=== PATIENT | male | born 1975 | race Caucasian/White ===

== ENCOUNTER 2016-07-01 14:17 | Emergency (ER) | payer MEDICARE ==
[~2016-07-01] VITALS: Ht 170.2 cm; Wt 102.1 kg
[~2016-07-01 14:17] MED LIST: ACHYD1T PO; ALPR1T PO; BUPR1FIL3 SL; CANA100T PO; CYCL10TA9 PO; DESV100T PO; DILT240C87 PO; GMFB600T PO; HYDR-3714 PO; INSU100I23 SQ; INSU100V16 SQ; INSU100V6 SQ; KETO10TA77 PO; LOVAZA PO; OMEP-10 PO; ONDA2VIA IV; ORPH100T PO; PRD20T PO; RSP1T PO; SIMV40TA4 PO; SULF1TAB35 PO; TOPI100T PO; TRAM-21 PO; VITAMIN D; VLS80C PO; ZOLP10TA PO; ZOLP12.5 PO; ZPR20C PO; ZPR40C PO
--- NOTE | 2016-07-01 15:51 | Diagnostic Imaging Report ---
INDICATION: Pain x 1 week, increasing in severity last night. TECHNIQUE: Three views of the right shoulder. CORRELATION STUDY: None. FINDINGS: There is a comminuted fracture involving the humeral head, most pronounced at the level of the greater tuberosity. Slight depression about the main fracture fragment. The remainder of the shoulder also demonstrates what appears to be some irregularity about the bony glenoid, suspect for additional fracture. Acromioclavicular joint is maintained. Visualized portions of the right upper lung field is unremarkable. IMPRESSION: 1. Comminuted slightly depressed right humeral head fracture at the level of the greater tuberosity. 2. Also suspect for fracture involving the inferior bony glenoid. Dictated by: Dictated on workstation # [id number]
--- NOTE | 2016-07-01 16:35 | ED Upper Extremity ---
General Chief Complaint: Upper Extremity Stated Complaint: R ARM/SHOULDER PAIN Nursing Triage Note: PT C/O R SHOULDER PAIN RADIATING TO HIS WRIST. HE DENIES ANY INJURY. Nursing Sepsis Screen: No Definite Risk Source: patient Exam Limitations: no limitations History of Present Illness Time seen by provider: 16:00 Initial Comments The patient is a 41-year-old white male who presents with right shoulder pain. He states that this has been present for about one week. There is been no history of injury or unusual lifting. He reports that the pain has gotten worse. 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 Onset: last week Pain/Injury Location: right shoulder Method of Injury: unknown Allergies and Home Medications Allergies Coded Allergies: levofloxacin (Verified Adverse Reaction, Unknown, STOMACH CAMPS, 06/08/15) Home Medications Alprazolam 1 Mg Tablet, 1 TAB PO TID, #90 (Reported) Buprenorphine HCl/Naloxone HCl 1 Each Film, 1 EACH SL EVERY OTHER DAY, (Reported ) Canagliflozin 100 Mg Tablet, 100 MG PO DAILY, (Reported) Desvenlafaxine Succinate 100 Mg Tab.sr.24h, 100 MG PO DAILY, (Reported) Diltiazem Hcl 240 Mg Capsule.sa, 1 EACH PO HS, (Reported) Gemfibrozil 600 Mg Tab, 600 MG PO BID, (Reported) Insulin Aspart 100 Unit/1 Ml Susp, 20 UNIT SQ AC, (Reported) Insulin Glargine,Hum.rec.anlog 100 Unit/1 Ml Vial, 50 UNIT SQ DAILY, (Reported) Ketorolac Tromethamine 10 Mg Tablet, 10 MG PO Q6H, #20 Prescribed by: LEYDA DAMON on 04/09/142036 Omeprazole 20 Mg Capsule.dr, 20 MG PO BID, (Reported) Sulfamethoxazole/Trimethoprim 1 Each Tablet, 1 EACH PO BID, #20 Prescribed by: LEYDA DAMON on 06/08/152145 Valsartan 80 Mg Tablet, 2 EACH PO DAILY, (Reported) Ziprasidone 40 Mg Cap, 40 MG PO DAILY, (Reported) Zolpidem Tartrate 12.5 Mg Tab, 12.5 MG PO HS, (Reported) [Lovaza] , 1 GM PO BID, (Reported) Constitutional: see HPI EENTM: no symptoms reported Respiratory: no symptoms reported Cardiovascular: no symptoms reported Gastrointestinal: no symptoms reported Genitourinary: no symptoms reported Musculoskeletal: no symptoms reported Skin: no symptoms reported Psychiatric/Neurological: No Symptoms Reported Past Valgjbp-Rqaghr-Rfixzo Hx Patient Social History Alcohol Use: Denies Use Recreational Drug Use: No (CLEAN 2 YEARS) Smoking Status: Current Everyday Smoker Type Used: Cigarettes 2nd Hand Smoke Exposure: No Recent Foreign Travel: No Contact w/Someone Who Travel: No Recent Infectious Disease Expo: No Recent Hopitalizations: No Immunizations Up To Date Tetanus Booster (TDap): Unknown PED Vaccines UTD: No Date of Influenza Vaccine: Feb 11, 2015 Seasonal Allergies Seasonal Allergies: No Surgeries HX Surgeries: No Respiratory Hx Respiratory Disorders: No Cardiovascular Hx Cardiac Disorders: Yes Cardiac Disorders: High Cholesterol, Hypertension Neurological Hx Neurological Disorders: Yes ("CYST" ON LOWER BACK/"SPINE" ) Reproductive System Hx Reproductive Disorders: No Genitourinary Hx Genitourinary Disorders: No Gastrointestinal Hx Gastrointestinal Disorders: Yes (FATTY LIVER) Gastrointestinal Disorders: Gastroesophageal Reflux, Liver Disease/Jaundice, Pancreatitis Musculoskeletal Hx Musculoskeletal Disorders: Yes (CHRONIC BACK PAIN WITH "CYST" ON LOWER BACK/ "SPINE" ) Musculoskeletal Disorders: Chronic Back Pain Endocrine Hx Endocrine Disorders: Yes (DOES NOT ROUTINELY CHECK BLOOD SUGAR) Endocrine Disorders: Diabetes, Insulin dep HEENT HX ENT Disorders: Yes (POOR DENTITION) Loss of Vision: Denies Hearing Impairment: Denies Cancer Hx Cancer: No Psychosocial Hx Psychiatric Problems: Yes Behavioral Health Disorders: Sleep Difficulties, Anxiety, Depression Integumentary HX Skin/Integumentary Disorder: No Blood Transfusions Hx Blood Disorders: No Family Medical History Family Medial History: Cancer 03 MOTHER Congestive heart failure 03 FATHER Family history: Hypertension 03 FATHER Physical Exam Vital Signs Vital Sign - Last 12Hours 07/01/16 14:40 Temp 97.4 Pulse 102 Resp 20 B/P (MAP) 165/85 Pulse Ox 97 O2 Delivery Room Air Capillary Refill : Less Than 3 Seconds General Appearance: mild distress, moderate distress HEENT: normal ENT inspection Neck: full range of motion Cardiovascular: normal peripheral pulses, regular rate, rhythm, no edema, no gallop, no JVD, no murmur Respiratory: chest non-tender, lungs clear, normal breath sounds, no respiratory distress, no accessory muscle use Comments There is no evidence of swelling and bruising or step-off at the right shoulder. He is clearly uncomfortable with minor passive motion of the shoulder and is unable to extend or abduct actively Progress/Results/Core Measures Results/Orders My Orders Orders - BETTIE GAMBINO MD Shoulder, Right, 3 Views (07/01/16 14:57) Vital Signs/I&O Vital Sign - Last 12Hours 07/01/16 14:40 Temp 97.4 Pulse 102 Resp 20 B/P (MAP) 165/85 Pulse Ox 97 O2 Delivery Room Air Blood Pressure Mean: 111 Departure Communication Progress Notes Plain films of the shoulder show a comminuted fracture on the lateral aspect of the humeral head. These are not particularly distracted Impression Impression: Primary Impression: comminuted fracture right humeral head Disposition: HOME, SELF-CARE Condition: Stable/Unchanged Departure-Patient Inst. Decision time for Depature: 16:35 Referrals: LEYDA ZAMORA MD (PCP/Family) Primary Care Physician Patient Instructions: How to Use a Shoulder Sling Add. Discharge Instructions: All discharge instructions reviewed with patient and/or family. Voiced understanding. Use sling as placed. Use ice pack to the shoulder intermittently. You may use ibuprofen or naproxen for pain. Call [employer] [facility] in the morning and see digital an appointment for follow-up in about 1 week. That number is [phone] BETTIE GAMBINO MD July 01, 2016 16:35
[2016-07-01 16:56] VITALS: BP 165/85
== END 2016-07-01 16:57 | disposition home or self-care (01) ==
LOC: EDUNIT# 14:17 → ER 14:19
DX: S42.351A Displaced comminuted fracture of shaft of humerus, right arm, initial encounter for closed fracture (principal); E11.9 Type 2 diabetes mellitus without complications; I10 Essential (primary) hypertension; Z79.4 Long term (current) use of insulin; Z79.899 Other long term (current) drug therapy; X58.XXXA Exposure to other specified factors, initial encounter; Y99.8 Other external cause status
CPT/HCPCS: 73030; 99283

== ENCOUNTER 2016-07-16 04:53 | Observation (INO) | payer MEDICARE ==
[~2016-07-16] VITALS: Ht 170.2 cm; Wt 94.8 kg
[~2016-07-16 04:53] MED LIST changes: +ONDANSETRON 4 MG/2 ML (SDV) Z0FRAN ONE
[2016-07-16] MEDS ORDERED: LACTATED RINGERS 1,000 ML IV ONE (05:00)
[2016-07-16] MEDS ORDERED: HYOSCYAMINE 0.125 MG (LEVSIN) TAB PO ONE (05:00)
[2016-07-16 05:10] LABS: BASOPHILS % (AUTO) 0 % (0-10); EOSINOPHILS % (AUTO) 1 % (0-10); LYMPHOCYTES # (AUTO) 1.5 X 10^3 (1.0-4.0); LYMPHOCYTES % (AUTO) 19 % (12-44); MEAN CORPUSCULAR HEMOGLOBIN 30 PG (25-34); MEAN CORPUSCULAR HGB CONC 34 G/DL (32-36); MEAN CORPUSCULAR VOLUME 88 FL (80-99); MEAN PLATELET VOLUME 10.3 FL (7.4-10.4); MONOCYTES # (AUTO) 0.3 X 10^3 (0.0-1.0); MONOCYTES % (AUTO) 3 % (0-12); NEUTROPHILS % (AUTO) 77 % (42-75); PLATELET COUNT 202 10^3/uL (130-400); RED BLOOD COUNT 5.34 10^6/uL (4.35-5.85); WHITE BLOOD COUNT 7.8 10^3/uL (4.3-11.0)
[2016-07-16] MEDS ORDERED: ONDANSETRON 4 MG/2 ML (SDV) Z0FRAN IVP ONE ×2 (05:15→07:30)
[2016-07-16 05:22] LABS: ALANINE AMINOTRANSFERASE 31 U/L (0-55); ALBUMIN 4.7 G/DL (3.2-4.5); ANION GAP 14 MMOL/L (5-14); ASPARTATE AMINO TRANSFERASE 18 U/L (5-34); BILIRUBIN,TOTAL 0.4 MG/DL (0.1-1.0); BLOOD UREA NITROGEN 14 MG/DL (7-18); BUN/CREATININE RATIO 16; CALCIUM 9.8 MG/DL (8.5-10.1); CARBON DIOXIDE 24 MMOL/L (21-32); CHLORIDE 104 MMOL/L (98-107); CREATININE SERUM 0.86 MG/DL (0.60-1.30); GFR ESTIMATED > 60; GLUCOSE 153 MG/DL (70-105); MAGNESIUM 2.5 MG/DL (1.8-2.4); POTASSIUM 3.6 MMOL/L (3.6-5.0); SODIUM 142 MMOL/L (135-145); TOTAL PROTEIN 8.2 G/DL (6.4-8.2)
[2016-07-16] MEDS ORDERED: PROMETHAZINE INJ 25 MG/ML (PHENERGAN) AMP ONE (05:30)
[2016-07-16] MEDS ORDERED: PROMETHAZINE INJ 25 MG/ML (PHENERGAN) AMP IVP ONE (05:45)
--- NOTE | 2016-07-16 05:47 | ED GI ---
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 PT REPORTS HE HAS NOT FELT WELL ALL DAY. Sepsis Screen: No Definite Risk Source of Information: Patient Exam Limitations: No Limitations (DAVIDE ALANIS MD) History of Present Illness Time Seen By Provider: 04:57 Initial Comments This 41-year-old gentleman presents to the emergency room with complaints of nausea throughout the day yesterday that transitioned into vomiting and diarrhea today. He arrives via EMS because he had no way to get to the hospital. He denies fever. He has some mild generalized abdominal discomfort rated as 5/10. (DAVIDE ALANIS MD) Allergies and Home Medications Allergies Coded Allergies: levofloxacin (Verified Adverse Reaction, Unknown, STOMACH CAMPS, 06/08/15) Home Medications Alprazolam 1 Mg Tablet, 1 MG PO BID, (Reported) Buprenorphine HCl/Naloxone HCl 1 Each Film, 1 FILM SL EVERY OTHER DAY, (Reported ) Buspirone HCl 15 Mg Tablet, 15 MG PO QID PRN for ANXIETY, (Reported) Canagliflozin 100 Mg Tablet, 100 MG PO DAILY, (Reported) LAST FILLED 06/04/16 #30 Cyproheptadine HCl 4 Mg Tablet, 4 MG PO HS, (Reported) Desvenlafaxine Succinate 100 Mg Tab.er.24h, 100 MG PO DAILY, (Reported) Diltiazem HCl 240 Mg Cap.er.24h, 240 MG PO HS, (Reported) Gabapentin 300 Mg Capsule, 300 MG PO TID, (Reported) Gemfibrozil 600 Mg Tablet, 600 MG PO BID, (Reported) Insulin Aspart 300 Units/3 Ml Solution, 24 UNITS SQ AC, (Reported) Insulin Glargine,Hum.rec.anlog 100 Unit/1 Ml Insuln.pen, 45 UNITS SQ DAILY, ( Reported) [place]-3 Acid Ethyl Esters 1 Gm Capsule, 1 GM PO BID, (Reported) Omeprazole 20 Mg Capsule.dr, 40 MG PO BID, (Reported) TAKES 2 (20 MG) CAPSULES Ondansetron 8 Mg Tab.rapdis, 8 MG PO EVERY 4 HOURS PRN for NAUSEA/VOMITING, #20 Prescribed by: BETTIE GAMBINO on 07/17/16 1219 Quetiapine Fumarate 300 Mg Tablet, 300 MG PO HS, (Reported) TAKES IN ADDITION TO QUETIPINE 200 MG Quetiapine Fumarate 200 Mg Tablet, 200 MG PO HS, (Reported) TAKES IN ADDITION TO QUETIAPINE 300 MG Valsartan 160 Mg Tablet, 160 MG PO BID, (Reported) LAST FILLED 06/08/16 #60 Zolpidem Tartrate 12.5 Mg Tab.mphase, 12.5 MG PO HS, (Reported) Review of Systems Constitutional: no symptoms reported EENTM: No Symptoms Reported Respiratory: No Symptoms Reported Cardiovascular: No Symptoms Reported Gastrointestinal: See HPI Genitourinary: No Symptoms Reported Musculoskeletal: no symptoms reported Skin: no symptoms reported Psychiatric/Neurological: No Symptoms Reported Endocrine: No Symptoms Reported (DAVIDE ALANIS MD) Past Fsxpehc-Sddvbz-Pzespp Hx Patient Social History Alcohol Use: Denies Use Recreational Drug Use: No Smoking Status: Current Everyday Smoker Type Used: Cigarettes 2nd Hand Smoke Exposure: No Recent Foreign Travel: No Contact w/Someone Who Travel: No Recent Infectious Disease Expo: No Recent Hopitalizations: No (DAVIDE ALANIS MD) Immunizations Up To Date Tetanus Booster (TDap): Unknown PED Vaccines UTD: No Date of Influenza Vaccine: Feb 11, 2015 (DAVIDE ALANIS MD) Seasonal Allergies Seasonal Allergies: No (DAVIDE ALANIS MD) Surgeries HX Surgeries: No (DAVIDE ALANIS MD) Respiratory Hx Respiratory Disorders: No (DAVIDE ALANIS MD) Cardiovascular Hx Cardiac Disorders: Yes Cardiac Disorders: High Cholesterol, Hypertension (DAVIDE ALANIS MD) Neurological Hx Neurological Disorders: Yes ("CYST" ON LOWER BACK/"SPINE" ) (DAVIDE ALANIS MD) Reproductive System Hx Reproductive Disorders: No (DAVIDE ALANIS MD) Genitourinary Hx Genitourinary Disorders: No (DAVIDE ALANIS MD) Gastrointestinal Hx Gastrointestinal Disorders: Yes (FATTY LIVER) Gastrointestinal Disorders: Gastroesophageal Reflux, Liver Disease/Jaundice, Pancreatitis (DAVIDE ALANIS MD) Musculoskeletal Hx Musculoskeletal Disorders: Yes (CHRONIC BACK PAIN WITH "CYST" ON LOWER BACK/ "SPINE" ) Musculoskeletal Disorders: Chronic Back Pain (DAVIDE ALANIS MD) Endocrine Hx Endocrine Disorders: Yes (DOES NOT ROUTINELY CHECK BLOOD SUGAR) Endocrine Disorders: Diabetes, Insulin dep (DAVIDE ALANIS MD) HEENT HX ENT Disorders: Yes (POOR DENTITION) Loss of Vision: Denies Hearing Impairment: Denies (DAVIDE ALANIS MD) Cancer Hx Cancer: No (DAVIDE ALANIS MD) Psychosocial Hx Psychiatric Problems: Yes Behavioral Health Disorders: Sleep Difficulties, Anxiety, Depression (DAVIDE ALANIS MD) Integumentary HX Skin/Integumentary Disorder: No (DAVIDE ALANIS MD) Blood Transfusions Hx Blood Disorders: No (DAVIDE ALANIS MD) Family Medical History Family Medial History: Cancer 03 MOTHER Congestive heart failure 03 FATHER Family history: Hypertension 03 FATHER (DAVIDE ALANIS MD) Family Medial History: Cancer 03 MOTHER Congestive heart failure 03 FATHER Family history: Hypertension 03 FATHER (BETTIE GAMBINO MD) Physical Exam Vital Signs VS - Last 72 Hours, by Label 07/16/16 04:53 Temp 99.0 Pulse 94 Resp 18 B/P (MAP) 163/99 Pulse Ox 95 O2 Delivery Room Air Capillary Refill : Less Than 3 Seconds General Appearance: WD/WN, mild distress HEENT: PERRL/EOMI, normal ENT inspection, pharynx normal Neck: normal inspection Respiratory: lungs clear, normal breath sounds, no respiratory distress, no accessory muscle use Cardiovascular: regular rate, rhythm, no edema, no murmur Gastrointestinal: normal bowel sounds, soft, tenderness (minimal generalized discomfort with palpation) Extremities: normal inspection, no pedal edema 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, no motor/sensory deficits, alert, normal mood/affect, oriented x 3 Skin: normal color, warm/dry (DAVIDE ALANIS MD) Vital Signs VS - Last 72 Hours, by Label 07/16/16 04:53 Temp 99.0 Pulse 94 Resp 18 B/P (MAP) 163/99 Pulse Ox 95 O2 Delivery Room Air (BETTIE GAMBINO MD) Progress/Results/Core Measures Results/Orders Lab Results Laboratory Tests Test 07/16/16 04:53 Range/Units White Blood Count 7.8 4.3-11.0 10^3/uL Red Blood Count 5.34 4.35-5.85 10^6/uL Hemoglobin 15.8 13.3-17.7 G/DL Hematocrit 47 40-54 % Mean Corpuscular Volume 88 80-99 FL Mean Corpuscular Hemoglobin 30 25-34 PG Mean Corpuscular Hemoglobin Concent 34 32-36 G/DL Red Cell Distribution Width 14.0 10.0-14.5 % Platelet Count 202 130-400 10^3/uL Mean Platelet Volume 10.3 7.4-10.4 FL Neutrophils (%) (Auto) 77 H 42-75 % Lymphocytes (%) (Auto) 19 12-44 % Monocytes (%) (Auto) 3 0-12 % Eosinophils (%) (Auto) 1 0-10 % Basophils (%) (Auto) 0 0-10 % Neutrophils # (Auto) 6.0 1.8-7.8 X 10^3 Lymphocytes # (Auto) 1.5 1.0-4.0 X 10^3 Monocytes # (Auto) 0.3 0.0-1.0 X 10^3 Eosinophils # (Auto) 0.0 0.0-0.3 10^3/uL Basophils # (Auto) 0.0 0.0-0.1 10^3/uL Sodium Level 142 135-145 MMOL/L Potassium Level 3.6 3.6-5.0 MMOL/L Chloride Level 104 98-107 MMOL/L Carbon Dioxide Level 24 21-32 MMOL/L Anion Gap 14 5-14 MMOL/L Blood Urea Nitrogen 14 7-18 MG/DL Creatinine 0.86 0.60-1.30 MG/DL Estimat Glomerular Filtration Rate > 60 BUN/Creatinine Ratio 16 Glucose Level 153 H 70-105 MG/DL Calcium Level 9.8 8.5-10.1 MG/DL Magnesium Level 2.5 H 1.8-2.4 MG/DL Total Bilirubin 0.4 0.1-1.0 MG/DL Aspartate Amino Transf (AST/SGOT) 18 5-34 U/L Alanine Aminotransferase (ALT/SGPT) 31 0-55 U/L Alkaline Phosphatase 166 H 40-136 U/L Total Protein 8.2 6.4-8.2 G/DL Albumin 4.7 H 3.2-4.5 G/DL My Orders Orders - BRUEGGEMANN,DAVIDE T MD Cbc With Automated Diff (07/16/16 05:00) Comprehensive Metabolic Panel (07/16/16 05:00) Magnesium (07/16/16 05:00) Ua Culture If Indicated (07/16/16 05:00) Saline Lock/Iv-Start (07/16/16 05:00) Lactated Ringers (Lr 1000 Ml Iv Solution (07/16/16 05:00) Hyoscyamine Sl Tablet (Levsin Sl Tablet) (07/16/16 05:00) Ondansetron Injection (Zofran Injectio (07/16/16 05:15) Promethazine Injection (Phenergan Injec (07/16/16 05:45) Promethazine Injection (Phenergan Injec (07/16/16 05:30) Lipase (07/16/16 05:53) Famotidine Injection (Pepcid Injection) (07/16/16 06:00) Scopolamine Patch (Transderm-Scop Patch) (07/16/16 06:00) Medications Given in ED Current Medications Medications Dose Ordered Sig/Attila Route Start Time Stop Time Status Last Admin Dose Admin Famotidine 20 mg ONCE ONCE IVP 07/16/16 06:00 07/16/16 06:01 DC 07/16/16 06:00 20 MG Hyoscyamine Sulfate 0.25 mg ONCE ONCE PO 07/16/16 05:00 07/16/16 05:03 DC 07/16/16 05:12 0.25 MG Lactated Ringer's 1,000 ml @ 0 mls/hr Q0M ONCE IV 07/16/16 05:00 07/16/16 05:03 DC 07/16/16 05:12 1,000 MLS/HR Ondansetron HCl 8 mg ONCE ONCE IVP 07/16/16 05:15 07/16/16 05:16 DC 07/16/16 04:56 8 MG Promethazine HCl 25 mg ONCE ONCE IVP 07/16/16 05:45 07/16/16 05:46 DC 07/16/16 05:35 25 MG Scopolamine 1.5 mg ONCE ONCE TD 07/16/16 06:00 07/16/16 06:01 DC 07/16/16 06:00 1.5 MG Vital Signs/I&O Vital Sign - Last 12Hours 07/16/16 04:53 Temp 99.0 Pulse 94 Resp 18 B/P (MAP) 163/99 Pulse Ox 95 O2 Delivery Room Air Blood Pressure Mean: 120 (DAVIDE ALANIS MD) Lab Results Laboratory Tests Test 07/16/16 04:53 07/16/16 06:30 Range/Units White Blood Count 7.8 4.3-11.0 10^3/uL Red Blood Count 5.34 4.35-5.85 10^6/uL Hemoglobin 15.8 13.3-17.7 G/DL Hematocrit 47 40-54 % Mean Corpuscular Volume 88 80-99 FL Mean Corpuscular Hemoglobin 30 25-34 PG Mean Corpuscular Hemoglobin Concent 34 32-36 G/DL Red Cell Distribution Width 14.0 10.0-14.5 % Platelet Count 202 130-400 10^3/uL Mean Platelet Volume 10.3 7.4-10.4 FL Neutrophils (%) (Auto) 77 H 42-75 % Lymphocytes (%) (Auto) 19 12-44 % Monocytes (%) (Auto) 3 0-12 % Eosinophils (%) (Auto) 1 0-10 % Basophils (%) (Auto) 0 0-10 % Neutrophils # (Auto) 6.0 1.8-7.8 X 10^3 Lymphocytes # (Auto) 1.5 1.0-4.0 X 10^3 Monocytes # (Auto) 0.3 0.0-1.0 X 10^3 Eosinophils # (Auto) 0.0 0.0-0.3 10^3/uL Basophils # (Auto) 0.0 0.0-0.1 10^3/uL Sodium Level 142 135-145 MMOL/L Potassium Level 3.6 3.6-5.0 MMOL/L Chloride Level 104 98-107 MMOL/L Carbon Dioxide Level 24 21-32 MMOL/L Anion Gap 14 5-14 MMOL/L Blood Urea Nitrogen 14 7-18 MG/DL Creatinine 0.86 0.60-1.30 MG/DL Estimat Glomerular Filtration Rate > 60 BUN/Creatinine Ratio 16 Glucose Level 153 H 70-105 MG/DL Calcium Level 9.8 8.5-10.1 MG/DL Magnesium Level 2.5 H 1.8-2.4 MG/DL Total Bilirubin 0.4 0.1-1.0 MG/DL Aspartate Amino Transf (AST/SGOT) 18 5-34 U/L Alanine Aminotransferase (ALT/SGPT) 31 0-55 U/L Alkaline Phosphatase 166 H 40-136 U/L Total Protein 8.2 6.4-8.2 G/DL Albumin 4.7 H 3.2-4.5 G/DL Lipase 27 8-78 U/L Urine Color YELLOW Urine Clarity CLEAR Urine pH 8 5-9 Urine Specific [place] 1.015 L 1.016-1.022 Urine Protein 2+ H NEGATIVE Urine Glucose (UA) 4+ H NEGATIVE Urine Ketones 1+ H NEGATIVE Urine Nitrite NEGATIVE NEGATIVE Urine Bilirubin NEGATIVE NEGATIVE Urine Urobilinogen NORMAL NORMAL MG/DL Urine Leukocyte Esterase NEGATIVE NEGATIVE Urine RBC (Auto) NEGATIVE NEGATIVE Urine RBC NONE /HPF Urine WBC 0-2 /HPF Urine Squamous Epithelial Cells 5-10 /HPF Urine Crystals NONE /LPF Urine Bacteria NEGATIVE /HPF Urine Casts NONE /LPF Urine Mucus NEGATIVE /LPF Urine Culture Indicated NO My Orders Orders - BETTIE GAMBINO MD Ondansetron Injection (Zofran Injectio (07/16/16 07:30) Lactated Ringers (Lr 1000 Ml Iv Solution (07/16/16 07:30) Abdomen/Kub [place] (07/16/16 08:34) Medications Given in ED Current Medications Medications Dose Ordered Sig/Attila Route Start Time Stop Time Status Last Admin Dose Admin Famotidine 20 mg ONCE ONCE IVP 07/16/16 06:00 07/16/16 06:01 DC 07/16/16 06:00 20 MG Hyoscyamine Sulfate 0.25 mg ONCE ONCE PO 07/16/16 05:00 07/16/16 05:03 DC 07/16/16 05:12 0.25 MG Lactated Ringer's 1,000 ml @ 0 mls/hr Q0M ONCE IV 07/16/16 05:00 07/16/16 05:03 DC 07/16/16 05:12 1,000 MLS/HR Ondansetron HCl 8 mg ONCE ONCE IVP 07/16/16 05:15 07/16/16 05:16 DC 07/16/16 04:56 8 MG Ondansetron HCl 8 mg ONCE ONCE IVP 07/16/16 07:30 07/16/16 07:31 DC 07/16/16 07:35 8 MG Promethazine HCl 25 mg ONCE ONCE IVP 07/16/16 05:45 07/16/16 05:46 DC 07/16/16 05:35 25 MG Scopolamine 1.5 mg ONCE ONCE TD 07/16/16 06:00 07/16/16 06:01 DC 07/16/16 06:00 1.5 MG Vital Signs/I&O Vital Sign - Last 12Hours 07/16/16 04:53 Temp 99.0 Pulse 94 Resp 18 B/P (MAP) 163/99 Pulse Ox 95 O2 Delivery Room Air (BETTIE GAMBINO MD) Progress Note : Time: 06:01 Progress Note Patient was given Zofran 8 mg and a liter of lactated Ringer's. He continued to have some nausea and was given Phenergan 25 mg IV. He began to vomit despite receiving Phenergan. A scopolamine patch and Pepcid was then ordered. We will monitor his response before determining disposition. Lipase was also added to his labs. Care was transferred to Dr. Gambino. (DAVIDE ALANIS MD) Departure Communication Progress Notes Lab work All was normal. The added lipase was also normal. The patient however continued to retch and vomit bilious materials despite 2 doses of Zofran and 1 of Phenergan. Given his diabetes history it was elected to admit him for observation and management of fluid and blood sugar. This was discussed with Dr. Milton of the hospitalist service (BETTIE GAMBINO MD) Impression Impression: Primary Impression: Nausea vomiting and diarrhea Disposition: ADMITTED INPATIENT Condition: Stable/Unchanged Departure-Patient Inst. Decision time for Depature: 05:49 (DAVIDE ALANIS MD) Referrals: LEYDA ZAMORA MD (PCP/Family) Primary Care Physician Patient Instructions: Nausea and Vomiting, Adult Add. Discharge Instructions: Drink plenty of clear liquids. Gradually advance your diet with small quantities of bland food as tolerated. Monitor your blood sugars closely while you're ill. Return to the ER if symptoms worsen. Follow up with your primary care provider as soon as possible. You may dissolve Zofran (ondansetron) under the tongue every 4 hours as needed for nausea and vomiting. Use Levsin dissolved under the tongue every 4 hours as needed for cramping and diarrhea. All discharge instructions reviewed with patient and/or family. Voiced understanding. Scripts Ondansetron (Zofran Odt) 8 Mg Tab.rapdis 8 MG PO EVERY 4 HOURS Y for NAUSEA/VOMITING, #20 TAB Prov: BETTIE GAMBINO MD 07/17/16 DAVIDE ALANIS MD Jul 16, 2016 05:47 BETTIE GAMBINO MD Jul 16, 2016 09:05
[2016-07-16] MEDS ORDERED: SCOPOLAMINE 1.5 MG (TRANSDERM-SCOP) PATCH TD ONE (06:00)
[2016-07-16] MEDS ORDERED: FAMOTIDINE 20MG/2ML IV (PEPCID) IVP ONE (06:00)
[2016-07-16] MEDS ORDERED: HYOS0.1283 SL (06:05)
[2016-07-16] MEDS ORDERED: ONDA4TAB8 PO (06:05)
[2016-07-16 06:40] LABS: BILIRUBIN,URINE NEGATIVE (NEGATIVE); KETONES,URINE 1+ (NEGATIVE); LEUKOCYTE ESTERASE ,URINE NEGATIVE (NEGATIVE); NITRITE,URINE NEGATIVE (NEGATIVE); PH,URINE 8 (5-9); PROTEIN,URINE 2+ (NEGATIVE); UROBILINOGEN,URINE NORMAL (NORMAL)
[2016-07-16 06:51] LABS: WBC,URINE 0-2 /HPF
[2016-07-16] MEDS ORDERED: LACTATED RINGERS 1,000 ML IV SCH (07:30)
--- NOTE | 2016-07-16 09:01 | Diagnostic Imaging Report ---
EXAMINATION: Supine views of the abdomen. INDICATION: Nausea and vomiting. FINDINGS: There is unremarkable bowel gas pattern with no significant dilatation seen. This supine study cannot evaluate for pneumoperitoneum or air-fluid levels. No suspicious calcifications. No significant amounts of fecal material demonstrated. IMPRESSION: Unremarkable exam. Dictated by: Dictated on workstation # [id number]
[2016-07-16] MEDS ORDERED: PROMETHAZINE INJ 25 MG/ML (PHENERGAN) AMP IV PRN (09:45)
[2016-07-16] MEDS ORDERED: CATHETER FLUSH 10 ML SYR IV PRN (09:45)
[2016-07-16] MEDS: NS IV 1000 ML 1,000 ML IV SCH ×3 (10:14→23:11)
--- NOTE | 2016-07-16 10:23 | History & Physical-Hospitalist ---
HPI History of Present Illness: HPI/Chief Complaint CC: Severe N/V/D HPI: This is a 41-year-old white male clinic patient Dr. Royal's that presented to the emergency room with complaints of nausea vomiting and diarrhea for the past 24 hours. He reports no fever but he does report abdominal cramping. I spoke with Dr. Royal regarding his past medical history and she stated he was to be seen at the clinic to obtain some pain medication for right shoulder fracture today but noted that he did not show up for his appointment. He is requesting in the interim patch which I ordered and I have placed him on fentanyl IV pain medication for comfort during his stay. He does have a history of pancreatitis due to severe hypertriglyceridemia but his amylase and lipase are normal and there was no indication for the need of the CT scan. He has long-standing depression and other mental illness that has disabled him for quite some time and overall having difficulty coping. Source: patient Date Seen 07/16/16 Attending Physician Ora Milton Lisa A MD Referring Physician Date of Admission Jul 16, 2016 at 08:40 Home Medications & Allergies Home Medications Reviewed patient Home Medication Reconciliation Form Allergies Allergies Coded Allergies levofloxacin (Verified Adverse Reaction, Unknown, STOMACH CAMPS, 06/08/15) Past Jgjtrmz-Mebxvq-Nowwty Hx Patient Social History Marrital Status: single Employed/Student: unemployed Alcohol Use: Denies Use Recreational Drug Use: No Smoking Status: Current Everyday Smoker Type Used: Cigarettes 2nd Hand Smoke Exposure: No Physical Abuse Screen: No Sexual Abuse: No Recent Foreign Travel: No Contact w/other who traveled: No Recent Hopitalizations: No Recent Infectious Disease Expo: No Immunizations Up To Date Tetanus Booster (TDap): Unknown Date of Influenza Vaccine: Feb 11, 2015 Seasonal Allergies Seasonal Allergies: No Surgeries HX Surgeries: No Respiratory Hx Respiratory Disorders: No Cardiovascular Hx Cardiovascular Disorders: Yes Cardiac Disorders: High Cholesterol, Hypertension Neurological Hx Neurological Disorders: Yes ("CYST" ON LOWER BACK/"SPINE" ) Reproductive System Hx Reproductive Disorders: No Genitourinary Hx Genitourinary Disorders: No Gastrointestinal Hx Gastrointestinal Disorders: Yes (FATTY LIVER) Gastrointestinal Disorders: Gastroesophageal Reflux, Liver Disease/Jaundice, Pancreatitis Musculoskeletal Hx Musculoskeletal Disorders: Yes (CHRONIC BACK PAIN WITH "CYST" ON LOWER BACK/ "SPINE" ) Musculoskeletal Disorders: Chronic Back Pain Endocrine Hx Endocrine Disorders: Yes (DOES NOT ROUTINELY CHECK BLOOD SUGAR) Endocrine Disorders: Diabetes, Insulin dep HEENT HX ENT Disorders: Yes (POOR DENTITION) Loss of Vision: Denies Hearing Impairment: Denies Cancer Hx Cancer: No Psychosocial Hx Psychiatric Problems: Yes Behavioral Health Disorders: Sleep Difficulties, Anxiety, Depression Integumentary HX Skin/Integumentary Disorder: No Blood Transfusions Hx Blood Disorders: No Family Medical History Family Hx: Cancer 03 MOTHER Congestive heart failure 03 FATHER Family history: Hypertension 03 FATHER Review of Systems Constitutional: see HPI EENTM: no symptoms reported Respiratory: no symptoms reported Cardiovascular: no symptoms reported Gastrointestinal: abdominal pain (LLQ), diarrhea, loss of appetite, nausea, vomiting Genitourinary: no symptoms reported Musculoskeletal: joint pain (right shoulder) Skin: no symptoms reported Psychiatric/Neurological: Depressed All Other Systems Reviewed Negative Unless Noted: Yes Physical Exam Physical Exam Vital Signs Vital Sign - Last 12Hours 07/16/16 04:53 Temp 99.0 Pulse 94 Resp 18 B/P (MAP) 163/99 Pulse Ox 95 O2 Delivery Room Air Capillary Refill : Less Than 3 Seconds General Appearance: No Apparent Distress, WD/WN, Chronically ill, Obese Eyes: Bilateral Eye Normal Inspection, Bilateral Eye PERRL HEENT: PERRL/EOMI, Normal ENT Inspection, Pharynx Normal Neck: Full Range of Motion, Normal Inspection, Non Tender, Supple, Carotid Bruit Respiratory: Chest Non Tender, Lungs Clear, Normal Breath Sounds, No Accessory Muscle Use, No Respiratory Distress Cardiovascular: Regular Rate, Rhythm, No Edema, No Gallop, No JVD, No Murmur, Normal Peripheral Pulses Gastrointestinal: No Organomegaly, No Pulsatile Mass, Non Tender, Soft, Abnormal Bowel Sounds (increased BS noted) Back: Normal Inspection, No CVA Tenderness, No Vertebral Tenderness Extremity: Normal Capillary Refill, Normal Inspection, Normal Range of Motion, Non Tender, No Calf Tenderness, No Pedal Edema Neurologic/Psychiatric: Alert, Oriented x3, No Motor/Sensory Deficits, Normal Mood/Affect Skin: Normal Color, Warm/Dry Lymphatic: No Adenopathy Results Results/Procedures Lab Laboratory Tests 07/16/16 04:53 Assessment/Plan Admission Diagnosis Assessment: Severe gastroenteritis with nausea vomiting and diarrhea Dehydration History of acute pancreatitis due to hypertriglyceridemia Subacute right shoulder fracture Severe depression with long-standing mental illness Current smoker placed Nicoderm patch at his request Anxiety Assessment and Plan Plan: IVF Anti-emetics Nicoderm patch Monitor labs Pain meds Clinical Quality Measures DVT/VTE Risk/Contraindication: Risk Factor Score Per Nursin RFS Level Per Nursing on Admit: 2=Moderate ORA MILTON DO Jul 16, 2016 10:23
[2016-07-16 10:30] VITALS: BP 171/98
[2016-07-16] MEDS ORDERED: inSUlin ASPART (NovoLOG) 1 UNIT/0.01 ML (CHARGE PER UNIT) SC SCH ×2 (11:00→18:00)
[2016-07-16] MEDS: NICOTINE 21 MG (NICODERM) PATCH TD SCH (11:47)
[2016-07-16 12:25] VITALS: BP 179/83
[2016-07-16] MEDS ORDERED: QUET200T57 PO (12:56)
[2016-07-16] MEDS ORDERED: DILT240C PO (12:56)
[2016-07-16] MEDS ORDERED: GEMF600T3 PO (12:56)
[2016-07-16] MEDS ORDERED: OMEP20CA12 PO (12:56)
[2016-07-16] MEDS ORDERED: VALS160T28 PO (12:56)
[2016-07-16] MEDS ORDERED: BUSP15TA60 PO (12:56)
[2016-07-16] MEDS ORDERED: INSU100I14 SQ (12:56)
[2016-07-16] MEDS ORDERED: ALPR1TAB7 PO (12:56)
[2016-07-16] MEDS ORDERED: ZOLP12.546 PO (12:56)
[2016-07-16] MEDS ORDERED: QUET300T44 PO (12:56)
[2016-07-16] MEDS ORDERED: CYPR4TAB PO (12:56)
[2016-07-16] MEDS ORDERED: GABA-488 PO (12:56)
[2016-07-16] MEDS ORDERED: OMEG-105 PO (12:56)
[2016-07-16] MEDS ORDERED: DESV100T16 PO (12:56)
[2016-07-16] MEDS ORDERED: INSU100I10 SQ (12:56)
[2016-07-16] MEDS: ONDANSETRON 4 MG/2 ML (SDV) Z0FRAN IV PRN ×2 (13:22→20:21)
[2016-07-16] MEDS: fentaNYL INJECTION 100 MCG/2 ML AMP IVP PRN (13:36)
[2016-07-16 16:27] VITALS: BP 157/91
[2016-07-16] MEDS ORDERED: BUPRENORPHINE HCL SL SCH (17:15)
[2016-07-16] MEDS ORDERED: NALOXONE HCL SL SCH (17:15)
[2016-07-16] MEDS ORDERED: busPIRone 15 MG (BUSPAR) TABLET PO PRN (17:15)
[2016-07-16] MEDS ORDERED: [UNRECOGNIZED DRUG - OTHER] SL SCH (17:15)
[2016-07-16] MEDS ORDERED: ZOLPIDEM 5 MG (AMBIEN) TAB PO PRN (18:00)
[2016-07-16 20:51] VITALS: BP 178/85
[2016-07-16] MEDS ORDERED: OMEGA-3 ACID ETHYL ESTERS 1 GM (LOVAZA) NON-FORMULARY PO SCH (21:00)
[2016-07-16] MEDS ORDERED: NON-FORMULARY MEDICATION 1 EA EA (Valsartan 160 MG) PO SCH (21:00)
[2016-07-16] MEDS ORDERED: ZOLPIDEM 5 MG (AMBIEN) TAB PO SCH (21:00)
[2016-07-16] MEDS ORDERED: QUEtiapine 200 MG (SEROquel) TAB IMMEDIATE RELEASE PO SCH (21:00)
[2016-07-16] MEDS ORDERED: DILTIAZEM 240 MG (CARDIZEM CD) CAP PO SCH (21:00)
[2016-07-16] MEDS ORDERED: NON-FORMULARY MEDICATION 1 EA EA (Zolpidem Tartrate (Zolpidem Tartrate ER) 12.5 MG) PO SCH (21:00)
[2016-07-16] MEDS ORDERED: NON-FORMULARY MEDICATION 1 EA EA (Quetiapine Fumarate 300 MG) PO SCH (21:00)
[2016-07-16] MEDS ORDERED: OMEPRAZOLE 20 MG (PriLOSEC) CAP NON-FORMULARY PO SCH (21:00)
[2016-07-16] MEDS ORDERED: QUEtiapine 100 MG (SEROquel) TAB IMMEDIATE RELEASE PO SCH (21:00)
[2016-07-16] MEDS ORDERED: CYPROHEPTADINE (PERIACTIN) 4 MG TAB PO SCH (21:00)
[2016-07-16] MEDS: GABAPENTIN 300 MG (NEURONTIN) CAP PO SCH (21:16)
[2016-07-16] MEDS: inSUlin ASPART (NovoLOG) 1 UNIT/0.01 ML (CHARGE PER UNIT) SC SCH (21:47)
[2016-07-16] MEDS: PANTOPRAZOLE 40 MG (PROTONIX) TAB PO SCH (21:49)
[2016-07-16] MEDS: VALSARTAN 80 MG (DIOVAN) TAB PO SCH (21:49)
[2016-07-16] MEDS: GEMFIBROZIL 600 MG (LOPID) TAB PO SCH (21:50)
[2016-07-16] MEDS: ALPRAZolam 1 MG (XANAX) TAB PO SCH (21:51)
[2016-07-17] VITALS: BP 160/80
[2016-07-17] MEDS: ONDANSETRON 4 MG/2 ML (SDV) Z0FRAN IV PRN ×2 (00:44→06:29)
[2016-07-17 04:00] VITALS: BP 165/85
[2016-07-17] MEDS: NS IV 1000 ML 1,000 ML IV SCH ×2 (05:10→12:36)
[2016-07-17] MEDS ORDERED: INSULIN ASPART 24 UNIT SQ SCH (06:00)
[2016-07-17 06:07] LABS: BASOPHILS % (AUTO) 0 % (0-10); EOSINOPHILS % (AUTO) 0 % (0-10); LYMPHOCYTES # (AUTO) 2.6 X 10^3 (1.0-4.0); LYMPHOCYTES % (AUTO) 22 % (12-44); MEAN CORPUSCULAR HEMOGLOBIN 30 PG (25-34); MEAN CORPUSCULAR HGB CONC 34 G/DL (32-36); MEAN CORPUSCULAR VOLUME 88 FL (80-99); MEAN PLATELET VOLUME 10.5 FL (7.4-10.4); MONOCYTES % (AUTO) 8 % (0-12); NEUTROPHILS % (AUTO) 69 % (42-75); PLATELET COUNT 206 10^3/uL (130-400); RED BLOOD COUNT 5.31 10^6/uL (4.35-5.85); RED CELL DISTRIBUTION WIDTH 13.6 % (10.0-14.5); WHITE BLOOD COUNT 11.6 10^3/uL (4.3-11.0)
[2016-07-17] MEDS: inSUlin ASPART (NovoLOG) 1 UNIT/0.01 ML (CHARGE PER UNIT) SC SCH ×4 (06:11→11:46)
[2016-07-17] MEDS: PANTOPRAZOLE 40 MG (PROTONIX) TAB PO SCH (06:28)
[2016-07-17] MEDS: fentaNYL INJECTION 100 MCG/2 ML AMP IVP PRN (06:29)
[2016-07-17 06:34] LABS: ALANINE AMINOTRANSFERASE 27 U/L (0-55); ALBUMIN 4.4 G/DL (3.2-4.5); ANION GAP 12 MMOL/L (5-14); ASPARTATE AMINO TRANSFERASE 22 U/L (5-34); BILIRUBIN,TOTAL 0.7 MG/DL (0.1-1.0); BLOOD UREA NITROGEN 11 MG/DL (7-18); BUN/CREATININE RATIO 12; CALCIUM 9.4 MG/DL (8.5-10.1); CARBON DIOXIDE 23 MMOL/L (21-32); CHLORIDE 105 MMOL/L (98-107); CREATININE SERUM 0.94 MG/DL (0.60-1.30); GFR ESTIMATED > 60; GLUCOSE 116 MG/DL (70-105); POTASSIUM 3.6 MMOL/L (3.6-5.0); SODIUM 140 MMOL/L (135-145)
[2016-07-17] MEDS ORDERED: VENlafaxine XR 75 MG (EFFEXOR XR) CAP PO SCH (07:00)
[2016-07-17] MEDS ORDERED: OMEGA 3 (FISH OIL) 1000 MG CAP PO SCH (07:00)
[2016-07-17 07:50] VITALS: BP 170/95
[2016-07-17] MEDS: ALPRAZolam 1 MG (XANAX) TAB PO SCH (08:00)
[2016-07-17] MEDS: NICOTINE 21 MG (NICODERM) PATCH TD SCH (08:00)
[2016-07-17] MEDS: VALSARTAN 80 MG (DIOVAN) TAB PO SCH (08:00)
[2016-07-17] MEDS: GEMFIBROZIL 600 MG (LOPID) TAB PO SCH (08:00)
[2016-07-17] MEDS: GABAPENTIN 300 MG (NEURONTIN) CAP PO SCH (08:00)
[2016-07-17] MEDS ORDERED: PATCH REMOVAL TP SCH (08:59)
[2016-07-17] MEDS ORDERED: NON-FORMULARY MEDICATION 1 EA EA (Canagliflozin (Invokana) 100 MG) PO SCH (09:00)
[2016-07-17] MEDS ORDERED: inSUlin DETERMIR 1 UNIT/0.01 ML (LEVEMIR) CHARGE PER UNIT SQ SCH (09:00)
[2016-07-17] MEDS ORDERED: NON-FORMULARY MEDICATION 1 EA EA (Desvenlafaxine Succinate (Desvenlafaxine Succinate ER) 1 PO SCH (09:00)
[2016-07-17] MEDS ORDERED: NON-FORMULARY MEDICATION 1 EA EA (Insulin Glargine,Hum.rec.anlog (Lantus Solostar) 45 UNIT SQ SCH (09:00)
--- NOTE | 2016-07-17 11:45 | Progress Note-Hospitalist ---
Standard Progress Note Progress Notes/Assess & Plan Date Seen 07/17/16 Time Seen by Provider: 04:57 Diagnosis Assessment: Severe gastroenteritis with nausea vomiting and diarrhea Dehydration History of acute pancreatitis due to hypertriglyceridemia Subacute right shoulder fracture Severe depression with long-standing mental illness Current smoker placed Nicoderm patch at his request Anxiety Assess & Plan/Chief Complaint The patient was admitted from the ER yesterday after he presented with intractable vomiting. An aggressive effort was made relative to IV fluids and antiemetics to no avail. He is an insulin-requiring diabetic. He has vomited only once since admission. The nurses report that he has gone through 5 or more IV since admission all of which have mysterious Come out. He complains of nausea this morning but has not vomited. He was able to keep 2 pieces of dry toast down. Physical exam: Lungs are clear to auscultation. CV is regular without murmur. Abdomen is soft and bowel sounds are active. Mucosal membranes are moist. Impression: Gastritis with intractable vomiting. 2 insulin-dependent diabetes. 3 past history of pancreatitis. Plan: Discharge with progressive diet as tolerated Labs Laboratory Tests 07/16/16 04:53 07/17/16 05:18 Final Diagnosis 1.gastritis with intractable vomiting. 2.insulin requiring diabetes. 3.history of pancreatitis Copy Copies To 1: LEYDA ZAMORA MD,BETTIE De Leon MD Jul 17, 2016 11:45
[2016-07-17] MEDS ORDERED: ONDA8TAB9 PO (12:19)
--- NOTE | 2016-07-17 12:23 | Discharge Instructions ---
Discharge Instructions Discharge Medications New, Converted or Re-Newed RX: Transmitted to Pharmacy Patient Instructions Goal/Follow Up Appt: Re-institute your Levemir. Take Gatorade/7-Up in 1-2 ounce doses frequently in order to maintain hydration. At this point you may take small numbers of saltine crackers or a slice of dry toast occasionally as tolerated. If after 24 hours this is tolerated you may resume a more normal diet. It is better to take small servings frequently than to attempt a large meal at this point Patient Instructions: Use Zofran ODT to control nausea as necessary Return to The Hospital For: Recurrence of symptoms Activity & Diet Discharge Diet: Other Diet Activity as Tolerated: Yes BETTIE GAMBINO MD Jul 17, 2016 12:23
[2016-07-17 12:27] VITALS: BP 171/97
[2016-07-17 12:39] VITALS: BP 171/97
== END 2016-07-17 12:20 | disposition home or self-care (01) ==
LOC: EDUNIT# 04:56 → ER 04:57 → UNDOADMOB 08:40 → 4TH 08:40 → UNDODISOB 07-17 12:40
PROVIDERS: ADMIT Internal Medicine; ATTEND Internal Medicine
DX: K52.9 Noninfective gastroenteritis and colitis, unspecified (principal); E86.0 Dehydration; S42.91XD Fracture of right shoulder girdle, part unspecified, subsequent encounter for fracture with routine healing; F32.9 Major depressive disorder, single episode, unspecified; F41.9 Anxiety disorder, unspecified; F17.210 Nicotine dependence, cigarettes, uncomplicated; E11.9 Type 2 diabetes mellitus without complications; Z79.4 Long term (current) use of insulin; I10 Essential (primary) hypertension; K21.9 Gastro-esophageal reflux disease without esophagitis; X58.XXXD Exposure to other specified factors, subsequent encounter
CPT/HCPCS: 36415; 74000; 80053; 81000; 82962; 83690; 83735; 85025; 99211; G0378

== ENCOUNTER 2016-08-20 17:47 | Observation (INO) | payer MEDICARE ==
[~2016-08-20] VITALS: Ht 170.2 cm; Wt 79.4 kg
[~2016-08-20 17:47] MED LIST changes: +ALPR1TAB7 PO; +BUSP15TA60 PO; +CYPR4TAB PO; +DESV100T16 PO; +DILT240C PO; +GABA-488 PO; +GEMF600T3 PO; +HYOS0.1283 SL; +INSU100I10 SQ; +INSU100I14 SQ; +OMEG-105 PO; +OMEP20CA12 PO; +ONDA4TAB8 PO; +ONDA8TAB9 PO; -ONDANSETRON 4 MG/2 ML (SDV) Z0FRAN ONE; +QUET200T57 PO; +QUET300T44 PO; +VALS160T28 PO; +ZOLP12.546 PO
[2016-08-20] MEDS ORDERED: NS IV 1000 ML 1,000 ML IV SCH (18:00)
[2016-08-20 18:03] LABS: BASOPHILS % (AUTO) 0 % (0-10); EOSINOPHILS % (AUTO) 0 % (0-10); LYMPHOCYTES # (AUTO) 2.4 X 10^3 (1.0-4.0); LYMPHOCYTES % (AUTO) 19 % (12-44); MEAN CORPUSCULAR HEMOGLOBIN 30 PG (25-34); MEAN CORPUSCULAR HGB CONC 34 G/DL (32-36); MEAN CORPUSCULAR VOLUME 90 FL (80-99); MONOCYTES # (AUTO) 1.3 X 10^3 (0.0-1.0); MONOCYTES % (AUTO) 10 % (0-12); NEUTROPHILS # (AUTO) 9.4 X 10^3 (1.8-7.8); NEUTROPHILS % (AUTO) 72 % (42-75); PLATELET COUNT 314 10^3/uL (130-400); RED CELL DISTRIBUTION WIDTH 14.4 % (10.0-14.5); WHITE BLOOD COUNT 13.1 10^3/uL (4.3-11.0)
--- NOTE | 2016-08-20 18:04 | ED General ---
General Stated Complaint: SEIZURE LIKE ACTIVITY Source of Information: Patient Exam Limitations: No Limitations History of Present Illness Time Seen by Provider: 18:01 Initial Comments To ER per EMS after he was found on his floor at home shaking. Family has been unable to contact him for the past 3 days so they sent police to do a welfare check. Police banged on the door and the patient never answered. As they were getting ready to kick the door and the patient opened the door. He is disoriented and does not know where he is out of.'s. Patient does reportedly have a history of depression. He was found on the floor surrounded by pills with an empty bottle of gabapentin. Additionally, he had 30 tablets of Xanax 1 mg filled on 08/02/16 and that bottle is empty. He had another bottle of Xanax filled on 08/01/16 by a different provider for Xanax 1 mg tablets which is also empty. He also has empty bottle of Lunesta 3 mg tablets quantity of 30 that was filled on 08/06/16 written by yet a third provider. Timing/Duration: Other Severity: Moderate Allergies and Home Medications Allergies Coded Allergies: levofloxacin (Verified Adverse Reaction, Unknown, STOMACH CAMPS, 06/08/15) Home Medications Alprazolam 1 Mg Tablet, 1 MG PO BID, (Reported) Buprenorphine HCl/Naloxone HCl 1 Each Film, 1 FILM SL EVERY OTHER DAY, (Reported ) Buspirone HCl 15 Mg Tablet, 15 MG PO QID PRN for ANXIETY, (Reported) Canagliflozin 100 Mg Tablet, 100 MG PO DAILY, (Reported) LAST FILLED 06/04/16 #30 Cyproheptadine HCl 4 Mg Tablet, 4 MG PO HS, (Reported) Desvenlafaxine Succinate 100 Mg Tab.er.24h, 100 MG PO DAILY, (Reported) Diltiazem HCl 240 Mg Cap.er.24h, 240 MG PO HS, (Reported) Gabapentin 300 Mg Capsule, 300 MG PO TID, (Reported) Gemfibrozil 600 Mg Tablet, 600 MG PO BID, (Reported) Insulin Aspart 300 Units/3 Ml Solution, 24 UNITS SQ AC, (Reported) Insulin Glargine,Hum.rec.anlog 100 Unit/1 Ml Insuln.pen, 45 UNITS SQ DAILY, ( Reported) [place]-3 Acid Ethyl Esters 1 Gm Capsule, 1 GM PO BID, (Reported) Omeprazole 20 Mg Capsule.dr, 40 MG PO BID, (Reported) TAKES 2 (20 MG) CAPSULES Ondansetron 8 Mg Tab.rapdis, 8 MG PO EVERY 4 HOURS PRN for NAUSEA/VOMITING, #20 Prescribed by: BETTIE GAMBINO on 07/17/16 1219 Quetiapine Fumarate 300 Mg Tablet, 300 MG PO HS, (Reported) TAKES IN ADDITION TO QUETIPINE 200 MG Quetiapine Fumarate 200 Mg Tablet, 200 MG PO HS, (Reported) TAKES IN ADDITION TO QUETIAPINE 300 MG Valsartan 160 Mg Tablet, 160 MG PO BID, (Reported) LAST FILLED 06/08/16 #60 Zolpidem Tartrate 12.5 Mg Tab.mphase, 12.5 MG PO HS, (Reported) Constitutional: see HPI EENTM: see HPI Respiratory: no symptoms reported Cardiovascular: no symptoms reported Genitourinary: no symptoms reported Musculoskeletal: see HPI Skin: no symptoms reported Psychiatric/Neurological: See HPI Other Unable to obtain due to altered mental status Past Cvsifhv-Vwazzg-Wucqjq Hx Patient Social History Type Used: Cigarettes 2nd Hand Smoke Exposure: No Recent Hopitalizations: No Immunizations Up To Date Tetanus Booster (TDap): Unknown PED Vaccines UTD: No Date of Influenza Vaccine: Feb 11, 2015 Seasonal Allergies Seasonal Allergies: No Surgeries HX Surgeries: No Respiratory Hx Respiratory Disorders: No Cardiovascular Hx Cardiac Disorders: Yes Cardiac Disorders: High Cholesterol, Hypertension Neurological Hx Neurological Disorders: Yes ("CYST" ON LOWER BACK/"SPINE" ) Reproductive System Hx Reproductive Disorders: No Genitourinary Hx Genitourinary Disorders: No Gastrointestinal Hx Gastrointestinal Disorders: Yes (FATTY LIVER) Gastrointestinal Disorders: Gastroesophageal Reflux, Liver Disease/Jaundice, Pancreatitis Musculoskeletal Hx Musculoskeletal Disorders: Yes (CHRONIC BACK PAIN WITH "CYST" ON LOWER BACK/ "SPINE" ) Musculoskeletal Disorders: Chronic Back Pain Endocrine Hx Endocrine Disorders: Yes (DOES NOT ROUTINELY CHECK BLOOD SUGAR) Endocrine Disorders: Diabetes, Insulin dep HEENT HX ENT Disorders: Yes (POOR DENTITION) Loss of Vision: Denies Hearing Impairment: Denies Cancer Hx Cancer: No Psychosocial Hx Psychiatric Problems: Yes Behavioral Health Disorders: Sleep Difficulties, Anxiety, Depression Integumentary HX Skin/Integumentary Disorder: No Blood Transfusions Hx Blood Disorders: No Family Medical History Family Medial History: Cancer 03 MOTHER Congestive heart failure 03 FATHER Family history: Hypertension 03 FATHER Physical Exam Vital Signs Vital Sign - Last 12Hours 08/20/16 17:54 Pulse 105 Resp 18 B/P (MAP) 161/118 Pulse Ox 96 O2 Delivery Room Air Capillary Refill : General Appearance: No Apparent Distress, Other (disheveled. He is alert sitting upright in bed talking but speech is nonsensical, though clear.) HEENT: PERRL/EOMI, TMs Normal Neck: Full Range of Motion, Normal Inspection Respiratory: Normal Breath Sounds, No Accessory Muscle Use, No Respiratory Distress Cardiovascular: Normal Peripheral Pulses, Tachycardia Gastrointestinal: Normal Bowel Sounds, Non Tender, Soft Extremity: Normal Capillary Refill, Normal Inspection Neurologic/Psychiatric: Alert, Oriented x3, No Motor/Sensory Deficits Skin: Normal Color, Warm/Dry Progress/Results/Core Measures Results/Orders Lab Results Laboratory Tests Test 08/20/16 17:53 Range/Units White Blood Count 13.1 H 4.3-11.0 10^3/uL Red Blood Count 5.80 4.35-5.85 10^6/uL Hemoglobin 17.4 13.3-17.7 G/DL Hematocrit 52 40-54 % Mean Corpuscular Volume 90 80-99 FL Mean Corpuscular Hemoglobin 30 25-34 PG Mean Corpuscular Hemoglobin Concent 34 32-36 G/DL Red Cell Distribution Width 14.4 10.0-14.5 % Platelet Count 314 130-400 10^3/uL Mean Platelet Volume 10.0 7.4-10.4 FL Neutrophils (%) (Auto) 72 42-75 % Lymphocytes (%) (Auto) 19 12-44 % Monocytes (%) (Auto) 10 0-12 % Eosinophils (%) (Auto) 0 0-10 % Basophils (%) (Auto) 0 0-10 % Neutrophils # (Auto) 9.4 H 1.8-7.8 X 10^3 Lymphocytes # (Auto) 2.4 1.0-4.0 X 10^3 Monocytes # (Auto) 1.3 H 0.0-1.0 X 10^3 Eosinophils # (Auto) 0.0 0.0-0.3 10^3/uL Basophils # (Auto) 0.0 0.0-0.1 10^3/uL Sodium Level 151 H 135-145 MMOL/L Potassium Level 3.5 L 3.6-5.0 MMOL/L Chloride Level 115 H 98-107 MMOL/L Carbon Dioxide Level 21 21-32 MMOL/L Anion Gap 15 H 5-14 MMOL/L Blood Urea Nitrogen 56 H 7-18 MG/DL Creatinine 1.67 H 0.60-1.30 MG/DL Estimat Glomerular Filtration Rate 45 BUN/Creatinine Ratio 34 Glucose Level 164 H 70-105 MG/DL Calcium Level 10.1 8.5-10.1 MG/DL Total Bilirubin 0.7 0.1-1.0 MG/DL Aspartate Amino Transf (AST/SGOT) 11 5-34 U/L Alanine Aminotransferase (ALT/SGPT) 31 0-55 U/L Alkaline Phosphatase 143 H 40-136 U/L Myoglobin 160.7 H 10.0-92.0 NG/ML Total Protein 9.0 H 6.4-8.2 GM/DL Albumin 5.1 H 3.2-4.5 GM/DL Salicylates Level < 5.0 L 5.0-20.0 MG/DL Acetaminophen Level < 10 L 10-30 UG/ML Serum Alcohol < 10 <10 MG/DL My Orders Orders - MINERVA BROTHERS APRN Cbc With Automated Diff (08/20/16 17:57) Salicylate (08/20/16 17:57) Acetaminophen (08/20/16 17:57) Comprehensive Metabolic Panel (08/20/16 17:57) Myoglobin Serum (08/20/16 17:57) Saline Lock/Iv-Start (08/20/16 17:57) Alcohol (08/20/16 17:57) Ct Head Wo (08/20/16 17:57) Ua Culture If Indicated (08/20/16 17:57) Drug Screen Stat (Urine) (08/20/16 17:57) Ns Iv 1000 Ml (Sodium Chloride 0.9%) (08/20/16 18:00) Vital Signs/I&O Vital Sign - Last 12Hours 08/20/16 17:54 Pulse 105 Resp 18 B/P (MAP) 161/118 Pulse Ox 96 O2 Delivery Room Air Diagnostic Imaging Diagonstic Imaging: CT Comments NAME: [facility] REC#: [id number] PT STATUS: REG ER : 1975 PHYSICIAN: MINERVA BROTHERS APRN ADMIT DATE: 08/20/16/ER Draft Date of Exam:08/20/16 CT HEAD WO PROCEDURE: CT head without contrast. TECHNIQUE: Multiple contiguous axial images were obtained through the brain without the use of intravenous contrast. INDICATION: Acute mental status changes. No prior examinations are available for comparison. FINDINGS: The ventricles and sulci are within normal limits. There is no hydrocephalus or cerebral edema. There is no midline shift or mass effect. There is no intracranial mass, hemorrhage, or extra-axial fluid collection. The visualized paranasal sinuses and mastoid air cells are clear. There are no regional areas of decreased attenuation appreciated to suggest an acute CVA. IMPRESSION: No acute intracranial abnormality. Dictated on workstation # [id number] Dict: 08/20/16 1824 Trans: 08/20/[address] [facility] [id number] Interpreted by: KEY SHIPLEY Electronically signed by: Departure Communication Progress Notes I discussed the case with Dr. Gambino. He would like me to admit the patient for IV fluids and neuro checks. Impression Impression: Primary Impression: Altered mental status Additional Impressions: Volume depletion Prescription drug abuse Disposition: ADMITTED INPATIENT Condition: Stable Decision to Admit Reason: Admit from ER (General) Decision to Admit/Date: Aug 20, 2016 Time/Decision to Admit Time: 19:45 Departure-Patient Inst. Referrals: LEYDA ZAMORA MD (PCP/Family) Primary Care Physician MINERVA BROTHERS APRN Aug 20, 2016 18:04
[2016-08-20 18:24] LABS: ACETAMINOPHEN < 10 UG/ML (10-30); ALANINE AMINOTRANSFERASE 31 U/L (0-55); ALBUMIN 5.1 GM/DL (3.2-4.5); ALCOHOL < 10 MG/DL (<10); ANION GAP 15 MMOL/L (5-14); ASPARTATE AMINO TRANSFERASE 11 U/L (5-34); BILIRUBIN,TOTAL 0.7 MG/DL (0.1-1.0); BLOOD UREA NITROGEN 56 MG/DL (7-18); BUN/CREATININE RATIO 34; CALCIUM 10.1 MG/DL (8.5-10.1); CARBON DIOXIDE 21 MMOL/L (21-32); CHLORIDE 115 MMOL/L (98-107); CREATININE SERUM 1.67 MG/DL (0.60-1.30); GFR ESTIMATED 45; GLUCOSE 164 MG/DL (70-105); POTASSIUM 3.5 MMOL/L (3.6-5.0); SALICYLATE < 5.0 MG/DL (5.0-20.0); SODIUM 151 MMOL/L (135-145)
[2016-08-20 18:29] LABS: MYOGLOBIN SERUM 160.7 NG/ML (10.0-92.0)
--- NOTE | 2016-08-20 18:45 | Diagnostic Imaging Report ---
PROCEDURE: CT head without contrast. TECHNIQUE: Multiple contiguous axial images were obtained through the brain without the use of intravenous contrast. INDICATION: Acute mental status changes. No prior examinations are available for comparison. FINDINGS: The ventricles and sulci are within normal limits. There is no hydrocephalus or cerebral edema. There is no midline shift or mass effect. There is no intracranial mass, hemorrhage, or extra-axial fluid collection. The visualized paranasal sinuses and mastoid air cells are clear. There are no regional areas of decreased attenuation appreciated to suggest an acute CVA. IMPRESSION: No acute intracranial abnormality. Dictated by: Dictated on workstation # [id number]
[2016-08-20 20:54] VITALS: BP 146/86
[2016-08-20] MEDS ORDERED: LACTATED RINGERS 1,000 ML IV ONE (20:57)
[2016-08-20 21:06] LABS: BILIRUBIN,URINE NEGATIVE (NEGATIVE); KETONES,URINE 2+ (NEGATIVE); LEUKOCYTE ESTERASE ,URINE NEGATIVE (NEGATIVE); NITRITE,URINE NEGATIVE (NEGATIVE); PH,URINE 6 (5-9); PROTEIN,URINE 4+ (NEGATIVE); UROBILINOGEN,URINE NORMAL (NORMAL)
[2016-08-20] MEDS: LACTATED RINGERS 1,000 ML IV SCH (21:08)
[2016-08-20] MEDS: CATHETER FLUSH 10 ML SYR IV SCH (21:09)
[2016-08-20] MEDS ORDERED: CATHETER FLUSH 10 ML SYR IV PRN (21:15)
[2016-08-20 21:24] LABS: WBC,URINE RARE /HPF
[2016-08-21 00:08] VITALS: BP 154/81
[2016-08-21 03:21] VITALS: BP 153/79
[2016-08-21] MEDS: LACTATED RINGERS 1,000 ML IV SCH ×2 (03:58→10:58)
[2016-08-21 05:12] LABS: ANION GAP 14 MMOL/L (5-14); BLOOD UREA NITROGEN 42 MG/DL (7-18); BUN/CREATININE RATIO 36; CALCIUM 9.3 MG/DL (8.5-10.1); CARBON DIOXIDE 22 MMOL/L (21-32); CHLORIDE 109 MMOL/L (98-107); CREATININE SERUM 1.16 MG/DL (0.60-1.30); GFR ESTIMATED > 60; GLUCOSE 110 MG/DL (70-105); POTASSIUM 3.4 MMOL/L (3.6-5.0); SODIUM 145 MMOL/L (135-145)
[2016-08-21] MEDS: CATHETER FLUSH 10 ML SYR IV SCH (06:19)
[2016-08-21 08:00] VITALS: BP 150/80
[2016-08-21] MEDS ORDERED: ZIPR80CA23 PO (09:34)
[2016-08-21] MEDS ORDERED: ESZO3TAB38 PO (10:01)
[2016-08-21] MEDS ORDERED: SUCR1TAB PO (10:01)
--- NOTE | 2016-08-21 11:00 | Short Stay Summary-Hospitalist ---
HPI History of Present Illness: HPI/Chief Complaint The patient is a 41-year-old white male known to me from multiple visits to the emergency room. He has little recollection of the events over the past several days. He was brought to the emergency room last night after family had been unable to contact him for perhaps as long as 3 days. When they appeared with EMS the pounded on the door and got no response and were prepared to enter when he finally appeared at the door. He was very disheveled and confused. They found empty pill bottles all over the floor. These included Lunesta, multiple bottles of Xanax, 2 bottles of gabapentin, and others. He was brought to the emergency room and found to appear to be very dehydrated with a sodium of 151, creatinine elevated over a recent previous, concentrated urine, and decreased skin turgor. technical assistance consultant assembled outpatient medication record which is long and includes many tranquilizers both minor and major as well as sleep agents and mood altering drugs. In addition he is diabetic and has multiple medications including involved, which may have contributed to his dehydration. He had at least 4 prescribers. He admits to seeing someone at [facility]. He is not clear on the name. Source: patient, family, RN/MD, EMS Exam Limitations: no limitations Date Seen 08/21/16 Time Seen by Provider: 11:00 Attending Physician Jean Carlos Gambino MD PCP Maddie Royal MD Referring Physician Date of Admission Aug 20, 2016 at 18:14 Home Medications & Allergies Home Medications Reviewed patient Home Medication Reconciliation Form Allergies Allergies Coded Allergies levofloxacin (Verified Adverse Reaction, Unknown, STOMACH CAMPS, 06/08/15) Past Wfwinyg-Kmxmml-Euhhll Hx Patient Social History Alcohol Use: Denies Use Recreational Drug Use: No Smoking Status: Current Everyday Smoker Type Used: Cigarettes 2nd Hand Smoke Exposure: No Physical Abuse Screen: No Sexual Abuse: No Recent Foreign Travel: No Contact w/other who traveled: No Recent Hopitalizations: Yes Recent Infectious Disease Expo: No Immunizations Up To Date Tetanus Booster (TDap): Unknown Date of Influenza Vaccine: Feb 11, 2015 Seasonal Allergies Seasonal Allergies: No Surgeries HX Surgeries: No Respiratory Hx Respiratory Disorders: No Cardiovascular Hx Cardiovascular Disorders: Yes Cardiac Disorders: High Cholesterol, Hypertension Neurological Hx Neurological Disorders: Yes ("CYST" ON LOWER BACK/"SPINE" ) Reproductive System Hx Reproductive Disorders: No Genitourinary Hx Genitourinary Disorders: No Gastrointestinal Hx Gastrointestinal Disorders: Yes (FATTY LIVER) Gastrointestinal Disorders: Gastroesophageal Reflux, Liver Disease/Jaundice, Pancreatitis Musculoskeletal Hx Musculoskeletal Disorders: Yes (CHRONIC BACK PAIN WITH "CYST" ON LOWER BACK/ "SPINE" ) Musculoskeletal Disorders: Chronic Back Pain Endocrine Hx Endocrine Disorders: Yes (DOES NOT ROUTINELY CHECK BLOOD SUGAR) Endocrine Disorders: Diabetes, Insulin dep HEENT HX ENT Disorders: Yes (POOR DENTITION) Loss of Vision: Denies Hearing Impairment: Denies Cancer Hx Cancer: No Psychosocial Hx Psychiatric Problems: Yes Behavioral Health Disorders: Depression Integumentary HX Skin/Integumentary Disorder: No Blood Transfusions Hx Blood Disorders: No Family Medical History Family Hx: Cancer 03 MOTHER Congestive heart failure 03 FATHER Family history: Hypertension 03 FATHER Review of Systems Constitutional: see HPI, weakness EENTM: no symptoms reported Respiratory: no symptoms reported Cardiovascular: no symptoms reported Gastrointestinal: no symptoms reported Genitourinary: decreased output, incontinence Musculoskeletal: muscle pain, muscle weakness Skin: no symptoms reported Psychiatric/Neurological: See HPI, Anxiety, Depressed, Emotional Problems Physical Exam Physical Exam Vital Signs Vital Sign - Last 12Hours 08/20/16 08/20/16 17:54 20:54 Temp 98.2 Pulse 105 Resp 18 B/P (MAP) 161/118 Pulse Ox 96 O2 Delivery Room Air Capillary Refill : Less Than 3 Seconds General Appearance: Other (wild eyed) Eyes: Bilateral Eye Normal Inspection HEENT: Normal ENT Inspection Neck: Normal Inspection Respiratory: Chest Non Tender, Lungs Clear, Normal Breath Sounds, No Accessory Muscle Use, No Respiratory Distress Cardiovascular: Regular Rate, Rhythm, No Edema, No Gallop, No JVD, No Murmur, Normal Peripheral Pulses Gastrointestinal: Normal Bowel Sounds, No Organomegaly, No Pulsatile Mass, Non Tender, Soft Back: Normal Inspection, No CVA Tenderness, No Vertebral Tenderness Extremity: Normal Capillary Refill, Normal Inspection, Normal Range of Motion, Non Tender, No Calf Tenderness, No Pedal Edema Neurologic/Psychiatric: Depressed Affect, Other (vague) Skin: Diaphoresis Lymphatic: No Adenopathy Results Results/Procedures Lab Laboratory Tests 08/20/16 17:53 08/21/16 04:28 Short Stay Diagnosis Discharge Diagnosis-Short Stay Admission Diagnosis 1.multi agent drug overdose. 2.dehydration. 3.diabetes mellitus, insulin- requiring. 4.hypertension. 5.mental health issues Final Discharge Diagnosis 1.multi agent drug overdose. 2.dehydration. 3.diabetes mellitus insulin- requiring. 4.hypertension. 5.mental health issues Conclusion Plan Dismissal. Medications as listed in the discharge sequence. Notify [facility] of his indiscretions Clinical Quality Measures DVT/VTE Risk/Contraindication: Risk Factor Score Per Nursin RFS Level Per Nursing on Admit: 2=Moderate JEAN CARLOS GAMBINO MD Aug 21, 2016 11:00
--- NOTE | 2016-08-21 11:36 | Discharge Instructions ---
Discharge Instructions Patient Instructions Goal/Follow Up Appt: Medications as listed on discharge sequence. You need immediate attention from mental health in streamlining your medication list Patient Instructions: Resume diet and indicated diabetic medications. Hold Inderal, for now Activity & Diet Discharge Diet: ADA Diet Activity as Tolerated: Yes BETTIE GAMBINO MD Aug 21, 2016 11:36
[2016-08-21 12:00] VITALS: BP 152/78
--- OUTSIDE RECORDS SUMMARY | 2016-08-21 18:14 | XMS REPORT | Continuity of Care Document ---
Author Author [facility] Organization [facility] Address Unknown Phone Unavailable Care Team Providers Care Apple Sorter Name Role Phone Maddie Royal PCP [phone] Source Comments Some departments are not documenting in the electronic medical record. If you do not see the information that you expected, contact Release of Information in the Health Information Management department at [phone] for further assistance in locating additional records.[facility] Active Allergies and Adverse Reactions No Known Allergies Current Medications Prescription Sig. Disp. Refills Start End Date Status Date [place]-3 Acid Ethyl Esters Take 1 g by mouth twice Active (LOVAZA) 1 gram cap daily with meals. gemfibrozil (LOPID) 600 Take 600 mg by mouth Active mg tablet twice daily. zolpidem CR(+) (AMBIEN Take 12.5 mg by mouth at Active CR) 12.5 mg tablet bedtime daily. diltiazem CD (CARDIZEM Take 240 mg by mouth at Active CD) 240 mg capsule bedtime daily. desvenlafaxine(+) Take 50 mg by mouth every Active (PRISTIQ) 50 mg tablet morning. ALPRAZolam (XANAX) 1 mg Take 1 mg by mouth three Active tablet times daily. valsartan (DIOVAN) 160 mg Take 160 mg by mouth Active tablet twice daily. topiramate (TOPAMAX) 50 Take 50 mg by mouth four Active mg tablet times daily. risperiDONE (RISPERDAL) Take 0.5 mg by mouth at Active 0.5 mg tablet bedtime daily. HYDROcodone/acetaminophen Take 1 Tab by mouth every Active (NORCO; VICODIN) 5-325 mg 8 hours as needed. tablet omeprazole DR(+) Take 20 mg by mouth twice Active (PRILOSEC) 20 mg capsule daily. insulin glargine (LANTUS Inject 20 Units into Active SOLOSTAR) 100 unit/mL (3 area(s) as directed every mL) injection PEN morning. insulin lispro(+) Inject 10-14 Units into Active (HUMALOG KWIKPEN) 100 area(s) as directed five unit/mL injection pen times daily. Active Problems Not on file Social History Tobacco Use Types Packs/Day Years Used Date Current Every Day Smoker Cigarettes 2 21 Smokeless Tobacco: Never Used Alcohol Use Drinks/Week oz/Week Comments No Last Filed Vital Signs Vital Sign Reading Time Taken Blood Pressure 125/78 06/12/2013 3:00 PM CDT Pulse 102 06/12/2013 3:00 PM CDT Temperature 36.8 C (98.3 F) 06/12/2013 3:00 PM CDT Respiratory Rate - - Height 1.702 m (5' 7") 06/12/2013 3:00 PM CDT Weight 100.8 kg (222 lb 3.6 oz) 06/12/2013 3:00 PM CDT Body Mass Index 34.8 06/12/2013 3:00 PM CDT Oxygen Saturation 93% 06/12/2013 3:00 PM CDT Plan of Care Health Maintenance Due Date Last Done Comments Physical (Comprehensive) 1981 Exam Pertussis Vaccine 1985 Tetanus Vaccine 1991 Influenza Vaccine 10/12/2016 Results from Last 3 Months Not on file
--- OUTSIDE RECORDS SUMMARY | 2016-08-21 18:15 | XMS REPORT | Continuity of Care Document ---
Demographics Preferred Language Unknown Marital Status Unknown Anabaptist Affiliation Unknown Race Unknown Ethnic Group Unknown Author Author [facility] Address Unknown Phone Unavailable Allergies Active Description Code Type Severity Reaction Onset Reported/Identified Relationship to Patient Clinical Status Yes Levaquin Drug Allergy 09/12/2010 Yes loratadine 10 mg tablet Drug Allergy 01/29/2012 Yes levofloxacin [id number] Drug Allergy Unknown STOMACH CAMPS 06/08/2015 Medications Problems Date Dx Coded Attending Type Code Diagnosis Diagnosed By 12/06/2009 Ot 250.00 12/06/2009 Ot 305.1 12/06/2009 Ot 311 12/06/2009 Ot 401.9 12/06/2009 Ot 530.81 12/06/2009 Ot 719.46 12/06/2009 Ot V57.1 02/23/2010 008.8 INTESTINAL INFECTION DUE TO OTHER ORGANISM NOT ELSEWHERE CLASSIFIED 02/23/2010 008.8 INTESTINAL INFECTION DUE TO OTHER ORGANISM NOT ELSEWHERE CLASSIFIED 02/23/2010 008.8 INTESTINAL INFECTION DUE TO OTHER ORGANISM NOT ELSEWHERE CLASSIFIED 02/23/2010 008.8 INTESTINAL INFECTION DUE TO OTHER ORGANISM NOT ELSEWHERE CLASSIFIED 03/29/2010 787.91 diarrhea 03/29/2010 789.00 abdominal pain 03/29/2010 787.91 diarrhea 03/29/2010 789.00 abdominal pain 03/29/2010 787.91 diarrhea 03/29/2010 789.00 abdominal pain 03/29/2010 787.91 diarrhea 03/29/2010 789.00 abdominal pain 09/12/2010 788.1 DYSURIA 09/12/2010 788.1 DYSURIA 09/12/2010 788.1 DYSURIA 09/12/2010 788.1 DYSURIA 07/16/2011 466.0 ACUTE BRONCHITIS 07/16/2011 466.0 ACUTE BRONCHITIS 07/16/2011 466.0 ACUTE BRONCHITIS 07/16/2011 466.0 ACUTE BRONCHITIS 10/23/2011 Ot 327.23 OBSTRUCTIVE SLEEP APNEA (ADULT) (PEDIATR 01/08/2012 527.7 mouth dryness (xerostomia) 01/08/2012 784.91 drip or drainage down throat from above 01/08/2012 527.7 mouth dryness (xerostomia) 01/08/2012 784.91 drip or drainage down throat from above 01/08/2012 527.7 mouth dryness (xerostomia) 01/08/2012 784.91 drip or drainage down throat from above 01/08/2012 527.7 mouth dryness (xerostomia) 01/08/2012 784.91 drip or drainage down throat from above 01/24/2012 Ot 527.7 SALIVARY SECRETION DIS 03/26/2012 724.5 BACKACHE 06/05/2012 Ot 724.2 LUMBAGO 06/05/2012 Ot 724.4 LUMBOSACRAL NEURITIS NOS 06/05/2012 Ot V57.1 PHYSICAL THERAPY NEC 03/21/2013 BETTIE GAMBINO MD Ot 250.02 DIAB FREDDY WO COMPL, TYPE II OR UNSPEC TY 03/21/2013 BETTIE GAMBINO MD Ot 272.0 PURE HYPERCHOLESTEROLEM 03/21/2013 BETTIE GAMBINO MD Ot 272.4 HYPERLIPIDEMIA NEC/NOS 03/21/2013 BETTIE GAMBINO MD Ot 278.01 MORBID OBESITY 03/21/2013 BETTIE GAMBINO MD Ot 300.00 ANXIETY STATE NOS 03/21/2013 BETTIE GAMBINO MD Ot 305.1 TOBACCO USE DISORDER 03/21/2013 BETTIE GAMBINO MD Ot 311 DEPRESSIVE DISORDER NEC 03/21/2013 BETTIE GAMBINO MD Ot 401.9 HYPERTENSION NOS 03/21/2013 BETTIE GAMBINO MD Ot 577.0 ACUTE PANCREATITIS 03/21/2013 BETTIE GAMBINO MD Ot V85.33 BODY MASS INDEX 33.0-33.9, ADULT 01/30/2014 Ot 787.91 01/30/2014 Ot 782.0 01/30/2014 MIKAL VILLASENOR Ot 724.2 LUMBAGO 01/30/2014 MIKAL VILLASENOR Ot 724.4 LUMBOSACRAL NEURITIS NOS 04/09/2014 Ot 724.2 LUMBAGO 06/03/2014 Ot 782.0 06/03/2014 ALBERTO ANGELO DO Ot 789.00 ABDOMINAL PAIN, UNSPECIFIED SITE 06/04/2014 ALBERTO ANGELO DO Ot 789.00 07/30/2014 Ot 782.0 06/08/2015 Ot 782.0 SKIN SENSATION DISTURB 06/08/2015 NELSON DO, LEYDA K Ot F17.210 NICOTINE DEPENDENCE, CIGARETTES, UNCOMPL 06/08/2015 NELSON DO, LEYDA K Ot K76.0 FATTY (CHANGE OF) LIVER, NOT ELSEWHERE C 06/08/2015 NELSON DO, LEYDA K Ot N20.0 CALCULUS OF KIDNEY 06/08/2015 NELSON DO, LEYDA K Ot N39.0 URINARY TRACT INFECTION, SITE NOT SPECIF 06/10/2015 NELSON DO, LEYDA K Ot F17.210 NICOTINE DEPENDENCE, CIGARETTES, UNCOMPL 06/10/2015 NELSON DO, LEYDA K Ot K76.0 FATTY (CHANGE OF) LIVER, NOT ELSEWHERE C 06/10/2015 NELSON DO, LEYDA K Ot N20.0 CALCULUS OF KIDNEY 06/10/2015 NELSON DO, LEYDA K Ot N39.0 URINARY TRACT INFECTION, SITE NOT SPECIF 09/12/2015 NELSON DO, LEYDA K Ot F17.210 NICOTINE DEPENDENCE, CIGARETTES, UNCOMPL 09/12/2015 NELSON DO, LEYDA K Ot K76.0 FATTY (CHANGE OF) LIVER, NOT ELSEWHERE C 09/12/2015 NELSON DO, LEYDA K Ot N20.0 CALCULUS OF KIDNEY 09/12/2015 NELSON DO, LEYDA K Ot N39.0 URINARY TRACT INFECTION, SITE NOT SPECIF 07/01/2016 BETTIE GAMBINO MD Ot E11.9 TYPE 2 DIABETES MELLITUS WITHOUT COMPLIC 07/01/2016 BETTIE GAMBINO MD Ot I10 ESSENTIAL (PRIMARY) HYPERTENSION 07/01/2016 BETTIE GAMBINO MD Ot S42.351A DISPLACED COMMINUTED FX SHAFT OF HUMERUS 07/01/2016 BETTIE GAMBINO MD Ot S49.91XA UNSP INJURY OF RIGHT SHOULDER AND UPPER 07/01/2016 BETTIE GAMBINO MD Ot X58.XXXA EXPOSURE TO OTHER SPECIFIED FACTORS, INI 07/01/2016 BETTIE GAMBINO MD Ot Y99.8 OTHER EXTERNAL CAUSE STATUS 07/01/2016 BETTIE GAMBINO MD Ot 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 07/01/2016 BETTIE GAMBINO MD, Ot Z79.899 OTHER PENITENTIARY (CURRENT) DRUG THERAPY 07/17/2016 NIVIA TREJO DO Ot E11.9 TYPE 2 DIABETES MELLITUS WITHOUT COMPLIC 07/17/2016 TREJOSHIVA RANDALL NIVIA Ot E86.0 DEHYDRATION 07/17/2016 TREJOSHIVA RANDALL NIVIA Ot F17.210 NICOTINE DEPENDENCE, CIGARETTES, UNCOMPL 07/17/2016 NIVIA TREJO DO Ot F32.9 MAJOR DEPRESSIVE DISORDER, SINGLE EPISOD 07/17/2016 NIVIA TREJO DO Ot F41.9 ANXIETY DISORDER, UNSPECIFIED 07/17/2016 TREJONIVIA SHANNON DO Ot I10 ESSENTIAL (PRIMARY) HYPERTENSION 07/17/2016 TREJOJUDSON SHANNON DOI Ot K21.9 GASTRO-ESOPHAGEAL REFLUX DISEASE WITHOUT 07/17/2016 JUDSON TREJO DOI Ot K52.9 NONINFECTIVE GASTROENTERITIS AND COLITIS 07/17/2016 TREJOSHIVA RANDALL NIVIA Ot S42.91XD FX R SHOULDER GIRDLE, PART UNSP, SUBS FO 07/17/2016 TREJOSHIVA RANDALL NIVIA Ot X58.XXXD EXPOSURE TO OTHER SPECIFIED FACTORS, SUB 07/17/2016 NIVIA TREJO DO Ot 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 Procedures Code Description [place] [address] ROUTINE VENIPUNCTURE 01/08/2012 61551 A1C (IN-HOUSE) 39663 CBC 01/08/2012 73544 CMP 01/08/2012 5870508 GFR CALC (RESULT ONLY) 01/08/2012 34216 CRP 01/09/2012 28177 ESR/SED RATE ANAANA EMILY ANALYZER (SCREEN) 01/09/2012 09658 SJOGRENS SSA (RO)/SSB(LA) 01/16/2012 Results Test Result Range Complete blood count (CBC) with automated white blood cell (WBC) differential - 07/16/16 04:53 Blood leukocytes automated count (number/volume) 7.8 10*3/ uL 4.3-11.0 Blood erythrocytes automated count (number/volume) 5.34 10*6 /uL 4.35-5.85 Venous blood hemoglobin measurement (mass/volume) 15.8 g/dL 13.3-17.7 Blood hematocrit (volume fraction) 47 % 40-54 Automated erythrocyte mean corpuscular volume 88 [foz_us] 80-99 Automated erythrocyte mean corpuscular hemoglobin (mass per erythrocyte) 30 pg 25-34 Automated erythrocyte mean corpuscular hemoglobin concentration measurement ( mass/volume) 34 g/dL 32-36 Automated erythrocyte distribution width ratio 14.0 % 10.0-14.5 Automated blood platelet count (count/volume) 202 10*3/uL 130-400 Automated blood platelet mean volume measurement 10.3 [foz_ us] 7.4-10.4 Automated blood neutrophils/100 leukocytes 77 % 42-75 Automated blood lymphocytes/100 leukocytes 19 % 12-44 Blood monocytes/100 leukocytes 3 % 0-12 Automated blood eosinophils/100 leukocytes 1 % 0-10 Automated blood basophils/100 leukocytes 0 % 0-10 Blood neutrophils automated count (number/volume) 6.0 10*3 1.8-7.8 Blood lymphocytes automated count (number/volume) 1.5 10*3 1.0-4.0 Blood monocytes automated count (number/volume) 0.3 10*3 0.0-1.0 Automated eosinophil count 0.0 10*3/uL 0.0-0.3 Automated blood basophil count (count/volume) 0.0 10*3/uL 0.0-0.1 Comprehensive metabolic panel - 07/16/16 04:53 Serum or plasma sodium measurement (moles/volume) 142 mmol/ L 135-145 Serum or plasma potassium measurement (moles/volume) 3.6 mmol/L 3.6-5.0 Serum or plasma chloride measurement (moles/volume) 104 mmol /L 98-107 Carbon dioxide 24 mmol/L 21-32 Serum or plasma anion gap determination (moles/volume) 14 mmol/L 5-14 Serum or plasma urea nitrogen measurement (mass/volume) 14 mg/dL 7-18 Serum or plasma creatinine measurement (mass/volume) 0.86 mg /dL 0.60-1.30 Serum or plasma urea nitrogen/creatinine mass ratio 16 NRG Serum or plasma creatinine measurement with calculation of estimated glomerular filtration rate > NRG Serum or plasma glucose measurement (mass/volume) 153 mg/dL 70-105 Serum or plasma calcium measurement (mass/volume) 9.8 mg/dL 8.5-10.1 Serum or plasma total bilirubin measurement (mass/volume) 0.4 mg/dL 0.1-1.0 Serum or plasma alkaline phosphatase measurement (enzymatic activity/volume) 166 U/L 40-136 Serum or plasma aspartate aminotransferase measurement (enzymatic activity/ volume) 18 U/L 5-34 Serum or plasma alanine aminotransferase measurement (enzymatic activity/volume ) 31 U/L 0-55 Serum or plasma protein measurement (mass/volume) 8.2 g/dL 6.4-8.2 Serum or plasma albumin measurement (mass/volume) 4.7 g/dL 3.2-4.5 Magnesium - 07/16/16 04:53 Magnesium 2.5 mg/dL 1.8-2.4 Lipase - 07/16/16 04:53 Lipase 27 U/L 8-78 Complete urinalysis with reflex to culture - 07/16/16 06:30 Urine color determination YELLOW NRG Urine clarity determination CLEAR NRG Urine pH measurement by test strip 8 5- 9 Specific gravity of urine by test strip 1.015 1.016-1.022 Urine protein assay by test strip, semi-quantitative 2+ NEGATIVE Urine glucose detection by automated test strip 4+ NEGATIVE Erythrocytes detection in urine sediment by light microscopy NEGATIVE NEGATIVE Urine ketones detection by automated test strip 1+ NEGATIVE Urine nitrite detection by test strip NEGATIVE NEGATIVE Urine total bilirubin detection by test strip NEGATIVE NEGATIVE Urine urobilinogen measurement by automated test strip (mass/volume) NORMAL NORMAL Urine leukocyte esterase detection by dipstick NEGATIVE NEGATIVE Automated urine sediment erythrocyte count by microscopy (number/high power field) NONE NRG Automated urine sediment leukocyte count by microscopy (number/high power field ) [HPF] NRG Bacteria detection in urine sediment by light microscopy NEGATIVE NRG Squamous epithelial cells detection in urine sediment by light microscopy 5-10 NRG Crystals detection in urine sediment by light microscopy NONE NRG Casts detection in urine sediment by light microscopy NONE NRG Mucus detection in urine sediment by light microscopy NEGATIVE NRG Complete urinalysis with reflex to culture NO NRG Capillary blood glucose measurement by glucometer (mass/volume) - 07/16/16 12: 02 Capillary blood glucose measurement by glucometer (mass/volume) 119 mg/dL 70-110 Capillary blood glucose measurement by glucometer (mass/volume) - 07/16/16 18: 04 Capillary blood glucose measurement by glucometer (mass/volume) 113 mg/dL 70-110 Capillary blood glucose measurement by glucometer (mass/volume) - 07/16/16 21: 25 Capillary blood glucose measurement by glucometer (mass/volume) 109 mg/dL 70-110 Complete blood count (CBC) with automated white blood cell (WBC) differential - 07/17/16 05:18 Blood leukocytes automated count (number/volume) 11.6 10*3/ uL 4.3-11.0 Blood erythrocytes automated count (number/volume) 5.31 10*6 /uL 4.35-5.85 Venous blood hemoglobin measurement (mass/volume) 15.9 g/dL 13.3-17.7 Blood hematocrit (volume fraction) 47 % 40-54 Automated erythrocyte mean corpuscular volume 88 [foz_us] 80-99 Automated erythrocyte mean corpuscular hemoglobin (mass per erythrocyte) 30 pg 25-34 Automated erythrocyte mean corpuscular hemoglobin concentration measurement ( mass/volume) 34 g/dL 32-36 Automated erythrocyte distribution width ratio 13.6 % 10.0-14.5 Automated blood platelet count (count/volume) 206 10*3/uL 130-400 Automated blood platelet mean volume measurement 10.5 [foz_ us] 7.4-10.4 Automated blood neutrophils/100 leukocytes 69 % 42-75 Automated blood lymphocytes/100 leukocytes 22 % 12-44 Blood monocytes/100 leukocytes 8 % 0-12 Automated blood eosinophils/100 leukocytes 0 % 0-10 Automated blood basophils/100 leukocytes 0 % 0-10 Blood neutrophils automated count (number/volume) 8.0 10*3 1.8-7.8 Blood lymphocytes automated count (number/volume) 2.6 10*3 1.0-4.0 Blood monocytes automated count (number/volume) 1.0 10*3 0.0-1.0 Automated eosinophil count 0.0 10*3/uL 0.0-0.3 Automated blood basophil count (count/volume) 0.0 10*3/uL 0.0-0.1 Comprehensive metabolic panel - 07/17/16 05:18 Serum or plasma sodium measurement (moles/volume) 140 mmol/ L 135-145 Serum or plasma potassium measurement (moles/volume) 3.6 mmol/L 3.6-5.0 Serum or plasma chloride measurement (moles/volume) 105 mmol /L 98-107 Carbon dioxide 23 mmol/L 21-32 Serum or plasma anion gap determination (moles/volume) 12 mmol/L 5-14 Serum or plasma urea nitrogen measurement (mass/volume) 11 mg/dL 7-18 Serum or plasma creatinine measurement (mass/volume) 0.94 mg /dL 0.60-1.30 Serum or plasma urea nitrogen/creatinine mass ratio 12 NRG Serum or plasma creatinine measurement with calculation of estimated glomerular filtration rate > NRG Serum or plasma glucose measurement (mass/volume) 116 mg/dL 70-105 Serum or plasma calcium measurement (mass/volume) 9.4 mg/dL 8.5-10.1 Serum or plasma total bilirubin measurement (mass/volume) 0.7 mg/dL 0.1-1.0 Serum or plasma alkaline phosphatase measurement (enzymatic activity/volume) 149 U/L 40-136 Serum or plasma aspartate aminotransferase measurement (enzymatic activity/ volume) 22 U/L 5-34 Serum or plasma alanine aminotransferase measurement (enzymatic activity/volume ) 27 U/L 0-55 Serum or plasma protein measurement (mass/volume) 8.0 g/dL 6.4-8.2 Serum or plasma albumin measurement (mass/volume) 4.4 g/dL 3.2-4.5 Capillary blood glucose measurement by glucometer (mass/volume) - 07/17/16 06: 10 Capillary blood glucose measurement by glucometer (mass/volume) 118 mg/dL 70-110 Capillary blood glucose measurement by glucometer (mass/volume) - 07/17/16 11: 02 Capillary blood glucose measurement by glucometer (mass/volume) 78 mg/dL 70-110 Encounters ACCT No. Visit Date/Time Discharge Status Pt. Type Provider Facility Loc./Unit Complaint [id number] 03/26/2012 12:55:00 03/26/2012 23: 59:59 CLS Outpatient [id number] 01/29/2012 13:26:00 01/29/2012 23: 59:59 CLS Outpatient [id number] 01/08/2012 11:27:00 01/08/2012 23: 59:59 CLS Outpatient [id number] 01/08/2012 11:27:00 01/08/2012 23: 59:59 CLS Outpatient
--- OUTSIDE RECORDS SUMMARY | 2016-08-21 18:20 | XMS REPORT | Continuity of Care Document ---
Author Author [facility] Organization [facility] Address Unknown Phone Unavailable Care Team Providers Care Information Security Architect Name Role Phone Maddie Royal PCP [phone] Source Comments Some departments are not documenting in the electronic medical record. If you do not see the information that you expected, contact Release of Information in the Health Information Management department at [phone] for further assistance in locating additional records.[facility] Active Allergies and Adverse Reactions No Known Allergies Current Medications Prescription Sig. Disp. Refills Start End Date Status Date [place]-3 Acid Ethyl Esters Take 1 g by [...]
--- OUTSIDE RECORDS SUMMARY | 2016-08-21 18:21 | XMS REPORT | Continuity of Care Document ---
Demographics Preferred Language Unknown Marital Status Unknown Voodoo Affiliation Unknown Race Unknown Ethnic Group Unknown Author Author [facility] Address Unknown Phone Unavailable Allergies Active Description Code Type Severity Reaction Onset Reported/Identified Relationship to Patient Clinical Status Yes Levaquin Drug Allergy 09/12/2010 Yes loratadine 10 mg tablet Drug Allergy 01/29/2012 Yes levofloxacin [id number] Drug Allergy Unknown STOMACH CAMPS 06/08/2015 Medications [...] STATUS 07/01/2016 BETTIE GAMBINO MD Ot 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 Type Provider Facility Loc./Unit Complaint [id number] 03/26/2012 12:55:00 03/26/2012 23: 59:59 CLS Outpatient [id number] 01/29/2012 13:26:00 01/29/2012 23: 59:59 CLS Outpatient [id number] 01/08/2012 11:27:00 01/08/2012 23: 59:59 CLS Outpatient [id number] 01/08/2012 11:27:00 01/08/2012 23: 59:59 CLS Outpatient
== END 2016-08-21 11:23 | disposition home or self-care (01) ==
LOC: EDUNIT# 17:47 → ER 17:48 → 4TH 18:14 → UNDOADMOB 18:14 → 4TH 20:53 → UNDODISOB 08-21 13:15
PROVIDERS: ADMIT Internal Medicine; ATTEND Internal Medicine
DX: T42.4X4A Poisoning by benzodiazepines, undetermined, initial encounter (principal); T42.6X4A Poisoning by other antiepileptic and sedative-hypnotic drugs, undetermined, initial encounter; E86.0 Dehydration; E11.9 Type 2 diabetes mellitus without complications; I10 Essential (primary) hypertension; F33.9 Major depressive disorder, recurrent, unspecified; F17.210 Nicotine dependence, cigarettes, uncomplicated; Z79.4 Long term (current) use of insulin; Z79.899 Other long term (current) drug therapy
CPT/HCPCS: 36415; 70450; 80048; 80053; 80306; 80320; 80329; 81000; 83874; 85025; 96360; G0378

== ENCOUNTER 2016-08-24 05:25 | Emergency (ER) | payer MEDICARE ==
[~2016-08-24] VITALS: Ht 170.2 cm; Wt 104.3 kg
[~2016-08-24 05:25] MED LIST changes: +ESZO3TAB38 PO; +SUCR1TAB PO; +ZIPR80CA23 PO
--- OUTSIDE RECORDS SUMMARY | 2016-08-24 06:00 | XMS REPORT | Continuity of Care Document ---
Author Author [facility] Organization [facility] Address Unknown Phone Unavailable Care Team Providers Care Emt Paramedic Name Role Phone Maddie Royal PCP [phone] Source Comments Some departments are not documenting in the electronic medical record. If you do not see the information that you expected, contact Release of Information in the Health Information Management department at [phone] for further assistance in locating additional records.[facility] Active Allergies and Adverse Reactions No Known Allergies Current Medications Prescription Sig. Disp. Refills Start End Date Status Date [place]-3 Acid Ethyl Esters Take 1 g by [...]
--- OUTSIDE RECORDS SUMMARY | 2016-08-24 06:02 | XMS REPORT | Continuity of Care Document ---
Demographics Preferred Language Unknown Marital Status Unknown Latter Day Affiliation Unknown Race Unknown Ethnic Group Unknown Author Author [facility] Address Unknown Phone Unavailable Allergies Active Description Code Type Severity Reaction Onset Reported/Identified Relationship to Patient Clinical Status Yes Levaquin Drug Allergy 09/12/2010 Yes loratadine 10 mg tablet Drug Allergy 01/29/2012 Yes levofloxacin [id number] Drug Allergy Unknown STOMACH CAMPS 06/08/2015 Medications [...] STATUS 07/01/2016 BETTIE GAMBINO MD Ot 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 07/01/2016 BETTIE GAMBINO MD, Ot Z79.899 OTHER SHELTER (CURRENT) DRUG THERAPY 07/17/2016 NIVIA TREJO DO [...] SUB 07/17/2016 NIVIA TREJO DO Ot 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 Procedures Code Description [place] [address] ROUTINE VENIPUNCTURE 01/08/2012 30796 A1C (IN-HOUSE) 35210 CBC 01/08/2012 99120 CMP 01/08/2012 [id number] GFR CALC (RESULT ONLY) 01/08/2012 89763 CRP 01/09/2012 46849 ESR/SED RATE ANAANA EMILY ANALYZER (SCREEN) 01/09/2012 58746 SJOGRENS SSA (RO)/SSB(LA) 01/16/2012 Results Test Result [...] measurement by glucometer (mass/volume) 78 mg/dL 70-110 Complete blood count (CBC) with automated white blood cell (WBC) differential - 08/20/16 17:53 Blood leukocytes automated count (number/volume) 13.1 10*3/ uL 4.3-11.0 Blood erythrocytes automated count (number/volume) 5.80 10*6 /uL 4.35-5.85 Venous blood hemoglobin measurement (mass/volume) 17.4 g/dL 13.3-17.7 Blood hematocrit (volume fraction) 52 % 40-54 Automated erythrocyte mean corpuscular volume 90 [foz_us] 80-99 Automated erythrocyte mean corpuscular hemoglobin (mass per erythrocyte) 30 pg 25-34 Automated erythrocyte mean corpuscular hemoglobin concentration measurement ( mass/volume) 34 g/dL 32-36 Automated erythrocyte distribution width ratio 14.4 % 10.0-14.5 Automated blood platelet count (count/volume) 314 10*3/uL 130-400 Automated blood platelet mean volume measurement 10.0 [foz_ us] 7.4-10.4 Automated blood neutrophils/100 leukocytes 72 % 42-75 Automated blood lymphocytes/100 leukocytes 19 % 12-44 Blood monocytes/100 leukocytes 10 % 0-12 Automated blood eosinophils/100 leukocytes 0 % 0-10 Automated blood basophils/100 leukocytes 0 % 0-10 Blood neutrophils automated count (number/volume) 9.4 10*3 1.8-7.8 Blood lymphocytes automated count (number/volume) 2.4 10*3 1.0-4.0 Blood monocytes automated count (number/volume) 1.3 10*3 0.0-1.0 Automated eosinophil count 0.0 10*3/uL 0.0-0.3 Automated blood basophil count (count/volume) 0.0 10*3/uL 0.0-0.1 Comprehensive metabolic panel - 08/20/16 17:53 Serum or plasma sodium measurement (moles/volume) 151 mmol/ L 135-145 Serum or plasma potassium measurement (moles/volume) 3.5 mmol/L 3.6-5.0 Serum or plasma chloride measurement (moles/volume) 115 mmol /L 98-107 Carbon dioxide 21 mmol/L 21-32 Serum or plasma anion gap determination (moles/volume) 15 mmol/L 5-14 Serum or plasma urea nitrogen measurement (mass/volume) 56 mg/dL 7-18 Serum or plasma creatinine measurement (mass/volume) 1.67 mg /dL 0.60-1.30 Serum or plasma urea nitrogen/creatinine mass ratio 34 NRG Serum or plasma creatinine measurement with calculation of estimated glomerular filtration rate 45 NRG Serum or plasma glucose measurement (mass/volume) 164 mg/dL 70-105 Serum or plasma calcium measurement (mass/volume) 10.1 mg/ dL 8.5-10.1 Serum or plasma total bilirubin measurement (mass/volume) 0.7 mg/dL 0.1-1.0 Serum or plasma alkaline phosphatase measurement (enzymatic activity/volume) 143 U/L 40-136 Serum or plasma aspartate aminotransferase measurement (enzymatic activity/ volume) 11 U/L 5-34 Serum or plasma alanine aminotransferase measurement (enzymatic activity/volume ) 31 U/L 0-55 Serum or plasma protein measurement (mass/volume) 9.0 g/dL 6.4-8.2 Serum or plasma albumin measurement (mass/volume) 5.1 g/dL 3.2-4.5 Myoglobin, serum - 08/20/16 17:53 Myoglobin, serum 160.7 ng/mL 10.0-92.0 Serum or plasma salicylates measurement (mass/volume) - 08/20/16 17:53 Serum or plasma salicylates measurement (mass/volume) < mg/ dL 5.0-20.0 Serum or plasma acetaminophen measurement (mass/volume) - 08/20/16 17:53 Serum or plasma acetaminophen measurement (mass/volume) < ug /mL 10-30 Serum or plasma ethanol measurement (mass/volume) - 08/20/16 17:53 Serum or plasma ethanol measurement (mass/volume) < mg/dL <10 Complete urinalysis with reflex to culture - 08/20/16 20:50 Urine color determination YELLOW NRG Urine clarity determination CLEAR NRG Urine pH measurement by test strip 6 5- 9 Specific gravity of urine by test strip 1.020 1.016-1.022 Urine protein assay by test strip, semi-quantitative 4+ NEGATIVE Urine glucose detection by automated test strip 3+ NEGATIVE Erythrocytes detection in urine sediment by light microscopy 3+ NEGATIVE Urine ketones detection by automated test strip 2+ NEGATIVE Urine nitrite detection by test strip NEGATIVE NEGATIVE Urine total bilirubin detection by test strip NEGATIVE NEGATIVE Urine urobilinogen measurement by automated test strip (mass/volume) NORMAL NORMAL Urine leukocyte esterase detection by dipstick NEGATIVE NEGATIVE Automated urine sediment erythrocyte count by microscopy (number/high power field) [HPF] NRG Automated urine sediment leukocyte count by microscopy (number/high power field ) RARE NRG Bacteria detection in urine sediment by light microscopy NEGATIVE NRG Crystals detection in urine sediment by light microscopy NONE NRG Casts detection in urine sediment by light microscopy PRESENT NRG Mucus detection in urine sediment by light microscopy SMALL NRG Complete urinalysis with reflex to culture NO NRG Hyaline casts detection in urine sediment by light microscopy 10-25 NRG Urine drug screening test - 08/20/16 20:50 Urine phencyclidine detection by screening method NEGATIVE NEGATIVE Urine benzodiazepines detection by screening method NEGATIVE NEGATIVE Urine cocaine detection NEGATIVE NEGATIVE Urine amphetamines detection by screening method NEGATIVE NEGATIVE Urine methamphetamine detection by screening method NEGATIVE NEGATIVE Urine cannabinoids detection by screening method NEGATIVE NEGATIVE Urine opiates detection by screening method NEGATIVE NEGATIVE Urine barbiturates detection NEGATIVE NEGATIVE Screening urine tricyclic antidepressants detection NEGATIVE NEGATIVE Urine methadone detection by screening method NEGATIVE NEGATIVE Urine oxycodone detection NEGATIVE NEGATIVE Urine propoxyphene detection NEGATIVE NEGATIVE Whole blood basic metabolic panel - 08/21/16 04:28 Serum or plasma sodium measurement (moles/volume) 145 mmol/ L 135-145 Serum or plasma potassium measurement (moles/volume) 3.4 mmol/L 3.6-5.0 Serum or plasma chloride measurement (moles/volume) 109 mmol /L 98-107 Carbon dioxide 22 mmol/L 21-32 Serum or plasma anion gap determination (moles/volume) 14 mmol/L 5-14 Serum or plasma urea nitrogen measurement (mass/volume) 42 mg/dL 7-18 Serum or plasma creatinine measurement (mass/volume) 1.16 mg /dL 0.60-1.30 Serum or plasma urea nitrogen/creatinine mass ratio 36 NRG Serum or plasma creatinine measurement with calculation of estimated glomerular filtration rate > NRG Serum or plasma glucose measurement (mass/volume) 110 mg/dL 70-105 Serum or plasma calcium measurement (mass/volume) 9.3 mg/dL 8.5-10.1 Encounters ACCT No. Visit Date/Time Discharge Status Pt. Type Provider Facility Loc./Unit Complaint [id number] 03/26/2012 12:55:00 03/26/2012 23: 59:59 CLS Outpatient [id number] 01/29/2012 13:26:00 01/29/2012 23: 59:59 CLS Outpatient [id number] 01/08/2012 11:27:00 01/08/2012 23: 59:59 CLS Outpatient [id number] 01/08/2012 11:27:00 01/08/2012 23: 59:59 CLS Outpatient
[2016-08-24] MEDS ORDERED: oxyCODONE/APAP 5/325MG (PERCOCET 5) TABLET PO ONE (06:15)
--- NOTE | 2016-08-24 06:37 | ED Fall/Injury ---
General Chief Complaint: Trauma-Non Activation Stated Complaint: FALL Nursing Triage Note: patient reports falling down stairs due to them being wet. patient c/o L wrist pain. patient denies hitting head, LOC or neck pain Allergies and Home Medications Allergies Coded Allergies: levofloxacin (Verified Adverse Reaction, Unknown, STOMACH CAMPS, 06/08/15) Home Medications Cyproheptadine HCl 4 Mg Tablet, 4 MG PO HS, (Reported) Diltiazem HCl 240 Mg Cap.er.24h, 240 MG PO HS, (Reported) Gemfibrozil 600 Mg Tablet, 600 MG PO BID, (Reported) Insulin Aspart 300 Units/3 Ml Solution, 24 UNITS SQ TIDAC PRN for BLOOD SUGAR, ( Reported) Insulin Glargine,Hum.rec.anlog 100 Unit/1 Ml Insuln.pen, 45 UNITS SQ HS, ( Reported) Tie Siding-3 Acid Ethyl Esters 1 Gm Capsule, 1 GM PO BID, (Reported) Omeprazole 20 Mg Capsule.dr, 40 MG PO BID, (Reported) TAKES 2 (20MG) CAPSULES Sucralfate 1 Gm Tablet, 1 GM PO ACHS, (Reported) Valsartan 160 Mg Tablet, 160 MG PO BID, (Reported) Past Nyonyxz-Tvmphs-Jwadtf Hx Patient Social History Alcohol Use: Denies Use Recreational Drug Use: No Smoking Status: Current Everyday Smoker Type Used: Cigarettes 2nd Hand Smoke Exposure: No Recent Foreign Travel: No Contact w/Someone Who Travel: No Recent Infectious Disease Expo: No Recent Hopitalizations: No Immunizations Up To Date Tetanus Booster (TDap): Unknown PED Vaccines UTD: No Date of Influenza Vaccine: Feb 11, 2015 Seasonal Allergies Seasonal Allergies: No Surgeries HX Surgeries: No Respiratory Hx Respiratory Disorders: No Cardiovascular Hx Cardiac Disorders: Yes Cardiac Disorders: High Cholesterol, Hypertension Neurological Hx Neurological Disorders: Yes ("CYST" ON LOWER BACK/"SPINE" ) Reproductive System Hx Reproductive Disorders: No Genitourinary Hx Genitourinary Disorders: No Gastrointestinal Hx Gastrointestinal Disorders: Yes (FATTY LIVER) Gastrointestinal Disorders: Gastroesophageal Reflux, Liver Disease/Jaundice, Pancreatitis Musculoskeletal Hx Musculoskeletal Disorders: Yes (CHRONIC BACK PAIN WITH "CYST" ON LOWER BACK/ "SPINE" ) Musculoskeletal Disorders: Chronic Back Pain Endocrine Hx Endocrine Disorders: Yes (DOES NOT ROUTINELY CHECK BLOOD SUGAR) Endocrine Disorders: Diabetes, Insulin dep HEENT HX ENT Disorders: Yes (POOR DENTITION) Loss of Vision: Denies Hearing Impairment: Denies Cancer Hx Cancer: No Psychosocial Hx Psychiatric Problems: Yes Behavioral Health Disorders: Depression Integumentary HX Skin/Integumentary Disorder: No Blood Transfusions Hx Blood Disorders: No Family Medical History Family Medial History: Cancer 03 MOTHER Congestive heart failure 03 FATHER Family history: Hypertension 03 FATHER Physical Exam Vital Signs Vital Sign - Last 12Hours 08/24/16 05:26 Temp 98.5 Pulse 97 Resp 18 B/P (MAP) 162/88 Pulse Ox 98 Capillary Refill : Less Than 3 Seconds Splinting and Joint Reduction : Pre-Proc Neuro Vasc Exam: normal Post-Proc Neuro Vasc Exam: normal Progress Sugar tong splint and sling applied to the left arm by this provider. Splint Application: Short Arm Progress/Results/Core Measures Results/Orders My Orders Orders - DAVIDE ALANIS MD Wrist, Left, 3 Views Or More (08/24/16 05:31) Oxycodone/Apap 5/325mg Tablet (Percocet (08/24/16 06:15) Medications Given in ED Current Medications Medications Dose Ordered Sig/Attila Route Start Time Stop Time Status Last Admin Dose Admin Oxycodone/ Acetaminophen 1 tab ONCE ONCE PO 08/24/16 06:15 08/24/16 06:16 DC 08/24/16 06:16 1 TAB Vital Signs/I&O Vital Sign - Last 12Hours 08/24/16 05:26 Temp 98.5 Pulse 97 Resp 18 B/P (MAP) 162/88 Pulse Ox 98 Blood Pressure Mean: 112 Progress Note : Progress Note Patient was treated with Percocet for pain. Images of the x-ray was viewed by Dr. Lawson who recommends sugar tong splint and follow-up in the clinic. Diagnostic Imaging Diagonstic Imaging: Xray Plain Films/CT/US/NM/MRI: forearm Comments X-ray of the left wrist viewed by me. Report not yet available. There is a displaced and comminuted intra-articular left distal radial fracture. Departure Impression Impression: Primary Impression: Distal radius fracture, left Qualified Codes: S52.572A - Other intraarticular fracture of lower end of left radius, initial encounter for closed fracture Disposition: 01 HOME, SELF-CARE Condition: Improved Departure-Patient Inst. Decision time for Depature: 06:00 Referrals: LEYDA ZAMORA MD (PCP/Family) Primary Care Physician Patient Instructions: Wrist Fracture (DC) Add. Discharge Instructions: Keep your arm in the sling as much as possible. Keep the splint clean and dry. Follow up with Dr. Lawson as soon as possible. Call his office today for an appointment. Use your hydrocodone as prescribed. Rest, icing in 20 minute intervals, and elevation should help with pain and swelling. All discharge instructions reviewed with patient and/or family. Voiced understanding. Scripts Hydrocodone/Acetaminophen (Hydrocodon -Acetaminophen 5-325) 1 Each Tablet 1-2 EACH PO Q6H Y for PAIN, #20 TAB Prov: DAVIDE ALANIS MD 08/24/16 DAVIDE ALANIS MD Aug 24, 2016 06:37
[2016-08-24] MEDS ORDERED: HYDR-3812 PO (06:39)
[2016-08-24 06:45] VITALS: BP 136/85
--- NOTE | 2016-08-24 07:16 | Diagnostic Imaging Report ---
Three views of the left wrist. INDICATION: Fall. FINDINGS: There is a comminuted fracture of the distal radius extending into the radiocarpal joint. There is no subluxation or dislocation. There is mild impaction at the fracture site however. IMPRESSION: Comminuted intra-articular impacted fracture of the distal left radius. Dictated by: Dictated on workstation # [id number]
== END 2016-08-24 06:45 | disposition home or self-care (01) ==
LOC: EDUNIT# 05:25 → ER 05:27
DX: S52.572A Other intraarticular fracture of lower end of left radius, initial encounter for closed fracture (principal); E11.9 Type 2 diabetes mellitus without complications; F32.9 Major depressive disorder, single episode, unspecified; E78.00 Pure hypercholesterolemia, unspecified; K21.9 Gastro-esophageal reflux disease without esophagitis; I10 Essential (primary) hypertension; F17.210 Nicotine dependence, cigarettes, uncomplicated; Z82.49 Family history of ischemic heart disease and other diseases of the circulatory system; Z79.4 Long term (current) use of insulin; W10.9XXA Fall (on) (from) unspecified stairs and steps, initial encounter
CPT/HCPCS: 29125; 73110

== ENCOUNTER 2016-09-08 09:00 | Emergency (ER) | payer MEDICARE ==
[~2016-09-08] VITALS: Ht 185.4 cm; Wt 104.3 kg
[~2016-09-08 09:00] MED LIST changes: +HYDR-3812 PO
[2016-09-08] MEDS ORDERED: NS IV 1000 ML 1,000 ML IV ONE ×2 (09:07→10:37)
--- NOTE | 2016-09-08 09:07 | ED Neurological Problem ---
General Stated Complaint: SEIZURE Source: patient, EMS Exam Limitations: clinical condition History of Present Illness Time seen by provider: 08:58 Initial Comments Patient is brought to the ER by ambulance after a witnessed seen saw him pass out all the ground and began to convulse for less than 1 minute. He has a history of diabetes and blood sugar at the scene was 61. An appendectomy D50 was given on recommendation from the ER doc. He is coming around both time he got to the ER and able to give some history that he does not recall was going on prior to his passing out today. He is diabetic uses insulin NovoLog and Humalog. He is not on any oral hypoglycemics. He is disabled for his back and does not work. He is not sure what was he was doing this morning. However he remembers getting up this morning and here members last night well. He denies any history of epilepsy or seizures. EMS reports that he was postictal and combative and there were unable to place a c-collar but after they got him on the gurney he is holding his head midline manually. According to witnesses on scene he did strike his head when hitting the ground. The patient denies any nausea, pain, fever,recent illness, sinus congestion, diarrhea, rash or exposure to any other sick contacts. Patient has a cast on his left forearm with splint from an old injury from a fall downstairs. He says it is not hurting any different than it usually does. Allergies and Home Medications Allergies Coded Allergies: levofloxacin (Verified Adverse Reaction, Unknown, STOMACH CAMPS, 06/08/15) Home Medications Cyproheptadine HCl 4 Mg Tablet, 4 MG PO HS, (Reported) Diltiazem HCl 240 Mg Cap.er.24h, 240 MG PO HS, (Reported) Gemfibrozil 600 Mg Tablet, 600 MG PO BID, (Reported) Hydrocodone/Acetaminophen 1 Each Tablet, 1-2 EACH PO Q6H PRN for PAIN, #20 Prescribed by: DAVIDE GAFFNEY on 08/24/16 0639 Insulin Aspart 300 Units/3 Ml Solution, 24 UNITS SQ TIDAC PRN for BLOOD SUGAR, ( Reported) Insulin Glargine,Hum.rec.anlog 100 Unit/1 Ml Insuln.pen, 45 UNITS SQ HS, ( Reported) [place]-3 Acid Ethyl Esters 1 Gm Capsule, 1 GM PO BID, (Reported) Omeprazole 20 Mg Capsule.dr, 40 MG PO BID, (Reported) TAKES 2 (20MG) CAPSULES Sucralfate 1 Gm Tablet, 1 GM PO ACHS, (Reported) Valsartan 160 Mg Tablet, 160 MG PO BID, (Reported) Constitutional: No chills, No diaphoresis, No fever, No malaise Eyes: Denies Blindness, Denies Blurred Vision, Denies Decreased Acuity Ears, Nose, Mouth, Throat: denies ear pain, denies ear discharge, denies nose pain, denies nose discharge, denies epistaxis, denies mouth pain Respiratory: No cough, No short of breath, No wheezing Cardiovascular: No chest pain, No edema, No palpitations Gastrointestinal: No abdominal pain, No constipation, No diarrhea, No loss of appetite, No nausea, No vomiting Genitourinary: No discharge, No dysuria, No incontinence Musculoskeletal: No back pain, No joint pain Skin: No pruritus, No rash Psychiatric/Neurological: Denies Headache, Denies Numbness, Denies Tingling Past Dtlbxxh-Xgtokh-Ferzgn Hx Patient Social History Recreational Drug Use: No (distant history of marijuana use) Smoking Status: Current Everyday Smoker Type Used: Cigarettes 2nd Hand Smoke Exposure: No Recent Hopitalizations: No Immunizations Up To Date Tetanus Booster (TDap): Unknown PED Vaccines UTD: No Date of Influenza Vaccine: Feb 11, 2015 Seasonal Allergies Seasonal Allergies: No Surgeries HX Surgeries: No Respiratory Hx Respiratory Disorders: No Cardiovascular Hx Cardiac Disorders: Yes Cardiac Disorders: High Cholesterol, Hypertension Neurological Hx Neurological Disorders: Yes ("CYST" ON LOWER BACK/"SPINE" ) Reproductive System Hx Reproductive Disorders: No Genitourinary Hx Genitourinary Disorders: No Gastrointestinal Hx Gastrointestinal Disorders: Yes (FATTY LIVER) Gastrointestinal Disorders: Gastroesophageal Reflux, Liver Disease/Jaundice, Pancreatitis Musculoskeletal Hx Musculoskeletal Disorders: Yes (CHRONIC BACK PAIN WITH "CYST" ON LOWER BACK/ "SPINE" ) Musculoskeletal Disorders: Chronic Back Pain Endocrine Hx Endocrine Disorders: Yes (DOES NOT ROUTINELY CHECK BLOOD SUGAR) Endocrine Disorders: Diabetes, Insulin dep HEENT HX ENT Disorders: Yes (POOR DENTITION) Loss of Vision: Denies Hearing Impairment: Denies Cancer Hx Cancer: No Psychosocial Hx Psychiatric Problems: Yes Behavioral Health Disorders: Depression Integumentary HX Skin/Integumentary Disorder: No Blood Transfusions Hx Blood Disorders: No Family Medical History Family Medial History: Cancer 03 MOTHER Congestive heart failure 03 FATHER Family history: Hypertension 03 FATHER Physical Exam Vital Signs Vital Sign - Last 12Hours 09/08/16 09:04 Temp 97.5 Pulse 82 Resp 16 B/P (MAP) 176/100 Pulse Ox 98 O2 Delivery Room Air Capillary Refill : General Appearance: WD/WN, no apparent distress HEENT: PERRL/EOMI, normal ENT inspection, TMs normal, pharynx normal, other ( dental caries) Neck: non-tender, full range of motion, supple, normal inspection Respiratory: chest non-tender, lungs clear, normal breath sounds, no respiratory distress Cardiovascular: normal peripheral pulses, regular rate, rhythm, no edema, no murmur Peripheral Pulses: 3+ Dorsalis Pedis (R), 3+ Left Dors-Pedis (L), 3+ Radial Pulses (R), 3+ Radial Pulses (L) Gastrointestinal: normal bowel sounds, non tender, soft Back: normal inspection, no vertebral tenderness Extremities: normal range of motion, non-tender, normal inspection, no pedal edema, no calf tenderness, normal capillary refill, other (left arm and ulnar gutter splint/cast secondary to old injury.) Neurologic/Psychiatric: 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 tested, no motor/sensory deficits, alert, normal mood/affect, oriented x 3, other (left finger sensation in movement are intact 5.) Skin: normal color, warm/dry, other (small right temporal abrasion) Lymphatic: no adenopathy Focused Exam Lactic Acid Level Laboratory Tests Test 09/08/16 09:35 09/08/16 12:29 Lactic Acid Level 2.74 MMOL/L (0.50-2.00) *H 0.94 MMOL/L (0.50-2.00) Progress/Results/Core Measures Results/Orders Lab Results Laboratory Tests Test 09/08/16 09:05 09/08/16 09:35 09/08/16 12:29 09/08/16 13:21 Range/Units Glucometer 159 H 70-110 MG/DL White Blood Count 7.0 4.3-11.0 10^3/uL Red Blood Count 4.29 L 4.35-5.85 10^6/uL Hemoglobin 13.3 13.3-17.7 G/DL Hematocrit 39 L 40-54 % Mean Corpuscular Volume 91 80-99 FL Mean Corpuscular Hemoglobin 31 25-34 PG Mean Corpuscular Hemoglobin Concent 34 32-36 G/DL Red Cell Distribution Width 14.4 10.0-14.5 % Platelet Count 211 130-400 10^3/uL Mean Platelet Volume 9.3 7.4-10.4 FL Neutrophils (%) (Auto) 70 42-75 % Lymphocytes (%) (Auto) 23 12-44 % Monocytes (%) (Auto) 6 0-12 % Eosinophils (%) (Auto) 1 0-10 % Basophils (%) (Auto) 0 0-10 % Neutrophils # (Auto) 4.8 1.8-7.8 X 10^3 Lymphocytes # (Auto) 1.6 1.0-4.0 X 10^3 Monocytes # (Auto) 0.4 0.0-1.0 X 10^3 Eosinophils # (Auto) 0.1 0.0-0.3 10^3/uL Basophils # (Auto) 0.0 0.0-0.1 10^3/uL Sodium Level 143 135-145 MMOL/L Potassium Level 3.4 L 3.6-5.0 MMOL/L Chloride Level 112 H 98-107 MMOL/L Carbon Dioxide Level 17 L 21-32 MMOL/L Anion Gap 14 5-14 MMOL/L Blood Urea Nitrogen 9 7-18 MG/DL Creatinine 0.78 0.60-1.30 MG/DL Estimat Glomerular Filtration Rate > 60 BUN/Creatinine Ratio 12 Glucose Level 88 70-105 MG/DL Lactic Acid Level 2.74 *H 0.94 0.50-2.00 MMOL/L Calcium Level 8.9 8.5-10.1 MG/DL Magnesium Level 2.2 1.8-2.4 MG/DL Total Bilirubin 0.3 0.1-1.0 MG/DL Aspartate Amino Transf (AST/SGOT) 14 5-34 U/L Alanine Aminotransferase (ALT/SGPT) 18 0-55 U/L Alkaline Phosphatase 165 H 40-136 U/L Troponin I < 0.30 <0.30 NG/ML Total Protein 6.8 6.4-8.2 GM/DL Albumin 3.9 3.2-4.5 GM/DL Serum Alcohol < 10 <10 MG/DL Urine Color YELLOW Urine Clarity SLIGHTLY CLOUDY Urine pH 7 5-9 Urine Specific Drifting 1.010 L 1.016-1.022 Urine Protein NEGATIVE NEGATIVE Urine Glucose (UA) 1+ H NEGATIVE Urine Ketones NEGATIVE NEGATIVE Urine Nitrite NEGATIVE NEGATIVE Urine Bilirubin NEGATIVE NEGATIVE Urine Urobilinogen NORMAL NORMAL MG/DL Urine Leukocyte Esterase NEGATIVE NEGATIVE Urine RBC (Auto) NEGATIVE NEGATIVE Urine RBC NONE /HPF Urine WBC RARE /HPF Urine Squamous Epithelial Cells RARE /HPF Urine Crystals NONE /LPF Urine Bacteria NEGATIVE /HPF Urine Casts NONE /LPF Urine Mucus NEGATIVE /LPF Urine Culture Indicated NO Urine Opiates Screen NEGATIVE NEGATIVE Urine Oxycodone Screen NEGATIVE NEGATIVE Urine Methadone Screen NEGATIVE NEGATIVE Urine Propoxyphene Screen NEGATIVE NEGATIVE Urine Barbiturates Screen NEGATIVE NEGATIVE Ur Tricyclic Antidepressants Screen NEGATIVE NEGATIVE Urine Phencyclidine Screen NEGATIVE NEGATIVE Urine Amphetamines Screen NEGATIVE NEGATIVE Urine Methamphetamines Screen NEGATIVE NEGATIVE Urine Benzodiazepines Screen NEGATIVE NEGATIVE Urine Cocaine Screen NEGATIVE NEGATIVE Urine Cannabinoids Screen NEGATIVE NEGATIVE My Orders Orders - EDWIN MORENO Ct Head Wo (09/08/16 09:07) Alcohol (09/08/16 09:07) Cbc With Automated Diff (09/08/16 09:07) Comprehensive Metabolic Panel (09/08/16 09:07) Drug Screen Stat (Urine) (09/08/16 09:07) Lactic Acid Analyzer (09/08/16 09:07) Magnesium (09/08/16 09:07) Troponin I (09/08/16 09:07) Ua Culture If Indicated (09/08/16 09:07) Chest Pa/Lat (2 View) (09/08/16 09:07) Saline Lock/Iv-Start (09/08/16 09:07) Ns Iv 1000 Ml (Sodium Chloride 0.9%) (09/08/16 09:07) Ekg Tracing (09/08/16 09:07) Accucheck Stat ONCE (09/08/16 09:07) Fentanyl Injection (Sublimaze Injection (09/08/16 09:30) Ns Iv 1000 Ml (Sodium Chloride 0.9%) (09/08/16 10:37) Medications Given in ED Current Medications Medications Dose Ordered Sig/Attila Route Start Time Stop Time Status Last Admin Dose Admin Fentanyl Citrate 50 mcg ONCE ONCE IVP 09/08/16 09:30 09/08/16 09:31 DC 09/08/16 09:40 50 MCG Sodium Chloride 1,000 ml @ 0 mls/hr Q0M ONCE IV 09/08/16 09:07 09/08/16 09:10 DC 09/08/16 09:07 1,000 MLS/HR Vital Signs/I&O Vital Sign - Last 12Hours 09/08/16 09/08/16 09:04 09:40 Temp 97.5 97.5 Pulse 82 Resp 16 B/P (MAP) 176/100 Pulse Ox 98 O2 Delivery Room Air Progress Note #1: Time: 09:19 Progress Note Patient without any history of epilepsy had a borderline low sugar and was convulsing witness for less than a minute. Possible hypoglycemic episode that has resolved with a blood sugar of 159 on arrival after receiving 1 amp of D50 by EMS. He is insulin-dependent. Going to look for reasons why his blood sugar might be low to include dehydration, heat exhaustion, drug use, infection, other. EKG unremarkable except for tachycardia and Progress Note #2: Time: 10:36 Progress Note Lactate elevated with normal CT and chest x-ray. No white count. Could be elevated due to his recent convulsions. We will give him some more fluids at this time and attempt to collect urine. ECG Initial ECG Impression Date: Sep 08, 2016 Initial ECG Impression Time: 09:16 Initial ECG Rate: 102 Initial ECG Rhythm: S.Tach Initial ECG Intervals: Normal Initial ECG Impression: Normal Initial ECG Comparisson: No Previous ECG Available Comment No T-wave elevation or depression noted. Diagnostic Imaging Diagonstic Imaging: Xray Plain Films/CT/US/NM/MRI: chest Comments VIA [facility]. [place], [place] NAME: LIONEL MIRANDA [facility] REC#: [id number] PT STATUS: REG ER : 1975 PHYSICIAN: EDWIN MORENO MD ADMIT DATE: 09/08/16/ER Draft Date of Exam:09/08/16 CHEST PA/LAT (2 VIEW) INDICATION: Seizures slightly confused EXAMINATION: Chest 09/08/16. Comparison made to chest dated 03/17/2013 FINDINGS: The cardiomediastinal silhouette is unremarkable. The pulmonary vasculature is within normal limits. The lungs and pleural spaces are clear. There is a vague lucency in the visualized proximal right humerus perhaps due to the known previous fracture. Correlation is made to a right shoulder films from 07/01/2016. IMPRESSION: No evidence of an acute cardiopulmonary process. Dictated on workstation # [id number] Dict: 09/08/16 1000 Trans: 09/08/16 1012 DG [id number] Interpreted by: DWIGHT GONZALEZ MD Electronically signed by: Reviewed: Reviewed by Me Diagonstic Imaging: CT Plain Films/CT/US/NM/MRI: head Comments VIA [place], [place] NAME: LIONEL MIRANDA [facility] REC#: [id number] PT STATUS: REG ER : 1975 PHYSICIAN: EDWIN MORENO MD ADMIT DATE: 09/08/16/ER Draft Date of Exam:09/08/16 CT HEAD WO PROCEDURE: CT head without contrast. TECHNIQUE: Multiple contiguous axial images were obtained through the brain without the use of intravenous contrast. INDICATION: Seizure and confusion COMPARISON: 08/20/16 FINDINGS: The ventricles are normal in size, shape, and position. There is no midline shift or mass effect. There is no hemorrhage or evidence of acute ischemia. There is no cerebral edema. No extra-axial fluid collection identified. The bony calvarium, visualized paranasal sinuses, and mastoids are normal. IMPRESSION: Negative CT head. No interval change. Dictated on workstation # [id number] Dict: 09/08/16 0953 Trans: 09/08/16 1005 GUILLE [id number] Interpreted by: JASWINDER DELEON Electronically signed by: Reviewed: Reviewed by Me Departure Impression Impression: Primary Impression: Hypoglycemia Additional Impressions: Convulsions Qualified Codes: R56.9 - Unspecified convulsions Syncope and collapse Disposition: 01 HOME, SELF-CARE Condition: Stable Departure-Patient Inst. Decision time for Depature: 13:59 Referrals: LEYDA ZAMORA MD (PCP/Family) Primary Care Physician Patient Instructions: Low Blood Sugar, Adult (DC) Add. Discharge Instructions: For the next several days you should check your sugar 4 times a day and any time your started feeling off, slow or weird. Plan to call your PCP Saturday morning and make an appointment to follow up within 1-2 weeks with her to discuss your blood sugar management. Do not skip meals if you are Taking insulin. Copy Copies To 1: LEYDA ZAMORA MD, TITUS J Sep 08, 2016 09:07
[2016-09-08] MEDS ORDERED: fentaNYL INJECTION 100 MCG/2 ML AMP IVP ONE (09:30)
[2016-09-08 09:41] LABS: BASOPHILS % (AUTO) 0 % (0-10); EOSINOPHILS # (AUTO) 0.1 10^3/uL (0.0-0.3); EOSINOPHILS % (AUTO) 1 % (0-10); LYMPHOCYTES # (AUTO) 1.6 X 10^3 (1.0-4.0); LYMPHOCYTES % (AUTO) 23 % (12-44); MEAN CORPUSCULAR HEMOGLOBIN 31 PG (25-34); MEAN CORPUSCULAR HGB CONC 34 G/DL (32-36); MEAN CORPUSCULAR VOLUME 91 FL (80-99); MEAN PLATELET VOLUME 9.3 FL (7.4-10.4); MONOCYTES # (AUTO) 0.4 X 10^3 (0.0-1.0); MONOCYTES % (AUTO) 6 % (0-12); NEUTROPHILS # (AUTO) 4.8 X 10^3 (1.8-7.8); NEUTROPHILS % (AUTO) 70 % (42-75); PLATELET COUNT 211 10^3/uL (130-400); RED BLOOD COUNT 4.29 10^6/uL (4.35-5.85); RED CELL DISTRIBUTION WIDTH 14.4 % (10.0-14.5)
[2016-09-08 10:03] LABS: ALANINE AMINOTRANSFERASE 18 U/L (0-55); ALBUMIN 3.9 GM/DL (3.2-4.5); ALCOHOL < 10 MG/DL (<10); ANION GAP 14 MMOL/L (5-14); ASPARTATE AMINO TRANSFERASE 14 U/L (5-34); BILIRUBIN,TOTAL 0.3 MG/DL (0.1-1.0); BLOOD UREA NITROGEN 9 MG/DL (7-18); BUN/CREATININE RATIO 12; CALCIUM 8.9 MG/DL (8.5-10.1); CARBON DIOXIDE 17 MMOL/L (21-32); CHLORIDE 112 MMOL/L (98-107); CREATININE SERUM 0.78 MG/DL (0.60-1.30); GFR ESTIMATED > 60; GLUCOSE 88 MG/DL (70-105); MAGNESIUM 2.2 MG/DL (1.8-2.4); POTASSIUM 3.4 MMOL/L (3.6-5.0); SODIUM 143 MMOL/L (135-145); TOTAL PROTEIN 6.8 GM/DL (6.4-8.2)
--- NOTE | 2016-09-08 10:05 | Diagnostic Imaging Report ---
PROCEDURE: CT head without contrast. TECHNIQUE: Multiple contiguous axial images were obtained through the brain without the use of intravenous contrast. INDICATION: Seizure and confusion COMPARISON: 08/20/16 FINDINGS: The ventricles are normal in size, shape, and position. There is no midline shift or mass effect. There is no hemorrhage or evidence of acute ischemia. There is no cerebral edema. No extra-axial fluid collection identified. The bony calvarium, visualized paranasal sinuses, and mastoids are normal. IMPRESSION: Negative CT head. No interval change. Dictated by: Dictated on workstation # [id number]
[2016-09-08 10:11] LABS: TROPONIN I < 0.30 NG/ML (<0.30)
--- NOTE | 2016-09-08 10:12 | Diagnostic Imaging Report ---
INDICATION: Seizures slightly confused EXAMINATION: Chest 09/08/16. Comparison made to chest dated 03/17/2013 FINDINGS: The cardiomediastinal silhouette is unremarkable. The pulmonary vasculature is within normal limits. The lungs and pleural spaces are clear. There is a vague lucency in the visualized proximal right humerus perhaps due to the known previous fracture. Correlation is made to a right shoulder films from 07/01/2016. IMPRESSION: No evidence of an acute cardiopulmonary process. Dictated by: Dictated on workstation # [id number]
[2016-09-08 13:28] LABS: BILIRUBIN,URINE NEGATIVE (NEGATIVE); KETONES,URINE NEGATIVE (NEGATIVE); LEUKOCYTE ESTERASE ,URINE NEGATIVE (NEGATIVE); NITRITE,URINE NEGATIVE (NEGATIVE); PH,URINE 7 (5-9); PROTEIN,URINE NEGATIVE (NEGATIVE); UROBILINOGEN,URINE NORMAL (NORMAL)
[2016-09-08 13:32] LABS: SQUAMOUS EPITHELIAL CELL,UR RARE /HPF; WBC,URINE RARE /HPF
[2016-09-08 14:10] VITALS: BP 172/90
== END 2016-09-08 14:10 | disposition home or self-care (01) ==
LOC: EDUNIT# 09:00 → ER 09:02
DX: R56.9 Unspecified convulsions (principal); R55 Syncope and collapse; F32.9 Major depressive disorder, single episode, unspecified; E11.649 Type 2 diabetes mellitus with hypoglycemia without coma; K21.9 Gastro-esophageal reflux disease without esophagitis; E78.00 Pure hypercholesterolemia, unspecified; I10 Essential (primary) hypertension; F17.210 Nicotine dependence, cigarettes, uncomplicated; Z79.82 Long term (current) use of aspirin; Z79.4 Long term (current) use of insulin; Z87.828 Personal history of other (healed) physical injury and trauma
CPT/HCPCS: 36415; 70450; 71020; 80053; 80306; 80320; 81000; 82962; 83605; 83735; 84484; 85025

== ENCOUNTER 2016-10-09 15:32 | Emergency (ER) | payer MEDICARE ==
[~2016-10-09] VITALS: Ht 170.2 cm; Wt 88.5 kg
[2016-10-09 16:28] LABS: BASOPHILS % (AUTO) 1 % (0-10); EOSINOPHILS # (AUTO) 0.2 10^3/uL (0.0-0.3); EOSINOPHILS % (AUTO) 2 % (0-10); LYMPHOCYTES # (AUTO) 2.8 X 10^3 (1.0-4.0); LYMPHOCYTES % (AUTO) 34 % (12-44); MEAN CORPUSCULAR HEMOGLOBIN 31 PG (25-34); MEAN CORPUSCULAR HGB CONC 35 G/DL (32-36); MEAN CORPUSCULAR VOLUME 89 FL (80-99); MEAN PLATELET VOLUME 9.6 FL (7.4-10.4); MONOCYTES # (AUTO) 0.5 X 10^3 (0.0-1.0); MONOCYTES % (AUTO) 6 % (0-12); NEUTROPHILS # (AUTO) 4.9 X 10^3 (1.8-7.8); NEUTROPHILS % (AUTO) 58 % (42-75); PLATELET COUNT 218 10^3/uL (130-400); RED BLOOD COUNT 4.27 10^6/uL (4.35-5.85); RED CELL DISTRIBUTION WIDTH 12.4 % (10.0-14.5); WHITE BLOOD COUNT 8.4 10^3/uL (4.3-11.0)
--- NOTE | 2016-10-09 16:30 | ED Cardiac General ---
History of Present Illness General Chief Complaint: Cardiac/General Problems Stated Complaint: PALPITATIONS Nursing Triage Note: PT TO [facility] BY [facility] WITH CC OF HEART PALPATATIONS, STATES HE FEELS LIKE HIS HEART IS RACING, HEART RATE OF 100 AT TRIAGE, DENIES CHEST PAIN. Source: patient Exam Limitations: no limitations History of Present Illness Time seen by provider: 16:30 Initial Comments 41-year-old male patient presents to the emergency department via EMS with complaints of heart palpitations, dizziness, headache, and dry mouth beginning today. Unsure of exact heart rate. Dizziness is worse with standing. Timing/Duration: intermittent, other (onset this a.m.) Activities at Onset: none Prior CP/Workup: no prior chest pain, no prior cardiac workup NTG SL EXPERIMENTAL ELECTRONICS DEVELOPER: No ASA po EXPERIMENTAL ELECTRONICS DEVELOPER: No Allergies and Home Medications Allergies Coded Allergies: levofloxacin (Verified Adverse Reaction, Unknown, STOMACH CAMPS, 06/08/15) Home Medications Cyproheptadine HCl 4 Mg Tablet, 4 MG PO HS, (Reported) Diltiazem HCl 240 Mg Cap.er.24h, 240 MG PO HS, (Reported) Gemfibrozil 600 Mg Tablet, 600 MG PO BID, (Reported) Hydrocodone/Acetaminophen 1 Each Tablet, 1-2 EACH PO Q6H PRN for PAIN, #20 Prescribed by: DAVIDE GAFFNEY on 08/24/16 0639 Insulin Aspart 300 Units/3 Ml Solution, 24 UNITS SQ TIDAC PRN for BLOOD SUGAR, ( Reported) Insulin Glargine,Hum.rec.anlog 100 Unit/1 Ml Insuln.pen, 45 UNITS SQ HS, ( Reported) [place]-3 Acid Ethyl Esters 1 Gm Capsule, 1 GM PO BID, (Reported) Omeprazole 20 Mg Capsule.dr, 40 MG PO BID, (Reported) TAKES 2 (20MG) CAPSULES Sucralfate 1 Gm Tablet, 1 GM PO ACHS, (Reported) Valsartan 160 Mg Tablet, 160 MG PO BID, (Reported) Review of Systems Constitutional: No chills, No diaphoresis, dizziness, No fever, No malaise, No weakness EENTM: No Symptoms Reported, No Other (denies photophobia) Respiratory: Denies Cough, Denies Shortness of Air, Denies Stridor, Denies Wheezing Cardiovascular: Denies Chest Pain, Denies Edema, Denies Irregular Heart Rate, Lightheadedness, Palpitations, Denies Syncope Gastrointestinal: Denies Abdomen Distended, Denies Abdominal Pain, Denies Constipated, Denies Diarrhea, Denies Nausea, Denies Rectal Bleeding, Denies Vomiting Genitourinary: No Symptoms Reported Musculoskeletal: no symptoms reported Skin: no symptoms reported Psychiatric/Neurological: Headache ("this is the worst headache i have ever had "), Denies Numbness, Denies Paresthesia, Denies Seizure, Denies Tingling, Denies Weakness All Other Systems Reviewed Negative Unless Noted: Yes (Negative excepted noted.) Past Zfivyla-Yluysa-Vasafa Hx Patient Social History Alcohol Use: Denies Use Recreational Drug Use: Yes (RX MEDS, CLEAN 3 YRS) Smoking Status: Current Everyday Smoker Type Used: Cigarettes 2nd Hand Smoke Exposure: No Recent Foreign Travel: No Contact w/Someone Who Travel: No Recent Infectious Disease Expo: No Recent Hopitalizations: Yes (07/2016) Immunizations Up To Date Tetanus Booster (TDap): Unknown PED Vaccines UTD: No Date of Influenza Vaccine: Feb 11, 2015 Seasonal Allergies Seasonal Allergies: No Surgeries History of Surgeries: No Respiratory History of Respiratory Disorde: No Currently Using CPAP: No Cardiovascular History of Cardiac Disorders: Yes Cardiac Disorders: High Cholesterol, Hypertension Neurological History of Neurological Disord: Yes ("CYST" ON LOWER BACK/"SPINE" ) Reproductive System Hx Reproductive Disorders: No Genitourinary History of Genitourinary Disor: No Gastrointestinal History of Gastrointestinal Di: Yes (FATTY LIVER) Gastrointestinal Disorders: Gastroesophageal Reflux, Liver Disease/Jaundice, Pancreatitis Musculoskeletal History of Musculoskeletal Dis: Yes (CHRONIC BACK PAIN WITH "CYST" ON LOWER BACK/"SPINE" ) Musculoskeletal Disorders: Chronic Back Pain Endocrine History of Endocrine Disorders: Yes (DOES NOT ROUTINELY CHECK BLOOD SUGAR/in room pt states he does check with m) Endocrine Disorders: Diabetes, Insulin dep HEENT History of HEENT Disorders: No Loss of Vision: Denies Hearing Impairment: Denies Cancer History of Cancer: No Psychosocial History of Psychiatric Problem: Yes Behavioral Health Disorders: Anxiety, Depression Integumentary History of Skin or Integumenta: No Blood Transfusions History of Blood Disorders: No Reviewed Nursing Assessment Reviewed/Agree w Nursing PMH: Yes Family Medical History Significant Family History: No Pertinent Family Hx (denies family history of heart disease, SVT, atrial fibrillation/atrial flutter.) Family Medial History: Cancer 03 MOTHER Congestive heart failure 03 FATHER Family history: Hypertension 03 FATHER Physical Exam Vital Signs Vital Sign - Last 12Hours 10/09/16 15:55 Temp 98.4 Pulse 100 Resp 18 B/P (MAP) 191/102 Pulse Ox 96 O2 Delivery Room Air Capillary Refill : Less Than 3 Seconds General Appearance: No Apparent Distress, WD/WN HEENT: PERRL/EOMI, TMs Normal, Normal ENT Inspection, Pharynx Normal, Other ( oral mucosa dry) Neck: Normal Inspection, Non Tender, Supple Respiratory: Lungs Clear, Normal Breath Sounds, No Accessory Muscle Use, No Respiratory Distress Cardiovascular: Regular Rate, Rhythm, No Edema, No Murmur, Normal Peripheral Pulses Gastrointestinal: Normal Bowel Sounds, No Organomegaly, Non Tender, Soft Extremity: Normal Capillary Refill, No Calf Tenderness, No Pedal Edema Neurologic/Psychiatric: Alert, Oriented x3, No Motor/Sensory Deficits, Normal 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, 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 Skin: Normal Color, Warm/Dry Progress/Results/Core Measures Results/Orders Lab Results Laboratory Tests Test 10/09/16 16:05 10/09/16 17:05 Range/Units White Blood Count 8.4 4.3-11.0 10^3/uL Red Blood Count 4.27 L 4.35-5.85 10^6/uL Hemoglobin 13.3 13.3-17.7 G/DL Hematocrit 38 L 40-54 % Mean Corpuscular Volume 89 80-99 FL Mean Corpuscular Hemoglobin 31 25-34 PG Mean Corpuscular Hemoglobin Concent 35 32-36 G/DL Red Cell Distribution Width 12.4 10.0-14.5 % Platelet Count 218 130-400 10^3/uL Mean Platelet Volume 9.6 7.4-10.4 FL Neutrophils (%) (Auto) 58 42-75 % Lymphocytes (%) (Auto) 34 12-44 % Monocytes (%) (Auto) 6 0-12 % Eosinophils (%) (Auto) 2 0-10 % Basophils (%) (Auto) 1 0-10 % Neutrophils # (Auto) 4.9 1.8-7.8 X 10^3 Lymphocytes # (Auto) 2.8 1.0-4.0 X 10^3 Monocytes # (Auto) 0.5 0.0-1.0 X 10^3 Eosinophils # (Auto) 0.2 0.0-0.3 10^3/uL Basophils # (Auto) 0.0 0.0-0.1 10^3/uL Sodium Level 147 H 135-145 MMOL/L Potassium Level 3.4 L 3.6-5.0 MMOL/L Chloride Level 113 H 98-107 MMOL/L Carbon Dioxide Level 28 21-32 MMOL/L Anion Gap 6 5-14 MMOL/L Blood Urea Nitrogen 14 7-18 MG/DL Creatinine 0.81 0.60-1.30 MG/DL Estimat Glomerular Filtration Rate > 60 BUN/Creatinine Ratio 17 Glucose Level 99 70-105 MG/DL Calcium Level 9.4 8.5-10.1 MG/DL Total Bilirubin 0.2 0.1-1.0 MG/DL Aspartate Amino Transf (AST/SGOT) 14 5-34 U/L Alanine Aminotransferase (ALT/SGPT) 18 0-55 U/L Alkaline Phosphatase 158 H 40-136 U/L Troponin I < 0.30 <0.30 NG/ML Total Protein 6.8 6.4-8.2 GM/DL Albumin 4.2 3.2-4.5 GM/DL TSH [place] Testing 1.04 0.35-4.94 UIU/ML Urine Color YELLOW Urine Clarity CLEAR Urine pH 7 5-9 Urine Specific [place] 1.015 L 1.016-1.022 Urine Protein NEGATIVE NEGATIVE Urine Glucose (UA) NEGATIVE NEGATIVE Urine Ketones NEGATIVE NEGATIVE Urine Nitrite NEGATIVE NEGATIVE Urine Bilirubin NEGATIVE NEGATIVE Urine Urobilinogen NORMAL NORMAL MG/DL Urine Leukocyte Esterase NEGATIVE NEGATIVE Urine RBC (Auto) NEGATIVE NEGATIVE Urine RBC NONE /HPF Urine WBC RARE /HPF Urine Squamous Epithelial Cells 0-2 /HPF Urine Crystals NONE /LPF Urine Bacteria NEGATIVE /HPF Urine Casts NONE /LPF Urine Mucus NEGATIVE /LPF Urine Culture Indicated NO Urine Opiates Screen NEGATIVE NEGATIVE Urine Oxycodone Screen NEGATIVE NEGATIVE Urine Methadone Screen NEGATIVE NEGATIVE Urine Propoxyphene Screen NEGATIVE NEGATIVE Urine Barbiturates Screen NEGATIVE NEGATIVE Ur Tricyclic Antidepressants Screen NEGATIVE NEGATIVE Urine Phencyclidine Screen NEGATIVE NEGATIVE Urine Amphetamines Screen NEGATIVE NEGATIVE Urine Methamphetamines Screen NEGATIVE NEGATIVE Urine Benzodiazepines Screen NEGATIVE NEGATIVE Urine Cocaine Screen NEGATIVE NEGATIVE Urine Cannabinoids Screen NEGATIVE NEGATIVE My Orders Orders - MIKAL CHRISTIE Cbc With Automated Diff (10/09/16 16:22) Comprehensive Metabolic Panel (10/09/16 16:22) Thyroid Analyzer (10/09/16 16:22) Troponin I (10/09/16 16:22) Saline Lock/Iv-Start (10/09/16 16:22) Ns Iv 1000 Ml (Sodium Chloride 0.9%) (10/09/16 16:36) Drug Screen Stat (Urine) (10/09/16 16:36) Ua Culture If Indicated (10/09/16 16:36) Ketorolac Injection (Toradol Injection) (10/09/16 16:36) Ct Head Wo (10/09/16 16:36) Medications Given in ED Current Medications Medications Dose Ordered Sig/Attila Route Start Time Stop Time Status Last Admin Dose Admin Sodium Chloride 1,000 ml @ 0 mls/hr Q0M ONCE IV 10/09/16 16:36 10/09/16 16:39 DC 10/09/16 16:51 1,000 MLS/HR Vital Signs/I&O Vital Sign - Last 12Hours 10/09/16 10/09/16 10/09/16 15:55 16:50 18:18 Temp 98.4 98.4 98.4 Pulse 100 89 Resp 18 18 B/P (MAP) 191/102 Pulse Ox 96 97 O2 Delivery Room Air Room Air Blood Pressure Mean: 131 Diagnostic Imaging Diagonstic Imaging: CT Plain Films/CT/US/NM/MRI: head Comments FINDINGS: The ventricles and sulci are within normal limits for size. There is no intracranial hemorrhage identified. There is no abnormal mass effect or shift of midline structures. IMPRESSION: Unremarkable CT of the head. Dictated by: Dictated on workstation # [id number] Reviewed: Reviewed by Me (radiology report reviewed by me) Departure Communication (Admissions) Progress Notes All laboratory and diagnostic findings were discussed with the patient. Patient reports feeling better with IV fluids. Patient reports dizziness has resolved. Reports headache is now a 2/10. Denies any need for further medications. Plan for discharge to home. Patient follow-up with Dr. Zamora and Yasemin Bonds as an outpatient for recheck. All return precautions were discussed with the patient as described in the discharge instructions of this report. Patient voices understanding and agrees with the treatment plan. Impression Impression: Primary Impression: Headache Qualified Codes: R51 - Headache Additional Impression: Heart palpitations Disposition: HOME, SELF-CARE Condition: Improved Departure-Patient Inst. Decision time for Depature: 18:07 Referrals: LEYDA ZAMORA MD (PCP/Family) Primary Care Physician Patient Instructions: HEADACHE, Palpitations (DC) Add. Discharge Instructions: All discharge instructions reviewed with patient and/or family. Voiced understanding. Continue usual medications. Drink plenty of fluids. Follow-up with your primary care physician this week for recheck. Follow-up with Dr. Hazel as an outpatient, call tomorrow morning for appointment time. Return to the emergency department for worsened symptoms, dizziness, fever, shortness of air, chest pain, extremity weakness, numbness, or any other concerns. MIKAL CHRISTIE Oct 09, 2016 16:30
[2016-10-09] MEDS ORDERED: KETOROLAC 30 MG/ML VIAL IVP STA (16:36)
[2016-10-09] MEDS ORDERED: NS IV 1000 ML 1,000 ML IV ONE (16:36)
[2016-10-09 16:45] LABS: ALANINE AMINOTRANSFERASE 18 U/L (0-55); ALBUMIN 4.2 GM/DL (3.2-4.5); ANION GAP 6 MMOL/L (5-14); ASPARTATE AMINO TRANSFERASE 14 U/L (5-34); BILIRUBIN,TOTAL 0.2 MG/DL (0.1-1.0); BLOOD UREA NITROGEN 14 MG/DL (7-18); BUN/CREATININE RATIO 17; CALCIUM 9.4 MG/DL (8.5-10.1); CARBON DIOXIDE 28 MMOL/L (21-32); CHLORIDE 113 MMOL/L (98-107); CREATININE SERUM 0.81 MG/DL (0.60-1.30); GFR ESTIMATED > 60; GLUCOSE 99 MG/DL (70-105); POTASSIUM 3.4 MMOL/L (3.6-5.0); SODIUM 147 MMOL/L (135-145); TOTAL PROTEIN 6.8 GM/DL (6.4-8.2)
[2016-10-09 17:06] LABS: TROPONIN I < 0.30 NG/ML (<0.30)
[2016-10-09 17:12] LABS: BILIRUBIN,URINE NEGATIVE (NEGATIVE); KETONES,URINE NEGATIVE (NEGATIVE); LEUKOCYTE ESTERASE ,URINE NEGATIVE (NEGATIVE); NITRITE,URINE NEGATIVE (NEGATIVE); PH,URINE 7 (5-9); PROTEIN,URINE NEGATIVE (NEGATIVE); UROBILINOGEN,URINE NORMAL (NORMAL)
--- NOTE | 2016-10-09 17:20 | Diagnostic Imaging Report ---
PROCEDURE: CT head without contrast. TECHNIQUE: Multiple contiguous axial images were obtained through the brain without the use of intravenous contrast. INDICATION: Headache and dizziness with tachycardia. FINDINGS: The ventricles and sulci are within normal limits for size. There is no intracranial hemorrhage identified. There is no abnormal mass effect or shift of midline structures. IMPRESSION: Unremarkable CT of the head. Dictated by: Dictated on workstation # [id number]
[2016-10-09 17:22] LABS: SQUAMOUS EPITHELIAL CELL,UR 0-2 /HPF; WBC,URINE RARE /HPF
[2016-10-09 18:18] VITALS: BP 166/92
--- OUTSIDE RECORDS SUMMARY | 2016-10-10 04:13 | XMS REPORT | Clinical Summary ---
Author Author [facility] Organization [facility] Address Unknown Phone Unavailable Care Team Providers Care Correctional Officer Name Role Phone PCP Unavailable Source Comments Some departments are not documenting in the electronic medical record. If you do not see the information that you expected, contact Release of Information in the Health Information Management department at [phone] for further assistance in locating additional records.[facility] Allergies No Known Allergies Current Medications Prescription Sig. Disp. Refills Start End Date Status Date [place]-3 Acid Ethyl Esters Take 1 g by [...] Used Alcohol Use Drinks/Week oz/Week Comments No Sex Assigned at Date Recorded Not on file Last Filed Vital Signs Vital Sign Reading Time Taken Blood Pressure 125/78 06/12/2013 3:00 PM CDT Pulse 102 06/12/2013 3:00 PM CDT Temperature 36.8 C (98.3 F) 06/12/2013 3:00 PM CDT Respiratory Rate - - Oxygen Saturation 93% 06/12/2013 3:00 PM CDT Inhaled Oxygen - - Concentration Weight 100.8 kg (222 lb 3.6 oz) 06/12/2013 3:00 PM CDT Height 170.2 cm (5' 7") 06/12/2013 3:00 PM CDT Body Mass Index 34.81 06/12/2013 3:00 PM CDT Plan of Treatment Health Maintenance Due Date Last Done Comments PHYSICAL (COMPREHENSIVE) 1981 EXAM PERTUSSIS VACCINE 1985 TETANUS VACCINE 1991 INFLUENZA VACCINE 10/12/2016 Results Not on filefrom Last 3 Months
--- OUTSIDE RECORDS SUMMARY | 2016-10-10 04:14 | XMS REPORT ---
Author Author BRYANNA DEAN [facility] Address Unknown Care Team Providers Care Lace Pinner Name Role Phone BRYANNA DEAN Unavailable PROBLEMS Type Condition ICD9-CM Code [id number] Code Onset Dates Condition Status SNOMED Code Problem Encounter for therapeutic drug level monitoring Z51.81 Active 253384966 Problem Opioid use disorder, mild, in sustained remission, abuse F11.10 Active 1015466 Problem Bipolar disorder, current episode manic without psychotic features, mild F31.11 Active 640870442 Problem Generalized anxiety disorder F41.1 Active 71035475 ALLERGIES Unknown Allergies SOCIAL HISTORY No smoking Hx information available PLAN OF CARE VITAL SIGNS MEDICATIONS Medication Instructions Dosage Frequency Start Date End Date Duration Status Xanax 1 MG Orally 3 times a day 1 tablet 8h Active RESULTS No Results PROCEDURES No Known procedures IMMUNIZATIONS No Known Immunizations
== END 2016-10-09 18:18 | disposition home or self-care (01) ==
LOC: EDUNIT# 15:32 → ER 15:33
DX: R00.2 Palpitations (principal); R51 Headache; F41.9 Anxiety disorder, unspecified; F32.9 Major depressive disorder, single episode, unspecified; E11.9 Type 2 diabetes mellitus without complications; K21.9 Gastro-esophageal reflux disease without esophagitis; E78.00 Pure hypercholesterolemia, unspecified; I10 Essential (primary) hypertension; F17.210 Nicotine dependence, cigarettes, uncomplicated; Z79.4 Long term (current) use of insulin
CPT/HCPCS: 36415; 70450; 80053; 80306; 81000; 84443; 84484; 85025; 93005; 93041; 96361; 96374

== ENCOUNTER 2016-10-24 22:08 | Observation (INO) | payer MEDICARE ==
[~2016-10-24] VITALS: Ht 170.2 cm; Wt 89.0 kg
--- OUTSIDE RECORDS SUMMARY | 2016-10-24 22:15 | XMS REPORT | Clinical Summary ---
Author Author [facility] Organization [facility] Address Unknown Phone Unavailable Care Team Providers Care Air Tester Name Role Phone PCP Unavailable Source Comments Some departments are not documenting in the electronic medical record. If you do not see the information that you expected, contact Release of Information in the Health Information Management department at [phone] for further assistance in locating additional records.[facility] Allergies No Known Allergies Current Medications Prescription Sig. Disp. Refills Start End Date Status Date [place]-3 Acid Ethyl Esters Take 1 g by [...]
--- OUTSIDE RECORDS SUMMARY | 2016-10-24 22:17 | XMS REPORT ---
Author Author BRYANNA Colvin Organization [facility] [place] Address Unknown Care Team Providers Care Phlebotomy Support Tech Name Role Phone BRYANNA Colvin Unavailable PROBLEMS Type Condition ICD9-CM Code [id number] Code Onset Dates Condition Status SNOMED Code Problem Bipolar disorder, current episode manic without psychotic features, mild F31.11 Active 410228198 Problem Generalized anxiety disorder F41.1 Active 05974402 Problem Panic disorder [episodic paroxysmal anxiety] without agoraphobia F41.0 Active 96215214 Problem Panic disorder with agoraphobia F40.01 Active 52543234 Problem Encounter for therapeutic drug level monitoring Z51.81 Active 118011309 Problem Opioid use disorder, mild, in sustained remission, abuse F11.10 Active 7083442 Problem Anxiety disorder, unspecified type F41.9 Active 214987781 Problem Benzodiazepine abuse F13.10 Active 217964531 ALLERGIES Substance Reaction Event Type Date Status Loratadine 10 Mg Tablet Unknown Non Drug Allergy Feb, Active SOCIAL HISTORY No smoking Hx information available PLAN OF CARE Activity Details Follow Up 3 Months Reason: VITAL SIGNS Height 67 in 2016-02-29 Weight 223.0 lbs 2016-02-29 Heart Rate 128 bpm 2016-02-29 Respiratory Rate 24 2016-02-29 BMI 34.92 kg/m2 2016-02-29 Blood pressure systolic 142 mmHg 2016-02-29 Blood pressure diastolic 65 mmHg 2016-02-29 MEDICATIONS Medication Instructions Dosage Frequency Start Date End Date Duration Status Xanax 1 MG Orally 3 times a day 1 tablet 8h 30 days Active BusPIRone HCl 15 MG Orally 4 times a day as needed 1 tablet Nov, 30 days Active Geodon 80 MG Orally once a day 1 capsule with food 24h Sep, 30 days Active Invokana 100 MG Orally Once a day 1 tablet 24h Active Pristiq 100 MG Orally Once a day 1 tablet 24h Mar, 30 days Active Lopid 600 MG Orally Twice a day 1 tablet 12h Active Lovaza 1 GM Orally Twice a day 2 capsules 12h Active Ambien CR 12.5 MG Orally Once a day 1 tablet at bedtime as needed 24h 30 days Active Prilosec 20 mg Orally 2 times a day 1 capsule 12h Active Diovan 160 MG Orally 2 times a day 1 tablet 12h Active RESULTS No Results PROCEDURES Procedure Date Ordered Related Diagnosis Body Site [facility] VISIT ESTABLISHED PATIENT Feb 29, 2016 Office Visit, Est Pt., Level 3 Feb 29, 2016 IMMUNIZATIONS No Known Immunizations
[2016-10-24] MEDS ORDERED: NS IV 1000 ML 1,000 ML IV ONE (22:21)
[2016-10-24 22:28] LABS: BASOPHILS # (AUTO) 0.1 10^3/uL (0.0-0.1); BASOPHILS % (AUTO) 1 % (0-10); EOSINOPHILS # (AUTO) 0.2 10^3/uL (0.0-0.3); EOSINOPHILS % (AUTO) 2 % (0-10); LYMPHOCYTES # (AUTO) 2.3 X 10^3 (1.0-4.0); LYMPHOCYTES % (AUTO) 21 % (12-44); MEAN CORPUSCULAR HEMOGLOBIN 31 PG (25-34); MEAN CORPUSCULAR HGB CONC 35 G/DL (32-36); MEAN CORPUSCULAR VOLUME 88 FL (80-99); MEAN PLATELET VOLUME 9.5 FL (7.4-10.4); MONOCYTES # (AUTO) 0.9 X 10^3 (0.0-1.0); MONOCYTES % (AUTO) 8 % (0-12); NEUTROPHILS # (AUTO) 7.6 X 10^3 (1.8-7.8); NEUTROPHILS % (AUTO) 69 % (42-75); PLATELET COUNT 247 10^3/uL (130-400); RED BLOOD COUNT 4.84 10^6/uL (4.35-5.85); RED CELL DISTRIBUTION WIDTH 12.2 % (10.0-14.5); WHITE BLOOD COUNT 10.9 10^3/uL (4.3-11.0)
[2016-10-24 22:32] LABS: INR 1.1 (0.8-1.4); PROTHROMBIN TIME PATIENT 13.8 SEC (12.2-14.7)
[2016-10-24 22:42] LABS: ALANINE AMINOTRANSFERASE 40 U/L (0-55); ALBUMIN 4.6 GM/DL (3.2-4.5); ALCOHOL < 10 MG/DL (<10); ANION GAP 15 MMOL/L (5-14); ASPARTATE AMINO TRANSFERASE 18 U/L (5-34); BILIRUBIN,TOTAL 0.4 MG/DL (0.1-1.0); BLOOD UREA NITROGEN 20 MG/DL (7-18); BUN/CREATININE RATIO 17; CALCIUM 10.1 MG/DL (8.5-10.1); CARBON DIOXIDE 20 MMOL/L (21-32); CHLORIDE 107 MMOL/L (98-107); CREATINE KINASE 75 U/L (30-200); CREATININE SERUM 1.21 MG/DL (0.60-1.30); GFR ESTIMATED > 60; GLUCOSE 208 MG/DL (70-105); MAGNESIUM 2.2 MG/DL (1.8-2.4); POTASSIUM 4.1 MMOL/L (3.6-5.0); SODIUM 142 MMOL/L (135-145)
[2016-10-24 23:01] LABS: TROPONIN I < 0.30 NG/ML (<0.30)
--- NOTE | 2016-10-24 23:13 | ED General ---
General Chief Complaint: Neurological Problems Stated Complaint: SEIZURE Nursing Triage Note: EMS DISPATCH FOR SEIZURE WITNESSED BY A STEP PARENT. THIS IS 2ND SEIZURE TODAY AND HAD ONE ON SATURDAY. NO SEIZURE HX. PT WAS POST ICTAL AT EMS ARRIVAL AND ALERT HERE IN E.R. Nursing Sepsis Screen: No Definite Risk Source of Information: Patient (PT IS SOMEWHAT LIMITED HISTORIAN--DOES NOT VOLUNTEER ANY INFORMATION, AND ONLY GIVES MINIMAL ANSWERS) Exam Limitations: Other (PT DOES NOT HAVE ANY FAMILY OR VISITORS OF ANY KIND IN ER, NOR DID ANYONE CALL ABOUT PT) History of Present Illness Time Seen by Provider: 22:10 Initial Comments PT ARRIVES VIA EMS FROM HOME PT STATES HE HAS HAD 2 SEIZURES TODAY AND HAD ONE ON SATURDAY--ALLEGEDLY WITNESSED BY A STEP PARENT, PER EMS NO HISTORY OF SEIZURES PER PT. HOWEVER, ON REVIEW OF OLD CHART, PT WAS SEEN HERE 08/20/16 FOR THE SAME AND WAS ADMITTED. AND HAD AN APPARENT INTENTIONAL DRUG OVERDOSE OF MULTIPLE MEDICATIONS AT THAT TIME. FIRST ONE TODAY WAS AT 10:00 AM AND SECOND ONE WAS 30-40 MINUTES PRIOR TO ARRIVAL. DURATION OF SEIZURES IS UNKNOWN PT WAS SITTING/LAYING DOWN EVERY TIME AND DENIES ANY INJURIES NO INCONTINENCE EMS STATES PT WAS SLIGHTLY "HAZY" WHEN THEY ARRIVED AT SCENE, BUT IS NORMAL NOW NO CHEST PAIN, SHORTNESS OF BREATH, PALPITATIONS, ETC NO NAUSEA/VOMITING NO PARESTHESIAS OR MOTOR DEFICITS NO VISION CHANGES NO HEADACHE ACCUCHECK 182 BY EMS PT STATES HE HAS NOT TAKEN HIS INSULIN FOR 8-9 DAYS, BECAUSE "HE DIDN'T THINK HE NEEDED IT" -PT DOES NOT CHECK HIS BLOOD SUGAR PT STATES HE HAS TAKEN HIS OTHER MEDICATIONS AND HAS NOT MISSED DOSES, AND NO CHANGES IN ANY OF HIS MEDICATIONS INITIALLY, PT DENIED ANY HISTORY OF BENZODIAZEPINE OR OPIATE USE, THEN ON CONTINUED QUESTIONING AND REVIEW OF [facility], PT LATER ADMITS THAT HE HAD BEEN ON XANAX "BUT NONE SINCE JULY", AND "USED TO BE ADDICTED TO PAIN PILLS, BUT HAVEN' T HAD ANY FOR A MONTH" PER [facility], PT FILLED ZOLPIDEM FOR #30 ON 09/12 AND 10/03/16 FROM A BRYANNA DEAN FROM [place], [place]. HAS ALSO GOTTEN RX'S FROM THAT PROVIDER FOR ALPRAZOLAM WELL FILLED HYDROCODONE 5/325 FOR #20 ON 08/29/[address] ALANIS AND #20 ON 08/24 BY HAILE KELLEY AT [facility], [place] IN THE YEAR WAS GETTING RX'S FOR SUBOXONE FROM DR. CRUZ AT [facility], [place] Fanny SE[place]. HAS BEEN GETTING RX'S FOR ESZOPICLONE (LUNESTA ) FROM DR. ZAMORA DURING THE SAME TIME FRAMES HE HAS BEEN GETTING RX'S FOR SIMILAR MEDICATIONS FROM OTHER PROVIDERS IN DIFFERENT TOWNS ON REVIEW OF PT'S PILL BOTTLES THAT EMS BROUGHT WITH PT, PT HAS THE FOLLOWIN08/07/16--OMEGA 3 VITAMINS, 2 BID #120 WITH MULTIPLE PILLS IN BOTTLE--RX FROM DR. ZAMORA 09/21/16--GEMFIBROZIL 1 BID 360 WITH #19 IN BOTTLE--RX FROM DR. ZAMORA 09/27/16--VALSARTAN 160 MG 1 BID #60 WITH #54 IN BOTTLE--RX FROM HAILE VARELA 10/03/16--PRISTIQ 100 MG 1 DAILY #7 WITH #4 IN BOTTLE--RX FOR NATHALY MONTES DE OCA 10/04/16--ZIPRASIDONE (GEODON) 80 MG 1 DAILY #30 WITH #18 IN BOTTLE--RX FROM LESLYJonathan HEATH 10/08/16--OMEPRAZOLE 2 BID #120 WITH #108 IN BOTTLE--RX FROM HAILE VARELA *10/10/16--BUSPIRONE 15 MG 1 BID #120 WITH ONLY #60 IN BOTTLE--RX FROM BRYANNA DEAN 10/19/16--DILTIAZEM 240 MG 1 DAILY #30 WITH #25 IN BOTTLE--RX FROM HAILE VARELA PT DOES NOT HAVE THE FOLLOWING BOTTLES WITH HIM: ALL PER [facility]TR[facility] 08/22/16 --ALPRAZOLAM 1 MG #60 BY BRYANNA DEAN 08/24/16--HYDROCODONE 5/[address] ALANIS 08/29/16--HYDROCODONE 4/325/ #20 BY HAILE KELLEY AT [facility] 09/12/16--ZOLPIDEM 12.5 MG #30 BY BRYANNA DEAN 10/03/16--ZOLPIDEM 12.5 MG #30 BY BRYANNA DEAN PCP: DR. ZAMORA, AND GOES TO [facility] MENTAL HEALTH: [facility] Allergies and Home Medications Allergies Coded Allergies: levofloxacin (Verified Adverse Reaction, Unknown, STOMACH CAMPS, 06/08/15) Home Medications Cyproheptadine HCl 4 Mg Tablet, 4 MG PO HS, (Reported) Diltiazem HCl 240 Mg Cap.er.24h, 240 MG PO HS, (Reported) Gemfibrozil 600 Mg Tablet, 600 MG PO BID, (Reported) Hydrocodone/Acetaminophen 1 Each Tablet, 1-2 EACH PO Q6H PRN for PAIN, #20 Prescribed by: DAVIDE GAFFNEY on 08/24/16 0639 Insulin Aspart 300 Units/3 Ml Solution, 24 UNITS SQ TIDAC PRN for BLOOD SUGAR, ( Reported) Insulin Glargine,Hum.rec.anlog 100 Unit/1 Ml Insuln.pen, 45 UNITS SQ HS, ( Reported) [place]-3 Acid Ethyl Esters 1 Gm Capsule, 1 GM PO BID, (Reported) Omeprazole 20 Mg Capsule.dr, 40 MG PO BID, (Reported) TAKES 2 (20MG) CAPSULES Sucralfate 1 Gm Tablet, 1 GM PO ACHS, (Reported) Valsartan 160 Mg Tablet, 160 MG PO BID, (Reported) Constitutional: no symptoms reported EENTM: no symptoms reported Respiratory: no symptoms reported Cardiovascular: see HPI, No chest pain, No palpitations Gastrointestinal: no symptoms reported, No nausea, No vomiting Genitourinary: no symptoms reported Musculoskeletal: no symptoms reported Skin: no symptoms reported Psychiatric/Neurological: See HPI, Seizure Hematologic/Lymphatic: No Symptoms Reported Immunological/Allergic: no symptoms reported Past Duzeoxk-Rdmtjq-Kelgat Hx Patient Social History Alcohol Use: Past History (" A TEEN" ) Recreational Drug Use: Yes (RX PAIN PILLS, DENIES IV USE) Smoking Status: Current Everyday Smoker (1 PPD) Type Used: Cigarettes 2nd Hand Smoke Exposure: No Recent Foreign Travel: No Contact w/Someone Who Travel: No Recent Infectious Disease Expo: No Recent Hopitalizations: No Immunizations Up To Date Tetanus Booster (TDap): Unknown PED Vaccines UTD: No Date of Influenza Vaccine: Feb 11, 2015 Seasonal Allergies Seasonal Allergies: No Surgeries History of Surgeries: Yes ("CYST FROM LOWER BACK" ) Respiratory History of Respiratory Disorde: No Currently Using CPAP: No Cardiovascular History of Cardiac Disorders: Yes Cardiac Disorders: High Cholesterol, Hypertension Neurological History of Neurological Disord: Yes ("CYST" ON LOWER BACK/"SPINE" ) Reproductive System Hx Reproductive Disorders: No Genitourinary History of Genitourinary Disor: No Gastrointestinal History of Gastrointestinal Di: Yes (FATTY LIVER) Gastrointestinal Disorders: Gastroesophageal Reflux, Liver Disease/Jaundice, Pancreatitis Musculoskeletal History of Musculoskeletal Dis: Yes (CHRONIC BACK PAIN WITH "CYST" ON LOWER BACK/"SPINE" ) Musculoskeletal Disorders: Chronic Back Pain Endocrine History of Endocrine Disorders: Yes (DOES NOT ROUTINELY CHECK BLOOD SUGAR) Endocrine Disorders: Diabetes, Insulin dep HEENT History of HEENT Disorders: No Loss of Vision: Denies Hearing Impairment: Denies Cancer History of Cancer: No Psychosocial History of Psychiatric Problem: Yes (OVERDOSE 08/2016) Behavioral Health Disorders: Anxiety, Depression Integumentary History of Skin or Integumenta: No Blood Transfusions History of Blood Disorders: No Family Medical History Family Medial History: Cancer 03 MOTHER Congestive heart failure 03 FATHER Family history: Hypertension 03 FATHER Physical Exam Vital Signs Vital Sign - Last 12Hours 10/24/16 22:08 Temp 97.2 Pulse 101 Resp 14 B/P (MAP) 146/107 Pulse Ox 92 O2 Delivery Nasal Cannula O2 Flow Rate 2.00 Capillary Refill : Less Than 3 Seconds General Appearance: No Apparent Distress, WD/WN HEENT: PERRL/EOMI, TMs Normal, Normal ENT Inspection, Pharynx Normal, Other ( POOR DENTITION) Neck: Full Range of Motion, Normal Inspection, Non Tender, Supple Respiratory: Chest Non Tender, Normal Breath Sounds, No Accessory Muscle Use, No Respiratory Distress Cardiovascular: Regular Rate, Rhythm, No Edema, No JVD, No Murmur, Normal Peripheral Pulses Gastrointestinal: Normal Bowel Sounds, No Organomegaly, No Pulsatile Mass, Non Tender, Soft Back: Normal Inspection, No CVA Tenderness, No Vertebral Tenderness Extremity: Normal Capillary Refill, Normal Inspection, Normal Range of Motion, Non Tender, No Calf Tenderness, No Pedal Edema Neurologic/Psychiatric: Alert, Oriented x3, No Motor/Sensory Deficits, Normal 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, 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 Norm as Tested, Other (DOES NOT APPEAR POST-ICTAL) Reflexes: 1+ Bicep (R), 1+ Bicep (L), 1+ Knee (R), 1+ Knee (L) Skin: Normal Color, Warm/Dry, Other (NO EXTERNAL EVIDENCE OF TRAUMA) Progress/Results/Core Measures Results/Orders Lab Results Laboratory Tests Test 10/24/16 22:10 10/24/16 22:34 10/24/16 23:58 Range/Units White Blood Count 10.9 4.3-11.0 10^3/uL Red Blood Count 4.84 4.35-5.85 10^6/uL Hemoglobin 14.8 13.3-17.7 G/DL Hematocrit 43 40-54 % Mean Corpuscular Volume 88 80-99 FL Mean Corpuscular Hemoglobin 31 25-34 PG Mean Corpuscular Hemoglobin Concent 35 32-36 G/DL Red Cell Distribution Width 12.2 10.0-14.5 % Platelet Count 247 130-400 10^3/uL Mean Platelet Volume 9.5 7.4-10.4 FL Neutrophils (%) (Auto) 69 42-75 % Lymphocytes (%) (Auto) 21 12-44 % Monocytes (%) (Auto) 8 0-12 % Eosinophils (%) (Auto) 2 0-10 % Basophils (%) (Auto) 1 0-10 % Neutrophils # (Auto) 7.6 1.8-7.8 X 10^3 Lymphocytes # (Auto) 2.3 1.0-4.0 X 10^3 Monocytes # (Auto) 0.9 0.0-1.0 X 10^3 Eosinophils # (Auto) 0.2 0.0-0.3 10^3/uL Basophils # (Auto) 0.1 0.0-0.1 10^3/uL Prothrombin Time 13.8 12.2-14.7 SEC INR Comment 1.1 0.8-1.4 Activated Partial Thromboplast Time 24 24-35 SEC Sodium Level 142 135-145 MMOL/L Potassium Level 4.1 3.6-5.0 MMOL/L Chloride Level 107 98-107 MMOL/L Carbon Dioxide Level 20 L 21-32 MMOL/L Anion Gap 15 H 5-14 MMOL/L Blood Urea Nitrogen 20 H 7-18 MG/DL Creatinine 1.21 0.60-1.30 MG/DL Estimat Glomerular Filtration Rate > 60 BUN/Creatinine Ratio 17 Glucose Level 208 H 70-105 MG/DL Calcium Level 10.1 8.5-10.1 MG/DL Magnesium Level 2.2 1.8-2.4 MG/DL Total Bilirubin 0.4 0.1-1.0 MG/DL Aspartate Amino Transf (AST/SGOT) 18 5-34 U/L Alanine Aminotransferase (ALT/SGPT) 40 0-55 U/L Alkaline Phosphatase 156 H 40-136 U/L Total Creatine Kinase 75 30-200 U/L Creatine Kinase MB 0.6 <6.6 NG/ML Troponin I < 0.30 <0.30 NG/ML Total Protein 8.0 6.4-8.2 GM/DL Albumin 4.6 H 3.2-4.5 GM/DL TSH [place] Testing 1.97 0.35-4.94 UIU/ML Serum Alcohol < 10 <10 MG/DL Glucometer 207 H 70-110 MG/DL Urine Color YELLOW Urine Clarity CLEAR Urine pH 6.5 5-9 Urine Specific [place] 1.020 1.016-1.022 Urine Protein 2+ H NEGATIVE Urine Glucose (UA) NEGATIVE NEGATIVE Urine Ketones NEGATIVE NEGATIVE Urine Nitrite NEGATIVE NEGATIVE Urine Bilirubin NEGATIVE NEGATIVE Urine Urobilinogen NORMAL NORMAL MG/DL Urine Leukocyte Esterase NEGATIVE NEGATIVE Urine RBC (Auto) NEGATIVE NEGATIVE Urine RBC NONE /HPF Urine WBC NONE /HPF Urine Squamous Epithelial Cells 0-2 /HPF Urine Crystals NONE /LPF Urine Bacteria NEGATIVE /HPF Urine Casts NONE /LPF Urine Mucus NEGATIVE /LPF Urine Culture Indicated NO Urine Opiates Screen POSITIVE H NEGATIVE Urine Oxycodone Screen NEGATIVE NEGATIVE Urine Methadone Screen NEGATIVE NEGATIVE Urine Propoxyphene Screen NEGATIVE NEGATIVE Urine Barbiturates Screen NEGATIVE NEGATIVE Ur Tricyclic Antidepressants Screen POSITIVE H NEGATIVE Urine Phencyclidine Screen NEGATIVE NEGATIVE Urine Amphetamines Screen NEGATIVE NEGATIVE Urine Methamphetamines Screen NEGATIVE NEGATIVE Urine Benzodiazepines Screen POSITIVE H NEGATIVE Urine Cocaine Screen NEGATIVE NEGATIVE Urine Cannabinoids Screen NEGATIVE NEGATIVE My Orders Orders - NELSONLEYDA K DO Accucheck Stat ONCE (10/24/16 22:21) Saline Lock/Iv-Start (10/24/16 22:21) Ekg Tracing (10/24/16 22:21) O2 (10/24/16 22:21) Monitor-Rhythm Ecg Trace Only (10/24/16 22:21) Ct Head Wo (10/24/16 22:21) Alcohol (10/24/16 22:21) Cbc With Automated Diff (10/24/16 22:21) Comprehensive Metabolic Panel (10/24/16 22:21) Creatine Kinase (10/24/16 22:21) Creatine Kinase Mb (10/24/16 22:21) Drug Screen Stat (Urine) (10/24/16 22:21) Magnesium (10/24/16 22:21) Protime With Inr (10/24/16 22:21) Partial Thromboplastin Time (10/24/16 22:21) Thyroid Analyzer (10/24/16 22:21) Troponin I (10/24/16 22:21) Ua Culture If Indicated (10/24/16 22:21) Chest 1 View, Ap/Pa Only (10/24/16 22:21) Saline Lock/Iv-Start (10/24/16 22:21) Ns Iv 1000 Ml (Sodium Chloride 0.9%) (10/24/16 22:21) Medications Given in ED Current Medications Medications Dose Ordered Sig/Attila Route Start Time Stop Time Status Last Admin Dose Admin Sodium Chloride 1,000 ml @ 0 mls/hr Q0M ONCE IV 10/24/16 22:21 10/24/16 22:25 DC 10/24/16 22:37 999 MLS/HR Vital Signs/I&O Vital Sign - Last 12Hours 10/24/16 10/24/16 22:08 22:10 Temp 97.2 Pulse 101 Resp 14 B/P (MAP) 146/107 Pulse Ox 92 89 O2 Delivery Nasal Cannula Nasal Cannula O2 Flow Rate 2.00 2.00 Blood Pressure Mean: 120 Point of Care Testing Finger Stick Blood Glucose: 207 Progress Note : Progress Note UNEVENTFUL ER STAY-SLEPT THROUGH MOST OF ER STAY, EASILY AWAKENED AND THEN GOES BACK TO SLEEP NO DETERIORATION IN PT'S CONDITION DURING ER STAY SUSPECT THAT PT'S CONDITION IS DRUG-RELATED, THERE ARE #30 BUSPIRONE UNACCOUNTED FOR, AND PT CLAIMS HE HAS NOT BEEN TAKING ANY HYDROCODONE/OPIATES OR XANAX "FOR MONTHS" AND HE HAS TESTED + FOR THESE MEDICATIONS TODAY. ECG Initial ECG Impression Time: 22:27 Initial ECG Rate: 94 Initial ECG Rhythm: Normal Sinus Initial ECG Impression: Nonspecific Changes Initial ECG Comparisson: No Previous ECG Available Diagnostic Imaging Comments CXR--NO ACUTE PROCESS, PENDING RADIOLOGIST REVIEW CT HEAD--NO ACUTE PROCESS, PER [facility] VIA FAX @ [phone] Reviewed: Reviewed by Me Departure Communication (Admissions) Progress Notes [id number]--SPOKE WITH DR. RODNEY, ACCEPTS PT FOR ADMIT Impression Impression: Primary Impression: REPORTED SEIZURE ACTIVITY Additional Impressions: IDDM (insulin dependent diabetes mellitus) HX OF POLYSUBSTANCE ABUSE SUSPECTED DRUG-RELATED CONDITION HX OF NON-COMPLIANCE Disposition: ADMITTED INPATIENT Condition: Stable Admissions Decision to Admit Reason: Admit from ER (General) Decision to Admit/Date: Oct 24, 2016 Time/Decision to Admit Time: 23:45 Departure-Patient Inst. Referrals: LEYDA ZAMORA MD (PCP/Family) Primary Care Physician LEYDA DAMON DO Oct 24, 2016 23:13
[2016-10-25] VITALS (9 sets, daily range): BP systolic 117–156; BP diastolic 58–92
[2016-10-25 00:04] LABS: BILIRUBIN,URINE NEGATIVE (NEGATIVE); KETONES,URINE NEGATIVE (NEGATIVE); LEUKOCYTE ESTERASE ,URINE NEGATIVE (NEGATIVE); NITRITE,URINE NEGATIVE (NEGATIVE); PH,URINE 6.5 (5-9); PROTEIN,URINE 2+ (NEGATIVE); UROBILINOGEN,URINE NORMAL (NORMAL)
[2016-10-25 00:15] LABS: SQUAMOUS EPITHELIAL CELL,UR 0-2 /HPF
--- OUTSIDE RECORDS SUMMARY | 2016-10-25 00:50 | XMS REPORT | Clinical Summary ---
Author Author [facility] Organization [facility] Address Unknown Phone Unavailable Care Team Providers Care Middle Stitcher Name Role Phone PCP Unavailable Source Comments Some departments are not documenting in the electronic medical record. If you do not see the information that you expected, contact Release of Information in the Health Information Management department at [phone] for further assistance in locating additional records.[facility] Allergies No Known Allergies Current Medications Prescription Sig. Disp. Refills Start End Date Status Date [place]-3 Acid Ethyl Esters Take 1 g by [...]
[2016-10-25] MEDS ORDERED: NS IV 1000 ML 1,000 ML ONE (01:30)
[2016-10-25] MEDS: NS IV 1000 ML 1,000 ML IV SCH ×2 (01:40→09:59)
[2016-10-25] MEDS ORDERED: LORazepam INJ 2 MG/ML (ATIVAN) VIAL ONE (01:47)
[2016-10-25] MEDS ORDERED: LORazepam INJ 2 MG/ML (ATIVAN) VIAL IVP ONE (02:00)
[2016-10-25] MEDS ORDERED: LORazepam INJ 2 MG/ML (ATIVAN) VIAL IV PRN (04:00)
[2016-10-25 05:50] LABS: BASOPHILS % (AUTO) 0 % (0-10); EOSINOPHILS # (AUTO) 0.1 10^3/uL (0.0-0.3); EOSINOPHILS % (AUTO) 1 % (0-10); LYMPHOCYTES # (AUTO) 2.4 X 10^3 (1.0-4.0); LYMPHOCYTES % (AUTO) 20 % (12-44); MEAN CORPUSCULAR HEMOGLOBIN 31 PG (25-34); MEAN CORPUSCULAR HGB CONC 35 G/DL (32-36); MEAN CORPUSCULAR VOLUME 88 FL (80-99); MEAN PLATELET VOLUME 9.5 FL (7.4-10.4); MONOCYTES # (AUTO) 1.1 X 10^3 (0.0-1.0); MONOCYTES % (AUTO) 9 % (0-12); NEUTROPHILS # (AUTO) 8.3 X 10^3 (1.8-7.8); NEUTROPHILS % (AUTO) 70 % (42-75); PLATELET COUNT 219 10^3/uL (130-400); RED CELL DISTRIBUTION WIDTH 12.1 % (10.0-14.5)
[2016-10-25] MEDS ORDERED: inSUlin (REGULAR) HUMAN 1 UNIT/0.01 ML (CHARGE PER UNIT) SC SCH (06:00)
[2016-10-25 06:07] LABS: ALANINE AMINOTRANSFERASE 34 U/L (0-55); ALBUMIN 4.2 GM/DL (3.2-4.5); ANION GAP 12 MMOL/L (5-14); ASPARTATE AMINO TRANSFERASE 18 U/L (5-34); BILIRUBIN,TOTAL 0.5 MG/DL (0.1-1.0); BLOOD UREA NITROGEN 18 MG/DL (7-18); BUN/CREATININE RATIO 19; CALCIUM 9.3 MG/DL (8.5-10.1); CARBON DIOXIDE 22 MMOL/L (21-32); CHLORIDE 109 MMOL/L (98-107); CREATININE SERUM 0.94 MG/DL (0.60-1.30); GFR ESTIMATED > 60; GLUCOSE 134 MG/DL (70-105); POTASSIUM 3.7 MMOL/L (3.6-5.0); SODIUM 143 MMOL/L (135-145); TOTAL PROTEIN 7.2 GM/DL (6.4-8.2)
--- NOTE | 2016-10-25 07:34 | Diagnostic Imaging Report ---
INDICATION: Seizure. Noncontrast brain CT is performed. Comparison made to 10/09/2016. There are no extra-axial fluid collections. No intracranial hemorrhage. No intracranial mass or mass effect. No midline shift. The ventricles are normal in size and position. There are no focal parenchymal abnormalities in the brain. Calvarial windows were unremarkable. There is some mucosal thickening in the left maxillary sinus. IMPRESSION: No acute intracranial abnormality. There is some mucosal thickening in the left maxillary sinus noted. Dictated by: Dictated on workstation # [id number]
--- NOTE | 2016-10-25 07:45 | Diagnostic Imaging Report ---
INDICATION: Seizure. PA chest obtained at 10:53 p.m. FINDINGS: Heart and mediastinal silhouette are normal in appearance. The lungs are clear. There is no pneumothorax or pleural fluid. IMPRESSION: Negative chest. Dictated by: Dictated on workstation # [id number]
[2016-10-25] MEDS ORDERED: BUSP15TA60 PO (08:28)
[2016-10-25] MEDS ORDERED: ZIPR80CA23 PO (08:28)
[2016-10-25] MEDS ORDERED: DESV100T16 PO (08:28)
[2016-10-25] MEDS ORDERED: ZOLP12.546 PO (08:28)
--- NOTE | 2016-10-25 09:14 | History & Physicial ([facility]) ---
HPI Attending Physician Christen Sargent MD PCP Maddie Royal MD Consult Date of Admission Oct 24, 2016 at 23:45 Home Medications Home Medications Reviewed patient Home Medication Reconciliation Form Allergies Coded Allergies: levofloxacin (Verified Adverse Reaction, Unknown, STOMACH CAMPS, 06/08/15) RTB-Nzeooa-Vurtuu Hx Patient Social History Alcohol Use: Past History Recreational Drug Use: Yes (RX PAIN PILLS, DENIES IV USE) Smoking Status: Current Everyday Smoker Type Used: Cigarettes 2nd Hand Smoke Exposure: No Recent Foreign Travel: No Contact w/other who traveled: No Recent Hopitalizations: No Recent Infectious Disease Expo: No Physical Abuse Screen: No Sexual Abuse: No Immunizations Up To Date Tetanus Booster (TDap): Unknown Date of Influenza Vaccine: Feb 11, 2015 Family Medical History Family History: Cancer 03 MOTHER Congestive heart failure 03 FATHER Family history: Hypertension 03 FATHER Physical Exam-(CHC) Physical Exam Vital Signs VS - Last 72 Hours, by Label 10/24/16 10/24/16 10/25/16 10/25/16 22:08 22:10 01:29 01:35 Temp 97.2 98.1 98.4 Pulse 101 85 89 Resp B/P (MAP) 146/107 141/92 Pulse Ox 92 89 95 97 O2 Delivery Nasal Cannula Nasal Cannula Room Air Room Air O2 Flow Rate 2.00 2.00 10/25/16 10/25/16 10/25/16 10/25/16 02:40 03:11 03:40 04:40 Temp 98.9 98.9 97.8 Pulse 102 95 91 Resp 16 B/P (MAP) 144/87 124/75 138/90 Pulse Ox 97 95 96 O2 Delivery Nasal Cannula Nasal Cannula Nasal Cannula Room Air O2 Flow Rate 2.50 3.50 2.50 10/25/16 10/25/16 10/25/16 10/25/16 05:38 06:10 06:40 07:47 Temp 98.9 99.5 99.3 99.3 Pulse 89 91 90 91 Resp 24 22 B/P (MAP) 134/65 117/61 124/58 136/66 Pulse Ox 96 96 95 95 O2 Delivery Room Air Nasal Cannula Room Air Room Air O2 Flow Rate 2.50 Capillary Refill : Less Than 3 Seconds Clinical Quality Measures DVT/VTE Risk/Contraindication: Risk Factor Score Per Nursin RFS Level Per Nursing on Admit: 2=Moderate SALOME FAIR DO Oct 25, 2016 09:14
--- NOTE | 2016-10-25 10:39 | Short Stay Summary ---
HPI History of Present Illness: Patient presented to the ED via EMS after having 2 seizures, the second was witnessed by a family member who called EMS. Duration of seizure is unknown, patient does report that he did not sustain any injuries during seizure, that he sat on the floor prior to seizure occurring. patient was evaluated in the ED and had a head CT performed that was negative for any acute intracranial process. His medications were reviewed and the patient was found to be noncompliant with many of his medications, including his insulin. He did deny benzodiazepine use as well as opiate use, however his drug screen was positive for opiates, benzodiazepines, and tricyclic antidepressants. The patient denied actively attempting to overdose or taking more medication than was prescribed to him. He had multiple bottles in his possession on arrival to the ED and when his pills were counted and he was found to have an inappropriate amount of pills in the majority of his bottles. Pill counts were documented in the ED as noted below: INITIALLY, PT DENIED ANY HISTORY OF BENZODIAZEPINE OR OPIATE USE, THEN ON CONTINUED QUESTIONING AND REVIEW OF KTRACS, PT LATER ADMITS THAT HE HAD BEEN ON XANAX "BUT NONE SINCE JULY", AND "USED TO BE ADDICTED TO PAIN PILLS, BUT HAVEN' T HAD ANY FOR A MONTH" PER KTRACS, PT FILLED ZOLPIDEM FOR #30 ON 09/12 AND 10/03/16 FROM A BRYANNA DEAN FROM [place], [place]. HAS ALSO GOTTEN RX'S FROM THAT PROVIDER FOR ALPRAZOLAM WELL FILLED HYDROCODONE 5/325 FOR #20 ON 08/29/[address] ALANIS AND #20 ON 08/24 BY HAILE KELLEY AT [facility], EARLIER IN THE YEAR WAS GETTING RX'S FOR SUBOXONE FROM DR. CRUZ AT [facility], WELL Fanny SEQUEIRA IN [place] IN [place] YEAR. HAS BEEN GETTING RX'S FOR ESZOPICLONE (LUNESTA ) FROM DR. ZAMORA DURING THE SAME TIME FRAMES HE HAS BEEN GETTING RX'S FOR SIMILAR MEDICATIONS FROM OTHER PROVIDERS IN DIFFERENT TOWNS ON REVIEW OF PT'S PILL BOTTLES THAT EMS BROUGHT WITH PT, PT HAS THE FOLLOWIN08/07/16--OMEGA 3 VITAMINS, 2 BID #120 WITH MULTIPLE PILLS IN BOTTLE--RX FROM DR. ZAMORA 09/21/16--GEMFIBROZIL 1 BID 360 WITH #19 IN BOTTLE--RX FROM DR. ZAMORA 09/27/16--VALSARTAN 160 MG 1 BID #60 WITH #54 IN BOTTLE--RX FROM HAILE VARELA 10/03/16--PRISTIQ 100 MG 1 DAILY #7 WITH #4 IN BOTTLE--RX FOR NATHALY MONTES DE [facility] 10/04/16--ZIPRASIDONE (GEODON) 80 MG 1 DAILY #30 WITH #18 IN BOTTLE--RX FROM [facility] 10/08/16--OMEPRAZOLE 2 BID #120 WITH #108 IN BOTTLE--RX FROM HAILE VARELA *10/10/16--BUSPIRONE 15 MG 1 BID #120 WITH ONLY #60 IN BOTTLE--RX FROM BRYANNA DEAN 10/19/16--DILTIAZEM 240 MG 1 DAILY #30 WITH #25 IN BOTTLE--RX FROM HAILE VARELA PT DOES NOT HAVE THE FOLLOWING BOTTLES WITH HIM: ALL PER KTRACS 08/22/16 --ALPRAZOLAM 1 MG #60 BY BRYANNA DEAN 08/24/16--HYDROCODONE 5/[address] ALANIS 08/29/16--HYDROCODONE 4/325/ #20 BY HAILE KELLEY AT [facility] 09/12/16--ZOLPIDEM 12.5 MG #30 BY BRYANNA DEAN 10/03/16--ZOLPIDEM 12.5 MG #30 BY BRYANNA DEAN On the morning of exam, the patient has had no further seizure activity since arrival to the hospital. He denies any complaints, no headache, no nausea or vomiting, no pain. She would like to be discharged and will follow-up early next week with his primary care provider. Source: patient, other (ED Documentation) Exam Limitations: no limitations Date seen by provider: Oct 25, 2016 Time Seen by Provider: 10:30 Attending Physician Christen Sargent MD PCP Maddie Zamora MD Consult Date of Admission Oct 24, 2016 at 23:45 Home Medications Home Medications Reviewed patient Home Medication Reconciliation Form Allergies Coded Allergies: levofloxacin (Verified Adverse Reaction, Unknown, STOMACH CAMPS, 06/08/15) PHC-Qkwram-Twhtap Hx Patient Social History Marrital Status: single Employed/Student: unemployed Alcohol Use: Past History Recreational Drug Use: Yes (RX PAIN PILLS, DENIES IV USE) Drug of Choice: opiates, benzodiazepines Smoking Status: Current Everyday Smoker Type Used: Cigarettes 2nd Hand Smoke Exposure: No Recent Foreign Travel: No Contact w/other who traveled: No Recent Hopitalizations: No Recent Infectious Disease Expo: No Physical Abuse Screen: No Sexual Abuse: No Immunizations Up To Date Tetanus Booster (TDap): Unknown Date of Influenza Vaccine: Feb 11, 2015 Past Medical History type II diabetes mellitus, insulin-dependent Dyslipidemia Polysubstance abuse Tobacco abuse History of overdose, July 2016 Family Medical History Other Significan Family Hx: father has Alzheimer's Family History: Cancer 03 MOTHER Congestive heart failure 03 FATHER Family history: Hypertension 03 FATHER Review of Systems (CHC) Constitutional: no symptoms reported (as) EENTM: no symptoms reported Respiratory: cough, No dyspnea on exertion, No short of breath, No stridor (Y patient is breathing), No wheezing Cardiovascular: no symptoms reported Gastrointestinal: no symptoms reported Genitourinary: no symptoms reported Musculoskeletal: no symptoms reported Skin: no symptoms reported Psychiatric/Neurological: See HPI Reviewed Test Results Reviewed Test Results Lab Laboratory Tests 10/24/16 22:10: White Blood Count 10.9, Red Blood Count 4.84, Hemoglobin 14.8, Hematocrit 43, Mean Corpuscular Volume 88, Mean Corpuscular Hemoglobin 31, Mean Corpuscular Hemoglobin Concent 35, Red Cell Distribution Width 12.2, Platelet Count 247, Mean Platelet Volume 9.5, Neutrophils (%) (Auto) 69, Lymphocytes (%) (Auto) 21, Monocytes (%) (Auto) 8, Eosinophils (%) (Auto) 2, Basophils (%) (Auto) 1, Neutrophils # (Auto) 7.6, Lymphocytes # (Auto) 2.3, Monocytes # (Auto) 0.9, Eosinophils # (Auto) 0.2, Basophils # (Auto) 0.1, Prothrombin Time 13.8, INR Comment 1.1, Activated Partial Thromboplast Time 24, Sodium Level 142, Potassium Level 4.1, Chloride Level 107, Carbon Dioxide Level 20L, Anion Gap 15H , Blood Urea Nitrogen 20H, Creatinine 1.21, Estimat Glomerular Filtration Rate > 60, BUN/Creatinine Ratio 17, Glucose Level 208H, Calcium Level 10.1, Magnesium Level 2.2, Total Bilirubin 0.4, Aspartate Amino Transf (AST/SGOT) 18, Alanine Aminotransferase (ALT/SGPT) 40, Alkaline Phosphatase 156H, Total Creatine Kinase 75, Creatine Kinase MB 0.6, Troponin I < 0.30, Total Protein 8.0 , Albumin 4.6H, TSH [place] Testing 1.97, Serum Alcohol < 10 10/24/16 22:34: Glucometer 207H 10/24/16 23:58: Urine Color YELLOW, Urine Clarity CLEAR, Urine pH 6.5, Urine Specific [place] 1.020, Urine Protein 2+H, Urine Glucose (UA) NEGATIVE, Urine Ketones NEGATIVE, Urine Nitrite NEGATIVE, Urine Bilirubin NEGATIVE, Urine Urobilinogen NORMAL, Urine Leukocyte Esterase NEGATIVE, Urine RBC (Auto) NEGATIVE, Urine RBC NONE, Urine WBC NONE, Urine Squamous Epithelial Cells 0-2, Urine Crystals NONE, Urine Bacteria NEGATIVE, Urine Casts NONE, Urine Mucus NEGATIVE, Urine Culture Indicated NO, Urine Opiates Screen POSITIVEH, Urine Oxycodone Screen NEGATIVE, Urine Methadone Screen NEGATIVE, Urine Propoxyphene Screen NEGATIVE, Urine Barbiturates Screen NEGATIVE, Ur Tricyclic Antidepressants Screen POSITIVEH, Urine Phencyclidine Screen NEGATIVE, Urine Amphetamines Screen NEGATIVE, Urine Methamphetamines Screen NEGATIVE, Urine Benzodiazepines Screen POSITIVEH, Urine Cocaine Screen NEGATIVE, Urine Cannabinoids Screen NEGATIVE 10/25/16 05:35: White Blood Count 12.0H, Red Blood Count 4.60, Hemoglobin 14.2, Hematocrit 41, Mean Corpuscular Volume 88, Mean Corpuscular Hemoglobin 31, Mean Corpuscular Hemoglobin Concent 35, Red Cell Distribution Width 12.1, Platelet Count 219, Mean Platelet Volume 9.5, Neutrophils (%) (Auto) 70, Lymphocytes (%) (Auto) 20, Monocytes (%) (Auto) 9, Eosinophils (%) (Auto) 1, Basophils (%) (Auto) 0, Neutrophils # (Auto) 8.3H, Lymphocytes # (Auto) 2.4, Monocytes # (Auto) 1.1H, Eosinophils # (Auto) 0.1, Basophils # (Auto) 0.0, Sodium Level 143, Potassium Level 3.7, Chloride Level 109H, Carbon Dioxide Level 22, Anion Gap 12, Blood Urea Nitrogen 18, Creatinine 0.94, Estimat Glomerular Filtration Rate > 60, BUN/ Creatinine Ratio 19, Glucose Level 134H, Calcium Level 9.3, Total Bilirubin 0.5 , Aspartate Amino Transf (AST/SGOT) 18, Alanine Aminotransferase (ALT/SGPT) 34, Alkaline Phosphatase 141H, Total Protein 7.2, Albumin 4.2 10/25/16 10:40: Glucometer 187H Radiology Head CT: No acute intracranial abnormality. There is some mucosal thickening in the left maxillary sinus noted. Physical Exam-([facility]) Physical Exam Vital Signs VS - Last 72 Hours, by Label 10/24/16 10/24/16 10/25/16 10/25/16 22:08 22:10 01:29 01:35 Temp 97.2 98.1 98.4 Pulse 101 85 89 Resp 14 16 18 B/P (MAP) 146/107 141/92 Pulse Ox 92 89 95 97 O2 Delivery Nasal Cannula Nasal Cannula Room Air Room Air O2 Flow Rate 2.00 2.00 10/25/16 10/25/16 10/25/16 10/25/16 02:40 03:11 03:40 04:40 Temp 98.9 98.9 97.8 Pulse 102 95 91 Resp 25 16 20 B/P (MAP) 144/87 124/75 138/90 Pulse Ox 97 95 96 O2 Delivery Nasal Cannula Nasal Cannula Nasal Cannula Room Air O2 Flow Rate 2.50 3.50 2.50 10/25/16 10/25/16 10/25/16 10/25/16 05:38 06:10 06:40 07:47 Temp 98.9 99.5 99.3 99.3 Pulse 89 91 90 91 Resp 24 24 20 22 B/P (MAP) 134/65 117/61 124/58 136/66 Pulse Ox 96 96 95 95 O2 Delivery Room Air Nasal Cannula Room Air Room Air O2 Flow Rate 2.50 Capillary Refill : Less Than 3 Seconds General Appearance: WD/WN, no apparent distress Eyes: Bilateral Eye Normal Inspection HEENT: PERRL/EOMI, normal ENT inspection, pharynx normal, No scleral icterus (L ), other (extremely poor dentition) Neck: non-tender, full range of motion, supple, normal inspection Respiratory: lungs clear, normal breath sounds, no respiratory distress, no accessory muscle use, No crackles, No rales, No rhonchi, No wheezing Cardiovascular: normal peripheral pulses, regular rate, rhythm, no edema, no gallop, no JVD Peripheral Pulses: 0 Carotid (R), 0 Carotid (L), 0 Femoral (R), 0 Femoral (L), 0 Dorsalis Pedis (R), 0 Left Dors-Pedis (L), 0 Radial Pulses (R), 0 Radial Pulses (L) Gastrointestinal: normal bowel sounds, non tender, soft, no organomegaly, no pulsatile mass, No distended, No guarding, No rebound, No tenderness Rectal: deferred Back: no CVA tenderness, no vertebral tenderness Extremities: normal range of motion, non-tender, normal inspection, no pedal edema, no calf tenderness, normal capillary refill Neurologic/Psychiatric: production control coordinator II-XII nml as tested, no motor/sensory deficits, alert, normal mood/affect, oriented x 3 Skin: normal color, warm/dry Lymphatic: no adenopathy Short Stay Diagnosis Discharge Diagnosis-Short Stay Admission Diagnosis Seizure Final Discharge Diagnosis 1. seizure 2 . polysubstance abuse with secondary psychoactive disturbance 3. type II diabetes, with long-term insulin use 4. tobacco abuse 5. fatty liver, per history 6. Dyslipidemia Conclusion Plan The patient is to be discharged to home with instructions not to drive or operate any motor vehicle until cleared by his physician. He has been instructed to follow-up with his PCP, Dr. Zamora, on Saturday or Saturday of next week. It is also strongly encouraged that patient see neurology about his potential seizures. Problem List (1) Seizure Assessment & Plan: Patient presented to the ED last night by EMS with reported witnessed seizure by family member home. Patient reports that the last thing he remembers is EMS arriving at the home. She reports that he did not hit his head during the seizure that he sat down on the floor. The patient reports that he had a seizure in July, as well as one on Saturday. He reports no known seizure disorder, no family history of seizure disorders that he is aware of. The patient has been advised that he is not able to drive until after he is cleared by a physician. It is recommended that he follow-up with his primary care physician, Dr. Zamora, and that he be referred to neurology for evaluation of his seizures. At this time it is suspected that his seizures, or "seizure-like activity", are likely related to his polysubstance abuse. Status: Resolved Resolution Date/Time: 10/25/16 @ 10:53 (2) Other psychoactive substance abuse with unspecified psychoactive substance- induced disorder Assessment & Plan: In the ED patient denied benzodiazepine use, however K- Tracs was checked and it was noted patient does have multiple prescriptions from multiple providers across the state for benzodiazepines. He did have a bag of medication bottles with him, and the pills remaining were counted, with an inappropriate number of pills found most bottles. Summary from ED provider below: INITIALLY, PT DENIED ANY HISTORY OF BENZODIAZEPINE OR OPIATE USE, THEN ON CONTINUED QUESTIONING AND REVIEW OF KTRACS, PT LATER ADMITS THAT HE HAD BEEN ON XANAX "BUT NONE SINCE JULY", AND "USED TO BE ADDICTED TO PAIN PILLS, BUT HAVEN' T HAD ANY FOR A MONTH" PER KTRACS, PT FILLED ZOLPIDEM FOR #30 ON 09/12 AND 10/03/16 FROM A BRYANNA DEAN FROM [place], [place]. HAS ALSO GOTTEN RX'S FROM THAT PROVIDER FOR ALPRAZOLAM WELL FILLED HYDROCODONE 5/325 FOR #20 ON 08/29/[address] ALANIS AND #20 ON 08/24 BY HAILE KELLEY AT [facility], EARLIER IN THE YEAR WAS GETTING RX'S FOR SUBOXONE FROM DR. CRUZ AT [facility], WELL A MÓNICA SEQUEIRA [place] IN [place]. HAS BEEN GETTING RX'S FOR ESZOPICLONE (LUNESTA ) FROM DR. ZAMORA DURING THE SAME TIME FRAMES HE HAS BEEN GETTING RX'S FOR SIMILAR MEDICATIONS FROM OTHER PROVIDERS IN DIFFERENT TOWNS ON REVIEW OF PT'S PILL BOTTLES THAT EMS BROUGHT WITH PT, PT HAS THE FOLLOWIN08/07/16--OMEGA 3 VITAMINS, 2 BID #120 WITH MULTIPLE PILLS IN BOTTLE--RX FROM DR. ZAMORA 09/21/16--GEMFIBROZIL 1 BID 360 WITH #19 IN BOTTLE--RX FROM DR. ZAMORA 09/27/16--VALSARTAN 160 MG 1 BID #60 WITH #54 IN BOTTLE--RX FROM HAILE VARELA 10/03/16--PRISTIQ 100 MG 1 DAILY #7 WITH #4 IN BOTTLE--RX FOR NATHALY MONTES DE [facility] 10/04/16--ZIPRASIDONE (GEODON) 80 MG 1 DAILY #30 WITH #18 IN BOTTLE--RX FROM [facility] 10/08/16--OMEPRAZOLE 2 BID #120 WITH #108 IN BOTTLE--RX FROM HAILE VARELA *10/10/16--BUSPIRONE 15 MG 1 BID #120 WITH ONLY #60 IN BOTTLE--RX FROM BRYANNA DEAN 10/19/16--DILTIAZEM 240 MG 1 DAILY #30 WITH #25 IN BOTTLE--RX FROM HAILE VARELA PT DOES NOT HAVE THE FOLLOWING BOTTLES WITH HIM: ALL PER KTRACS 08/22/16 --ALPRAZOLAM 1 MG #60 BY BRYANNA DEAN 08/24/16--HYDROCODONE 5/[address] ALANIS 08/29/16--HYDROCODONE 4/325/ #20 BY HAILE KELLEY AT [facility] 09/12/16--ZOLPIDEM 12.5 MG #30 BY BRYANNA DEAN 10/03/16--ZOLPIDEM 12.5 MG #30 BY BRYANNA DEAN it is recommended that patient strongly consider entering a substance abuse program and/or pursuing outpatient help for his polysubstance abuse. Status: Chronic (3) Tobacco abuse Assessment & Plan: Patient encouraged to quit or at least cut back on tobacco use. Status: Chronic (4) Medical non-compliance Assessment & Plan: Patient is clearly medically noncompliant, based on the fact that he has some multiple prescriptions from multiple providers across the street for controlled substances. When asked about this he actively denied having these prescriptions while in the ED, although records indicate that they have all been filled in his name. Patient is strongly encouraged to obtain all medications through one provider. Status: Chronic (5) IDDM (insulin dependent diabetes mellitus) Assessment & Plan: Continue insulin per previously prescribe regimen. Status: Chronic (6) Fatty liver Assessment & Plan: Per history. Patient encouraged to continue regular follow- up with his PCP. Status: Chronic Clinical Quality Measures DVT/VTE Risk/Contraindication: VTE Present on Admission: No Risk Factor Score Per Nursin RFS Level Per Nursing on Admit: 2=Moderate Copy Copies To 1: MADDIE ZAMORA MD, MARGARET E DO Oct 25, 2016 10:39
[2016-10-25] MEDS ORDERED: busPIRone 15 MG (BUSPAR) TABLET PO PRN (10:45)
[2016-10-25] MEDS ORDERED: inSUlin ASPART (NovoLOG) 1 UNIT/0.01 ML (CHARGE PER UNIT) SQ PRN (10:45)
[2016-10-25] MEDS ORDERED: ZOLPIDEM 5 MG (AMBIEN) TAB PO PRN (11:30)
[2016-10-25] MEDS ORDERED: ZIPRASIDONE 80 MG (GEODON) CAP PO SCH (17:30)
[2016-10-25] MEDS ORDERED: PANTOPRAZOLE 40 MG (PROTONIX) TAB PO SCH (21:00)
[2016-10-25] MEDS ORDERED: inSUlin DETERMIR 1 UNIT/0.01 ML (LEVEMIR) CHARGE PER UNIT SQ PRN (21:00)
[2016-10-25] MEDS ORDERED: DILTIAZEM 240 MG (CARDIZEM CD) CAP PO SCH (21:00)
[2016-10-25] MEDS ORDERED: GEMFIBROZIL 600 MG (LOPID) TAB PO SCH (21:00)
[2016-10-25] MEDS ORDERED: OMEGA 3 (FISH OIL) 1000 MG CAP PO SCH (21:00)
[2016-10-26] MEDS ORDERED: VALSARTAN 80 MG (DIOVAN) TAB PO SCH (09:00)
[2016-10-26] MEDS ORDERED: VENlafaxine XR 75 MG (EFFEXOR XR) CAP PO SCH (09:00)
== END 2016-10-25 10:43 | disposition home or self-care (01) ==
LOC: EDUNIT# 22:10 → ER 22:11 → 4TH 23:45
PROVIDERS: ADMIT Family Medicine; ATTEND Family Medicine
DX: G40.909 Epilepsy, unspecified, not intractable, without status epilepticus (principal); F19.90 Other psychoactive substance use, unspecified, uncomplicated; E11.9 Type 2 diabetes mellitus without complications; E78.5 Hyperlipidemia, unspecified; K76.0 Fatty (change of) liver, not elsewhere classified; F17.210 Nicotine dependence, cigarettes, uncomplicated; Z79.4 Long term (current) use of insulin; Z79.899 Other long term (current) drug therapy; Z86.59 Personal history of other mental and behavioral disorders
CPT/HCPCS: 36415; 70450; 71010; 80053; 80306; 80320; 81000; 82550; 82553; 82962; 83735; 84443; 84484; 85025; 85610; 85730; 93005; 93041; G0378

== ENCOUNTER 2016-12-26 13:24 | Emergency (ER) | payer MEDICARE ==
[~2016-12-26] VITALS: Ht 167.6 cm; Wt 90.8 kg
--- OUTSIDE RECORDS SUMMARY | 2016-12-26 13:30 | XMS REPORT | Clinical Summary ---
Author Author [facility] Organization [facility] Address Unknown Phone Unavailable Care Team Providers Care Business Integration Analyst Name Role Phone PCP Unavailable Source Comments Some departments are not documenting in the electronic medical record. If you do not see the information that you expected, contact Release of Information in the Health Information Management department at [phone] for further assistance in locating additional records.[facility] Allergies No Known Allergies Current Medications Prescription Sig. Disp. Refills Start End Date Status Date [place]-3 Acid Ethyl Esters Take 1 g by [...] VACCINE 1985 TETANUS VACCINE 1991 INFLUENZA VACCINE 09/11/2016 Results Not on filefrom Last 3 Months
--- OUTSIDE RECORDS SUMMARY | 2016-12-26 13:30 | XMS REPORT ---
Author Author BRYANNA Colvin Organization [facility] [place] Address Unknown Care Team Providers Care Automotive Quality Manager Name Role Phone BRYANNA Colvin Unavailable PROBLEMS Type Condition ICD9-CM Code [id number] Code Onset Dates Condition Status SNOMED Code Problem Bipolar disorder, current episode manic without psychotic features, mild F31.11 Active 919435219 Problem Generalized anxiety disorder F41.1 Active 86439151 Problem Panic disorder [episodic paroxysmal anxiety] without agoraphobia F41.0 Active 83159249 Problem Panic disorder with agoraphobia F40.01 Active 59317983 Problem Encounter for therapeutic drug level monitoring Z51.81 Active 175718906 Problem Opioid use disorder, mild, in sustained remission, abuse F11.10 Active 0009573 Problem Anxiety disorder, unspecified type F41.9 Active 153217020 Problem Benzodiazepine abuse F13.10 Active 736277437 ALLERGIES No Information SOCIAL HISTORY Never Assessed PLAN OF CARE VITAL SIGNS MEDICATIONS Unknown Medications RESULTS No Results PROCEDURES No Known procedures IMMUNIZATIONS No Known Immunizations MEDICAL (GENERAL) HISTORY Type Description Date Medical History GERD Medical History Depression Medical History Anxiety Medical History HTN Medical History Hypertriglicerides Medical History hyperlipidemia Medical History Diabetes Mellitus Type 2 Medical History Hx of opiate addiction - on Suboxone therapy Medical History Benzodiazepine dependence Hospitalization History Fracture of left arm [facility] 08/[address] [facility] heat exhaustion and possible over dose. 08/2016
--- OUTSIDE RECORDS SUMMARY | 2016-12-26 13:31 | XMS REPORT ---
Author Author BRYANNA Colvin Organization [facility] Address Unknown Care Team Providers Care Assembler Movement Name Role Phone BRYANNA Colvin Unavailable PROBLEMS Type Condition ICD9-CM Code [id number] Code Onset Dates Condition Status SNOMED Code Problem Bipolar disorder, current episode manic without psychotic features, mild F31.11 Active 122672941 Problem Generalized anxiety disorder F41.1 Active 37523026 Problem Panic disorder [episodic paroxysmal anxiety] without agoraphobia F41.0 Active 16600438 Problem Panic disorder with agoraphobia F40.01 Active 98342411 Problem Encounter for therapeutic drug level monitoring Z51.81 Active 814725100 Problem Opioid use disorder, mild, in sustained remission, abuse F11.10 Active 3411922 Problem Anxiety disorder, unspecified type F41.9 Active 958963967 Problem Benzodiazepine abuse F13.10 Active 202828224 ALLERGIES Substance Reaction Event Type Date Status Levaquin severe cramping Drug Allergy June, Active SOCIAL HISTORY Never Assessed PLAN OF CARE Activity Details Follow Up 2 Weeks Reason: VITAL SIGNS Height 67 in 2016-07-04 Weight 220.2 lbs 2016-07-04 Temperature 97.7 degrees Fahrenheit 2016-07-04 Heart Rate 120 bpm 2016-07-04 Respiratory Rate 22 2016-07-04 BMI 34.48 kg/m2 2016-07-04 Blood pressure systolic 154 mmHg 2016-07-04 Blood pressure diastolic 90 mmHg 2016-07-04 MEDICATIONS Medication Instructions Dosage Frequency Start Date End Date Duration Status Xanax 1 MG Orally Once a day 1/2 tablet 24h May, Active Seroquel 400 MG Orally Once a day 1 tablet at bedtime 24h June, Active Pristiq 100 MG Orally Once a day 1 tablet 24h Mar, Active NovoLog 100 UNIT/ML Subcutaneous with meals 24 units Active Prilosec 20 mg Orally 2 times a day 1 capsule 12h Active Diovan 160 MG Orally 2 times a day 1 tablet 12h Active Lovaza 1 GM Orally Twice a day 2 capsules 12h Active Lantus 100 UNIT/ML Subcutaneous at bedtime 45 units Active Suboxone 8-2 MG Sublingual Once a day 3 application under the tongue and allow to dissolve 24h 28 days Active Seroquel 200 MG Orally at bedtime 1 tablet May, 30 days Active Lopid 600 MG Orally Twice a day 1 tablet 12h Active BusPIRone HCl 15 MG Orally 4 times a day as needed 1 tablet Nov, Active Invokana 100 MG Orally Once a day 1 tablet 24h Active RESULTS No Results PROCEDURES Procedure Date Ordered Result Body Site [facility] VISIT ESTABLISHED PATIENT July 04, 2016 IMMUNIZATIONS No Known Immunizations MEDICAL (GENERAL) HISTORY [...]
--- OUTSIDE RECORDS SUMMARY | 2016-12-26 13:31 | XMS REPORT ---
Author Author BRYANNA STOCK Organization [facility] Address [address] [place] [address] Care Team Providers Care Director Of Physician Practices Name Role Phone BRYANNA STOCK Unavailable PROBLEMS Type Condition ICD9-CM Code [id number] Code Onset Dates Condition Status SNOMED Code Problem Bipolar disorder, current episode manic without psychotic features, mild F31.11 Active 244495114 Problem Generalized anxiety disorder F41.1 Active 74155021 Problem Panic disorder [episodic paroxysmal anxiety] without agoraphobia F41.0 Active 16616423 Problem Panic disorder with agoraphobia F40.01 Active 27869150 Problem Encounter for therapeutic drug level monitoring Z51.81 Active 819736335 Problem Opioid use disorder, mild, in sustained remission, abuse F11.10 Active 8637946 Problem Anxiety disorder, unspecified type F41.9 Active 089871132 Problem Benzodiazepine abuse F13.10 Active 999271581 ALLERGIES Substance Reaction Event Type Date Status Levaqjennifer severe cramping Drug Allergy June, Active SOCIAL HISTORY Never Assessed PLAN OF CARE Activity Details Follow Up 1 Week Reason: VITAL SIGNS Height 67 in 2016-06-22 Weight 219.6 lbs 2016-06-22 Temperature 97.0 degrees Fahrenheit 2016-06-22 Heart Rate 80 bpm 2016-06-22 Respiratory Rate 20 2016-06-22 BMI 34.39 kg/m2 2016-06-22 Blood pressure systolic 128 mmHg 2016-06-22 Blood pressure diastolic 90 mmHg 2016-06-22 MEDICATIONS Medication Instructions Dosage Frequency Start Date End Date Duration Status Lantus 100 UNIT/ML Subcutaneous at bedtime 45 units Active NovoLog 100 UNIT/ML Subcutaneous with meals 24 units Active BusPIRone HCl 15 MG Orally 4 times a day as needed 1 tablet Nov, 30 days Active Lopid 600 MG Orally Twice a day 1 tablet 12h Active Seroquel 200 MG Orally at bedtime 1 tablet May, 30 days Active Cyproheptadine HCl 4 MG Orally once a day 1 tablet 24h 10 May, 2017 30 day(s) Active Invokana 100 MG Orally Once a day 1 tablet 24h Active Suboxone 8-2 MG Sublingual Once a day 3 application under the tongue and allow to dissolve 24h 28 days Active Pristiq 100 MG Orally Once a day 1 tablet 24h 13 Mar, 2012 30 days Active Xanax 1 MG Orally 1/2 tablet in am and 1 at bedtime 1 tablet May, 30 days Active Diovan 160 MG Orally 2 times a day 1 tablet 12h Active Lovaza 1 GM Orally Twice a day 2 capsules 12h Active Seroquel 400 MG Orally Once a day 1 tablet at bedtime 24h June, 30 day(s) Active Prilosec 20 mg Orally 2 times a day 1 capsule 12h Active RESULTS Name Result Date Reference Range Xray : Shoulder, Right 2 view (IN HOUSE) 2016-06-22 PROCEDURES Procedure Date Ordered Result Body Site X-RAY EXAM OF SHOULDER June 22, 2016 [facility] VISIT ESTABLISHED PATIENT June 22, 2016 IMMUNIZATIONS No Known Immunizations MEDICAL (GENERAL) [...]
--- OUTSIDE RECORDS SUMMARY | 2016-12-26 13:32 | XMS REPORT ---
Author Author MÓNICA SERNA Organization [facility] Address [address] [place] [address] Care Team Providers Care Senior Civil Engineer Name Role Phone MÓNICA SERNA Unavailable PROBLEMS Type Condition ICD9-CM Code [id number] Code Onset Dates Condition Status SNOMED Code Problem Bipolar disorder, current episode manic without psychotic features, mild F31.11 Active 746937058 Problem Generalized anxiety disorder F41.1 Active 47626034 Problem Panic disorder [episodic paroxysmal anxiety] without agoraphobia F41.0 Active 62126079 Problem Panic disorder with agoraphobia F40.01 Active 50922221 Problem Encounter for therapeutic drug level monitoring Z51.81 Active 582040708 Problem Opioid use disorder, mild, in sustained remission, abuse F11.10 Active 6709803 Problem Anxiety disorder, unspecified type F41.9 Active 492935513 Problem Benzodiazepine abuse F13.10 Active 225643120 ALLERGIES No Information SOCIAL HISTORY Never Assessed PLAN OF CARE VITAL SIGNS MEDICATIONS Unknown Medications RESULTS No Results PROCEDURES Procedure Date Ordered Result Body Site Alcohol and/or drug services May 02, 2016 IMMUNIZATIONS No Known Immunizations MEDICAL (GENERAL) [...]
--- OUTSIDE RECORDS SUMMARY | 2016-12-26 13:32 | XMS REPORT ---
Author Author BRYANNA Colvin Organization [facility] Address Unknown Care Team Providers Care Packer Denture Name Role Phone BRYANNA Colvin Unavailable PROBLEMS Type Condition ICD9-CM Code [id number] Code Onset Dates Condition Status SNOMED Code Problem Bipolar disorder, current episode manic without psychotic features, mild F31.11 Active 374988342 Problem Generalized anxiety disorder F41.1 Active 06404526 Problem Panic disorder [episodic paroxysmal anxiety] without agoraphobia F41.0 Active 48515333 Problem Panic disorder with agoraphobia F40.01 Active 58851798 Problem Encounter for therapeutic drug level monitoring Z51.81 Active 739794326 Problem Opioid use disorder, mild, in sustained remission, abuse F11.10 Active 7614794 Problem Anxiety disorder, unspecified type F41.9 Active 130331175 Problem Benzodiazepine abuse F13.10 Active 659460059 ALLERGIES No Information SOCIAL HISTORY Never Assessed PLAN OF CARE VITAL SIGNS MEDICATIONS No Known Medications RESULTS No Results PROCEDURES No Known [...]
--- OUTSIDE RECORDS SUMMARY | 2016-12-26 13:33 | XMS REPORT ---
Author Author ELI CORRALES Organization [facility] Address [address] [place] [address] Care Team Providers Care Fermentation Manager Name Role Phone ELI CORRALES Unavailable PROBLEMS Type Condition ICD9-CM Code OZF61-CC Code Onset Dates Condition Status SNOMED Code Problem Bipolar disorder, current episode manic without psychotic features, mild F31.11 Active 342587092 Problem Generalized anxiety disorder F41.1 Active 82354373 Problem Panic disorder [episodic paroxysmal anxiety] without agoraphobia F41.0 Active 22268194 Problem Panic disorder with agoraphobia F40.01 Active 60719242 Problem Encounter for therapeutic drug level monitoring Z51.81 Active 475254747 Problem Opioid use disorder, mild, in sustained remission, abuse F11.10 Active 1202087 Problem Anxiety disorder, unspecified type F41.9 Active 169759806 Problem Benzodiazepine abuse F13.10 Active 034850150 ALLERGIES No Information SOCIAL HISTORY Never Assessed PLAN OF CARE Activity Details Follow Up 2 - 3 Days Reason: VITAL SIGNS MEDICATIONS Unknown Medications RESULTS No Results PROCEDURES Procedure Date Ordered Result Body Site Alcohol and/or drug services June 11, 2016 IMMUNIZATIONS No Known Immunizations MEDICAL (GENERAL) HISTORY Type Description Date Medical History GERD Medical History Depression Medical History Anxiety Medical History HTN Medical History Hypertriglicerides Medical History hyperlipidemia Medical History Diabetes Mellitus Type 2 Medical History Hx of opiate addiction - on Suboxone therapy Medical History Benzodiazepine dependence Hospitalization History Fracture of left arm [facility] 08/2016 [address] [facility] heat exhaustion and possible over dose. 08/2016
--- OUTSIDE RECORDS SUMMARY | 2016-12-26 13:33 | XMS REPORT ---
Author Author BRYANNA Colvin Organization [facility] Address Unknown Care Team Providers Care Crop Farm Helper Name Role Phone BRYANNA Colvin Unavailable PROBLEMS Type Condition ICD9-CM Code [id number]-[id number] Code Onset Dates Condition Status SNOMED Code Problem Bipolar disorder, current episode manic without psychotic features, mild F31.11 Active 289963457 Problem Generalized anxiety disorder F41.1 Active 49491909 Problem Panic disorder [episodic paroxysmal anxiety] without agoraphobia F41.0 Active 63596301 Problem Panic disorder with agoraphobia F40.01 Active 94370773 Problem Encounter for therapeutic drug level monitoring Z51.81 Active 506444504 Problem Opioid use disorder, mild, in sustained remission, abuse F11.10 Active 2453029 Problem Anxiety disorder, unspecified type F41.9 Active 110321548 Problem Benzodiazepine abuse F13.10 Active 390545058 ALLERGIES No Information SOCIAL HISTORY Never Assessed PLAN OF CARE VITAL SIGNS MEDICATIONS Medication Instructions Dosage Frequency Start Date End Date Duration Status Seroquel 300 MG Orally at bedtime 2 tablet May, 30 days Active RESULTS No Results PROCEDURES No Known [...]
--- OUTSIDE RECORDS SUMMARY | 2016-12-26 13:33 | XMS REPORT ---
Author Author BRYANNA Colvin Organization [facility] Address Unknown Care Team Providers Care Group Leader Semiconductor Testing Name Role Phone BRYANNA Colvin Unavailable PROBLEMS Type Condition ICD9-CM Code XIP28-CB Code Onset Dates Condition Status SNOMED Code Problem Bipolar disorder, current episode manic without psychotic features, mild F31.11 Active 809563803 Problem Generalized anxiety disorder F41.1 Active 66810796 Problem Panic disorder [episodic paroxysmal anxiety] without agoraphobia F41.0 Active 47988393 Problem Panic disorder with agoraphobia F40.01 Active 25796344 Problem Encounter for therapeutic drug level monitoring Z51.81 Active 362769522 Problem Opioid use disorder, mild, in sustained remission, abuse F11.10 Active 4600744 Problem Anxiety disorder, unspecified type F41.9 Active 465335473 Problem Benzodiazepine abuse F13.10 Active 478283321 ALLERGIES Substance Reaction Event Type Date Status Levaquin severe cramping Drug Allergy May, Active SOCIAL HISTORY Never Assessed PLAN OF CARE Activity Details Follow Up 2 Months Reason: VITAL SIGNS Height 67 in 2016-05-30 Weight 215.8 lbs 2016-05-30 Heart Rate 116 bpm 2016-05-30 Respiratory Rate 20 2016-05-30 BMI 33.80 kg/m2 2016-05-30 Blood pressure systolic 103 mmHg 2016-05-30 Blood pressure diastolic 62 mmHg 2016-05-30 MEDICATIONS Medication Instructions Dosage Frequency Start Date End Date Duration Status Invokana 100 MG Orally Once a day 1 tablet 24h Active Prilosec 20 mg Orally 2 times a day 1 capsule 12h Active NovoLog 100 UNIT/ML Subcutaneous with meals 24 units Active Diovan 160 MG Orally 2 times a day 1 tablet 12h Active BusPIRone HCl 15 MG Orally 4 times a day as needed 1 tablet 17 Nov, 2015 30 days Active Pristiq 100 MG Orally Once a day 1 tablet 24h 13 Mar, 2012 30 days Active Seroquel 100 MG Orally at bedime twice a day 1 tablet 12h May, 30 day(s) Active Lopid 600 MG Orally Twice a day 1 tablet 12h Active Xanax 1 MG Orally 1/2 tablet in am and 1 at bedtime 1 tablet May, 30 days Active Geodon 80 MG Orally once a day 1 capsule with food 24h Sep, 30 days Active Suboxone 8-2 MG Sublingual Once a day (05/29-05/31) 3 application under the tongue and allow to dissolve 3 days Active Lantus 100 UNIT/ML Subcutaneous at bedtime 45 units Active Lovaza 1 GM Orally Twice a day 2 capsules 12h Active RESULTS No Results PROCEDURES Procedure Date Ordered Result Body Site [facility] VISIT ESTABLISHED PATIENT May 30, 2016 IMMUNIZATIONS No Known Immunizations MEDICAL (GENERAL) [...]
--- OUTSIDE RECORDS SUMMARY | 2016-12-26 13:34 | XMS REPORT ---
Author Author MÓNICA SERNA Organization [facility] Address [address] [place] [address] Care Team Providers Care Gas Plant Worker Name Role Phone KAREEM MÓNICA Unavailable PROBLEMS Type Condition ICD9-CM Code HOV64-JG Code Onset Dates Condition Status SNOMED Code Problem Bipolar disorder, current episode manic without psychotic features, mild F31.11 Active 811261656 Problem Generalized anxiety disorder F41.1 Active 24538172 Problem Panic disorder [episodic paroxysmal anxiety] without agoraphobia F41.0 Active 65196819 Problem Panic disorder with agoraphobia F40.01 Active 50647141 Problem Encounter for therapeutic drug level monitoring Z51.81 Active 510203601 Problem Opioid use disorder, mild, in sustained remission, abuse F11.10 Active 0112867 Problem Anxiety disorder, unspecified type F41.9 Active 487028872 Problem Benzodiazepine abuse F13.10 Active 546986037 ALLERGIES No Information SOCIAL HISTORY Never Assessed PLAN OF CARE VITAL SIGNS MEDICATIONS Unknown Medications RESULTS Name Result Date Reference Range URINE DRUG SCREEN (IN HOUSE) 2016-06-26 Lot # [id number] Exp date 03/2018 Control + COCAINE neg AMPH neg MTD neg THC neg OPIATE neg BENZO + PCP neg BAR neg OXY neg MAMP neg TCA n/a BUP neg MDMA neg PROCEDURES Procedure Date Ordered Result Body Site LAB NOT BILLED BY [facility] June 26, 2016 IMMUNIZATIONS No Known Immunizations MEDICAL (GENERAL) [...]
--- OUTSIDE RECORDS SUMMARY | 2016-12-26 13:35 | XMS REPORT ---
Author Author BRYANNA Colvin Organization [facility] Address Unknown Care Team Providers Care Rodbuster Name Role Phone BRYANNA Colvin Unavailable PROBLEMS Type Condition ICD9-CM Code LKN57-FM Code Onset Dates Condition Status SNOMED Code Problem Bipolar disorder, current episode manic without psychotic features, mild F31.11 Active 941549389 Problem Generalized anxiety disorder F41.1 Active 49662607 Problem Panic disorder [episodic paroxysmal anxiety] without agoraphobia F41.0 Active 79574988 Problem Panic disorder with agoraphobia F40.01 Active 43392547 Problem Encounter for therapeutic drug level monitoring Z51.81 Active 123426560 Problem Opioid use disorder, mild, in sustained remission, abuse F11.10 Active 1342567 Problem Anxiety disorder, unspecified type F41.9 Active 997959406 Problem Benzodiazepine abuse F13.10 Active 218745065 ALLERGIES Substance Reaction Event Type Date Status Levaquin severe cramping Drug Allergy June, Active SOCIAL HISTORY Never Assessed PLAN OF CARE Activity Details Follow Up 3 Months Reason: VITAL SIGNS Height 67 in 2016-06-20 Weight 224 lbs 2016-06-20 Heart Rate 110 bpm 2016-06-20 Respiratory Rate 18 2016-06-20 BMI 35.08 kg/m2 2016-06-20 Blood pressure systolic 120 mmHg 2016-06-20 Blood pressure diastolic 80 mmHg 2016-06-20 MEDICATIONS Medication Instructions Dosage Frequency Start Date End Date Duration Status Prilosec 20 mg Orally 2 times a day 1 capsule 12h Active NovoLog 100 UNIT/ML Subcutaneous with meals 24 units Active Invokana 100 MG Orally Once a day 1 tablet 24h Active Diovan 160 MG Orally 2 times a day 1 tablet 12h Active Lopid 600 MG Orally Twice a day 1 tablet 12h Active Seroquel 200 MG Orally at bedtime 1 tablet May, 30 days Active Suboxone 8-2 MG Sublingual Once a day 3 application under the tongue and allow to dissolve 24h 28 days Active Seroquel 400 MG Orally Once a day 1 tablet at bedtime 24h June, 30 day(s) Active Lantus 100 UNIT/ML Subcutaneous at bedtime 45 units Active BusPIRone HCl 15 MG Orally 4 times a day as needed 1 tablet Nov, 30 days Active Pristiq 100 MG Orally Once a day 1 tablet 24h 13 Mar, 2012 30 days Active Cyproheptadine HCl 4 MG Orally once a day 1 tablet 24h June, 30 day(s) Active Lovaza 1 GM Orally Twice a day 2 capsules 12h Active Xanax 1 MG Orally 1/2 tablet in am and 1 at bedtime 1 tablet May, 30 days Active RESULTS No Results PROCEDURES Procedure Date Ordered Result Body Site [facility] EST[facility] PATIENT June 20, 2016 IMMUNIZATIONS No Known Immunizations MEDICAL (GENERAL) [...]
--- OUTSIDE RECORDS SUMMARY | 2016-12-26 13:35 | XMS REPORT ---
Author Author ELI CORRALES Organization [facility] Address [address] [place] [address] Care Team Providers Care Casting Machine Service Operator Name Role Phone ELI CORRALES Unavailable PROBLEMS Type Condition ICD9-CM Code BJO67-DT Code Onset Dates Condition Status SNOMED Code Problem Bipolar disorder, current episode manic without psychotic features, mild F31.11 Active 210099711 Problem Generalized anxiety disorder F41.1 Active 69084708 Problem Panic disorder [episodic paroxysmal anxiety] without agoraphobia F41.0 Active 95118665 Problem Panic disorder with agoraphobia F40.01 Active 16402068 Problem Encounter for therapeutic drug level monitoring Z51.81 Active 043930056 Problem Opioid use disorder, mild, in sustained remission, abuse F11.10 Active 4425221 Problem Anxiety disorder, unspecified type F41.9 Active 582598916 Problem Benzodiazepine abuse F13.10 Active 282506685 ALLERGIES No Information SOCIAL HISTORY Never Assessed PLAN OF CARE Activity Details Follow Up 2 - 3 Days Reason: VITAL SIGNS MEDICATIONS No Known Medications RESULTS No Results PROCEDURES Procedure Date Ordered Result Body Site [facility] VISIT MENTAL HEALTH ESTAB PT July 04, 2016 Psychotherapy, patient &/family, 30 minutes, established patient July 04, 2016 IMMUNIZATIONS No Known Immunizations [...]
--- OUTSIDE RECORDS SUMMARY | 2016-12-26 13:36 | XMS REPORT ---
Author Author ELI CORRALES Organization [facility] Address [address] [place] [address] Care Team Providers Care Supervisor Special Effects Name Role Phone ELI CORRALES Unavailable PROBLEMS Type Condition ICD9-CM Code CCL58-QK Code Onset Dates Condition Status SNOMED Code Problem Bipolar disorder, current episode manic without psychotic features, mild F31.11 Active 236710898 Problem Generalized anxiety disorder F41.1 Active 94560735 Problem Panic disorder [episodic paroxysmal anxiety] without agoraphobia F41.0 Active 60712655 Problem Panic disorder with agoraphobia F40.01 Active 21087761 Problem Encounter for therapeutic drug level monitoring Z51.81 Active 756109222 Problem Opioid use disorder, mild, in sustained remission, abuse F11.10 Active 7811718 Problem Anxiety disorder, unspecified type F41.9 Active 855043211 Problem Benzodiazepine abuse F13.10 Active 725059280 ALLERGIES No Information SOCIAL HISTORY Never Assessed PLAN OF CARE Activity Details Follow Up 2 - 3 Days Reason: VITAL SIGNS MEDICATIONS Unknown Medications RESULTS No Results PROCEDURES Procedure Date Ordered Result Body Site [facility] VISIT MENTAL HEALTH ESTAB PT June 21, 2016 Psychotherapy, patient &/family, 30 minutes, established patient June 21, 2016 IMMUNIZATIONS No Known Immunizations MEDICAL (GENERAL) [...]
--- OUTSIDE RECORDS SUMMARY | 2016-12-26 13:42 | XMS REPORT ---
Author Author KARLA CRUZ Organization [facility] Address [address] [place] [address] Care Team Providers Care Cloth Shrinking Tester Name Role Phone CRUZKARLA Unavailable PROBLEMS Type Condition ICD9-CM Code ZTN00-PK Code Onset Dates Condition Status SNOMED Code Problem Bipolar disorder, current episode manic without psychotic features, mild F31.11 Active 233770907 Problem Generalized anxiety disorder F41.1 Active 40659320 Problem Panic disorder [episodic paroxysmal anxiety] without agoraphobia F41.0 Active 15859914 Problem Panic disorder with agoraphobia F40.01 Active 08830024 Problem Encounter for therapeutic drug level monitoring Z51.81 Active 880391873 Problem Opioid use disorder, mild, in sustained remission, abuse F11.10 Active 4830144 Problem Anxiety disorder, unspecified type F41.9 Active 811706469 Problem Benzodiazepine abuse F13.10 Active 464442765 ALLERGIES No Information SOCIAL HISTORY Never Assessed PLAN OF CARE VITAL SIGNS MEDICATIONS Unknown Medications RESULTS Name Result Date Reference Range AMERITOX URINE DRUG SCREEN (IN HOUSE) 2016-06-20 Lot # Exp date Control + COCAINE neg AMPH neg MTD neg THC neg OPIATE neg BENZO neg PCP neg BAR neg OXY neg MAMP neg TCA n/a BUP neg MDMA neg PROCEDURES Procedure Date Ordered Result Body Site LAB NOT BILLED BY [facility] June 20, 2016 No Charge June 20, 2016 IMMUNIZATIONS No Known Immunizations [...]
--- OUTSIDE RECORDS SUMMARY | 2016-12-26 13:42 | XMS REPORT ---
Author Author BRYANNA Colvin Organization [facility] Address Unknown Care Team Providers Care Bait Man Name Role Phone BRYANNA Colvin Unavailable PROBLEMS Type Condition ICD9-CM Code IVY63-KB Code Onset Dates Condition Status SNOMED Code Problem Bipolar disorder, current episode manic without psychotic features, mild F31.11 Active 837391414 Problem Generalized anxiety disorder F41.1 Active 32346366 Problem Panic disorder [episodic paroxysmal anxiety] without agoraphobia F41.0 Active 49229658 Problem Panic disorder with agoraphobia F40.01 Active 78576404 Problem Encounter for therapeutic drug level monitoring Z51.81 Active 112776695 Problem Opioid use disorder, mild, in sustained remission, abuse F11.10 Active 9049796 Problem Anxiety disorder, unspecified type F41.9 Active 783824047 Problem Benzodiazepine abuse F13.10 Active 910600741 ALLERGIES No Information SOCIAL HISTORY Never Assessed [...]
--- OUTSIDE RECORDS SUMMARY | 2016-12-26 13:43 | XMS REPORT ---
Author Author MÓNICA SERNA [facility] Address [address] [place] [address] Care Team Providers Care Keg Varnisher Name Role Phone MÓNICA SERNA Unavailable PROBLEMS Type Condition ICD9-CM Code VZN19-LU Code Onset Dates Condition Status SNOMED Code Problem Bipolar disorder, current episode manic without psychotic features, mild F31.11 Active 387530013 Problem Generalized anxiety disorder F41.1 Active 51975150 Problem Panic disorder [episodic paroxysmal anxiety] without agoraphobia F41.0 Active 12681980 Problem Panic disorder with agoraphobia F40.01 Active 09258935 Problem Encounter for therapeutic drug level monitoring Z51.81 Active 389307882 Problem Opioid use disorder, mild, in sustained remission, abuse F11.10 Active 0805127 Problem Anxiety disorder, unspecified type F41.9 Active 209680026 Problem Benzodiazepine abuse F13.10 Active 022112132 ALLERGIES Substance Reaction Event Type Date Status Levaquin severe cramping Drug Allergy June, Active SOCIAL HISTORY Never Assessed PLAN OF CARE Activity Details Follow Up per patient Reason: VITAL SIGNS Height 67 in 2016-07-04 [...] times a day 1 capsule 12h Active Lantus 100 UNIT/ML Subcutaneous at bedtime 45 units Active Invokana 100 MG Orally Once a day 1 tablet 24h Active Diovan 160 MG Orally 2 times a day 1 tablet 12h Active BusPIRone HCl 15 MG Orally 4 times a day as needed 1 tablet Nov, 30 days Active Seroquel 400 MG Orally Once a day 1 tablet at bedtime 24h June, 30 day(s) Active Cyproheptadine HCl 4 MG Orally once a day 1 tablet 24h June, 30 day(s) Active Lovaza 1 GM Orally Twice a day 2 capsules 12h Active Pristiq 100 MG Orally Once a day 1 tablet 24h 13 Mar, 2012 30 days Active NovoLog 100 UNIT/ML Subcutaneous with meals 24 units Active Suboxone 8-2 MG Sublingual Once a day 3 application under the tongue and allow to dissolve 24h 28 days Active Lopid 600 MG Orally Twice a day 1 tablet 12h Active Xanax 1 MG Orally Once a day 1/2 tablet 24h May, 30 days Active Seroquel 200 MG Orally at bedtime 1 tablet May, 30 days Active RESULTS Name Result Date Reference Range URINE DRUG SCREEN (IN HOUSE) 2016-07-04 Lot # [id number] Exp date 03/2018 Control + COCAINE neg AMPH neg MTD neg THC neg OPIATE neg BENZO + PCP neg BAR neg OXY neg MAMP neg TCA n/a BUP neg MDMA neg PROCEDURES Procedure Date Ordered Result Body Site LAB NOT BILLED BY [facility] July 04, 2016 [facility] VISIT ESTABLISHED PATIENT July 04, 2016 IMMUNIZATIONS [...]
--- OUTSIDE RECORDS SUMMARY | 2016-12-26 13:43 | XMS REPORT ---
Author Author ELI CORRALES Organization [facility] Address [address] [place] [address] Care Team Providers Care Marketing Effectiveness Manager Name Role Phone ELI CORRALES Unavailable PROBLEMS Type Condition ICD9-CM Code FGF14-LJ Code Onset Dates Condition Status SNOMED Code Problem Bipolar disorder, current episode manic without psychotic features, mild F31.11 Active 109575604 Problem Generalized anxiety disorder F41.1 Active 79561226 Problem Panic disorder [episodic paroxysmal anxiety] without agoraphobia F41.0 Active 21093906 Problem Panic disorder with agoraphobia F40.01 Active 47417025 Problem Encounter for therapeutic drug level monitoring Z51.81 Active 243815621 Problem Opioid use disorder, mild, in sustained remission, abuse F11.10 Active 9117103 Problem Anxiety disorder, unspecified type F41.9 Active 365557861 Problem Benzodiazepine abuse F13.10 Active 148049941 ALLERGIES No Information SOCIAL HISTORY Never Assessed PLAN OF CARE Activity Details Follow Up 2 - 3 Days Reason: VITAL SIGNS MEDICATIONS Unknown Medications RESULTS No Results PROCEDURES Procedure Date Ordered Result Body Site [facility] VISIT MENTAL HEALTH NEW PT May 03, 2016 Psych diagnostic evaluation, new patient May 03, 2016 IMMUNIZATIONS No Known Immunizations MEDICAL (GENERAL) [...]
--- OUTSIDE RECORDS SUMMARY | 2016-12-26 13:43 | XMS REPORT ---
Author Author BRYANNA Colvin Organization [facility] Address Unknown Care Team Providers Care Oncology Technician Name Role Phone BRYANNA Colvin Unavailable PROBLEMS Type Condition ICD9-CM Code ECX81-QW Code Onset Dates Condition Status SNOMED Code Problem Bipolar disorder, current episode manic without psychotic features, mild F31.11 Active 867855733 Problem Generalized anxiety disorder F41.1 Active 26737679 Problem Panic disorder [episodic paroxysmal anxiety] without agoraphobia F41.0 Active 41556883 Problem Panic disorder with agoraphobia F40.01 Active 42831033 Problem Encounter for therapeutic drug level monitoring Z51.81 Active 551699132 Problem Opioid use disorder, mild, in sustained remission, abuse F11.10 Active 6653172 Problem Anxiety disorder, unspecified type F41.9 Active 487181024 Problem Benzodiazepine abuse F13.10 Active 710134567 ALLERGIES No Information SOCIAL HISTORY Never Assessed [...]
--- OUTSIDE RECORDS SUMMARY | 2016-12-26 13:50 | XMS REPORT ---
Author Author ELI CORRALES Organization [facility] Address [address] [place] [address] Care Team Providers Care Thermoforming Operator Name Role Phone ELI CORRALES Unavailable PROBLEMS Type Condition ICD9-CM Code HMW60-AI Code Onset Dates Condition Status SNOMED Code Problem Bipolar disorder, current episode manic without psychotic features, mild F31.11 Active 009001487 Problem Generalized anxiety disorder F41.1 Active 31028203 Problem Panic disorder [episodic paroxysmal anxiety] without agoraphobia F41.0 Active 06798777 Problem Panic disorder with agoraphobia F40.01 Active 62788251 Problem Encounter for therapeutic drug level monitoring Z51.81 Active 325482534 Problem Opioid use disorder, mild, in sustained remission, abuse F11.10 Active 0744175 Problem Anxiety disorder, unspecified type F41.9 Active 181474671 Problem Benzodiazepine abuse F13.10 Active 996745247 ALLERGIES No Information SOCIAL HISTORY Never Assessed PLAN OF CARE Activity Details Follow Up 1 Week Reason: VITAL SIGNS MEDICATIONS Unknown Medications RESULTS No Results PROCEDURES Procedure Date Ordered Result Body Site [facility] VISIT MENTAL HEALTH ESTAB PT June 26, 2016 Psychotherapy, patient &/family, 30 minutes, established patient June 26, 2016 IMMUNIZATIONS No Known Immunizations [...]
--- OUTSIDE RECORDS SUMMARY | 2016-12-26 13:50 | XMS REPORT ---
Author Author KARLA CRUZ [facility] Address [address] [place] [address] Care Team Providers Care Harbour Master Name Role Phone CRUZ KARLA Unavailable PROBLEMS Type Condition ICD9-CM Code [id number] Code Onset Dates Condition Status SNOMED Code Problem Bipolar disorder, current episode manic without psychotic features, mild F31.11 Active 130501919 Problem Generalized anxiety disorder F41.1 Active 42387894 Problem Panic disorder [episodic paroxysmal anxiety] without agoraphobia F41.0 Active 96528266 Problem Panic disorder with agoraphobia F40.01 Active 78137367 Problem Encounter for therapeutic drug level monitoring Z51.81 Active 325416531 Problem Opioid use disorder, mild, in sustained remission, abuse F11.10 Active 4814548 Problem Anxiety disorder, unspecified type F41.9 Active 285755025 Problem Benzodiazepine abuse F13.10 Active 675498625 ALLERGIES Substance Reaction Event Type Date Status Levaquin severe cramping Drug Allergy Apr, Active SOCIAL HISTORY Never Assessed PLAN OF CARE VITAL SIGNS MEDICATIONS Medication Instructions Dosage Frequency Start Date End Date Duration Status Lopid 600 MG Orally Twice a day 1 tablet 12h Active Lovaza 1 GM Orally Twice a day 2 capsules 12h Active Ambien CR 12.5 MG Orally Once a day 1 tablet at bedtime as needed 24h 30 days Active Suboxone 8-2 MG Sublingual 3 times a day 1 application under the tongue and allow to dissolve 8h Active Prilosec 20 mg Orally 2 times a day 1 capsule 12h Active Invokana 100 MG Orally Once a day 1 tablet 24h Active Pristiq 100 MG Orally Once a day 1 tablet 24h Mar, 30 days Active BusPIRone HCl 15 MG Orally 4 times a day as needed 1 tablet Nov, 30 days Active Diovan 160 MG Orally 2 times a day 1 tablet 12h Active Geodon 80 MG Orally once a day 1 capsule with food 24h Sep, 30 days Active Xanax 1 MG Orally 3 times a day 1 tablet 8h 30 days Active RESULTS No Results PROCEDURES [...]
[2016-12-26 13:53] LABS: BASOPHILS % (AUTO) 1 % (0-10); EOSINOPHILS # (AUTO) 0.2 10^3/uL (0.0-0.3); EOSINOPHILS % (AUTO) 3 % (0-10); LYMPHOCYTES # (AUTO) 2.5 X 10^3 (1.0-4.0); LYMPHOCYTES % (AUTO) 39 % (12-44); MEAN CORPUSCULAR HEMOGLOBIN 30 PG (25-34); MEAN CORPUSCULAR HGB CONC 36 G/DL (32-36); MEAN CORPUSCULAR VOLUME 83 FL (80-99); MEAN PLATELET VOLUME 9.4 FL (7.4-10.4); MONOCYTES # (AUTO) 0.4 X 10^3 (0.0-1.0); MONOCYTES % (AUTO) 7 % (0-12); NEUTROPHILS # (AUTO) 3.2 X 10^3 (1.8-7.8); NEUTROPHILS % (AUTO) 51 % (42-75); PLATELET COUNT 250 10^3/uL (130-400); RED BLOOD COUNT 5.55 10^6/uL (4.35-5.85); RED CELL DISTRIBUTION WIDTH 13.1 % (10.0-14.5); WHITE BLOOD COUNT 6.3 10^3/uL (4.3-11.0)
--- OUTSIDE RECORDS SUMMARY | 2016-12-26 13:53 | XMS REPORT ---
Author Author BRYANNA Colvin Organization [facility] Address Unknown Care Team Providers Care Library Science Instructor Name Role Phone BRYANNA Colvin Unavailable PROBLEMS Type Condition ICD9-CM Code [id number] Code Onset Dates Condition Status SNOMED Code Problem Bipolar disorder, current episode manic without psychotic features, mild F31.11 Active 087133651 Problem Generalized anxiety disorder F41.1 Active 57699873 Problem Panic disorder [episodic paroxysmal anxiety] without agoraphobia F41.0 Active 86919673 Problem Panic disorder with agoraphobia F40.01 Active 69817786 Problem Encounter for therapeutic drug level monitoring Z51.81 Active 845337298 Problem Opioid use disorder, mild, in sustained remission, abuse F11.10 Active 9786635 Problem Anxiety disorder, unspecified type F41.9 Active 010764352 Problem Benzodiazepine abuse F13.10 Active 419343022 ALLERGIES No Information SOCIAL HISTORY Never Assessed PLAN OF CARE VITAL SIGNS MEDICATIONS Medication Instructions Dosage Frequency Start Date End Date Duration Status Seroquel 200 MG Orally at bedtime 1 [...]
--- OUTSIDE RECORDS SUMMARY | 2016-12-26 13:53 | XMS REPORT ---
Author Author ELI CORRALES Organization [facility] Address [address] [place] [address] Care Team Providers Care Buttermilk Drier Operator Name Role Phone ELI CORRALES Unavailable PROBLEMS Type Condition ICD9-CM Code [id number] Code Onset Dates Condition Status SNOMED Code Problem Bipolar disorder, current episode manic without psychotic features, mild F31.11 Active 001119069 Problem Generalized anxiety disorder F41.1 Active 97394716 Problem Panic disorder [episodic paroxysmal anxiety] without agoraphobia F41.0 Active 18747187 Problem Panic disorder with agoraphobia F40.01 Active 91581735 Problem Encounter for therapeutic drug level monitoring Z51.81 Active 396005843 Problem Opioid use disorder, mild, in sustained remission, abuse F11.10 Active 1145253 Problem Anxiety disorder, unspecified type F41.9 Active 223066874 Problem Benzodiazepine abuse F13.10 Active 914676728 ALLERGIES No Information SOCIAL HISTORY Never Assessed PLAN OF CARE Activity Details Follow Up 2 - 3 Days Reason: VITAL SIGNS MEDICATIONS No Known Medications RESULTS No Results PROCEDURES Procedure Date Ordered Result Body Site FOR[facility]LY [facility], [facility] VISIT MENTAL HEALTH ESTAB PT July 06, 2016 Psychotherapy, patient &/family, 30 minutes, established patient July 06, 2016 IMMUNIZATIONS No Known Immunizations MEDICAL (GENERAL) [...]
--- OUTSIDE RECORDS SUMMARY | 2016-12-26 13:53 | XMS REPORT ---
Author Author ELI CORRALES Organization [facility] Address [address] [place] [address] Care Team Providers Care Emergency Communications Dispatcher Name Role Phone ELI CORRALES Unavailable PROBLEMS Type Condition ICD9-CM Code [id number] Code Onset Dates Condition Status SNOMED Code Problem Bipolar disorder, current episode manic without psychotic features, mild F31.11 Active 753697972 Problem Generalized anxiety disorder F41.1 Active 68957250 Problem Panic disorder [episodic paroxysmal anxiety] without agoraphobia F41.0 Active 31140119 Problem Panic disorder with agoraphobia F40.01 Active 19252163 Problem Encounter for therapeutic drug level monitoring Z51.81 Active 012888273 Problem Opioid use disorder, mild, in sustained remission, abuse F11.10 Active 8323382 Problem Anxiety disorder, unspecified type F41.9 Active 437938096 Problem Benzodiazepine abuse F13.10 Active 381825545 ALLERGIES No Information SOCIAL HISTORY Never Assessed PLAN OF CARE Activity Details Follow Up 2 - 3 Days Reason: VITAL SIGNS MEDICATIONS Unknown Medications RESULTS No Results PROCEDURES Procedure Date Ordered Result Body Site [facility] VISIT MENTAL HEALTH ESTAB PT June 18, 2016 Psychotherapy, patient &/family, 30 minutes, established patient June 18, 2016 IMMUNIZATIONS No Known Immunizations MEDICAL (GENERAL) [...]
[2016-12-26 14:04] LABS: ALANINE AMINOTRANSFERASE 39 U/L (0-55); ALBUMIN 4.5 GM/DL (3.2-4.5); ANION GAP 15 MMOL/L (5-14); ASPARTATE AMINO TRANSFERASE 16 U/L (5-34); BILIRUBIN,TOTAL 0.5 MG/DL (0.1-1.0); BLOOD UREA NITROGEN 17 MG/DL (7-18); BUN/CREATININE RATIO 14; CALCIUM 9.9 MG/DL (8.5-10.1); CARBON DIOXIDE 19 MMOL/L (21-32); CHLORIDE 104 MMOL/L (98-107); CREATININE SERUM 1.19 MG/DL (0.60-1.30); GFR ESTIMATED > 60; GLUCOSE 297 MG/DL (70-105); POTASSIUM 3.6 MMOL/L (3.6-5.0); SODIUM 138 MMOL/L (135-145); TOTAL PROTEIN 8.1 GM/DL (6.4-8.2)
[2016-12-26 14:49] LABS: BILIRUBIN,URINE NEGATIVE (NEGATIVE); KETONES,URINE NEGATIVE (NEGATIVE); LEUKOCYTE ESTERASE ,URINE NEGATIVE (NEGATIVE); NITRITE,URINE NEGATIVE (NEGATIVE); PH,URINE 5 (5-9); PROTEIN,URINE 2+ (NEGATIVE); UROBILINOGEN,URINE NORMAL (NORMAL)
[2016-12-26 15:05] LABS: WBC,URINE 0-2 /HPF
[2016-12-26 15:06] LABS: GRANULAR CASTS,URINE RARE /LPF; HYALINE CASTS, URINE 25-50 /LPF
[2016-12-26] MEDS ORDERED: LEVE500T99 PO (15:10)
--- NOTE | 2016-12-26 15:11 | ED Neurological Problem ---
General Chief Complaint: Neurological Problems Stated Complaint: SEIZURE Nursing Triage Note: pt family reports pt had seizure this am. ems reports pt was postictal upon their arrival. Pt alert and oriented upon arrival to ED. pt reports he has hx of 3 previous seizure but does not take anything for them or seen anyone for evaluation of seizures. Nursing Sepsis Screen: No Definite Risk Allergies and Home Medications Allergies Coded Allergies: levofloxacin (Verified Adverse Reaction, Unknown, STOMACH CAMPS, 06/08/15) Home Medications Buspirone HCl 15 Mg Tablet, 15 MG PO QID PRN for ANXIETY, (Reported) Desvenlafaxine Succinate 100 Mg Tab.er.24h, 100 MG PO DAILY, (Reported) Diltiazem HCl 240 Mg Cap.er.24h, 240 MG PO HS, (Reported) Gemfibrozil 600 Mg Tablet, 600 MG PO BID, (Reported) Insulin Aspart 300 Units/3 Ml Solution, 24 UNITS SQ TIDAC PRN for BS ABOVE 180, (Reported) Insulin Glargine,Hum.rec.anlog 100 Unit/1 Ml Insuln.pen, 45 UNITS SQ HS PRN for BS ABOVE 180, (Reported) Levetiracetam 500 Mg Tablet, 500 MG PO BID, #30 Prescribed by: DAVIDE GAFFNEY on 12/26/16 15[address] [place]-3 Acid Ethyl Esters 1 Gm Capsule, 2 GM PO BID, (Reported) TAKES 2 (1GM) CAPSULES Omeprazole 20 Mg Capsule.dr, 40 MG PO BID, (Reported) TAKES 2 (20MG) CAPSULES Valsartan 160 Mg Tablet, 320 MG PO DAILY, (Reported) TAKES 2 (160MG) TABLETS Ziprasidone HCl 80 Mg Capsule, 80 MG PO 1730, (Reported) Zolpidem Tartrate 12.5 Mg Tab.mphase, 12.5 MG PO HS PRN for SLEEP, (Reported) Past Krxcysy-Gznhaz-Bnucje Hx Patient Social History Alcohol Use: Denies Use Recreational Drug Use: No Drug of Choice: opiates, benzodiazepines Smoking Status: Current Everyday Smoker Type Used: Cigarettes 2nd Hand Smoke Exposure: No Recent Foreign Travel: No Contact w/Someone Who Travel: No Recent Infectious Disease Expo: No Recent Hopitalizations: No Physical Abuse: No Sexual Abuse: No Mistreated: No Fear: No Immunizations Up To Date Tetanus Booster (TDap): Unknown PED Vaccines UTD: No Date of Influenza Vaccine: Feb 11, 2015 Seasonal Allergies Seasonal Allergies: No Surgeries History of Surgeries: Yes ("CYST FROM LOWER BACK" ) Respiratory History of Respiratory Disorde: No Currently Using CPAP: No Currently Using BIPAP: No Cardiovascular History of Cardiac Disorders: Yes Cardiac Disorders: High Cholesterol, Hypertension Neurological History of Neurological Disord: Yes ("CYST" ON LOWER BACK/"SPINE" ) Reproductive System Hx Reproductive Disorders: No Genitourinary History of Genitourinary Disor: No Gastrointestinal History of Gastrointestinal Di: Yes (FATTY LIVER) Gastrointestinal Disorders: Gastroesophageal Reflux, Liver Disease/Jaundice, Pancreatitis Musculoskeletal History of Musculoskeletal Dis: Yes (CHRONIC BACK PAIN WITH "CYST" ON LOWER BACK/"SPINE" ) Musculoskeletal Disorders: Chronic Back Pain Endocrine History of Endocrine Disorders: Yes (DOES NOT ROUTINELY CHECK BLOOD SUGAR) Endocrine Disorders: Diabetes, Insulin dep HEENT History of HEENT Disorders: No Loss of Vision: Denies Hearing Impairment: Denies Cancer History of Cancer: No Psychosocial History of Psychiatric Problem: Yes (OVERDOSE 08/2016) Behavioral Health Disorders: Anxiety, Depression Suicide Risk Score: 0 Integumentary History of Skin or Integumenta: No Blood Transfusions History of Blood Disorders: No Adverse Reaction to a Blood Tr: Yes Family Medical History Family Medial History: Cancer 03 MOTHER Congestive heart failure 03 FATHER Family history: Hypertension 03 FATHER Physical Exam Vital Signs Vital Sign - Last 12Hours 12/26/16 13:35 Temp 98.0 Pulse 105 Resp 18 B/P (MAP) 148/97 Pulse Ox 92 Capillary Refill : Less Than 3 Seconds Progress/Results/Core Measures Results/Orders Lab Results Laboratory Tests Test 12/26/16 13:32 12/26/16 14:41 Range/Units White Blood Count 6.3 4.3-11.0 10^3/uL Red Blood Count 5.55 4.35-5.85 10^6/uL Hemoglobin 16.5 13.3-17.7 G/DL Hematocrit 46 40-54 % Mean Corpuscular Volume 83 80-99 FL Mean Corpuscular Hemoglobin 30 25-34 PG Mean Corpuscular Hemoglobin Concent 36 32-36 G/DL Red Cell Distribution Width 13.1 10.0-14.5 % Platelet Count 250 130-400 10^3/uL Mean Platelet Volume 9.4 7.4-10.4 FL Neutrophils (%) (Auto) 51 42-75 % Lymphocytes (%) (Auto) 39 12-44 % Monocytes (%) (Auto) 7 0-12 % Eosinophils (%) (Auto) 3 0-10 % Basophils (%) (Auto) 1 0-10 % Neutrophils # (Auto) 3.2 1.8-7.8 X 10^3 Lymphocytes # (Auto) 2.5 1.0-4.0 X 10^3 Monocytes # (Auto) 0.4 0.0-1.0 X 10^3 Eosinophils # (Auto) 0.2 0.0-0.3 10^3/uL Basophils # (Auto) 0.0 0.0-0.1 10^3/uL Sodium Level 138 135-145 MMOL/L Potassium Level 3.6 3.6-5.0 MMOL/L Chloride Level 104 98-107 MMOL/L Carbon Dioxide Level 19 L 21-32 MMOL/L Anion Gap 15 H 5-14 MMOL/L Blood Urea Nitrogen 17 7-18 MG/DL Creatinine 1.19 0.60-1.30 MG/DL Estimat Glomerular Filtration Rate > 60 BUN/Creatinine Ratio 14 Glucose Level 297 H 70-105 MG/DL Calcium Level 9.9 8.5-10.1 MG/DL Total Bilirubin 0.5 0.1-1.0 MG/DL Aspartate Amino Transf (AST/SGOT) 16 5-34 U/L Alanine Aminotransferase (ALT/SGPT) 39 0-55 U/L Alkaline Phosphatase 169 H 40-136 U/L Total Protein 8.1 6.4-8.2 GM/DL Albumin 4.5 3.2-4.5 GM/DL Serum Alcohol < 10 <10 MG/DL Urine Color YELLOW Urine Clarity CLEAR Urine pH 5 5-9 Urine Specific Smiley 1.025 H 1.016-1.022 Urine Protein 2+ H NEGATIVE Urine Glucose (UA) 4+ H NEGATIVE Urine Ketones NEGATIVE NEGATIVE Urine Nitrite NEGATIVE NEGATIVE Urine Bilirubin NEGATIVE NEGATIVE Urine Urobilinogen NORMAL NORMAL MG/DL Urine Leukocyte Esterase NEGATIVE NEGATIVE Urine RBC (Auto) NEGATIVE NEGATIVE Urine RBC 0-2 /HPF Urine WBC 0-2 /HPF Urine Squamous Epithelial Cells 10-25 H /HPF Urine Renal Epithelial Cells NONE /HPF Urine Crystals NONE /LPF Urine Bacteria NEGATIVE /HPF Urine Casts PRESENT /LPF Urine Hyaline Casts 25-50 H /LPF Urine Granular Casts RARE /LPF Urine Mucus NEGATIVE /LPF Urine Culture Indicated NO Urine Opiates Screen NEGATIVE NEGATIVE Urine Oxycodone Screen NEGATIVE NEGATIVE Urine Methadone Screen NEGATIVE NEGATIVE Urine Propoxyphene Screen NEGATIVE NEGATIVE Urine Barbiturates Screen NEGATIVE NEGATIVE Ur Tricyclic Antidepressants Screen NEGATIVE NEGATIVE Urine Phencyclidine Screen NEGATIVE NEGATIVE Urine Amphetamines Screen NEGATIVE NEGATIVE Urine Methamphetamines Screen NEGATIVE NEGATIVE Urine Benzodiazepines Screen NEGATIVE NEGATIVE Urine Cocaine Screen NEGATIVE NEGATIVE Urine Cannabinoids Screen NEGATIVE NEGATIVE My Orders Orders - DAVIDE ALANIS MD Cbc With Automated Diff (12/26/16 13:48) Comprehensive Metabolic Panel (12/26/16 13:48) Saline Lock/Iv-Start (12/26/16 13:48) Drug Screen Stat (Urine) (12/26/16 14:37) Ua Culture If Indicated (12/26/16 14:37) Alcohol (12/26/16 14:37) Levetiracetam Injection (Keppra Injectio (12/26/16 21:00) Medications Given in ED Current Medications Medications Dose Ordered Sig/Attila Route Start Time Stop Time Status Last Admin Dose Admin Levetiracetam 500 mg/Sodium Chloride 55 ml @ 220 mls/hr BID ONCE IV 12/26/16 21:00 12/26/16 21:14 12/26/16 15:06 220 MLS/HR Vital Signs/I&O Vital Sign - Last 12Hours 12/26/16 13:35 Temp 98.0 Pulse 105 Resp 18 B/P (MAP) 148/97 Pulse Ox 92 Blood Pressure Mean: 114 Departure Impression Impression: Primary Impression: Generalized seizure Additional Impression: Pain, dental Disposition: 01 HOME, SELF-CARE Condition: Improved Departure-Patient Inst. Decision time for Depature: 15:09 Referrals: LEYDA ZAMORA MD (PCP/Family) Primary Care Physician Patient Instructions: Seizures, Adult (DC) Add. Discharge Instructions: Start Keppra as prescribed and follow-up with your primary care provider soon as possible. Return to the emergency room if symptoms worsen. Complete your antibiotic as prescribed for your dental problems and see a dentist as soon as possible. All discharge instructions reviewed with patient and/or family. Voiced understanding. Scripts Amoxicillin (Amoxicillin) 500 Mg Capsule 1000 MG PO BID, #40 CAP Prov: DAVIDE ALANIS MD 12/26/16 Levetiracetam (Keppra) 500 Mg Tablet 500 MG PO BID, #30 TAB Prov: DAVIDE ALANIS MD 12/26/16 Copy Copies To 1: LEYDA ZAMORA MD, JOSHUA T MD Dec 26, 2016 15:11
[2016-12-26] MEDS ORDERED: AMOX500C2 PO (15:15)
[2016-12-26 15:26] VITALS: BP 132/81
[2016-12-26] MEDS ORDERED: LEVETIRACETAM INJECTION 500 MG in NS (IVPB) 50 ML IV ONE (21:00)
== END 2016-12-26 15:26 | disposition home or self-care (01) ==
LOC: EDUNIT# 13:24 → ER 13:26
DX: R56.9 Unspecified convulsions (principal); K08.89 Other specified disorders of teeth and supporting structures; E78.00 Pure hypercholesterolemia, unspecified; I10 Essential (primary) hypertension; K21.9 Gastro-esophageal reflux disease without esophagitis; E11.9 Type 2 diabetes mellitus without complications; F41.9 Anxiety disorder, unspecified; F32.9 Major depressive disorder, single episode, unspecified; F17.210 Nicotine dependence, cigarettes, uncomplicated; Z87.19 Personal history of other diseases of the digestive system; Z82.49 Family history of ischemic heart disease and other diseases of the circulatory system; Z79.4 Long term (current) use of insulin
CPT/HCPCS: 36415; 80053; 80306; 80320; 81000; 85025

== ENCOUNTER 2018-01-09 22:16 | Emergency (ER) | payer MEDICARE ==
[~2018-01-09] VITALS: Ht 167.6 cm; Wt 92.6 kg
[~2018-01-09 22:16] MED LIST changes: +ACHD5005 PO; +AMOX500C2 PO; -CYPR4TAB PO; +CYPR4TAB41 PO; -ESZO3TAB38 PO; +ESZO3TAB39 PO; -GEMF600T3 PO; +GEMF600T4 PO; -HYDR-3812 PO; +LEVE500T99 PO; -VALS160T28 PO; +VALS160T29 PO
[2018-01-09] MEDS ORDERED: SULF1TAB35 PO (22:35)
[2018-01-09] MEDS ORDERED: HYDR-4226 PO (22:35)
--- NOTE | 2018-01-09 22:36 | ED Integumentary General ---
General Stated Complaint: PAINFUL SKIN LESIONS IN L ARMPIT Source: patient Exam Limitations: no limitations History of Present Illness Date Seen by Provider: Jan 09, 2018 Time Seen by Provider: 22:33 Initial Comments To ER with painful "boils" to the left axilla for the past 4 days. No fevers or chills. No history of this. Timing/Duration: constant, getting worse Severity: moderate Location: extremities Associated Symptoms: No fever Allergies and Home Medications Allergies Coded Allergies: levofloxacin (Verified Adverse Reaction, Unknown, STOMACH CAMPS, 06/08/15) Home Medications Amoxicillin 500 Mg Capsule, 1,000 MG PO BID Prescribed by: DAVIDE GAFFNEY on 12/26/161514 Buspirone HCl 15 Mg Tablet, 15 MG PO QID PRN for ANXIETY, (Reported) Desvenlafaxine Succinate 100 Mg Tab.er.24h, 100 MG PO DAILY, (Reported) Diltiazem HCl 240 Mg Cap.er.24h, 240 MG PO HS, (Reported) Gemfibrozil 600 Mg Tablet, 600 MG PO BID, (Reported) Hydrocodone/Acetaminophen 1 Each Tablet, 1 EACH PO Q6H PRN for PAIN-MODERATE Prescribed by: MINERVA BROTHERS on 01/09/182234 Insulin Aspart 300 Units/3 Ml Solution, 24 UNITS SQ TIDAC PRN for BS ABOVE 180, (Reported) Insulin Glargine,Hum.rec.anlog 100 Unit/1 Ml Insuln.pen, 45 UNITS SQ HS PRN for BS ABOVE 180, (Reported) Levetiracetam 500 Mg Tablet, 500 MG PO BID Prescribed by: DAVIDE GAFFNEY on 12/26/161509 [place]-3 Acid Ethyl Esters 1 Gm Capsule, 2 GM PO BID, (Reported) TAKES 2 (1GM) CAPSULES Omeprazole 20 Mg Capsule.dr, 40 MG PO BID, (Reported) TAKES 2 (20MG) CAPSULES Sulfamethoxazole/Trimethoprim 1 Each Tablet, 1 EACH PO BID Prescribed by: MINERVA BROTHERS on 01/09/182234 Valsartan 160 Mg Tablet, 320 MG PO DAILY, (Reported) TAKES 2 (160MG) TABLETS Ziprasidone HCl 80 Mg Capsule, 80 MG PO 1730, (Reported) Zolpidem Tartrate 12.5 Mg Tab.mphase, 12.5 MG PO HS PRN for SLEEP, (Reported) Patient Home Medication List Home Medication List Reviewed: Yes Review of Systems Review of Systems Constitutional: see HPI; No chills, No fever EENTM: see HPI Respiratory: no symptoms reported Cardiovascular: no symptoms reported Genitourinary: no symptoms reported Musculoskeletal: no symptoms reported Skin: see HPI Psychiatric/Neurological: No Symptoms Reported Endocrine: No Symptoms Reported Past Oxkjsne-Hkthca-Umbquo Hx Patient Social History Drug of Choice: opiates, benzodiazepines Type Used: Cigarettes 2nd Hand Smoke Exposure: No Recent Foreign Travel: No Contact w/Someone Who Travel: No Recent Hopitalizations: No Immunizations Up To Date Tetanus Booster (TDap): Unknown PED Vaccines UTD: No Date of Influenza Vaccine: Feb 11, 2015 Seasonal Allergies Seasonal Allergies: No Past Medical History Surgeries: Yes ("CYST FROM LOWER BACK" ) Respiratory: No Currently Using CPAP: No Currently Using BIPAP: No Cardiac: Yes High Cholesterol, Hypertension Neurological: Yes ("CYST" ON LOWER BACK/"SPINE" ) Seizure Disorder Reproductive Disorders: No Genitourinary: No Gastrointestinal: Yes (FATTY LIVER) Gastroesophageal Reflux, Liver Disease/Jaundice, Pancreatitis Musculoskeletal: Yes (CHRONIC BACK PAIN WITH "CYST" ON LOWER BACK/"SPINE" ) Chronic Back Pain Endocrine: Yes (DOES NOT ROUTINELY CHECK BLOOD SUGAR) Diabetes, Insulin dep HEENT: No Loss of Vision: Denies Hearing Impairment: Denies Cancer: No Psychosocial: Yes (OVERDOSE 08/2016) Anxiety, Depression Integumentary: No Blood Disorders: No Adverse Reaction/Blood Tranf: Yes Family Medical History Cancer 03 MOTHER Congestive heart failure 03 FATHER Family history: Hypertension 03 FATHER father has Alzheimer's Physical Exam Vital Signs Vital Signs - First Documented 01/09/18 22:25 Temp 99.0 Pulse 112 Resp 12 B/P (MAP) 161/90 (113) Pulse Ox 95 O2 Delivery Room Air Capillary Refill : General Appearance: WD/WN, no apparent distress HEENT: PERRL/EOMI, normal ENT inspection Respiratory: no respiratory distress, no accessory muscle use Extremities: normal range of motion, non-tender Neurologic/Psychiatric: alert, normal mood/affect, oriented x 3 Skin: normal color, warm/dry Skin Problem Character: abscess, other (there are a multitude of abscesses and fluctuant spots to the left axilla. One of these has open spontaneously and is draining. Culture of this was collected and sent to lab) Procedures/Interventions I&D : Blade Size: 11 I & D Procedure: betadine prep Progress Several dying two quarters sized abscesses to the left axilla. 4 of these were opened after we anesthetized the overlying skin with lidocaine 1% without epinephrine, status incision was then made to each one of these abscesses using 11 blade scalpel. Incisions to a maximum of 1 cm. Large amount of purulent material expressed. 3 of these abscess cavities were packed with quarter inch plain packing. Covered with gauze. Progress/Results/Core Measures Results/Orders My Orders Orders - MINERVA BROTHERS APRN Rx-Hydrocodone/Apap 5-325 Mg (Rx-Vicodin (01/09/18 22:45) Lidocaine 1% Inj 20 Ml (Xylocaine 1% Inj (01/09/18 22:45) Sulfamethoxazole/Trimet Ds Tab (Bactrim (01/09/18 22:45) Wound Culture (01/09/18 22:32) Medications Given in ED Current Medications Medications Dose Ordered Sig/Attila Route Start Time Stop Time Status Last Admin Dose Admin Acetaminophen/ Hydrocodone Bitart 1 ea Q4H PRN PO 01/09/18 22:45 01/09/18 22:43 1 EA Lidocaine HCl 20 ml ONCE ONCE INJ 01/09/18 22:45 01/09/18 22:46 DC 01/09/18 22:43 20 ML Trimethoprim/ Sulfamethoxazole 1 ea ONCE ONCE PO 01/09/18 22:45 01/09/18 22:46 DC 01/09/18 22:43 1 EA Vital Signs/I&O 01/09/18 22:25 Temp 99.0 Pulse 112 Resp 12 B/P (MAP) 161/90 (113) Pulse Ox 95 O2 Delivery Room Air Departure Impression Primary Impression: Abscess Disposition: HOME, SELF-CARE Condition: Stable Departure-Patient Inst. Decision time for Depature: 22:34 Referrals: LEYDA ZAMORA MD (PCP/Family) Primary Care Physician Patient Instructions: ABSCESS Add. Discharge Instructions: 1. You may shower allowing water run over this starting today. Warm compresses to this area. Pain medication as directed. Antibiotics as directed. Call Dr. Zamora tomorrow to make an appointment to be seen next week for recheck. Scripts Hydrocodone/Acetaminophen ([place] 5-325 Tablet) 1 Each Tablet 1 EACH PO Q6H PRN for PAIN-MODERATE MDD 10, #14 TAB Prov: MINERVA BROTHERS APRN 01/09/18 Sulfamethoxazole/Trimethoprim (Bactrim Ds Tablet) 1 Each Tablet 1 EACH PO BID, #20 TAB Prov: MINERVA BROTHERS APRN 01/09/18 Work/School Note: Work Release Form Date Seen in the Emergency Department: Jan 09, 2018 Return to Work: Jan 11, 2018 MINERVA BROTHERS APRN Jan 09, 2018 22:36
[2018-01-09] MEDS ORDERED: RX-HYDROCODONE/APAP 5/325 MG #4 TAB PK PO PRN (22:45)
[2018-01-09] MEDS ORDERED: TRIM/SULFAMETH 160/800 (SEPTRA DS) TAB PO ONE (22:45)
[2018-01-09] MEDS ORDERED: LIDOCAINE 1% INJ 20 ML 20 ML VIAL INJ ONE (22:45)
[2018-01-09 23:01] VITALS: BP 167/96
== END 2018-01-09 23:01 | disposition home or self-care (01) ==
LOC: EDUNIT# 22:16 → ER 22:17
DX: L02.414 Cutaneous abscess of left upper limb (principal); E78.00 Pure hypercholesterolemia, unspecified; I10 Essential (primary) hypertension; E11.9 Type 2 diabetes mellitus without complications; G40.909 Epilepsy, unspecified, not intractable, without status epilepticus; F12.10 Cannabis abuse, uncomplicated; F41.9 Anxiety disorder, unspecified; F32.9 Major depressive disorder, single episode, unspecified; F11.10 Opioid abuse, uncomplicated; Z88.8 Allergy status to other drugs, medicaments and biological substances; Z87.19 Personal history of other diseases of the digestive system; Z79.4 Long term (current) use of insulin; Z82.49 Family history of ischemic heart disease and other diseases of the circulatory system
CPT/HCPCS: 87070; 87077; 87186; 87205

== ENCOUNTER 2018-01-28 13:47 | Emergency (ER) | payer MEDICARE ==
[~2018-01-28] VITALS: Ht 167.6 cm; Wt 90.7 kg
[~2018-01-28 13:47] MED LIST changes: +HYDR-4226 PO
--- NOTE | 2018-01-28 14:36 | ED Back Pain ---
General Chief Complaint: Back Problems Stated Complaint: BACK/LEFT SIDE PAIN Nursing Triage Note: pt reports l lower back pain x 2-3 days. reports pain radiates to l side and down l leg. pt denies n/v/d. Nursing Sepsis Screen: No Definite Risk Source of Information: Patient Exam Limitations: No Limitations History of Present Illness Date Seen by Provider: Jan 28, 2018 Time Seen by Provider: 14:34 Initial Comments To ER by private vehicle with reports of left flank pain for 3 days. He awakened with this pain cannot recall any injury. He states this pain feels "tight". He denies any urinary frequency or burning on urination. No fevers or chills. No abdominal pain. No diarrhea. However, he is noted to be tachycardic upon arrival. Location: Other (left flank) Timing/Duration: 2-3 Days Severity: Moderate Pain/Injury Location: Other (left flank) Allergies and Home Medications Allergies Coded Allergies: levofloxacin (Verified Adverse Reaction, Unknown, STOMACH CAMPS, 06/08/15) Home Medications Levetiracetam 500 Mg Tablet, 500 MG PO BID Prescribed by: DAVIDE GAFFNEY on 12/26/16 1510 Omeprazole 20 Mg Capsule.dr, 40 MG PO BID, (Reported) TAKES 2 (20MG) CAPSULES Patient Home Medication List Home Medication List Reviewed: Yes Review of Systems Constitutional: see HPI EENTM: see HPI Respiratory: no symptoms reported Cardiovascular: no symptoms reported Genitourinary: no symptoms reported Musculoskeletal: see HPI Skin: no symptoms reported Psychiatric/Neurological: No Symptoms Reported Past Vofmygw-Dhstrq-Dxjrgc Hx Patient Social History Alcohol Use: Denies Use Recreational Drug Use: No Drug of Choice: opiates, benzodiazepines Smoking Status: Current Everyday Smoker Type Used: Cigarettes 2nd Hand Smoke Exposure: Yes Recent Foreign Travel: No Contact w/Someone Who Travel: No Recent Infectious Disease Expo: No Recent Hopitalizations: No Immunizations Up To Date Tetanus Booster (TDap): Unknown PED Vaccines UTD: No Date of Influenza Vaccine: Feb 11, 2015 Seasonal Allergies Seasonal Allergies: No Past Medical History Surgeries: Yes ("CYST FROM LOWER BACK" ) Respiratory: No Currently Using CPAP: No Currently Using BIPAP: No Cardiac: No High Cholesterol, Hypertension Neurological: Yes ("CYST" ON LOWER BACK/"SPINE" ) Seizure Disorder Reproductive Disorders: No Genitourinary: No Gastrointestinal: Yes (FATTY LIVER) Gastroesophageal Reflux, Liver Disease/Jaundice, Pancreatitis Musculoskeletal: Yes (CHRONIC BACK PAIN WITH "CYST" ON LOWER BACK/"SPINE" ) Chronic Back Pain Endocrine: Yes (DOES NOT ROUTINELY CHECK BLOOD SUGAR) Diabetes, Insulin dep HEENT: No Loss of Vision: Denies Hearing Impairment: Denies Cancer: No Psychosocial: Yes (OVERDOSE 08/2016) Anxiety, Depression Integumentary: No Blood Disorders: No Adverse Reaction/Blood Tranf: Yes Family Medical History Cancer 03 MOTHER Congestive heart failure 03 FATHER Family history: Hypertension 03 FATHER father has Alzheimer's Physical Exam Vital Signs Vital Signs - First Documented 01/28/18 14:02 Temp 98.7 Pulse 118 Resp 16 B/P (MAP) 184/84 (117) Pulse Ox 94 Capillary Refill : Less Than 3 Seconds Height, Weight, BMI Height: 5'6.00" Weight: 200lbs. 3.0oz. 90.177120sz; 30.7 BMI Method:Stated General Appearance: No Apparent Distress, WD/WN HEENT: PERRL/EOMI Neck: Full Range of Motion, Normal Inspection Cardiovascular: Normal Peripheral Pulses, Tachycardia Respiratory: Normal Breath Sounds, No Accessory Muscle Use, No Respiratory Distress Gastrointestinal: Normal Bowel Sounds, Non Tender, Soft Extremity: Normal Capillary Refill, Normal Inspection Neurologic/Psychiatric: Alert, Oriented x3, No Motor/Sensory Deficits Skin: Normal Color, Warm/Dry Progress/Results/Core Measures Results/Orders Lab Results Laboratory Tests Test 01/28/18 15:14 01/28/18 15:25 Range/Units White Blood Count 10.1 4.3-11.0 10^3/uL Red Blood Count 5.31 4.35-5.85 10^6/uL Hemoglobin 15.7 13.3-17.7 G/DL Hematocrit 43 40-54 % Mean Corpuscular Volume 87 80-99 FL Mean Corpuscular Hemoglobin 32 25-34 PG Mean Corpuscular Hemoglobin Concent 37 H 32-36 G/DL Red Cell Distribution Width 12.9 10.0-14.5 % Platelet Count 205 130-400 10^3/uL Mean Platelet Volume 9.7 7.4-10.4 FL Neutrophils (%) (Auto) 64 42-75 % Lymphocytes (%) (Auto) 24 12-44 % Monocytes (%) (Auto) 9 0-12 % Eosinophils (%) (Auto) 2 0-10 % Basophils (%) (Auto) 1 0-10 % Neutrophils # (Auto) 6.5 1.8-7.8 X 10^3 Lymphocytes # (Auto) 2.4 1.0-4.0 X 10^3 Monocytes # (Auto) 0.9 0.0-1.0 X 10^3 Eosinophils # (Auto) 0.2 0.0-0.3 10^3/uL Basophils # (Auto) 0.1 0.0-0.1 10^3/uL Sodium Level 133 L 135-145 MMOL/L Potassium Level 3.6 3.6-5.0 MMOL/L Chloride Level 99 98-107 MMOL/L Carbon Dioxide Level 16 L 21-32 MMOL/L Anion Gap 18 H 5-14 MMOL/L Blood Urea Nitrogen 7 7-18 MG/DL Creatinine 0.84 0.60-1.30 MG/DL Estimat Glomerular Filtration Rate > 60 BUN/Creatinine Ratio 8 Glucose Level 272 H 70-105 MG/DL Calcium Level 9.0 8.5-10.1 MG/DL Corrected Calcium 8.9 8.5-10.1 MG/DL Total Bilirubin 0.3 0.1-1.0 MG/DL Aspartate Amino Transf (AST/SGOT) 19 5-34 U/L Alanine Aminotransferase (ALT/SGPT) 44 0-55 U/L Alkaline Phosphatase 195 H 40-136 U/L Total Protein 8.2 6.4-8.2 GM/DL Albumin 4.1 3.2-4.5 GM/DL Urine Color YELLOW Urine Clarity CLEAR Urine pH 6.5 5-9 Urine Specific Theresa 1.015 L 1.016-1.022 Urine Protein 2+ H NEGATIVE Urine Glucose (UA) 4+ H NEGATIVE Urine Ketones NEGATIVE NEGATIVE Urine Nitrite NEGATIVE NEGATIVE Urine Bilirubin NEGATIVE NEGATIVE Urine Urobilinogen NORMAL NORMAL MG/DL Urine Leukocyte Esterase NEGATIVE NEGATIVE Urine RBC (Auto) 1+ H NEGATIVE Urine RBC 0-2 /HPF Urine WBC RARE /HPF Urine Squamous Epithelial Cells 2-5 /HPF Urine Crystals NONE /LPF Urine Bacteria NEGATIVE /HPF Urine Casts NONE /LPF Urine Mucus SMALL H /LPF Urine Culture Indicated NO Lactic Acid Level 1.82 0.50-2.00 MMOL/L My Orders Orders - [employer] Cbc With Automated Diff (12/18/18 14:33) Comprehensive Metabolic Panel (01/28/18 14:33) Lactic Acid Analyzer (01/28/18 14:33) Blood Culture (01/28/18 14:33) Ua Culture If Indicated (01/28/18 14:33) Iv Heplock-Insert (Order) (01/28/18 14:33) Ct Abd/Pelvis Wo(Kidney Stone) (01/28/18 14:33) Ns Iv 1000 Ml (Sodium Chloride 0.9%) (01/28/18 14:45) Ketorolac Injection (Toradol Injection) (01/28/18 14:45) Medications Given in ED Current Medications Medications Dose Ordered Sig/Attila Route Start Time Stop Time Status Last Admin Dose Admin Ketorolac Tromethamine 30 mg ONCE ONCE IVP 01/28/18 14:45 01/28/18 14:46 DC 01/28/18 15:19 30 MG Vital Signs/I&O 01/28/18 14:02 Temp 98.7 Pulse 118 Resp 16 B/P (MAP) 184/84 (117) Pulse Ox 94 Blood Pressure Mean: 117 Diagnostic Imaging Diagonstic Imaging: CT Comments NAME: LIONEL MIRANDA [facility] REC#: [id number] PT STATUS: REG ER : 1975 PHYSICIAN: MINERVA BROTHERS APRN ADMIT DATE: 01/28/18/ER Draft Date of Exam:01/28/18 CT ABD/PELVIS WO(KIDNEY STONE) PROCEDURE: CT urinary tract, rule out kidney stone. TECHNIQUE: Multiple contiguous axial images were obtained through the abdomen and pelvis without the use of intravenous contrast. INDICATION: Left posterior abdominal pain. COMPARISON: 06/08/2015. FINDINGS: Included portions of the lung bases are clear. CT abdomen: Small bowel loops are nondistended. Normal appendix is identified. Kidneys have an unremarkable noncontrast CT appearance. No renal or ureteral calculi are identified on either side. Additionally, there is no hydroureteronephrosis or other evidence of obstruction. Liver is diffusely hypodense consistent with background of hepatic steatosis. Otherwise, liver, spleen, pancreas, and adrenal glands have an unremarkable noncontrast CT appearance as well. There is no loculated fluid collection, free fluid, nor free air within the abdomen. No abnormal mesenteric or retroperitoneal adenopathy is seen. There is mild scattered calcified aortic atherosclerosis. Bony structures show no acute abnormalities. CT pelvis: There is large amount of stool within the rectum and sigmoid colon. Rectal vault measures 8.7 x 8 cm in axial dimension. Urinary bladder is unopacified. No calculi are seen within the urinary bladder. There is no loculated fluid collection, free fluid, nor free air within the pelvis. No abnormal lymph nodes are identified. Bony structures show no acute abnormalities. IMPRESSION: 1. Unremarkable noncontrast CT of the bilateral kidneys and renal collecting systems. 2. Hepatic steatosis. 3. Large amount of stool within the sigmoid colon and rectum. Correlation with underlying constipation/impaction is recommended. Dictated on workstation # [id number] Dict: 01/28/18 1516 Trans: 01/28/18 1530 [id number] Interpreted by: STEPHEN HARDWICK MD Electronically signed by: Departure Impression Primary Impression: Left flank pain Additional Impression: Constipation Qualified Codes: K59.00 - Constipation, unspecified Disposition: HOME, SELF-CARE Condition: Stable Departure-Patient Inst. Decision time for Depature: 15:54 Referrals: LEYDA ZAMORA MD (PCP/Family) Primary Care Physician Patient Instructions: Constipation in Adults, Flank Pain Add. Discharge Instructions: 1. Return to ER for any concerns. Use the enema at home as directed and follow that with MiraLAX which you can buy off the shelf at [facility] or [facility]. Use 2 capfuls twice daily for 3 days. All discharge instructions reviewed with patient and/or family. Voiced understanding. [employer] DEV[employer]OPER Jan 28, 2018 14:36
[2018-01-28] MEDS ORDERED: NS IV 1000 ML 1,000 ML IV SCH (14:45)
[2018-01-28] MEDS ORDERED: KETOROLAC 30 MG/ML VIAL IVP ONE (14:45)
[2018-01-28 15:23] LABS: BASOPHILS # (AUTO) 0.1 10^3/uL (0.0-0.1); BASOPHILS % (AUTO) 1 % (0-10); EOSINOPHILS # (AUTO) 0.2 10^3/uL (0.0-0.3); EOSINOPHILS % (AUTO) 2 % (0-10); LYMPHOCYTES # (AUTO) 2.4 X 10^3 (1.0-4.0); LYMPHOCYTES % (AUTO) 24 % (12-44); MEAN CORPUSCULAR VOLUME 87 FL (80-99); MEAN PLATELET VOLUME 9.7 FL (7.4-10.4); MONOCYTES # (AUTO) 0.9 X 10^3 (0.0-1.0); MONOCYTES % (AUTO) 9 % (0-12); NEUTROPHILS # (AUTO) 6.5 X 10^3 (1.8-7.8); NEUTROPHILS % (AUTO) 64 % (42-75); PLATELET COUNT 205 10^3/uL (130-400); RED BLOOD COUNT 5.31 10^6/uL (4.35-5.85); RED CELL DISTRIBUTION WIDTH 12.9 % (10.0-14.5); WHITE BLOOD COUNT 10.1 10^3/uL (4.3-11.0)
--- NOTE | 2018-01-28 15:31 | Diagnostic Imaging Report ---
PROCEDURE: CT urinary tract, rule out kidney stone. TECHNIQUE: Multiple contiguous axial images were obtained through the abdomen and pelvis without the use of intravenous contrast. INDICATION: Left posterior abdominal pain. COMPARISON: 06/08/2015. FINDINGS: Included portions of the lung bases are clear. CT abdomen: Small bowel loops are nondistended. Normal appendix is identified. Kidneys have an unremarkable noncontrast CT appearance. No renal or ureteral calculi are identified on either side. Additionally, there is no hydroureteronephrosis or other evidence of obstruction. Liver is diffusely hypodense consistent with background of hepatic steatosis. Otherwise, liver, spleen, pancreas, and adrenal glands have an unremarkable noncontrast CT appearance as well. There is no loculated fluid collection, free fluid, nor free air within the abdomen. No abnormal mesenteric or retroperitoneal adenopathy is seen. There is mild scattered calcified aortic atherosclerosis. Bony structures show no acute abnormalities. CT pelvis: There is large amount of stool within the rectum and sigmoid colon. Rectal vault measures 8.7 x 8 cm in axial dimension. Urinary bladder is unopacified. No calculi are seen within the urinary bladder. There is no loculated fluid collection, free fluid, nor free air within the pelvis. No abnormal lymph nodes are identified. Bony structures show no acute abnormalities. IMPRESSION: 1. Unremarkable noncontrast CT of the bilateral kidneys and renal collecting systems. 2. Hepatic steatosis. 3. Large amount of stool within the sigmoid colon and rectum. Correlation with underlying constipation/impaction is recommended. Dictated by: Dictated on workstation # [id number]
[2018-01-28 15:37] LABS: BILIRUBIN,URINE NEGATIVE (NEGATIVE); CLARITY,URINE CLEAR; COLOR,URINE YELLOW; GLUCOSE, URINE (UA) 4+ (NEGATIVE); KETONES,URINE NEGATIVE (NEGATIVE); LEUKOCYTE ESTERASE ,URINE NEGATIVE (NEGATIVE); NITRITE,URINE NEGATIVE (NEGATIVE); PH,URINE 6.5 (5-9); PROTEIN,URINE 2+ (NEGATIVE); UROBILINOGEN,URINE NORMAL (NORMAL)
[2018-01-28 15:42] LABS: ALANINE AMINOTRANSFERASE 44 U/L (0-55); ALBUMIN 4.1 GM/DL (3.2-4.5); ALKALINE PHOSPHATASE 195 U/L (40-136); BILIRUBIN,TOTAL 0.3 MG/DL (0.1-1.0); BUN/CREATININE RATIO 8; CARBON DIOXIDE 16 MMOL/L (21-32); CHLORIDE 99 MMOL/L (98-107); CREATININE SERUM 0.84 MG/DL (0.60-1.30); GFR ESTIMATED > 60; GLUCOSE 272 MG/DL (70-105); POTASSIUM 3.6 MMOL/L (3.6-5.0); SODIUM 133 MMOL/L (135-145); TOTAL PROTEIN 8.2 GM/DL (6.4-8.2)
[2018-01-28 15:45] LABS: HEMATOCRIT 43 % (40-54); HEMOGLOBIN 15.7 G/DL (13.3-17.7); MEAN CORPUSCULAR HEMOGLOBIN 32 PG (25-34)
[2018-01-28 15:46] LABS: MEAN CORPUSCULAR HGB CONC 37 G/DL (32-36)
[2018-01-28 15:47] LABS: BACTERIA,URINE NEGATIVE /HPF; RBC,URINE 0-2 /HPF; WBC,URINE RARE /HPF
[2018-01-28] MEDS ORDERED: FLEET ENEMA ADULT 1 EA BTL PR ONE (16:00)
[2018-01-28 16:07] VITALS: BP 132/98
== END 2018-01-28 16:10 | disposition home or self-care (01) ==
LOC: EDUNIT# 13:47 → ER 13:48
DX: K59.00 Constipation, unspecified (principal); E78.00 Pure hypercholesterolemia, unspecified; I10 Essential (primary) hypertension; G40.909 Epilepsy, unspecified, not intractable, without status epilepticus; K21.9 Gastro-esophageal reflux disease without esophagitis; E11.9 Type 2 diabetes mellitus without complications; F41.9 Anxiety disorder, unspecified; F32.9 Major depressive disorder, single episode, unspecified; F12.10 Cannabis abuse, uncomplicated; F17.210 Nicotine dependence, cigarettes, uncomplicated; Z82.49 Family history of ischemic heart disease and other diseases of the circulatory system; Z88.8 Allergy status to other drugs, medicaments and biological substances; Z87.19 Personal history of other diseases of the digestive system
CPT/HCPCS: 36415; 74176; 80053; 81000; 83605; 85025; 87040

== ENCOUNTER 2018-05-11 14:06 | Emergency (ER) | payer MEDICARE ==
[~2018-05-11] VITALS: Ht 170.2 cm; Wt 92.5 kg
[~2018-05-11 14:06] MED LIST changes: -GEMF600T4 PO; +GEMF600T8 PO
[2018-05-11] MEDS ORDERED: BUSP10TA95 PO (14:20)
[2018-05-11] MEDS ORDERED: INSU100I34 SC (14:20)
[2018-05-11] MEDS ORDERED: LURA60TA2 PO (14:20)
[2018-05-11] MEDS ORDERED: INSU100I14 SC (14:20)
[2018-05-11] MEDS ORDERED: MIRT45TA75 PO (14:20)
[2018-05-11] MEDS ORDERED: DULO60CA58 PO (14:20)
[2018-05-11] MEDS ORDERED: TRAM50TA2 PO (14:52)
[2018-05-11] MEDS ORDERED: AMOX500C2 PO (14:52)
--- NOTE | 2018-05-11 14:53 | ED EENT ---
History of Present Illness General Chief Complaint: Dental Problems/Pain Stated Complaint: DENTAL PAIN Nursing Triage Note: PT C/O LEFT UPPER TOOTH PAIN/INFECTION. SYMPTOMS STARTED A COUPLE OF DAYS AGO, BUT WORSENED LAST NIGHT. APPT WITH [facility] ON 06/06/18. History of Present Illness Date Seen by Provider: May 11, 2018 Time Seen by Provider: 14:20 Initial Comments 43-year-old male presents for left upper dental pain. He states that the symptoms began 3-4 days ago but worsened overnight. He's been taking 800 mg of ibuprofen and 650 mg of Tylenol every 6-8 hours. He has an appointment scheduled for 3 weeks with the dental clinic. He has multiple dental caries and fractured teeth. He is planning to attend the [facility] event at [facility] to have all teeth removed and get dentures. He was previously treated for hypertension, but states that his PCP has been unable to discontinue his medications as his blood pressure is been well- controlled. Timing/Duration: abrupt Location: dental Prearrival Treatment: over the counter meds Associated Symptoms: No drooling; facial pain/swelling; No fever, No malaise, No nasal congestion/drainage, No poor fluid intake, No poor solids intake, No sinus infection, No sore throat; tooth pain Allergies and Home Medications Allergies Coded Allergies: levofloxacin (Verified Adverse Reaction, Unknown, STOMACH CAMPS, 06/08/15) Home Medications Amoxicillin 500 Mg Capsule, 500 MG PO TID Prescribed by: QUENTIN STEVEN on 05/11/18 1452 Buspirone HCl 10 Mg Tablet, 10 MG PO TID PRN for ANXIETY, (Reported) Duloxetine HCl 60 Mg Capsule., 60 MG PO BID, (Reported) Insulin Aspart 300 Units/3 Ml Solution, 20 UNIT SC AC, (Reported) Insulin Glargine,Hum.rec.anlog 100 Unit/1 Ml Insuln.pen, 45 UNIT SC DAILY, ( Reported) Levetiracetam 500 Mg Tablet, 500 MG PO BID Prescribed by: DAVIDE GAFFNEY on 12/26/16 1510 Lurasidone HCl 60 Mg Tablet, 60 MG PO HS, (Reported) Mirtazapine 45 Mg Tablet, 45 MG PO HS, (Reported) Omeprazole 20 Mg Capsule., 40 MG PO BID, (Reported) TAKES 2 (20MG) CAPSULES Tramadol HCl 50 Mg Tablet, 50 MG PO Q8H PRN for PAIN-MODERATE TO SEVERE Prescribed by: QUENTIN STEVEN on 05/11/18 5537 Patient Home Medication List Home Medication List Reviewed: Yes Review of Systems Review of Systems Constitutional: no symptoms reported, see HPI Mouth: see HPI, pain All Other Systems Reviewed Negative Unless Noted: Yes Past Vttqhvp-Nfmzkn-Fdjusc Hx Past Med/Social Hx: Reviewed Nursing Past Med/Soc Hx Patient Social History Alcohol Use: Denies Use Recreational Drug Use: No Drug of Choice: opiates, benzodiazepines Smoking Status: Current Everyday Smoker Type Used: Cigarettes 2nd Hand Smoke Exposure: Yes Recent Foreign Travel: No Contact w/Someone Who Travel: No Recent Infectious Disease Expo: No Recent Hopitalizations: No Immunizations Up To Date Tetanus Booster (TDap): Unknown PED Vaccines UTD: No Date of Influenza Vaccine: Oct 14, 2017 Seasonal Allergies Seasonal Allergies: No Past Medical History Surgeries: Yes ("CYST FROM LOWER BACK" ) Respiratory: No Currently Using CPAP: No Currently Using BIPAP: No Cardiac: Yes High Cholesterol, Hypertension Neurological: Yes ("CYST" ON LOWER BACK/"SPINE" ) Seizure Disorder Reproductive Disorders: No Genitourinary: No Gastrointestinal: Yes (FATTY LIVER) Gastroesophageal Reflux, Liver Disease/Jaundice, Pancreatitis Musculoskeletal: Yes (CHRONIC BACK PAIN WITH "CYST" ON LOWER BACK/"SPINE" ) Chronic Back Pain Endocrine: Yes Diabetes, Insulin dep HEENT: No Loss of Vision: Denies Hearing Impairment: Denies Cancer: No Psychosocial: Yes (OVERDOSE 08/2016) Anxiety, Depression Integumentary: No Blood Disorders: No Adverse Reaction/Blood Tranf: Yes Family Medical History Cancer 03 MOTHER Congestive heart failure 03 FATHER Family history: Hypertension 03 FATHER father has Alzheimer's Physical Exam Vital Signs Vital Signs - First Documented 05/11/18 14:13 Temp 99.7 Pulse 138 Resp 16 B/P (MAP) 162/96 (118) Pulse Ox 96 O2 Delivery Room Air Height, Weight, BMI Height: 5'7.00" Weight: 204lbs. 3.0oz. 92.013497an; 30.7 BMI Method:Stated General Appearance: WD/WN, mild distress Ears: bilateral ear auricle normal, bilateral ear canal normal, bilateral ear TM normal Nose: normal inspection; No active bleeding, No discharge Mouth/Throat: pharynx normal, dental tenderness (left upper molar); No mandibular swelling; maxillary swelling; No pharynx swelling, No pharynx tenderness, No tongue swollen, No tonsillar exudate, No uvula swelling, No voice changes Neck: full range of motion, supple, lymphadenopathy (L) Cardiovascular: normal peripheral pulses, regular rate, rhythm Respiratory: chest non-tender, lungs clear, normal breath sounds Neurologic/Psychiatric: no motor/sensory deficits, alert, normal mood/affect, oriented x 3 Progress/Results/Core Measures Results/Orders My Orders Orders - QUENTIN STEVEN Tramadol Tablet (Ultram Tablet) (05/11/18 14:45) Medications Given in ED Current Medications Medications Dose Ordered Sig/Attila Route Start Time Stop Time Status Last Admin Dose Admin Tramadol HCl 100 mg ONCE ONCE PO 05/11/18 14:45 05/11/18 14:46 DC 05/11/18 14:39 100 MG Vital Signs/I&O 05/11/18 14:13 Temp 99.7 Pulse 138 Resp 16 B/P (MAP) 162/96 (118) Pulse Ox 96 O2 Delivery Room Air Blood Pressure Mean: 118 Departure Impression Primary Impression: Dental caries Additional Impression: Pain, dental Disposition: HOME, SELF-CARE Condition: Improved Departure-Patient Inst. Decision time for Depature: 14:45 Referrals: LEYDA ZAMORA MD (PCP/Family) Primary Care Physician Patient Instructions: Dental Pain (DC), Tooth Abscess (DC) Add. Discharge Instructions: Alternate between ibuprofen 800 mg and Tylenol 650 g every 4 hours for pain or fever. If pain is not controlled by these to medications she may take tramadol 1 tablet every 8 hours. Ice to left cheek 20 minutes every 2 hours while awake. You may apply akoz-cvt-quieyih dental pain relief ointments, as tolerated. Continue to do warm salt water gargles. Take antibiotics as prescribed. Notified dental clinic to see about earlier appointment. Return to emergency department for new, urgent health care needs. All discharge instructions reviewed with patient and/or family. Voiced understanding. Scripts Tramadol HCl (Tramadol HCl) 50 Mg Tablet 50 MG PO Q8H PRN for PAIN-MODERATE TO SEVERE, #12 TAB 0 Refills Prov: QUENTIN STEVEN RELIEF DOCKING MASTER 05/11/18 Amoxicillin (Amoxicillin) 500 Mg Capsule 500 MG PO TID, #30 CAP 0 Refills Prov: QUENTIN STEVEN 05/11/18 QUENTIN STEVEN May 11, 2018 14:53
[2018-05-11 15:08] VITALS: BP 0/0
== END 2018-05-11 15:09 | disposition home or self-care (01) ==
LOC: EDUNIT# 14:06 → ER 14:07
DX: K02.9 Dental caries, unspecified (principal); E78.00 Pure hypercholesterolemia, unspecified; G40.909 Epilepsy, unspecified, not intractable, without status epilepticus; K21.9 Gastro-esophageal reflux disease without esophagitis; I10 Essential (primary) hypertension; F11.10 Opioid abuse, uncomplicated; E11.9 Type 2 diabetes mellitus without complications; F41.9 Anxiety disorder, unspecified; F32.9 Major depressive disorder, single episode, unspecified; F12.10 Cannabis abuse, uncomplicated; F17.210 Nicotine dependence, cigarettes, uncomplicated; Z88.1 Allergy status to other antibiotic agents; Z79.4 Long term (current) use of insulin; Z87.19 Personal history of other diseases of the digestive system; Z82.49 Family history of ischemic heart disease and other diseases of the circulatory system
CPT/HCPCS: 99283

== ENCOUNTER 2019-06-30 10:18 | Emergency (ER) | payer MEDICARE ==
[~2019-06-30] VITALS: Ht 182 cm; Wt 100.0 kg
[~2019-06-30 10:18] MED LIST changes: +BUSP10TA95 PO; -DILT240C PO; +DILT240C91 PO; +DULO60CA59 PO; +INSU100I14 SC; +INSU100I34 SC; +LURA60TA2 PO; +MIRT45TA75 PO; -OMEP20CA12 PO; +OMEP20CA18 PO; +QUET200T29 PO; -QUET200T57 PO; +TRM50T PO; +ZIPR80CA21 PO; -ZIPR80CA23 PO
[2019-06-30] MEDS ORDERED: ACETAMINOPHEN 325 MG TABLET PO STA (11:47)
--- NOTE | 2019-06-30 11:47 | ED Integumentary General ---
General Chief Complaint: Skin/Wound Problems Stated Complaint: ABSCESS ON ARMPIT Nursing Triage Note: PT CO OF ABCESS AREA UNDER L AXILLA, PT STATES HAS HAD BEFORE AND WAS MRSA. STATES STARTED ABOUT 2 WEEKS AGO. PT DENIES DRAINAGE AT THIS X History of Present Illness Date Seen by Provider: June 30, 2019 Time Seen by Provider: 11:40 Initial Comments 44-year-old male presents for an abscess to his left axilla that is been present for approximately 2 weeks. He's had MRSA infection in this area in the past. He is not seeking care for it today. He denies any discharge from it. He is diabetic, his fasting glucose in the morning his ranged from 150-178 over the last few days. His blood pressure is elevated on arrival, he states he takes his blood pressure medicine at night, he does have anxiety about coming to the emergency department. Timing/Duration: getting worse Severity: moderate Location: extremities (left axilla) Possible Cause: no cause identified Associated Symptoms: denies symptoms Allergies and Home Medications Allergies Coded Allergies: levofloxacin (Verified Adverse Reaction, Unknown, STOMACH CAMPS, 06/08/15) Home Medications Amoxicillin 500 Mg Capsule, 500 MG PO TID Prescribed by: QUENTIN STEVEN on 05/11/18 1452 Buspirone HCl 10 Mg Tablet, 10 MG PO TID PRN for ANXIETY, (Reported) Duloxetine HCl 60 Mg Capsule.dr, 60 MG PO BID, (Reported) Insulin Aspart 300 Units/3 Ml Solution, 20 UNIT SC AC, (Reported) Insulin Glargine,Hum.rec.anlog 100 Unit/1 Ml Insuln.pen, 45 UNIT SC DAILY, (Reported) Levetiracetam 500 Mg Tablet, 500 MG PO BID Prescribed by: DAVIDE GAFFNEY on 12/26/16 1510 Lurasidone HCl 60 Mg Tablet, 60 MG PO HS, (Reported) Mirtazapine 45 Mg Tablet, 45 MG PO HS, (Reported) Omeprazole 20 Mg Capsule.dr, 40 MG PO BID, (Reported) TAKES 2 (20MG) CAPSULES Tramadol HCl 50 Mg Tablet, 50 MG PO Q8H PRN for PAIN-MODERATE TO SEVERE Prescribed by: QUENTIN STEVEN on 05/11/18 1452 Patient Home Medication List Home Medication List Reviewed: Yes Review of Systems Review of Systems Constitutional: no symptoms reported, see HPI Skin: see HPI, change in color (erythema left axilla), lesions (abcess left axilla) All Other Systems Reviewed Negative Unless Noted: Yes Past Fihpfam-Bpkkhh-Ebixrs Hx Past Med/Social Hx: Reviewed Nursing Past Med/Soc Hx Patient Social History Alcohol Use: Denies Use Recreational Drug Use: Yes (POT) Drug of Choice: opiates, benzodiazepines Smoking Status: Current Everyday Smoker Type Used: Cigarettes 2nd Hand Smoke Exposure: Yes Recent Foreign Travel: No Contact w/Someone Who Travel: No Recent Infectious Disease Expo: No Recent Hopitalizations: No Physical Abuse: No Sexual Abuse: No Immunizations Up To Date Tetanus Booster (TDap): Unknown PED Vaccines UTD: No Date of Influenza Vaccine: Oct 14, 2017 Seasonal Allergies Seasonal Allergies: No Past Medical History Surgeries: Yes ("CYST FROM LOWER BACK" ) Respiratory: No Currently Using CPAP: No Currently Using BIPAP: No Cardiac: Yes High Cholesterol, Hypertension Neurological: Yes ("CYST" ON LOWER BACK/"SPINE" ) Seizure Disorder Reproductive Disorders: No Genitourinary: No Gastrointestinal: Yes (FATTY LIVER) Gastroesophageal Reflux, Liver Disease/Jaundice, Pancreatitis Musculoskeletal: Yes (CHRONIC BACK PAIN WITH "CYST" ON LOWER BACK/"SPINE" ) Chronic Back Pain Endocrine: Yes Diabetes, Insulin dep HEENT: No Loss of Vision: Denies Hearing Impairment: Denies Cancer: No Psychosocial: Yes (OVERDOSE 08/2016) Anxiety, Depression Integumentary: No Blood Disorders: No Adverse Reaction/Blood Tranf: Yes Family Medical History Cancer 03 MOTHER Congestive heart failure 03 FATHER Family history: Hypertension 03 FATHER father has Alzheimer's Physical Exam Vital Signs Vital Signs - First Documented 06/30/19 10:24 Temp 36.7 Pulse 121 Resp 10 B/P (MAP) 129/101 (110) Pulse Ox 98 O2 Delivery Room Air Capillary Refill : Less Than 3 Seconds General Appearance: WD/WN, no apparent distress Cardiovascular: normal peripheral pulses, regular rate, rhythm, no murmur Respiratory: chest non-tender, lungs clear, normal breath sounds, no respiratory distress Neurologic/Psychiatric: no motor/sensory deficits, alert, normal mood/affect, oriented x 3 Skin: normal color, warm/dry Skin Problem Location: upper extremities (left axilla) Skin Problem Character: abscess (marked tenderness and induration trace fluctuance and warmth. No active discharge.) Procedures/Interventions I&D : Site: left axilla Blade Size: 11 I & D Procedure: betadine prep, sterile drapes applied Progress Discussed with patient plan for I&D of left axilla, he verbally knowledge for admission to proceed. Skin was prepped with Betadine, 2 ML's of 2% Marcaine infiltrated the skin, once adequate local anesthesia obtained, 11 blade used for puncture wound, immediate return of purulent drainage. Culture obtained. Pressure applied to continue draining the wound. Once no further drainage was obtained the wound was copiously irrigated with 500 ML's of normal saline with Hibiclens. Patient tolerated procedure well, bulky sterile dressing applied. Progress/Results/Core Measures Results/Orders My Orders Orders - QUENTIN STEVEN Acetaminophen Tablet/Caplet (Tylenol T (06/30/19 11:47) Wound Culture (06/30/19 12:06) Vital Signs/I&O 06/30/19 10:24 Temp 36.7 Pulse 121 Resp 10 B/P (MAP) 129/101 (110) Pulse Ox 98 O2 Delivery Room Air Blood Pressure Mean: 110 Progress Progress Note : Time: 11:40 Progress Note Patient seen and evaluated, will plan an I&D left axilla. Repeat B/P with correct size cuff 158/92. Discussed with patient, still elevated but better than initial B/P. Encouraged he follow up with his primary care provider. 1205 discharge instructions and return precautions reviewed with the patient. Departure Impression Primary Impression: Abscess of left axilla Additional Impression: Essential hypertension Disposition: 01 HOME, SELF-CARE Condition: Improved Departure-Patient Inst. Decision time for Depature: 12:00 Referrals: LEYDA ZAMORA MD (PCP/Family) Primary Care Physician Patient Instructions: Abscess Drainage, Percutaneous (DC), High Blood Pressure in Adults Add. Discharge Instructions: Follow-up for your blood pressure and for the abscess with Dr. Zamora in 2-3 days. Take antibiotics as prescribed. Clean wound with peroxide and apply antibiotic ointment 3 times daily. We will call you in a few days if the antibiotic changed. Return to the emergency department for new, urgent health care needs. All discharge instructions reviewed with patient and/or family. Voiced understanding. Scripts Mupirocin (Mupirocin) 22 Gm Oint...g. 22 GM TP TID, #1 TUBE 0 Refills Prov: QUENTIN STEVEN 06/30/19 Sulfamethoxazole/Trimethoprim (Bactrim Ds Tablet) 1 Each Tablet 1 EACH PO BID, #20 TAB 0 Refills Prov: QUENTIN STEVEN 06/30/19 Copy Copies To 1: LEYDA ZAMORA MD, AMY ARNP June 30, 2019 11:47
--- NOTE | 2019-06-30 12:02 | NUR ---
B/P 155/101
[2019-06-30] MEDS ORDERED: MUPI22OI2 TP (12:09)
[2019-06-30] MEDS ORDERED: SULF1TAB35 PO (12:09)
[2019-06-30 12:17] VITALS: BP 155/101
== END 2019-06-30 12:19 | disposition home or self-care (01) ==
LOC: EDUNIT# 10:18 → ER 10:19
DX: L02.412 Cutaneous abscess of left axilla (principal); I10 Essential (primary) hypertension; G40.909 Epilepsy, unspecified, not intractable, without status epilepticus; E11.9 Type 2 diabetes mellitus without complications; F41.9 Anxiety disorder, unspecified; F32.9 Major depressive disorder, single episode, unspecified; K21.9 Gastro-esophageal reflux disease without esophagitis; F17.210 Nicotine dependence, cigarettes, uncomplicated; Z88.1 Allergy status to other antibiotic agents; Z79.4 Long term (current) use of insulin; Z82.49 Family history of ischemic heart disease and other diseases of the circulatory system
CPT/HCPCS: 10060; 87070; 87077; 87186; 87205

== ENCOUNTER 2019-08-22 14:30 | Emergency (ER) | payer MEDICARE ==
[~2019-08-22] VITALS: Ht 170.2 cm; Wt 90.7 kg
[~2019-08-22 14:30] MED LIST changes: +MUPI22OI2 TP; +NF-ZOL12.5 PO; -ZOLP12.546 PO
[2019-08-22] MEDS ORDERED: NS IV 1000 ML 1,000 ML IV SCH (14:50)
--- NOTE | 2019-08-22 14:59 | ED Abdominal Pain ---
General Chief Complaint: Abdominal/GI Problems Stated Complaint: ANXIETY/NAUSEA Nursing Triage Note: pt amb to rm 6 with complaint of abd pain. pt states pain is at his belly button. states has had pain for 2-3 days. also complaining of nausea and increased anxiety Sepsis Screen: No Definite Risk Source of Information: Patient History of Present Illness Date Seen by Provider: Aug 22, 2019 Time Seen by Provider: 14:42 Initial Comments PT ARRIVES VIA POV FROM HOME C/O STOMACH ACHE FOR 2-3 DAYS PAIN IS PERIUMBILICAL AND IS CONSTANT NOTHING WORSENS OR IMPROVES PAIN NO PROBLEMS EATING OR DRINKING--HAS CONTINUED TO EAT AND DRINK USUAL. ATE ABOUT 2 HOURS AGO C/O NAUSEA, NO VOMITING HAS HAD DIARRHEA X 3 TODAY--STOOLS HAVE BEEN DARK, SINCE HE TOOK PEPTO-BISMOL NO FEVER NO PROBLEMS URINATING NO RADIATION OF PAIN PT IS INSULIN DEPENDENT DIABETIC--STATES BLOOD SUGAR WAS 150 EARLIER TODAY HAS HAD PANCREATITIS IN THE PAST AND THIS IS SIMILAR. NO PRIOR ABDOMINAL SURGERIES OR PRIOR ENDOSCOPIES SYMPTOMS NO DIFFERENT TODAY HAS NOT SOUGHT CARE UNTIL TODAY ALSO C/O INCREASED ANXIETY THE LAST FEW DAYS--HAS CHRONIC ANXIETY. STATES "I FEEL SILLY--I PANIC OVER THE LITTLEST THINGS" NO RECENT ILLNESS NO SICK CONTACTS OR EXPOSURE TO COVID-19 PCP: DR. ZAMORA Allergies and Home Medications Allergies Coded Allergies: levofloxacin (Verified Adverse Reaction, Unknown, STOMACH CAMPS, 06/08/15) Home Medications Amoxicillin 500 Mg Capsule, 500 MG PO TID Prescribed by: QUENTIN STEVEN on 05/11/18 1452 Buspirone HCl 10 Mg Tablet, 10 MG PO TID PRN for ANXIETY, (Reported) Duloxetine HCl 60 Mg Capsule.dr, 60 MG PO BID, (Reported) Insulin Aspart 300 Units/3 Ml Solution, 20 UNIT SC AC, (Reported) Insulin Glargine,Hum.rec.anlog 100 Unit/1 Ml Insuln.pen, 45 UNIT SC DAILY, (Reported) Levetiracetam 500 Mg Tablet, 500 MG PO BID Prescribed by: DAVIDE GAFFNEY on 12/26/16 1510 Lurasidone HCl 60 Mg Tablet, 60 MG PO HS, (Reported) Mirtazapine 45 Mg Tablet, 45 MG PO HS, (Reported) Mupirocin 22 Gm Oint...g., 22 GM TP TID Prescribed by: QUENTIN STEVEN on 06/30/19 1209 Omeprazole 20 Mg Capsule.dr, 40 MG PO BID, (Reported) TAKES 2 (20MG) CAPSULES Sulfamethoxazole/Trimethoprim 1 Each Tablet, 1 EACH PO BID Prescribed by: QUENTIN STEVEN on 06/30/19 1209 Tramadol HCl 50 Mg Tablet, 50 MG PO Q8H PRN for PAIN-MODERATE TO SEVERE Prescribed by: QUENTIN STEVEN on 05/11/18 8524 Patient Home Medication List Home Medication List Reviewed: Yes Review of Systems Review of Systems Constitutional: no symptoms reported; No chills, No diaphoresis, No dizziness, No fever EENTM: No Symptoms Reported Respiratory: No Symptoms Reported Cardiovascular: No Symptoms Reported Gastrointestinal: See HPI, Abdominal Pain, Diarrhea, Nausea; Denies Poor Appetite, Denies Poor Fluid Intake, Denies Vomiting Genitourinary: No Symptoms Reported Musculoskeletal: no symptoms reported; No back pain Skin: no symptoms reported Psychiatric/Neurological: No Symptoms Reported Endocrine: No Symptoms Reported Hematologic/Lymphatic: No Symptoms Reported Past Sgrxhpp-Fmtjos-Ugqctr Hx Patient Social History Alcohol Use: Past History (HISTORY OF ABUSE/HEAVY USE) Recreational Drug Use: Yes (OPIATES, BENZO'S, THC) Drug of Choice: opiates, benzodiazepines, THC Smoking Status: Current Everyday Smoker (1 PPD) Type Used: Cigarettes 2nd Hand Smoke Exposure: Yes Recent Foreign Travel: No Contact w/Someone Who Travel: No Recent Infectious Disease Expo: No Recent Hopitalizations: No Immunizations Up To Date Tetanus Booster (TDap): Unknown PED Vaccines UTD: No Date of Influenza Vaccine: Oct 14, 2017 Seasonal Allergies Seasonal Allergies: No Past Medical History Surgeries: Yes ("CYST FROM LOWER BACK" ) Respiratory: No Currently Using CPAP: No Currently Using BIPAP: No Cardiac: Yes High Cholesterol, Hypertension Neurological: Yes ("CYST" ON LOWER BACK/"SPINE" ) Seizure Disorder Reproductive Disorders: No Genitourinary: No Gastrointestinal: Yes (FATTY LIVER) Gastroesophageal Reflux, Liver Disease/Jaundice, Pancreatitis Musculoskeletal: Yes (CHRONIC BACK PAIN WITH "CYST" ON LOWER BACK/"SPINE" ) Chronic Back Pain Endocrine: Yes Diabetes, Insulin dep HEENT: No Loss of Vision: Denies Hearing Impairment: Denies Cancer: No Psychosocial: Yes (OVERDOSE 08/2016) Anxiety, Suicide Attempts, Bipolar, Depression Integumentary: No Blood Disorders: No Adverse Reaction/Blood Tranf: Yes Family Medical History Cancer 03 MOTHER Congestive heart failure 03 FATHER Family history: Hypertension 03 FATHER father has Alzheimer's Physical Exam Vital Signs Vital Signs - First Documented 08/22/19 14:39 Temp 37.0 Pulse 118 Resp 20 B/P (MAP) 181/103 (129) Pulse Ox 95 O2 Delivery Room Air Capillary Refill : Less Than 3 Seconds Height/Weight/BMI Height: 5'7.00" Weight: 204lbs. 3.0oz. 92.520653ky; 31.00 BMI Method:Stated General Appearance: WD/WN, no apparent distress, other (WALKS UPRIGHT AND MOVES WITHOUT DIFFICULTY, FLAT AFFECT. DOES NOT APPEAR TO BE IN ANY DISCOMFORT OR DISTRESS) HEENT: PERRL/EOMI; No scleral icterus (R), No scleral icterus (L) Neck: normal inspection Respiratory: normal breath sounds, no respiratory distress, no accessory muscle use Cardiovascular: regular rate, rhythm, no murmur Gastrointestinal: normal bowel sounds, non tender, soft, no organomegaly, no pulsatile mass; No distended, No guarding, No rebound, No tenderness, No hernia, No mass Extremities: normal inspection, no pedal edema, normal capillary refill Back: normal inspection, no CVA tenderness Neurologic/Psychiatric: ep technologist II-XII nml as tested, no motor/sensory deficits, alert, oriented x 3, other (FLAT AFFECT) Skin: normal color, warm/dry, tattoos/piercings (EXTENSIVE TATTOOS) Progress/Results/Core Measures Results/Orders Lab Results Laboratory Tests Test 08/22/19 14:53 08/22/19 15:16 Range/Units White Blood Count 10.0 4.3-11.0 10^3/uL Red Blood Count 5.58 4.35-5.85 10^6/uL Hemoglobin 17.2 13.3-17.7 G/DL Hematocrit 48 40-54 % Mean Corpuscular Volume 86 80-99 FL Mean Corpuscular Hemoglobin 31 25-34 PG Mean Corpuscular Hemoglobin Concent 36 32-36 G/DL Red Cell Distribution Width 14.4 10.0-14.5 % Platelet Count 224 130-400 10^3/uL Mean Platelet Volume 9.2 7.4-10.4 FL Neutrophils (%) (Auto) 74 42-75 % Lymphocytes (%) (Auto) 18 12-44 % Monocytes (%) (Auto) 8 0-12 % Eosinophils (%) (Auto) 0 0-10 % Basophils (%) (Auto) 0 0-10 % Neutrophils # (Auto) 7.4 1.8-7.8 X 10^3 Lymphocytes # (Auto) 1.8 1.0-4.0 X 10^3 Monocytes # (Auto) 0.8 0.0-1.0 X 10^3 Eosinophils # (Auto) 0.0 0.0-0.3 10^3/uL Basophils # (Auto) 0.0 0.0-0.1 10^3/uL Prothrombin Time 13.3 12.2-14.7 SEC INR Comment 1.0 0.8-1.4 Activated Partial Thromboplast Time 31 24-35 SEC Urine Color YELLOW Urine Clarity CLEAR Urine pH 6.0 5-9 Urine Specific [place] >=1.030 1.016-1.022 Urine Protein 2+ H NEGATIVE Urine Glucose (UA) 3+ H NEGATIVE Urine Ketones NEGATIVE NEGATIVE Urine Nitrite NEGATIVE NEGATIVE Urine Bilirubin NEGATIVE NEGATIVE Urine Urobilinogen 0.2 < = 1.0 MG/DL Urine Leukocyte Esterase NEGATIVE NEGATIVE Urine RBC (Auto) TRACE-I NEGATIVE Urine RBC 2-5 H /HPF Urine WBC NONE /HPF Urine Squamous Epithelial Cells RARE /HPF Urine Crystals NONE /LPF Urine Bacteria NEGATIVE /HPF Urine Casts NONE /LPF Urine Mucus NEGATIVE /LPF Urine Culture Indicated NO Sodium Level 139 135-145 MMOL/L Potassium Level 3.7 3.6-5.0 MMOL/L Chloride Level 106 98-107 MMOL/L Carbon Dioxide Level 21 21-32 MMOL/L Anion Gap 12 5-14 MMOL/L Blood Urea Nitrogen 7 7-18 MG/DL Creatinine 0.99 0.60-1.30 MG/DL Estimat Glomerular Filtration Rate > 60 BUN/Creatinine Ratio 7 Glucose Level 256 H 70-105 MG/DL Calcium Level 10.0 8.5-10.1 MG/DL Corrected Calcium 9.7 8.5-10.1 MG/DL Magnesium Level 2.0 1.6-2.4 MG/DL Total Bilirubin 0.2 0.1-1.0 MG/DL Aspartate Amino Transf (AST/SGOT) 16 5-34 U/L Alanine Aminotransferase (ALT/SGPT) 43 0-55 U/L Alkaline Phosphatase 188 H 40-136 U/L Total Protein 8.3 H 6.4-8.2 GM/DL Albumin 4.4 3.2-4.5 GM/DL Amylase Level 23 L 25-125 U/L Lipase 27 8-78 U/L Urine Opiates Screen NEGATIVE NEGATIVE Urine Oxycodone Screen NEGATIVE NEGATIVE Urine Methadone Screen NEGATIVE NEGATIVE Urine Propoxyphene Screen NEGATIVE NEGATIVE Urine Barbiturates Screen NEGATIVE NEGATIVE Ur Tricyclic Antidepressants Screen POSITIVE H NEGATIVE Urine Phencyclidine Screen NEGATIVE NEGATIVE Urine Amphetamines Screen NEGATIVE NEGATIVE Urine Methamphetamines Screen NEGATIVE NEGATIVE Urine Benzodiazepines Screen POSITIVE H NEGATIVE Urine Cocaine Screen NEGATIVE NEGATIVE Urine Cannabinoids Screen NEGATIVE NEGATIVE Serum Alcohol < 10 <10 MG/DL Glucometer 225 H 70-110 MG/DL My Orders Orders - LEYDA DAMON DO Accucheck Stat ONCE (08/22/19 14:50) Ed Iv/Invasive Line Start (08/22/19 14:50) Monitor-Rhythm Ecg Trace Only (08/22/19 14:50) Alcohol (08/22/19 14:50) Amylase (08/22/19 14:50) Cbc With Automated Diff (08/22/19 14:50) Comprehensive Metabolic Panel (08/22/19 14:50) Drug Screen Stat (Urine) (08/22/19 14:50) Lipase (08/22/19 14:50) Magnesium (08/22/19 14:50) Protime With Inr (08/22/19 14:50) Partial Thromboplastin Time (08/22/19 14:50) Ua Culture If Indicated (08/22/19 14:50) Ed Iv/Invasive Line Start (08/22/19 14:50) Ns Iv 1000 Ml (Sodium Chloride 0.9%) (08/22/19 14:50) Ondansetron Injection (Zofran Injectio (08/22/19 15:00) Pantoprazole Injection (Protonix Injecti (08/22/19 15:00) Ct Abdomen/Pelvis W (08/22/19 15:22) Acute Abd Series (08/22/19 15:22) Iohexol Injection (Omnipaque 350 Mg/Ml 1 (08/22/19 15:30) Received Contrast (Hold Metformin- Contr (08/22/19 15:30) Ns (Ivpb) (Sodium Chloride 0.9% Ivpb Bag (08/22/19 15:30) Ondansetron Injection (Zofran Injectio (08/22/19 15:30) Medications Given in ED Current Medications Medications Dose Ordered Sig/Attila Route Start Time Stop Time Status Last Admin Dose Admin Ondansetron HCl 4 mg ONCE ONCE IVP 08/22/19 15:00 08/22/19 15:01 DC 08/22/19 14:59 4 MG Ondansetron HCl 4 mg ONCE ONCE IVP 08/22/19 15:30 08/22/19 15:31 DC 08/22/19 16:17 4 MG Pantoprazole 40 mg ONCE ONCE IV 08/22/19 15:00 08/22/19 15:01 DC 08/22/19 14:59 40 MG Vital Signs/I&O 08/22/19 14:39 Temp 37.0 Pulse 118 Resp 20 B/P (MAP) 181/103 (129) Pulse Ox 95 O2 Delivery Room Air Blood Pressure Mean: 129 Progress Progress Note : Progress Note UNEVENTFUL ER STAY NO DIARRHEA NAUSEA RESOLVED. Diagnostic Imaging Comments ABDOMEN XRAYS--NO ACUTE PROCESS, PER RADIOLOGIST REPORT AT 1605 CT ABDOMEN/PELVIS--PER RADIOLOGIST REPORT AT 1627 IMPRESSION: CT abdomen and pelvis: 1. Diffuse fatty infiltration of the liver. 2. No identified acute abnormality in the abdomen or pelvis. 3. There are atherosclerotic calcifications noted. Reviewed: Reviewed by Me Departure Impression Primary Impression: Epigastric abdominal pain Additional Impressions: Anxiety IDDM (insulin dependent diabetes mellitus) Disposition: 01 HOME, SELF-CARE Condition: Improved Departure-Patient Inst. Referrals: LEYDA ZAMORA MD (PCP/Family) Primary Care Physician Patient Instructions: Anxiety, Adult (DC), DIABETES, Stomach Ache and Stomach Upset Add. Discharge Instructions: CLEAR LIQUIDS--WATER, BROTH, JELLO, GATORADE TOMORROW IF YOU ARE BETTER, ADD BRATS DIET TO CLEAR LIQUIDS YOU MAY TAKE YOUR HYDROXYZINE EVERY 6 HOURS NEEDED FOR ANXIETY FOLLOW UP WITH YOUR DR IN 2-3 DAYS FOR FURTHER CARE All discharge instructions reviewed with patient and/or family. Voiced understanding. Scripts Sucralfate (Carafate) 1 Gm Tablet 1 GM PO QID, #60 TAB Prov: LEYDA DAMON DO 08/22/19 Ondansetron (Ondansetron Odt) 8 Mg Tab.rapdis 8 MG PO Q4H PRN for NAUSEA/VOMITING, #10 TAB Prov: LEYDA DAMON DO 08/22/19 Pantoprazole Sodium (Protonix) 40 Mg Tablet.dr 40 MG PO DAILY, #15 TAB Prov: LEYDA DAMON DO 08/22/19 L. Acidophilus/Pectin, Placer (Acidophilus Capsule) 1 Each Capsule 2 EACH PO QID, #40 CAP Prov: LEYDA DAMON DO 08/22/19 LEYDA DAMON DO Aug 22, 2019 14:59
[2019-08-22 15:00] LABS: BASOPHILS % (AUTO) 0 % (0-10); BILIRUBIN,URINE NEGATIVE (NEGATIVE); CLARITY,URINE CLEAR; COLOR,URINE YELLOW; EOSINOPHILS % (AUTO) 0 % (0-10); GLUCOSE, URINE (UA) 3+ (NEGATIVE); HEMATOCRIT 48 % (40-54); HEMOGLOBIN 17.2 G/DL (13.3-17.7); KETONES,URINE NEGATIVE (NEGATIVE); LEUKOCYTE ESTERASE ,URINE NEGATIVE (NEGATIVE); LYMPHOCYTES # (AUTO) 1.8 X 10^3 (1.0-4.0); LYMPHOCYTES % (AUTO) 18 % (12-44); MEAN CORPUSCULAR HEMOGLOBIN 31 PG (25-34); MEAN CORPUSCULAR HGB CONC 36 G/DL (32-36); MEAN CORPUSCULAR VOLUME 86 FL (80-99); MEAN PLATELET VOLUME 9.2 FL (7.4-10.4); MONOCYTES # (AUTO) 0.8 X 10^3 (0.0-1.0); MONOCYTES % (AUTO) 8 % (0-12); NEUTROPHILS # (AUTO) 7.4 X 10^3 (1.8-7.8); NEUTROPHILS % (AUTO) 74 % (42-75); NITRITE,URINE NEGATIVE (NEGATIVE); PLATELET COUNT 224 10^3/uL (130-400); PROTEIN,URINE 2+ (NEGATIVE); RED CELL DISTRIBUTION WIDTH 14.4 % (10.0-14.5)
[2019-08-22] MEDS ORDERED: PANTOPRAZOLE 40 MG (PROTONIX) VIAL IV ONE (15:00)
[2019-08-22] MEDS ORDERED: ONDANSETRON 4 MG/2 ML (SDV) Z0FRAN IVP ONE ×2 (15:00→15:30)
[2019-08-22 15:06] LABS: BACTERIA,URINE NEGATIVE /HPF; SQUAMOUS EPITHELIAL CELL,UR RARE /HPF
[2019-08-22 15:09] LABS: ALBUMIN 4.4 GM/DL (3.2-4.5); CHLORIDE 106 MMOL/L (98-107); POTASSIUM 3.7 MMOL/L (3.6-5.0); SODIUM 139 MMOL/L (135-145)
[2019-08-22 15:10] LABS: AMPHETAMINE SCREEN, URINE NEGATIVE (NEGATIVE); BARBITURATE SCREEN URINE NEGATIVE (NEGATIVE); BENZODIAZEPINES SCREEN URINE POSITIVE (NEGATIVE); CANNABINOID SCREEN, URINE NEGATIVE (NEGATIVE); COCAINE SCREEN URINE NEGATIVE (NEGATIVE); METHADONE STAT NEGATIVE (NEGATIVE); METHAMPHETAMINE SCREEN URINE S NEGATIVE (NEGATIVE); OPIATE SCREEN URINE NEGATIVE (NEGATIVE); OXYCODONE STAT NEGATIVE (NEGATIVE); PROPOXYPHENE STAT NEGATIVE (NEGATIVE); TRICYCLIC ANTIDEPRESSANTS SCRE POSITIVE (NEGATIVE)
[2019-08-22 15:11] LABS: AMYLASE 23 U/L (25-125); GLUCOSE 256 MG/DL (70-105)
[2019-08-22 15:12] LABS: PROTHROMBIN TIME PATIENT 13.3 SEC (12.2-14.7); TOTAL PROTEIN 8.3 GM/DL (6.4-8.2)
[2019-08-22 15:13] LABS: BILIRUBIN,TOTAL 0.2 MG/DL (0.1-1.0); CARBON DIOXIDE 21 MMOL/L (21-32)
[2019-08-22 15:15] LABS: ALKALINE PHOSPHATASE 188 U/L (40-136); CREATININE SERUM 0.99 MG/DL (0.60-1.30); GFR ESTIMATED > 60
[2019-08-22 15:16] LABS: BUN/CREATININE RATIO 7
[2019-08-22 15:18] LABS: ALANINE AMINOTRANSFERASE 43 U/L (0-55)
[2019-08-22 15:19] LABS: LIPASE 27 U/L (8-78)
[2019-08-22] MEDS ORDERED: NS 100 ML (IVPB) BAG IV ONE (15:30)
[2019-08-22] MEDS ORDERED: HOLD METFORMIN - RECEIVED CONTRAST 20 ML VIAL IV SCH (15:30)
[2019-08-22] MEDS ORDERED: IOHEXOL 350 MG/ML 100 ML (OMNIPAQUE 350) VIAL IV ONE (15:30)
--- NOTE | 2019-08-22 15:56 | Diagnostic Imaging Report ---
EXAMINATION: Abdominal radiographs, acute series. DATE: August 22, 2019. CLINICAL INDICATION: 44-year-old male, abdominal pain and nausea. COMPARISON: July 16, 2016. COMMENTS: Heart size and mediastinal contours are unremarkable. There is no identified pneumothorax. There is no large pleural effusion. There is no identified focal airspace consolidation. There is no identified free intraperitoneal air. There are gas-filled segments of large bowel which are not abnormally distended. There are no abnormally distended gas-filled segments of small bowel. There is no identified pneumatosis or portal venous gas. There is no identified abnormal radiodensity overlying the expected positions of the kidneys or ureters. IMPRESSION: No identified acute abdominal radiographic abnormality. Dictated by: Dictated on workstation # [id number]
--- NOTE | 2019-08-22 16:25 | Diagnostic Imaging Report ---
PROCEDURE: CT abdomen and pelvis with contrast. TECHNIQUE: Multiple contiguous axial images were obtained through the abdomen and pelvis after administration of intravenous contrast. Auto Exposure Controls were utilized during the CT exam to meet ALARA standards for radiation dose reduction. DATE: August 22, 2019. COMPARISON: CT abdomen and pelvis January 28, 2018. INDICATION: 44-year-old male, abdominal pain. FINDINGS: The visualized portions of the lung bases are grossly clear. The heart is not enlarged. There is no pericardial effusion. There is diffuse fatty infiltration of the liver with focal fatty sparing adjacent to the gallbladder fossa. There is no identified focal liver lesion. The outer liver contours are not nodular. The main, right and left portal veins are patent. The gallbladder is grossly unremarkable in appearance. There is no intrahepatic or extrahepatic bile duct dilation. The main pancreatic duct is not abnormally dilated. Unremarkable appearance of the pancreatic parenchyma. The spleen is normal in size. The adrenal glands are unremarkable. Unremarkable appearance of the renal parenchyma. The urinary collecting systems are not distended. There is no identified renal or ureteral stone. The urinary bladder is underdistended and not well evaluated. The intestinal tract is not distended. The appendix is normal. There is no free intraperitoneal air. There is no drainable fluid collection. There is no free pelvic fluid. There is no identified abnormally enlarged lymph node in the abdomen or pelvis which meets CT size criteria for adenopathy. There is no identified acute bony abnormality. IMPRESSION: CT abdomen and pelvis: 1. Diffuse fatty infiltration of the liver. 2. No identified acute abnormality in the abdomen or pelvis. 3. There are atherosclerotic calcifications noted. Dictated by: Dictated on workstation # [id number]
[2019-08-22] MEDS ORDERED: PANT40TA2 PO (16:31)
[2019-08-22] MEDS ORDERED: SUCR1TAB36 PO (16:31)
[2019-08-22] MEDS ORDERED: L. A1CAP11 PO (16:31)
[2019-08-22] MEDS ORDERED: ONDA8TAB13 PO (16:31)
[2019-08-22 16:36] VITALS: BP 166/98
== END 2019-08-22 16:36 | disposition home or self-care (01) ==
LOC: EDUNIT# 14:30 → ER 14:31
DX: R10.13 Epigastric pain (principal); F41.9 Anxiety disorder, unspecified; E11.9 Type 2 diabetes mellitus without complications; I10 Essential (primary) hypertension; G40.909 Epilepsy, unspecified, not intractable, without status epilepticus; K21.9 Gastro-esophageal reflux disease without esophagitis; F31.9 Bipolar disorder, unspecified; G89.29 Other chronic pain; M54.9 Dorsalgia, unspecified; F17.210 Nicotine dependence, cigarettes, uncomplicated; Z79.891 Long term (current) use of opiate analgesic; Z87.19 Personal history of other diseases of the digestive system; Z88.1 Allergy status to other antibiotic agents; Z79.4 Long term (current) use of insulin; Z82.49 Family history of ischemic heart disease and other diseases of the circulatory system
CPT/HCPCS: 74022; 74177; 80053; 80306; 81000; 82150; 82962; 83690; 83735; 85025; 85610; 85730; 93041; 99284; G0480; 36415; 80320

== ENCOUNTER 2020-05-22 01:50 | Emergency (ER) | payer MEDICARE ==
[~2020-05-22] VITALS: Ht 167.7 cm; Wt 90.7 kg
[~2020-05-22 01:50] MED LIST changes: -GEMF600T8 PO; +GEMF600T88 PO; +L. A1CAP11 PO; -OMEG-105 PO; +OMEG-218 PO; +ONDA8TAB13 PO; +PANT40TA2 PO; +QUET300T19 PO; -QUET300T44 PO; +SUCR1TAB36 PO
--- NOTE | 2020-05-22 02:05 | ED GI ---
General Chief Complaint: Abdominal/GI Problems Stated Complaint: VOMITING Source of Information: Patient Exam Limitations: No Limitations History of Present Illness Date Seen by Provider: May 22, 2020 Time Seen by Provider: 01:56 Initial Comments Patient presents ER by private conveyance from home with chief complaint of second day of nausea vomiting without diarrhea. No fevers chills cough shortness of air or sick contacts. He does have a history of pancreatitis and has some mild discomfort in his epigastric region that he associates with just having vomited. No recent travel or drinking from unsafe water sources. Last use of cannabis was 2 months ago. Allergies and Home Medications Allergies Coded Allergies: levofloxacin (Verified Adverse Reaction, Unknown, STOMACH CAMPS, 06/08/15) Home Medications Amoxicillin 500 Mg Capsule, 500 MG PO TID Prescribed by: QUENTIN STEVEN on 05/11/18 1452 Buspirone HCl 10 Mg Tablet, 10 MG PO TID PRN for ANXIETY, (Reported) Duloxetine HCl 60 Mg Capsule.dr, 60 MG PO BID, (Reported) Insulin Aspart 300 Units/3 Ml Solution, 20 UNIT SC AC, (Reported) Insulin Glargine,Hum.rec.anlog 100 Unit/1 Ml Insuln.pen, 45 UNIT SC DAILY, (Reported) L. Acidophilus/Pectin, Luke 1 Each Capsule, 2 EACH PO QID Prescribed by: LEYDA DAMON on 08/22/19 1631 Levetiracetam 500 Mg Tablet, 500 MG PO BID Prescribed by: DAVIDE GAFFNEY on 12/26/16 1510 Lurasidone HCl 60 Mg Tablet, 60 MG PO HS, (Reported) Mirtazapine 45 Mg Tablet, 45 MG PO HS, (Reported) Mupirocin 22 Gm Oint...g., 22 GM TP TID Prescribed by: QUENTIN STEVEN on 06/30/19 1209 Omeprazole 20 Mg Capsule.dr, 40 MG PO BID, (Reported) TAKES 2 (20MG) CAPSULES Ondansetron 8 Mg Tab.rapdis, 8 MG PO Q4H PRN for NAUSEA/VOMITING Prescribed by: LEYDA DAMON on 08/22/19 1631 Pantoprazole Sodium 40 Mg Tablet.dr, 40 MG PO DAILY Prescribed by: LEYDA DAMON on 08/22/19 1631 Sucralfate 1 Gm Tablet, 1 GM PO QID Prescribed by: LEYDA DAMON on 08/22/19 1631 Sulfamethoxazole/Trimethoprim 1 Each Tablet, 1 EACH PO BID Prescribed by: QUENTIN STEVEN on 06/30/19 1209 Tramadol HCl 50 Mg Tablet, 50 MG PO Q8H PRN for PAIN-MODERATE TO SEVERE Prescribed by: QUENTIN STEVEN on 05/11/18 1452 Patient Home Medication List Home Medication List Reviewed: Yes Review of Systems Review of Systems Constitutional: No chills, No diaphoresis, No fever EENTM: No Blurred Vision, No Double Vision Respiratory: Denies Cough, Denies Shortness of Air Cardiovascular: Denies Chest Pain, Denies Lightheadedness Gastrointestinal: Denies Constipated, Denies Diarrhea; Nausea, Poor Fluid Intake, Vomiting Genitourinary: Denies Discharge, Denies Drainage Musculoskeletal: No back pain, No joint pain All Other Systems Reviewed Negative Unless Noted: Yes Past Vrgbfpo-Dharpw-Glbvfm Hx Patient Social History Alcohol Use: Denies Use Drug of Choice: opiates, benzodiazepines, THC Smoking Status: Current Everyday Smoker Type Used: Cigarettes 2nd Hand Smoke Exposure: Yes Recent Hopitalizations: No Immunizations Up To Date Tetanus Booster (TDap): Unknown PED Vaccines UTD: No Date of Influenza Vaccine: Oct 14, 2017 Seasonal Allergies Seasonal Allergies: No Past Medical History Surgeries: Yes ("CYST FROM LOWER BACK" ) Respiratory: No Currently Using CPAP: No Currently Using BIPAP: No Cardiac: Yes High Cholesterol, Hypertension Neurological: Yes ("CYST" ON LOWER BACK/"SPINE" ) Seizure Disorder Reproductive Disorders: No Genitourinary: No Gastrointestinal: Yes (FATTY LIVER) Gastroesophageal Reflux, Liver Disease/Jaundice, Pancreatitis Musculoskeletal: Yes (CHRONIC BACK PAIN WITH "CYST" ON LOWER BACK/"SPINE" ) Chronic Back Pain Endocrine: Yes Diabetes, Insulin dep HEENT: No Loss of Vision: Denies Hearing Impairment: Denies Cancer: No Psychosocial: Yes (OVERDOSE 08/2016) Anxiety, Suicide Attempts, Bipolar, Depression Integumentary: No Blood Disorders: No Adverse Reaction/Blood Tranf: Yes Family Medical History Cancer 03 MOTHER Congestive heart failure 03 FATHER Family history: Hypertension 03 FATHER father has Alzheimer's Physical Exam Vital Signs Vital Signs - First Documented 05/22/20 01:57 Temp 36.0 Pulse 120 Resp 20 B/P (MAP) 183/106 (131) Pulse Ox 96 O2 Delivery Room Air Capillary Refill : Height/Weight/BMI Height: 5'7.00" Weight: 204lbs. 3.0oz. [id number]; 31.00 BMI Method:Stated General Appearance: WD/WN, moderate distress HEENT: PERRL/EOMI, pharynx normal Neck: full range of motion, normal inspection Respiratory: lungs clear, normal breath sounds, no respiratory distress, no accessory muscle use Cardiovascular: normal peripheral pulses, regular rate, rhythm Gastrointestinal: normal bowel sounds, non tender, soft Extremities: normal range of motion, non-tender, normal capillary refill Neurologic/Psychiatric: alert, oriented x 3 Skin: normal color, warm/dry Progress/Results/Core Measures Results/Orders Lab Results Laboratory Tests Test 05/22/20 02:03 Range/Units White Blood Count 10.7 4.3-11.0 10^3/uL Red Blood Count 5.71 H 4.30-5.52 10^6/uL Hemoglobin 17.6 13.3-17.7 g/dL Hematocrit 51 40-54 % Mean Corpuscular Volume 90 80-99 fL Mean Corpuscular Hemoglobin 31 25-34 pg Mean Corpuscular Hemoglobin Concent 34 32-36 g/dL Red Cell Distribution Width 12.0 10.0-14.5 % Platelet Count 223 130-400 10^3/uL Mean Platelet Volume 9.6 9.0-12.2 fL Immature Granulocyte % (Auto) 0 % Neutrophils (%) (Auto) 79 H 42-75 % Lymphocytes (%) (Auto) 16 12-44 % Monocytes (%) (Auto) 4 0-12 % Eosinophils (%) (Auto) 0 0-10 % Basophils (%) (Auto) 1 0-10 % Neutrophils # (Auto) 8.5 H 1.8-7.8 10^3/uL Lymphocytes # (Auto) 1.7 1.0-4.0 10^3/uL Monocytes # (Auto) 0.4 0.0-1.0 10^3/uL Eosinophils # (Auto) 0.0 0.0-0.3 10^3/uL Basophils # (Auto) 0.1 0.0-0.1 10^3/uL Immature Granulocyte # (Auto) 0.0 0.0-0.1 10^3/uL Sodium Level 139 135-145 MMOL/L Potassium Level 3.9 3.6-5.0 MMOL/L Chloride Level 102 98-107 MMOL/L Carbon Dioxide Level 21 21-32 MMOL/L Anion Gap 16 H 5-14 MMOL/L Blood Urea Nitrogen 11 7-18 MG/DL Creatinine 1.01 0.60-1.30 MG/DL Estimat Glomerular Filtration Rate > 60 BUN/Creatinine Ratio 11 Glucose Level 261 H 70-105 MG/DL Calcium Level 9.4 8.5-10.1 MG/DL Corrected Calcium 8.5-10.1 MG/DL Total Bilirubin 0.3 0.1-1.0 MG/DL Aspartate Amino Transf (AST/SGOT) 21 5-34 U/L Alanine Aminotransferase (ALT/SGPT) 48 0-55 U/L Alkaline Phosphatase 149 H 40-136 U/L C-Reactive Protein High Sensitivity 0.92 H 0.00-0.50 MG/DL Total Protein 7.9 6.4-8.2 GM/DL Albumin 4.6 H 3.2-4.5 GM/DL Lipase 21 8-78 U/L My Orders Orders - EDWIN MORENO Cbc With Automated Diff (05/22/20 02:01) Comprehensive Metabolic Panel (05/22/20 02:01) Hs C Reactive Protein (05/22/20 02:01) Lipase (05/22/20 02:01) Ed Iv/Invasive Line Start (05/22/20 02:01) Lactated Ringers (Lr 1000 Ml Iv Solution (05/22/20 02:15) Lactated Ringers (Lr 1000 Ml Iv Solution (05/22/20 02:15) Ondansetron Injection (Zofran Injectio (05/22/20 02:15) Famotidine Injection (Pepcid Injection) (05/22/20 02:15) Promethazine Injection (Phenergan Injec (05/22/20 02:30) Medications Given in ED Current Medications Medications Dose Ordered Sig/Attila Route Start Time Stop Time Status Last Admin Dose Admin Famotidine 20 mg ONCE ONCE IVP 05/22/20 02:15 05/22/20 02:16 DC 05/22/20 02:06 20 MG Lactated Ringer's 1,000 ml @ 0 mls/hr Q0M ONCE IV 05/22/20 02:15 05/22/20 02:16 DC 05/22/20 02:06 0 MLS/HR Lactated Ringer's 1,000 ml @ 0 mls/hr Q0M ONCE IV 05/22/20 02:15 05/22/20 02:16 DC 05/22/20 02:06 0 MLS/HR Ondansetron HCl 8 mg ONCE ONCE IVP 05/22/20 02:15 05/22/20 02:16 DC 05/22/20 02:06 8 MG Promethazine HCl 25 mg ONCE ONCE IVP 05/22/20 02:30 05/22/20 02:31 DC 05/22/20 02:24 25 MG Vital Signs/I&O 05/22/20 01:57 Temp 36.0 Pulse 120 Resp 20 B/P (MAP) 183/106 (131) Pulse Ox 96 O2 Delivery Room Air Progress Progress Note : Time: 02:04 Progress Note Nonsurgical abdominal exam. His heart rates in the 120s presumably from dehydration and afebrile otherwise aseptic vitals. Plan to give him 8 of Zofra n, 2 L of lactated Ringer's and get some labs. If he has a significant gap or metabolic acidemia then will check for ketones in the urine. He has not checked his sugar yet today. Departure Impression Primary Impression: Gastroenteritis Disposition: 01 HOME, SELF-CARE Condition: Stable Departure-Patient Inst. Decision time for Depature: 03:18 Referrals: LEYDA ZAMORA MD (PCP/Family) Primary Care Physician Patient Instructions: Viral Gastroenteritis, Adult (DC) Add. Discharge Instructions: Expect your symptoms to last 3 to 5 days. If he goes on for more than 7 to 10 days you should follow-up with your primary care doctor for reevaluation. Ondansetron/Zofran 1 or 2 tablet every 6 hours under the tongue and allow to dissolve and absorb if you are having nausea and/or vomiting. Phenergan 1 tablet every 6 hours if you are having breakthrough nausea despite ondansetron. Drink plenty of fluids. Sports drinks are encouraged. Tylenol and Motrin as necessary for body aches. Pepcid, Tums, Rolaids, omeprazole as needed for abdominal pain. 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 All discharge instructions reviewed with patient and/or family. Voiced understanding. Scripts Promethazine HCl (Promethazine Tablet) 25 Mg Tablet 25 MG PO Q6H PRN for NAUSEA/VOMITING, #12 TAB 0 Refills Prov: EDWIN MORENO 05/22/20 Ondansetron (Ondansetron Odt) 4 Mg Tab.rapdis 4-8 MG PO Q6H PRN for NAUSEA/VOMITING, #15 TAB 0 Refills Prov: EDWIN MORENO 05/22/20 Work/School Note: Work Release Form Date Seen in the Emergency Department: May 22, 2020 Return to Work: May 25, 2020 Restrictions: No Restrictions Other Restrictions Listed Below: May return to work as soon as 24 hours s ymptom-free. EDWIN MORENO May 22, 2020 02:05
[2020-05-22 02:11] LABS: BASOPHILS # (AUTO) 0.1 10^3/uL (0.0-0.1); BASOPHILS % (AUTO) 1 % (0-10); EOSINOPHILS % (AUTO) 0 % (0-10); HEMATOCRIT 51 % (40-54); HEMOGLOBIN 17.6 g/dL (13.3-17.7); LYMPHOCYTES # (AUTO) 1.7 10^3/uL (1.0-4.0); LYMPHOCYTES % (AUTO) 16 % (12-44); MEAN CORPUSCULAR HEMOGLOBIN 31 pg (25-34); MEAN CORPUSCULAR HGB CONC 34 g/dL (32-36); MEAN CORPUSCULAR VOLUME 90 fL (80-99); MEAN PLATELET VOLUME 9.6 fL (9.0-12.2); MONOCYTES # (AUTO) 0.4 10^3/uL (0.0-1.0); MONOCYTES % (AUTO) 4 % (0-12); NEUTROPHILS # (AUTO) 8.5 10^3/uL (1.8-7.8); NEUTROPHILS % (AUTO) 79 % (42-75); PLATELET COUNT 223 10^3/uL (130-400); WHITE BLOOD COUNT 10.7 10^3/uL (4.3-11.0)
[2020-05-22] MEDS ORDERED: LACTATED RINGERS 1,000 ML IV ONE ×2 (02:15)
[2020-05-22] MEDS ORDERED: ONDANSETRON 4 MG/2 ML (SDV) Z0FRAN IVP ONE (02:15)
[2020-05-22] MEDS ORDERED: FAMOTIDINE 20MG/2ML IV (PEPCID) IVP ONE (02:15)
[2020-05-22 02:19] LABS: ALBUMIN 4.6 GM/DL (3.2-4.5); CHLORIDE 102 MMOL/L (98-107); POTASSIUM 3.9 MMOL/L (3.6-5.0); SODIUM 139 MMOL/L (135-145)
[2020-05-22 02:20] LABS: CALCIUM 9.4 MG/DL (8.5-10.1)
[2020-05-22 02:21] LABS: GLUCOSE 261 MG/DL (70-105)
[2020-05-22 02:22] LABS: TOTAL PROTEIN 7.9 GM/DL (6.4-8.2)
[2020-05-22 02:23] LABS: BILIRUBIN,TOTAL 0.3 MG/DL (0.1-1.0); CARBON DIOXIDE 21 MMOL/L (21-32)
[2020-05-22 02:25] LABS: ALKALINE PHOSPHATASE 149 U/L (40-136); CREATININE SERUM 1.01 MG/DL (0.60-1.30); GFR ESTIMATED > 60
[2020-05-22 02:26] LABS: BUN/CREATININE RATIO 11
[2020-05-22 02:28] LABS: ALANINE AMINOTRANSFERASE 48 U/L (0-55)
[2020-05-22 02:29] LABS: LIPASE 21 U/L (8-78)
[2020-05-22] MEDS ORDERED: PROMETHAZINE INJ 25 MG/ML (PHENERGAN) AMP IVP ONE (02:30)
[2020-05-22] MEDS ORDERED: RX-ONDANSETRON 4 MG ODT (ZOFRAN) PPK #4 PO STA (03:17)
[2020-05-22] MEDS ORDERED: PROM25TA14 PO (03:22)
[2020-05-22] MEDS ORDERED: ONDA4TAB11 PO (03:22)
[2020-05-22 03:24] VITALS: BP 181/100
== END 2020-05-22 03:24 | disposition home or self-care (01) ==
LOC: EDUNIT# 01:50 → ER 01:53
DX: K52.9 Noninfective gastroenteritis and colitis, unspecified (principal); I10 Essential (primary) hypertension; K21.9 Gastro-esophageal reflux disease without esophagitis; F41.9 Anxiety disorder, unspecified; E11.9 Type 2 diabetes mellitus without complications; F31.9 Bipolar disorder, unspecified; G40.909 Epilepsy, unspecified, not intractable, without status epilepticus; F17.210 Nicotine dependence, cigarettes, uncomplicated; Z88.1 Allergy status to other antibiotic agents; Z80.9 Family history of malignant neoplasm, unspecified; Z82.49 Family history of ischemic heart disease and other diseases of the circulatory system; Z79.4 Long term (current) use of insulin
CPT/HCPCS: 36415; 80053; 83690; 85025; 86141; 96374; 96375

== ENCOUNTER 2020-06-16 11:14 | Observation (INO) | payer MEDICARE ==
[~2020-06-16] VITALS: Ht 166 cm; Wt 95.9 kg
[2020-06-16] VITALS (9 sets, daily range): BP systolic 137–185; BP diastolic 78–100
[~2020-06-16 11:14] MED LIST changes: +ONDA4TAB11 PO; +PROM25TA14 PO
[2020-06-16] MEDS ORDERED: fentaNYL INJ 100 MCG/2 ML AMP ONE ×2 (11:25→13:20)
--- NOTE | 2020-06-16 11:31 | ED Upper Extremity ---
General Chief Complaint: Upper Extremity Stated Complaint: L WRIST PAIN Source: patient Exam Limitations: no limitations History of Present Illness Date Seen by Provider: June 16, 2020 Time Seen by Provider: 11:23 Initial Comments Patient is a 45-year-old male who presents to the emergency department today with a chief complaint of left wrist pain after a fall down 2 stairs. Patient states that he just misstepped and fell down the stairs trying to catch himself with his left arm. Patient complains of significant pain to the left wrist. He does have some bleeding from the wrist as well as to one of the fingers of his right hand. Patient states that he did not hit his head or have a loss of consciousness. He denies injury other than the left wrist. He is right-hand dominant. Patient is a diabetic on Jardiance and insulin. He has a history of anxiety and depression. All other review of systems reviewed and negative except as stated above. Onset: just prior to arrival Severity: severe Pain/Injury Location: left wrist Method of Injury: fell Modifying Factors: Worse With Movement Allergies and Home Medications Allergies Coded Allergies: levofloxacin (Verified Adverse Reaction, Unknown, STOMACH CAMPS, 06/08/15) Home Medications Amoxicillin 500 Mg Capsule, 500 MG PO TID Prescribed by: QUENTIN STEVEN on 05/11/18 1452 Buspirone HCl 10 Mg Tablet, 10 MG PO TID PRN for ANXIETY, (Reported) Duloxetine HCl 60 Mg Capsule.dr, 60 MG PO BID, (Reported) Insulin Aspart 300 Units/3 Ml Solution, 20 UNIT SC AC, (Reported) Insulin Glargine,Hum.rec.anlog 100 Unit/1 Ml Insuln.pen, 45 UNIT SC DAILY, (Reported) L. Acidophilus/Pectin, Reagan 1 Each Capsule, 2 EACH PO QID Prescribed by: LEYDA DAMON on 08/22/19 1631 Levetiracetam 500 Mg Tablet, 500 MG PO BID Prescribed by: DAVIDE GAFFNEY on 12/26/16 1510 Lurasidone HCl 60 Mg Tablet, 60 MG PO HS, (Reported) Mirtazapine 45 Mg Tablet, 45 MG PO HS, (Reported) Mupirocin 22 Gm Oint...g., 22 GM TP TID Prescribed by: QUENTIN STEVEN on 06/30/19 1209 Omeprazole 20 Mg Capsule.dr, 40 MG PO BID, (Reported) TAKES 2 (20MG) CAPSULES Ondansetron 8 Mg Tab.rapdis, 8 MG PO Q4H PRN for NAUSEA/VOMITING Prescribed by: LEYDA DAMON on 08/22/19 1631 Ondansetron 4 Mg Tab.rapdis, 4-8 MG PO Q6H PRN for NAUSEA/VOMITING Prescribed by: EDWIN MORENO on 05/22/20 0322 Pantoprazole Sodium 40 Mg Tablet., 40 MG PO DAILY Prescribed by: LEYDA DAMON on 08/22/19 1631 Promethazine HCl 25 Mg Tablet, 25 MG PO Q6H PRN for NAUSEA/VOMITING Prescribed by: EDWIN MORENO on 05/22/20 0322 Sucralfate 1 Gm Tablet, 1 GM PO QID Prescribed by: LEYDA DAMON on 08/22/19 1631 Sulfamethoxazole/Trimethoprim 1 Each Tablet, 1 EACH PO BID Prescribed by: QUENTIN STEVEN on 06/30/19 1209 Tramadol HCl 50 Mg Tablet, 50 MG PO Q8H PRN for PAIN-MODERATE TO SEVERE Prescribed by: QUENTIN STEVEN on 05/11/18 1452 Patient Home Medication List Home Medication List Reviewed: Yes Review of Systems Constitutional: see HPI Respiratory: no symptoms reported Cardiovascular: no symptoms reported Gastrointestinal: no symptoms reported Genitourinary: no symptoms reported Musculoskeletal: joint pain (Left wrist pain), joint swelling Skin: other (Abrasions) All Other Systems Reviewed Negative Unless Noted: Yes Past Nxxrjii-Knhybv-Aqsslj Hx Patient Social History Drug of Choice: opiates, benzodiazepines, THC Type Used: Cigarettes 2nd Hand Smoke Exposure: Yes Recent Hopitalizations: No Immunizations Up To Date Tetanus Booster (TDap): Unknown PED Vaccines UTD: No Date of Influenza Vaccine: Oct 14, 2017 Seasonal Allergies Seasonal Allergies: No Past Medical History Surgeries: Yes ("CYST FROM LOWER BACK" ) Respiratory: No Currently Using CPAP: No Currently Using BIPAP: No Cardiac: Yes High Cholesterol, Hypertension Neurological: Yes ("CYST" ON LOWER BACK/"SPINE" ) Seizure Disorder Reproductive Disorders: No Genitourinary: No Gastrointestinal: Yes (FATTY LIVER) Gastroesophageal Reflux, Liver Disease/Jaundice, Pancreatitis Musculoskeletal: Yes (CHRONIC BACK PAIN WITH "CYST" ON LOWER BACK/"SPINE" ) Chronic Back Pain Endocrine: Yes Diabetes, Insulin dep HEENT: No Loss of Vision: Denies Hearing Impairment: Denies Cancer: No Psychosocial: Yes (OVERDOSE 08/2016) Anxiety, Suicide Attempts, Bipolar, Depression Integumentary: No Blood Disorders: No Adverse Reaction/Blood Tranf: Yes Family Medical History Cancer 03 MOTHER Congestive heart failure 03 FATHER Family history: Hypertension 03 FATHER father has Alzheimer's Physical Exam Vital Signs Vital Signs - First Documented 06/16/20 11:22 Temp 36.8 Pulse 104 Resp 20 B/P (MAP) 165/101 (122) Pulse Ox 97 Capillary Refill : Height, Weight, BMI Height: 5'7.00" Weight: 204lbs. 3.0oz. 92.729757jx; 32.00 BMI Method:Stated General Appearance: WD/WN, no apparent distress Neck: non-tender, full range of motion Cardiovascular: regular rate, rhythm, tachycardia, systolic murmur (Left lower sternal border) Respiratory: lungs clear, normal breath sounds, no respiratory distress Back: normal inspection, no vertebral tenderness Shoulder: normal inspection, non-tender, no evidence of injury Elbow/Forearm: normal inspection, non-tender, no evidence of injury Wrist: Yes abrasions, Yes bone tenderness, Yes deformity, Yes limited ROM, Yes pain, Yes soft tissue tenderness, Yes swelling Hand: normal inspection, non-tender, normal ROM Neurologic/Tendon: normal sensation, responds to pain Neurologic/Psychiatric: alert, normal mood/affect, oriented x 3 Skin: normal color, warm/dry Procedures/Interventions Splinting and Joint Reduction : Location: left arm Pre-Proc Neuro Vasc Exam: normal Post-Proc Neuro Vasc Exam: normal Pre-Procedure NV Exam: Yes Arm Sling: Large Hand-Made Type: orthoglass Splint Application: Short Arm (sugar tong splint applied to left wrist; telfa over puncture site and then wrapped in web roll.) Progress/Results/Core Measures Results/Orders My Orders Orders - KELLI BECKHAM MD Ed Iv/Invasive Line Start (06/16/20 11:31) Fentanyl Inj (Sublimaze Injection) (06/16/20 11:45) Dipht,Pertuss(Acell),Tet Adult (Boostrix (06/16/20 11:45) Wrist, Left, 3 Views Or More (06/16/20 11:31) Fentanyl Inj (Sublimaze Injection) (06/16/20 11:25) Morphine Injection (Morphine Injection (06/16/20 11:51) Cefazolin Injection (Ancef Injection) (06/16/20 12:15) Accucheck Stat ONCE (06/16/20 12:07) Medications Given in ED Current Medications Medications Dose Ordered Sig/Attila Route Start Time Stop Time Status Last Admin Dose Admin Diphtheria/ Tetanus/Acell Pertussis 0.5 ml ONCE ONCE IM 06/16/20 11:45 06/16/20 11:46 DC 06/16/20 11:46 0.5 ML Fentanyl Citrate 50 mcg ONCE ONCE IVP 06/16/20 11:45 06/16/20 11:46 DC 06/16/20 11:37 50 MCG Vital Signs/I&O 06/16/20 06/16/20 06/16/20 11:22 11:37 11:59 Temp 36.8 36.8 36.8 Pulse 104 Resp 20 B/P (MAP) 165/101 (122) Pulse Ox 97 Departure Communication (Admissions) Time/Spoke to Admitting Phy: 12:[address] Lawson. ancef and sugar tong splint; fluids, pain meds. will take to OR this afternoon Impression Primary Impression: Open fracture of left radius and ulna Qualified Codes: S52.92XB - Unspecified fracture of left forearm, initial encounter for open fracture type I or II; S52.202B - Unspecified fracture of shaft of left ulna, initial encounter for open fracture type I or II Disposition: ADMITTED INPATIENT Condition: Stable Admissions Decision to Admit Reason: Admit from ER (General) Decision to Admit/Date: June 16, 2020 Time/Decision to Admit Time: 12:28 Departure-Patient Inst. Referrals: LEYDA ZAMORA MD (PCP/Family) Primary Care Physician KELLI BECKHAM MD June 16, 2020 11:31
[2020-06-16] MEDS ORDERED: fentaNYL INJ 100 MCG/2 ML AMP IVP ONE ×2 (11:45→16:45)
[2020-06-16] MEDS ORDERED: TETANUS,DIPTH,PERTUSS P/F (BOOSTRIX) 0.5 ML VIAL IM ONE (11:45)
[2020-06-16] MEDS ORDERED: morphine INJ 10 MG/ML 1ML (SYR OR VIAL) IVP STA (11:51)
--- NOTE | 2020-06-16 12:05 | Diagnostic Imaging Report ---
HISTORY: Fall with left wrist pain. COMPARISON: Radiograph from 08/24/2016 TECHNIQUE: 3 views of the left wrist. FINDINGS: There is a mildly comminuted transverse fracture of the distal left radius diaphysis with anterior and lateral displacement and medial and dorsal angulation. There is deformity of the more distal radius from remote trauma which appears healed. There is an oblique fracture of the distal left ulna metaphysis which is displaced medially and posteriorly, with dorsal angulation. There is mild cortical irregularity at the ulnar styloid process which may represent a small avulsion fracture as well. There is moderate soft tissue swelling about the left wrist. Alignment otherwise appears normal. IMPRESSION: 1. Displaced, angulated fractures of the distal left radius and ulna. Dictated by: Dictated on workstation # [id number]
[2020-06-16] MEDS ORDERED: ceFAZolin INJECTION 1,000 MG in WATER (STERILE) FOR INJECTION 10 ML IV ONE (12:15)
[2020-06-16] MEDS ORDERED: proPOfol 200 MG/20 ML (DIPRIVAN) VIAL IV ONE (13:19)
[2020-06-16] MEDS ORDERED: MIDAZOLAM 2 MG/2 ML (VERSED) VIAL ONE (13:21)
[2020-06-16] MEDS ORDERED: ONDANSETRON 4 MG/2 ML (SDV) Z0FRAN ONE (13:23)
[2020-06-16] MEDS ORDERED: SEVOFLURANE (ULTANE) 15 ML INHAL SOLN ONE ×4 (13:23→17:50)
[2020-06-16] MEDS ORDERED: CATHETER FLUSH 10 ML SYR IV PRN (13:30)
[2020-06-16] MEDS ORDERED: morphine INJ 4 MG/ML 1 ML (VIAL/SYRINGE) IV PRN (13:30)
[2020-06-16] MEDS ORDERED: ONDANSETRON 4 MG/2 ML (SDV) Z0FRAN IV PRN (13:30)
[2020-06-16] MEDS: NS IV 1000 ML 1,000 ML IV SCH ×2 (13:56→19:58)
[2020-06-16] MEDS ORDERED: LACT1CAP8 PO (14:59)
[2020-06-16] MEDS ORDERED: EMPA10TA PO (14:59)
[2020-06-16] MEDS ORDERED: VALS320T15 PO (14:59)
[2020-06-16] MEDS ORDERED: LEVE500T6 PO (14:59)
[2020-06-16] MEDS ORDERED: SUCR1TAB PO (14:59)
[2020-06-16] MEDS ORDERED: ACHD5005 PO (14:59)
[2020-06-16] MEDS ORDERED: FENO145T26 PO (14:59)
[2020-06-16] MEDS ORDERED: VENL150C98 PO (14:59)
[2020-06-16] MEDS ORDERED: ACET-2267 PO (14:59)
[2020-06-16] MEDS ORDERED: NF-ZOL12.5 PO (14:59)
[2020-06-16] MEDS ORDERED: OMEP1CAP25 PO (14:59)
[2020-06-16] MEDS ORDERED: MIRT30TA6 PO (14:59)
[2020-06-16] MEDS ORDERED: CHOL4PAC2 PO (14:59)
[2020-06-16] MEDS ORDERED: ARIP5TAB57 PO (14:59)
[2020-06-16] MEDS ORDERED: DILT240C91 PO (14:59)
[2020-06-16] MEDS ORDERED: VENL75CA93 PO (14:59)
[2020-06-16] MEDS ORDERED: BUPIVACAINE 0.5% 30 ML (SENSORCAINE) VIAL ONE (15:19)
--- NOTE | 2020-06-16 16:30 | HISTORY AND PHYSICAL ---
DATE OF SERVICE: ADMISSION HISTORY AND PHYSICAL REASON FOR ADMISSION: Grade I open left distal ulna fracture with associated distal radial shaft fracture. HISTORY OF PRESENT ILLNESS: The patient is a 45-year-old right hand dominant gentleman, who slipped and fell down stairs. He cut himself on his outstretched left upper extremity. He presented to the emergency room where he was found to have a displaced distal radial shaft fracture as well as an ulnar styloid fracture with a punctate wound. This was felt to be a grade I open fracture; therefore was admitted for planned irrigation and debridement and internal fixation. The patient denies paresthesias. ALLERGIES: LEVOTHYROXINE. MEDICATIONS: Tramadol, sucralfate, promethazine, pantoprazole, omeprazole, insulin, buspirone, amoxicillin. SOCIAL HISTORY: The patient is a smoker. PAST SURGICAL HISTORY: Cyst excision. PAST MEDICAL HISTORY: Significant for diabetes, bipolar, depression. PHYSICAL EXAMINATION: GENERAL: The patient is well-developed, well-nourished, in no acute distress. HEENT: Normocephalic, atraumatic. Pupils are equal, round and reactive to light. Oropharynx is clear. NECK: Supple, no lymphadenopathy. LUNGS: Clear to auscultation bilaterally. HEART: Regular rate and rhythm. ABDOMEN: Soft, nontender, nondistended. EXTREMITIES: The left wrist demonstrates a small punctate area of bleeding on the ulnar aspect of the distal ulna. There was gross deformity noted at the wrist. He has intact MCP extension, finger abduction, thumb IP flexion, and extension. Sensation is intact to light touch in radial, ulnar and median distribution. RADIOGRAPHS: Reveal a displaced left ulnar styloid fracture extending into the distal shaft with a distal radial shaft fracture with 100% displacement. IMPRESSION: Grade I open left distal ulna fracture with displaced left radial shaft fracture. PLAN: Open reduction and internal fixation, left radius with irrigation and debridement of the left ulna with possible fixation. The risks, benefits, options, ramifications and recovery were discussed with the patient. He understands and wishes to proceed. Job ID: [id number] DocumentID: [id number] Dictated Date: 06/16/2020 15:23:08 Sampler First Date: 06/16/2020 16:29:26 Dictated By: FLORENCE DAILY MD
[2020-06-16] MEDS: LACTATED RINGERS 1,000 ML IV PRN ×2 (16:44→18:10)
[2020-06-16] MEDS ORDERED: MEPERIDINE (DEMEROL) INJ 50 MG/ML IVP ONE (16:45)
[2020-06-16] MEDS ORDERED: LACTATED RINGERS 1,000 ML IV PRN (16:45)
[2020-06-16] MEDS ORDERED: ONDANSETRON 4 MG/2 ML (SDV) Z0FRAN IVP PRN ×2 (16:45→18:15)
[2020-06-16] MEDS ORDERED: morphine INJ 10 MG/ML 1ML (SYR OR VIAL) IVP ONE (16:45)
--- NOTE | 2020-06-16 16:46 | Progress Note-Pre Operative ---
Pre-Operative Progress Note H&P Reviewed The H&P was reviewed, patient examined and no changes noted. Date Seen by Provider: June 16, 2020 Time Seen by Provider: 16:30 Date H&P Reviewed: June 16, 2020 Time H&P Reviewed: 06:30 Pre-Operative Diagnosis: grade 1 open distal ulna fracture and left radius shaft fracture FLORENCE DAILY MD June 16, 2020 16:46
--- NOTE | 2020-06-16 16:47 | Progress Note-Post Operative ---
Post-Operative Progess Note Surgeon (s)/Torch Brazer (s) Surgeon FLORENCE DAILY MD Torch Brazer: Eleuterio Zavala Pre-Operative Diagnosis grade 1 open distal ulna fracture and left radius shaft fracture Post-Operative Diagnosis grade 1 open distal ulna fracture and left radius shaft fracture Procedure & Operative Findings Date of Procedure 06/16/20 Procedure Performed/Findings irrigation and debridement of the left ulna and ORIF of the left radius Anesthesia Type GETA Estimated Blood Loss Estimated blood loss (mL): minimal Specimens/Packing Specimens Removed none Packing: none FLORENCE DAILY MD June 16, 2020 16:47
[2020-06-16] MEDS ORDERED: ceFAZolin INJECTION 1,000 MG ONE (17:00)
[2020-06-16] MEDS ORDERED: morphine INJ 10 MG/ML 1ML (SYR OR VIAL) ONE (17:14)
[2020-06-16] MEDS ORDERED: ACETAMINOPHEN 325 MG TABLET PO PRN (18:15)
--- NOTE | 2020-06-16 18:29 | Diagnostic Imaging Report ---
INDICATION: Left wrist fracture follow-up IMPRESSION: 12.6 seconds of fluoroscopy and 3 intraoperative digital images were used by Dr. Lawson in surgery during internal fixation of left wrist. Dictated by: Dictated on workstation # [id number]
[2020-06-16] MEDS: morphine INJ 4 MG/ML 1 ML (VIAL/SYRINGE) IVP PRN (19:52)
[2020-06-16] MEDS: ceFAZolin 1,000 MG/SWFI 10 ML IV PUSH IV SCH ×2 (20:02)
[2020-06-16] MEDS: oxyCODONE/APAP 5/325MG (PERCOCET 5) TABLET PO PRN (21:47)
[2020-06-16] MEDS ORDERED: NICOTINE 21 MG (NICODERM) PATCH TD ONE (23:45)
--- NOTE | 2020-06-16 23:49 | OPERATIVE REPORT ---
DATE OF SERVICE: 06/16/2020 PREOPERATIVE DIAGNOSES: 1. Grade I open left distal ulna fracture (two part). 2. Closed displaced left radius shaft fracture (two part). POSTOPERATIVE DIAGNOSES: 1. Grade I open left distal ulna fracture (two part). 2. Closed displaced left radius shaft fracture (two part). PROCEDURES: 1. Open reduction and internal fixation of left radial shaft. 2. Irrigation and debridement with open reduction of the left ulna. SURGEON: Rolando Daily MD MANAGEMENT LIAISON: Eleuterio Zavala, who assisted throughout the procedure and closed the incisions. ANESTHESIA: General endotracheal by Eleuterio Grimaldo CRNA. TOURNIQUET TIME: 40 minutes at 250 mmHg. ESTIMATED BLOOD LOSS: Minimal. DRAINS: None. COMPLICATIONS: None. POSTOPERATIVE PLAN: 24 hours of IV antibiotics, patient was transferred to the recovery room awake and stable condition. STATEMENT OF MEDICAL NECESSITY: The patient is a 45-year-old right hand dominant gentleman, who fell earlier today on his outstretched left upper extremity. He was found to have a distal radial shaft fracture with a displaced distal ulna fracture at the ulnar head. There was punctate bleeding noted and this was felt to be a grade I open fracture was treated with IV antibiotics and splinted. He was taken emergently to the operating room due to the open nature of his fracture. DESCRIPTION OF PROCEDURE: After risks and benefits of procedure were discussed and questions were answered, an informed consent was signed and placed on the chart, the operative site was confirmed in the preoperative holding area initialed by the surgeon. The patient was then transported to the operating room and after adequate levels of general endotracheal anesthetic were obtained, a timeout was called, confirming the operative site. Left upper extremity was prepped and draped in the usual sterile fashion. There was a small pinpoint area of bleeding on the ulnar aspect of the distal forearm. This was extended after raising the tourniquet. This was extended in a proximal and distal direction through finger dissection, the fracture site was identified. This was then irrigated with 3 liters of pulse lavage. No contamination of the wound was noted. The fracture was then reduced, and the incision was closed with 4-0 nylon in a horizontal mattress interrupted fashion. An incision was then made over the flexor carpi radialis on the volar aspect of the forearm. The flexor carpi radialis was retracted ulnarly and the brachioradialis and neurovascular structures were retracted radially. The fracture site was subperiosteally exposed and anatomically reduced. A Synthes 6-hole LC-DC plate was placed with 3 cortical screws in the proximal fragment and 3 cortical screws in the distal fragment. Fluoroscopy in the AP, lateral and oblique planes revealed anatomic reduction of the fractures with well-placed hardware. Of note, the patient had had a previous distal radius fracture, which had healed in a slightly apex volar angulation. There was no acute deformity noted. The wound was copiously irrigated. A 3-0 Vicryl was used to reapproximate the subcutaneous tissue and then jefry were used to close the skin. A soft dressing was applied. The tourniquet was deflated. A sugar tong splint was applied. The patient was transferred to the recovery room awake and in stable condition. Job ID: [id number] DocumentID: [id number] Dictated Date: 06/16/2020 18:14:15 [place] Date: 06/16/2020 23:49:02 Dictated By: ROLANDO DAILY MD
[2020-06-17] MEDS ORDERED: ceFAZolin INJECTION 1,000 MG in WATER (STERILE) FOR INJECTION 10 ML IV SCH (01:00)
[2020-06-17] MEDS: oxyCODONE/APAP 5/325MG (PERCOCET 5) TABLET PO PRN ×2 (02:21→08:49)
[2020-06-17 03:11] VITALS: BP 169/91
[2020-06-17] MEDS: ceFAZolin 1,000 MG/SWFI 10 ML IV PUSH IV SCH ×4 (04:20→11:19)
[2020-06-17] MEDS: NS IV 1000 ML 1,000 ML IV SCH (05:40)
[2020-06-17] MEDS: morphine INJ 4 MG/ML 1 ML (VIAL/SYRINGE) IVP PRN (06:42)
--- NOTE | 2020-06-17 07:01 | Progress Note ---
Standard Progress Note Progress Notes/Assess & Plan Date Seen by a Provider: June 17, 2020 Time Seen by a Provider: 06:59 Progress/Assessment & Plan no complaints denies paresthesias Vital Signs Date Time Temp Pulse Resp B/P (MAP) Pulse Ox O2 Delivery O2 Flow Rate FiO2 06/17/20 03:11 36.4 93 20 169/91 (117) 90 Room Air 06/16/20 23:54 36.4 97 18 166/92 (116) 94 Room Air 06/16/20 20:00 36.6 103 20 174/93 (120) 94 Room Air 06/16/20 20:00 94 Room Air 06/16/20 19:18 93 Room Air 06/16/20 19:10 Room Air 06/16/20 19:05 37.1 20 185/99 (127) 95 Room Air 06/16/20 18:50 18 184/100 (128) 96 OxyMask 2 06/16/20 18:45 OxyMask 3 06/16/20 18:40 20 180/98 (125) 95 OxyMask 4 06/16/20 18:30 22 177/98 (124) 95 OxyMask 6 06/16/20 18:30 OxyMask 6 06/16/20 18:20 20 165/100 (121) 94 OxyMask 10 06/16/20 18:10 Room Air 10 06/16/20 18:10 36.5 14 137/78 (97) 93 OxyMask 10 06/16/20 13:30 36.9 92 20 161/95 (117) 94 Room Air 06/16/20 13:30 Room Air 06/16/20 13:08 36.8 99 20 153/92 95 Room Air 06/16/20 11:59 36.8 06/16/20 11:37 36.8 06/16/20 11:22 36.8 104 20 165/101 (122) 97 I & O 06/17/20 07:00 Intake Total 2075 ml Output Total 2625 ml Balance -550 ml Laboratory Tests Test 06/16/20 12:27 06/16/20 18:47 06/16/20 23:35 06/17/20 05:00 Range/Units Glucometer 168 H 110 152 H 132 H 70-110 MG/DL LUE in splint. Intact MCP ext and abduction, thumb IP flexioin and extension. Sensation intact in RUM distribution s/p I and D and ORIF L ulna and radius doing well DC after third post op Ancef dose FLORENCE DAILY MD June 17, 2020 07:01
[2020-06-17 07:10] VITALS: BP 172/99
--- NOTE | 2020-06-17 07:35 | Anesthesia-General Post-Op ---
General Patient Condition Mental Status/LOC: Same as Preop Cardiovascular: Satisfactory Nausea/Vomiting: Absent Respiratory: Satisfactory Pain: Controlled Complications: Absent Post Op Complications Complications None Follow Up Care/Instructions Patient Instructions None needed. Anesthesia/Patient Condition Patient Condition Patient is doing well, no complaints, stable vital signs, no apparent adverse anesthesia problems. No complications reported per nursing. NALLELY SHINE CRNA June 17, 2020 07:35
[2020-06-17 11:57] VITALS: BP 172/99
[2020-06-17] MEDS ORDERED: PATCH REMOVAL TP SCH (23:00)
--- NOTE | 2020-06-18 02:29 | DISCHARGE SUMMARY ---
DATE OF SERVICE: DIAGNOSES: 1. Grade I open left ulna fracture. 2. Left radial shaft fracture. 3. Diabetes. 4. Bipolar disorder. PROCEDURE: Irrigation and debridement of left ulna with open reduction and internal fixation of the left radius. SUMMARY: The patient is a 45-year-old gentleman who fell sustaining a grade I open left distal ulna shaft fracture and a left radial shaft fracture. He was taken emergently to the operating room where he underwent irrigation and debridement of the open wound and then internal fixation of the radius. The ulna was reduced open and found to be stable; therefore, no internal fixation was used in order to try to avoid high risk of infection. The patient then received 24 hours of postoperative antibiotics. FOLLOWUP: Followup is in two weeks. DISCHARGE MEDICATIONS: Home medications and hydrocodone as needed for pain. DIET: Regular. Job ID: [id number] DocumentID: [id number] Dictated Date: 06/17/2020 06:59:06 [place] Date: 06/18/2020 02:28:40 Dictated By: FLORENCE DAILY MD
== END 2020-06-17 11:40 | disposition home or self-care (01) ==
LOC: EDUNIT# 11:14 → ER 11:17 → 4TH 12:06
PROVIDERS: ADMIT Orthopaedic Surgery; ATTEND Orthopaedic Surgery
DX: S52.602B Unspecified fracture of lower end of left ulna, initial encounter for open fracture type I or II (principal); I10 Essential (primary) hypertension; S52.302A Unspecified fracture of shaft of left radius, initial encounter for closed fracture; E78.00 Pure hypercholesterolemia, unspecified; K21.9 Gastro-esophageal reflux disease without esophagitis; G89.29 Other chronic pain; M54.9 Dorsalgia, unspecified; E11.9 Type 2 diabetes mellitus without complications; F41.9 Anxiety disorder, unspecified; F32.9 Major depressive disorder, single episode, unspecified; E66.9 Obesity, unspecified; Z68.34 Body mass index [BMI] 34.0-34.9, adult; Z79.4 Long term (current) use of insulin; Z79.899 Other long term (current) drug therapy
CPT/HCPCS: 11010; 25609; 25652; 29105; 73110; 76000; 82947 ×2; 87081; 94664; 94760; 99284; A4565; C1713 ×5; 90715

== ENCOUNTER 2021-02-20 21:51 | Emergency (ER) | payer MEDICARE ==
[~2021-02-20] VITALS: Ht 167.7 cm; Wt 84.0 kg
[~2021-02-20 21:51] MED LIST changes: +ACET-2267 PO; +ARIP5TAB57 PO; +CHOL4PAC2 PO; +EMPA10TA PO; +FENO145T26 PO; +LACT1CAP8 PO; +LEVE500T6 PO; +MIRT-69 PO; +OMEP1CAP25 PO; -SULF1TAB35 PO; +SULF1TAB38 PO; +VALS320T15 PO; +VENL150C98 PO; +VENL75CA93 PO
[2021-02-20] MEDS ORDERED: LORazepam INJ 2 MG/ML (ATIVAN) VIAL IVP ONE (22:00)
[2021-02-20] MEDS ORDERED: ONDANSETRON 4 MG/2 ML (SDV) Z0FRAN IVP ONE (22:15)
[2021-02-20 22:18] LABS: BASOPHILS % (AUTO) 0 % (0-10); EOSINOPHILS % (AUTO) 0 % (0-10); HEMATOCRIT 44 % (40-54); LYMPHOCYTES # (AUTO) 2.2 10^3/uL (1.0-4.0); LYMPHOCYTES % (AUTO) 13 % (12-44); MEAN CORPUSCULAR HEMOGLOBIN 31 pg (25-34); MEAN CORPUSCULAR HGB CONC 36 g/dL (32-36); MEAN CORPUSCULAR VOLUME 85 fL (80-99); MEAN PLATELET VOLUME 10.3 fL (9.0-12.2); MONOCYTES # (AUTO) 1.4 10^3/uL (0.0-1.0); MONOCYTES % (AUTO) 8 % (0-12); NEUTROPHILS # (AUTO) 13.9 10^3/uL (1.8-7.8); NEUTROPHILS % (AUTO) 79 % (42-75); PLATELET COUNT 283 10^3/uL (130-400); WHITE BLOOD COUNT 17.7 10^3/uL (4.3-11.0)
--- NOTE | 2021-02-20 22:32 | Diagnostic Imaging Report ---
INDICATION: Shortness of breath, cough. COMPARISON: 10/24/2016 FINDINGS: Single view of the chest demonstrates clear lungs bilaterally. The heart is normal. There is no pneumothorax. The osseous structures normal. IMPRESSION: Negative chest. Dictated by: Dictated on workstation # [id number]
[2021-02-20 22:34] LABS: LYMPHOCYTES % (MANUAL) 13 %; MONOCYTES % (MANUAL) 9 %; NEUTROPHILS % (MANUAL) 78 %; RBC MORPH NORMAL
[2021-02-20 22:40] LABS: ALBUMIN 3.8 GM/DL (3.2-4.5); POTASSIUM 3.3 MMOL/L (3.6-5.0)
[2021-02-20 22:42] LABS: TOTAL PROTEIN 7.2 GM/DL (6.4-8.2)
[2021-02-20 22:43] LABS: INR 1.1 (0.8-1.4); PROTHROMBIN TIME PATIENT 14.5 SEC (12.2-14.7)
[2021-02-20 22:44] LABS: BILIRUBIN,TOTAL 0.5 MG/DL (0.1-1.0)
[2021-02-20 22:46] LABS: CREATININE SERUM 0.82 MG/DL (0.60-1.30)
[2021-02-20 23:29] LABS: BILIRUBIN,URINE NEGATIVE (NEGATIVE); CLARITY,URINE CLEAR; COLOR,URINE YELLOW; GLUCOSE, URINE (UA) 3+ (NEGATIVE); KETONES,URINE 1+ (NEGATIVE); LEUKOCYTE ESTERASE ,URINE NEGATIVE (NEGATIVE); NITRITE,URINE NEGATIVE (NEGATIVE); PROTEIN,URINE TRACE (NEGATIVE)
[2021-02-20 23:42] LABS: BACTERIA,URINE TRACE /HPF
[2021-02-20 23:43] LABS: AMORPHOUS SEDIMENT,UR LARGE AMOR URATES /LPF; SQUAMOUS EPITHELIAL CELL,UR RARE /HPF
[2021-02-21 00:26] LABS: AMPHETAMINE SCREEN, URINE NEGATIVE (NEGATIVE); BARBITURATE SCREEN URINE NEGATIVE (NEGATIVE); BENZODIAZEPINES SCREEN URINE POSITIVE (NEGATIVE); CANNABINOID SCREEN, URINE NEGATIVE (NEGATIVE); COCAINE SCREEN URINE NEGATIVE (NEGATIVE); METHADONE STAT NEGATIVE (NEGATIVE); METHAMPHETAMINE SCREEN URINE S NEGATIVE (NEGATIVE); OPIATE SCREEN URINE NEGATIVE (NEGATIVE); OXYCODONE STAT NEGATIVE (NEGATIVE); PROPOXYPHENE STAT NEGATIVE (NEGATIVE); TRICYCLIC ANTIDEPRESSANTS SCRE NEGATIVE (NEGATIVE)
[2021-02-21] MEDS ORDERED: RX-LORAZEPAM (ATIVAN) 0.5 MG TAB PPK#4 PO STA (01:26)
[2021-02-21] MEDS ORDERED: LACTATED RINGERS 1,000 ML IV ONE (01:30)
--- NOTE | 2021-02-21 01:40 | ED Psychosocial ---
General Chief Complaint: General Problems/Pain Stated Complaint: SUICIDAL/VOMITING/HIGH BS Nursing Triage Note: PT TO RM 6 VIA [facility] W REPORTS OF SUICIDAL IDEATION W/O A PLAN X4 HOURS. PT ALSO C/O N/V, COUGH, SOA, AND ABD PAIN SX YESTERDAY AT APPROX 1700. PT REPORTS HE TAKES SUBOXONE BOUGHT "OFF THE STREET" DAILY BUT HASNT BEEN ABLE TO FIND ANY FOR 3-4 DAYS. PT VERBALIZES THAT HES TIRED OF BEING SICK AND TIRED OF RUINING EVERYONES LIVES. PT A&OX4, RESTLESS DURING TRIAGE. 20G LEFT FOREARM IV INITIATED BY EMS W 1L NS INFUSING. Source: patient, EMS Exam Limitations: no limitations History of Present Illness Date Seen by Provider: Feb 20, 2021 Time Seen by Provider: 21:52 Allergies and Home Medications Allergies Coded Allergies: levofloxacin (Verified Adverse Reaction, Unknown, STOMACH CAMPS, 06/08/15) Patient Home Medication List Home Medication List Reviewed: Yes Acetaminophen (Tylenol Extra Strength) 500 Mg Tablet, 1,000 MG PO Q8H PRN for PAIN-MILD (1-4), (Reported) Entered as Reported by: ACE MAE on 06/16/20 1459 Aripiprazole (Aripiprazole) 5 Mg Tablet, 5 MG PO HS, (Reported) Entered as Reported by: ACE MAE on 06/16/20 145 Cholestyramine (with Sugar) (Cholestyramine Packet) 4 Gm Powd.pack, 4 GM PO QID PRN for SCOPE PREPERATION, (Reported) Entered as Reported by: ACE MAE on 06/16/20 145 Diltiazem HCl (Diltiazem 24Hr ER) 240 Mg Cap.er.24h, 240 MG PO DAILY, (Reported) Entered as Reported by: ACE MAE on 06/16/20 1459 Empagliflozin (Jardiance) 10 Mg Tablet, 10 MG PO DAILY, (Reported) Entered as Reported by: ACE MAE on 06/16/20 1459 Fenofibrate Nanocrystallized (Fenofibrate) 145 Mg Tablet, 145 MG PO HS, (Reported) Entered as Reported by: ACE MAE on 06/16/20 1459 Hydrocodone/Acetaminophen (Hydrocodone-Acetamin 5-325 mg) 1 Each Tablet, 1 EA PO 1200 PRN for PAIN-MODERATE (5-7), (Reported) Entered as Reported by: ACE MAE on 06/16/201458 Insulin Aspart (Novolog Flexpen) 300 Units/3 Ml Solution, UNIT SC AC, (Reported) Entered as Reported by: QUENTIN ANNE on 05/11/181419 Insulin Glargine,Hum.rec.anlog (Basaglar Kwikpen U-100) 100 Unit/1 Ml Insuln.pe n, 20 UNIT SC DAILY, (Reported) Entered as Reported by: QUENTIN ANNE on 05/11/181419 Lactobacillus Acidophilus (Acidophilus) 1 Each Capsule, 1 EACH PO DAILY, (Reported) Entered as Reported by: ACE MAE on 06/16/201458 Levetiracetam (Levetiracetam) 500 Mg Tablet, 500 MG PO BID, (Reported) Entered as Reported by: CAE MAE on 06/16/201458 Mirtazapine (Mirtazapine) 30 Mg Tablet, 30 MG PO HS, (Reported) Entered as Reported by: ACE MAE on 06/16/201458 Omeprazole/Sodium Bicarbonate (Omeprazole-Bicarb 40-1,100 Cap) 1 Each Capsule, 1 EA PO BID, (Reported) Entered as Reported by: ACE MAE on 06/16/201458 Sucralfate (Sucralfate) 1 Gm Tablet, 1 GM PO QID PRN for ULCER PAIN, (Reported) Entered as Reported by: ACE MAE 06/16/201458 Valsartan (Valsartan) 320 Mg Tablet, 320 MG PO HS, (Reported) Entered as Reported by: ACE MAE on 06/16/201458 Venlafaxine HCl (Venlafaxine HCl ER) 150 Mg Cap.er.24h, 150 MG PO DAILY, (Reported) Entered as Reported by: ACE MAE on 06/16/201458 Venlafaxine HCl (Venlafaxine HCl ER) 75 Mg Cap.er.24h, 75 MG PO DAILY, (Reported) Entered as Reported by: ACE MAE on 06/16/201458 Zolpidem Tartrate (Zolpidem Tartrate ER) 12.5 Mg Tab.mphase, 12.5 MG PO HS, (Reported) Entered as Reported by: ACE MAE on 06/16/20 5732 Past Uqfpshg-Zrrpej-Qxamhg Hx Patient Social History Tobacco Use?: Yes Tobacco type used: Cigarettes Smoking Status: Current Everyday Smoker Use of E-Cig and/or Vaping dev: No Substance use?: Yes Substance type: Misuse of prescript meds Additional substance use comme: SUBOXONE "OFF THE STREETS" Alcohol Use?: No Immunizations Up To Date Tetanus Booster (TDap): More than 5yrs PED Vaccines UTD: No Influenza Vaccine Up-to-Date: No; Not Current First/Initial COVID19 Vaccinat: 2020 Second COVID19 Vaccination Johan: 2020 Third COVID19 Vaccination Date: 2020 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 Seasonal Allergies Seasonal Allergies: No Past Medical History Surgeries: Yes Eye Surgery Respiratory: No Currently Using CPAP: No Currently Using BIPAP: No Cardiac: No High Cholesterol, Hypertension Neurological: No Seizure Disorder Reproductive Disorders: No Genitourinary: No Gastrointestinal: No Gastroesophageal Reflux, Liver Disease/Jaundice, Pancreatitis Musculoskeletal: Yes (CHRONIC BACK PAIN WITH "CYST" ON LOWER BACK/"SPINE" ) Chronic Back Pain Endocrine: Yes Diabetes, Insulin dep HEENT: Yes Cataract Loss of Vision: Denies Hearing Impairment: Denies Cancer: No Psychosocial: Yes Anxiety Integumentary: No Blood Disorders: No Adverse Reaction/Blood Tranf: Yes Family Medical History Cancer 03 MOTHER Congestive heart failure 03 FATHER Family history: Hypertension 03 FATHER father has Alzheimer's Physical Exam Vital Signs - First Documented 02/20/21 21:51 Temp 37.3 Pulse 121 Resp 22 B/P (MAP) 167/93 (117) Pulse Ox 97 O2 Delivery Room Air Capillary Refill : Less Than 3 Seconds Height, Weight, BMI Height: 5'7.00" Weight: 204lbs. 3.0oz. 92.730718mr; 29.00 BMI Method:Stated Progress/Results/Core Measures Results/Orders Lab Results Laboratory Tests Test 02/20/21 21:34 02/20/21 21:59 02/20/21 22:20 02/20/21 23:16 Range/Units Influenza Type A (RT-PCR) Not Detected Not Detecte Influenza Type B (RT-PCR) Not Detected Not Detecte SARS-CoV-2 RNA (RT-PCR) Not Detected Not Detecte White Blood Count 17.7 H 4.3-11.0 10^3/uL Red Blood Count 5.19 4.30-5.52 10^6/uL Hemoglobin 16.0 13.3-17.7 g/dL Hematocrit 44 40-54 % Mean Corpuscular Volume 85 80-99 fL Mean Corpuscular Hemoglobin 31 25-34 pg Mean Corpuscular Hemoglobin Concent 36 32-36 g/dL Red Cell Distribution Width 12.2 10.0-14.5 % Platelet Count 283 130-400 10^3/uL Mean Platelet Volume 10.3 9.0-12.2 fL Immature Granulocyte % (Auto) 1 % Neutrophils (%) (Auto) 79 H 42-75 % Lymphocytes (%) (Auto) 13 12-44 % Monocytes (%) (Auto) 8 0-12 % Eosinophils (%) (Auto) 0 0-10 % Basophils (%) (Auto) 0 0-10 % Neutrophils # (Auto) 13.9 H 1.8-7.8 10^3/uL Lymphocytes # (Auto) 2.2 1.0-4.0 10^3/uL Monocytes # (Auto) 1.4 H 0.0-1.0 10^3/uL Eosinophils # (Auto) 0.0 0.0-0.3 10^3/uL Basophils # (Auto) 0.0 0.0-0.1 10^3/uL Immature Granulocyte # (Auto) 0.1 0.0-0.1 10^3/uL Neutrophils % (Manual) 78 % Lymphocytes % (Manual) 13 % Monocytes % (Manual) 9 % Blood Morphology Comment NORMAL Prothrombin Time 14.5 12.2-14.7 SEC INR Comment 1.1 0.8-1.4 Activated Partial Thromboplast Time 31 24-35 SEC Sodium Level 136 135-145 MMOL/L Potassium Level 3.3 L 3.6-5.0 MMOL/L Chloride Level 98 98-107 MMOL/L Carbon Dioxide Level 22 21-32 MMOL/L Anion Gap 16 H 5-14 MMOL/L Blood Urea Nitrogen 12 7-18 MG/DL Creatinine 0.82 0.60-1.30 MG/DL Estimat Glomerular Filtration Rate 101 BUN/Creatinine Ratio 15 Glucose Level 374 H 70-105 MG/DL Lactic Acid Level 0.95 0.50-2.00 MMOL/L Calcium Level 9.0 8.5-10.1 MG/DL Corrected Calcium 9.2 8.5-10.1 MG/DL Total Bilirubin 0.5 0.1-1.0 MG/DL Aspartate Amino Transf (AST/SGOT) 14 5-34 U/L Alanine Aminotransferase (ALT/SGPT) 20 0-55 U/L Alkaline Phosphatase 145 H 40-136 U/L Total Creatine Kinase 179 30-200 U/L C-Reactive Protein High Sensitivity 0.86 H 0.00-0.50 MG/DL Total Protein 7.2 6.4-8.2 GM/DL Albumin 3.8 3.2-4.5 GM/DL Procalcitonin 0.04 <0.10 NG/ML Serum Alcohol < 10 <10 MG/DL Urine Color YELLOW Urine Clarity CLEAR Urine pH 8.0 5-9 Urine Specific [place] 1.015 L 1.016-1.022 Urine Protein TRACE H NEGATIVE Urine Glucose (UA) 3+ H NEGATIVE Urine Ketones 1+ H NEGATIVE Urine Nitrite NEGATIVE NEGATIVE Urine Bilirubin NEGATIVE NEGATIVE Urine Urobilinogen 0.2 < = 1.0 MG/DL Urine Leukocyte Esterase NEGATIVE NEGATIVE Urine RBC (Auto) TRACE-I H NEGATIVE Urine RBC NONE /HPF Urine WBC NONE /HPF Urine Squamous Epithelial Cells RARE /HPF Urine Crystals PRESENT H /LPF Urine Amorphous Sediment LARGE DIYA URATES H /LPF Urine Bacteria TRACE /HPF Urine Casts NONE /LPF Urine Mucus NEGATIVE /LPF Urine Culture Indicated CULTURE PENDING Urine Opiates Screen NEGATIVE NEGATIVE Urine Oxycodone Screen NEGATIVE NEGATIVE Urine Methadone Screen NEGATIVE NEGATIVE Urine Propoxyphene Screen NEGATIVE NEGATIVE Urine Barbiturates Screen NEGATIVE NEGATIVE Ur Tricyclic Antidepressants Screen NEGATIVE NEGATIVE Urine Phencyclidine Screen NEGATIVE NEGATIVE Urine Amphetamines Screen NEGATIVE NEGATIVE Urine Methamphetamines Screen NEGATIVE NEGATIVE Urine Benzodiazepines Screen POSITIVE H NEGATIVE Urine Cocaine Screen NEGATIVE NEGATIVE Urine Cannabinoids Screen NEGATIVE NEGATIVE Test 02/21/21 01:40 Range/Units Glucometer 339 H 70-110 MG/DL My Orders Orders - DAVIDE ALANIS MD Lorazepam Injection (Ativan Injection) (02/20/21 22:00) Ondansetron Injection (Zofran Injectio (02/20/21 22:15) Cbc With Automated Diff (02/20/21 22:07) Comprehensive Metabolic Panel (02/20/21 22:07) Blood Culture (02/20/21 22:07) Sputum Culture (02/20/21 22:07) Urinalysis (02/20/21 22:) Urine Culture (02/20/21 22:07) Protime With Inr (02/20/21 22:07) Partial Thromboplastin Time (02/20/21 22:07) Chest 1 View, Ap/Pa Only (02/20/21 22:07) Ed Iv/Invasive Line Start (02/20/21 22:07) Vital Signs Adult Sepsis Patie Q15M (02/20/21 22:07) O2 (02/20/21 22:07) Remove Rings In Anticipation O (02/20/21:) Lactic Acid Analyzer (02/20/21 22:07) Procalcitonin (Pct) (02/20/21 22:07) Hs C Reactive Protein (02/20/21 22:07) Covid 19 Inhouse Test (02/20/21 22:07) Influenza A And B By Pcr (02/20/21 22:07) Manual Differential (02/20/21 21:59) Alcohol (02/20/21 23:49) Drug Screen Stat (Urine) (02/20/21 23:49) Rx-Lorazepam (Rx-Ativan) (02/21/21 01:26) Lactated Ringers (Lr 1000 Ml Iv Solution (02/21/21 01:30) Accucheck Stat ONCE (02/21/21 01:26) Creatine Kinase (02/21/21 01:28) Medications Given in ED Current Medications Medications Dose Ordered Sig/Attila Route Start Time Stop Time Status Last Admin Dose Admin Lactated Ringer's 1,000 ml @ 0 mls/hr Q0M ONCE IV 02/21/21 01:30 02/21/21 01:31 DC 02/21/21 01:38 1,000 MLS/HR Lorazepam 1 mg ONCE ONCE IVP 02/20/21 22:00 02/20/21 22:01 DC 02/20/21 22:35 1 MG Ondansetron HCl 8 mg ONCE ONCE IVP 02/20/21 22:15 02/20/21 22:16 DC 02/20/21 22:35 8 MG Vital Signs/I&O 02/20/21 02/21/21 21:51 02:45 Temp 37.3 Pulse 121 107 Resp 22 13 B/P (MAP) 167/93 (117) 135/79 Pulse Ox 97 96 O2 Delivery Room Air Room Air 02/21/21 00:00 Intake Total 400 ml Balance 400 ml Blood Pressure Mean: 117 Progress Progress Note : Time: 01:34 Progress Note Patient is much calmer now and lying comfortably in the bed. He responded well to IV fluids and Ativan. He now states he is not suicidal and that those feelings were directly associated with the severity of withdrawal symptoms he was experiencing in that moment. He contracts for safety and is certain he will be safe if discharged home. He feels well now except for some generalized muscle soreness. Heart rate has improved. Mentation has significantly improved. We will hydrate him with an additional liter of LR and dispense a take-home bottle of Ativan that he can use if he has rebound withdrawal symptoms. He plans to enroll in a rehab program at [facility] in [place]. Diagnostic Imaging Diagonstic Imaging: Xray Plain Films/CT/US/NM/MRI: chest Comments NAME: [facility]ION[facility]IRANDA [facility] REC#: [id number] PT STATUS: REG ER : 1975 PHYSICIAN: DAVIED ALANIS MD ADMIT DATE: 02/20/21/ER Signed Date of Exam:02/20/21 CHEST 1 VIEW, AP/PA ONLY INDICATION: Shortness of breath, cough. COMPARISON: 10/24/2016 FINDINGS: Single view of the chest demonstrates clear lungs bilaterally. The heart is normal. There is no pneumothorax. The osseous structures normal. IMPRESSION: Negative chest. Dictated by: Dictated on workstation # [id number] Dict: 02/20/212227 Trans: 02/20/212300 [facility] [id number] Interpreted by: JASWINDER DELEON Electronically signed by: JASWINDER DELEON 02/20/212300 Departure Impression Primary Impression: Opioid withdrawal Additional Impressions: Suicidal ideation Hyperglycemia Disposition: 01 HOME, SELF-CARE Condition: Improved Departure-Patient Inst. Decision time for Depature: 01:37 Referrals: ACE RODRIGUEZ DO (PCP/Family) Primary Care Physician Patient Instructions: Drug Withdrawal ED Add. Discharge Instructions: Water to stay well-hydrated. Use Ativan 1 tablet every 4-6 hours as needed for withdrawal symptoms. Follow-up with your primary care provider soon as possible. Call with questions or concerns. Return to the ER if you have worsening symptoms. All discharge instructions reviewed with patient and/or family. Voiced understanding. Work/School Note: Work Release Form Date Seen in the Emergency Department: Feb 21, 2021 Return to Work: Feb 22, 2021 Restrictions: Return-No Fever (24hrs) Copy Copies To 1: ACE RODRIGUEZ JOSHUA T MD Feb 21, 2021 01:39
[2021-02-21 02:45] VITALS: BP 135/79
== END 2021-02-21 02:45 | disposition home or self-care (01) ==
LOC: EDUNIT# 21:51 → ER 21:52
DX: F11.23 Opioid dependence with withdrawal (principal); R45.851 Suicidal ideations; E11.65 Type 2 diabetes mellitus with hyperglycemia; I10 Essential (primary) hypertension; F41.9 Anxiety disorder, unspecified; E78.00 Pure hypercholesterolemia, unspecified; G89.29 Other chronic pain; M54.9 Dorsalgia, unspecified; K21.9 Gastro-esophageal reflux disease without esophagitis; G40.909 Epilepsy, unspecified, not intractable, without status epilepticus; F17.210 Nicotine dependence, cigarettes, uncomplicated; Z20.822 Contact with and (suspected) exposure to COVID-19; Z79.4 Long term (current) use of insulin; Z79.899 Other long term (current) drug therapy
CPT/HCPCS: 71045; 80053; 80306; 81000; 82550; 82947; 83605; 84145; 85007; 85027; 85610; 85730; 86141; 87040; 87088; 87636; 96361; 96374; 96375; 99284; G0480; 36415; 80320

== ENCOUNTER 2021-02-24 03:58 | Emergency (ER) | payer MEDICARE ==
[~2021-02-24] VITALS: Ht 168 cm; Wt 84.0 kg
[2021-02-24] MEDS ORDERED: NS IV 1000 ML 1,000 ML IV SCH ×2 (04:15→06:00)
[2021-02-24] MEDS ORDERED: DROPERIDOL 5 MG/2 ML (INAPSINE) ED ONLY! IV ONE (04:15)
[2021-02-24 04:22] LABS: BASOPHILS # (AUTO) 0.1 10^3/uL (0.0-0.1); BASOPHILS % (AUTO) 0 % (0-10); EOSINOPHILS % (AUTO) 0 % (0-10); HEMATOCRIT 46 % (40-54); HEMOGLOBIN 16.8 g/dL (13.3-17.7); LYMPHOCYTES % (AUTO) 14 % (12-44); MEAN CORPUSCULAR HEMOGLOBIN 31 pg (25-34); MEAN CORPUSCULAR HGB CONC 36 g/dL (32-36); MEAN CORPUSCULAR VOLUME 84 fL (80-99); MEAN PLATELET VOLUME 9.3 fL (9.0-12.2); MONOCYTES # (AUTO) 0.4 10^3/uL (0.0-1.0); MONOCYTES % (AUTO) 3 % (0-12); NEUTROPHILS # (AUTO) 11.4 10^3/uL (1.8-7.8); NEUTROPHILS % (AUTO) 82 % (42-75); PLATELET COUNT 358 10^3/uL (130-400); WHITE BLOOD COUNT 13.9 10^3/uL (4.3-11.0)
[2021-02-24 04:26] LABS: ALBUMIN 4.2 GM/DL (3.2-4.5); CHLORIDE 102 MMOL/L (98-107); POTASSIUM 3.7 MMOL/L (3.6-5.0); SODIUM 134 MMOL/L (135-145)
[2021-02-24 04:28] LABS: AMYLASE 32 U/L (25-125); CALCIUM 9.6 MG/DL (8.5-10.1)
[2021-02-24 04:29] LABS: GLUCOSE 299 MG/DL (70-105); TOTAL PROTEIN 7.8 GM/DL (6.4-8.2)
[2021-02-24 04:30] LABS: CARBON DIOXIDE 13 MMOL/L (21-32)
[2021-02-24 04:31] LABS: BILIRUBIN,TOTAL 0.4 MG/DL (0.1-1.0)
[2021-02-24 04:32] LABS: ALKALINE PHOSPHATASE 169 U/L (40-136)
[2021-02-24 04:33] LABS: CREATININE SERUM 0.89 MG/DL (0.60-1.30); GFR ESTIMATED 106
[2021-02-24 04:34] LABS: BUN/CREATININE RATIO 13
[2021-02-24 04:35] LABS: MAGNESIUM 1.9 MG/DL (1.6-2.4)
[2021-02-24 04:36] LABS: ALANINE AMINOTRANSFERASE 31 U/L (0-55); LIPASE 22 U/L (8-78)
[2021-02-24 04:37] LABS: ACETAMINOPHEN < 10 UG/ML (10-30)
[2021-02-24 05:17] LABS: BILIRUBIN,URINE NEGATIVE (NEGATIVE); CLARITY,URINE CLEAR; COLOR,URINE YELLOW; GLUCOSE, URINE (UA) 3+ (NEGATIVE); KETONES,URINE 2+ (NEGATIVE); LEUKOCYTE ESTERASE ,URINE NEGATIVE (NEGATIVE); NITRITE,URINE NEGATIVE (NEGATIVE); PROTEIN,URINE NEGATIVE (NEGATIVE)
[2021-02-24 05:34] LABS: AMPHETAMINE SCREEN, URINE NEGATIVE (NEGATIVE); BARBITURATE SCREEN URINE NEGATIVE (NEGATIVE); BENZODIAZEPINES SCREEN URINE NEGATIVE (NEGATIVE); CANNABINOID SCREEN, URINE NEGATIVE (NEGATIVE); COCAINE SCREEN URINE NEGATIVE (NEGATIVE); METHADONE STAT NEGATIVE (NEGATIVE); METHAMPHETAMINE SCREEN URINE S NEGATIVE (NEGATIVE); OPIATE SCREEN URINE NEGATIVE (NEGATIVE); OXYCODONE STAT NEGATIVE (NEGATIVE); PROPOXYPHENE STAT NEGATIVE (NEGATIVE); TRICYCLIC ANTIDEPRESSANTS SCRE NEGATIVE (NEGATIVE)
[2021-02-24 05:38] LABS: ERYTHROCYTE SEDIMENTATION RATE 18 MM/HR (0-15)
[2021-02-24 05:42] LABS: BACTERIA,URINE NEGATIVE /HPF; RBC,URINE RARE /HPF; WBC,URINE RARE /HPF
--- NOTE | 2021-02-24 06:24 | Diagnostic Imaging Report ---
INDICATION: Chest pain EXAMINATION: Chest 02/24/2021 COMPARISON: 02/20/2021 FINDINGS: The cardiomediastinal silhouette is unremarkable. The pulmonary vasculature is within normal limits. The lungs and pleural spaces are clear. IMPRESSION: No evidence of an acute cardiopulmonary process. Dictated by: Dictated on workstation # [id number]
[2021-02-24] MEDS ORDERED: IOHEXOL 350 MG/ML 150 ML (OMNIPAQUE 350) VIAL IV ONE (06:30)
[2021-02-24] MEDS ORDERED: NS 100 ML (IVPB) BAG IV ONE (06:30)
[2021-02-24] MEDS ORDERED: HOLD METFORMIN - RECEIVED CONTRAST 20 ML VIAL IV SCH (06:30)
[2021-02-24] MEDS ORDERED: CATHETER FLUSH 10 ML SYR IV PRN (06:30)
--- NOTE | 2021-02-24 06:44 | Diagnostic Imaging Report ---
PROCEDURE: CT abdomen and pelvis with contrast, rule out appendicitis. TECHNIQUE: Multiple contiguous axial images were obtained through the abdomen and pelvis after the administration of intravenous contrast. All CT scans use one or more of the following dose optimizing techniques: automated exposure control, MA and/or KvP adjustment based on patient size and exam type or iterative reconstruction. INDICATION: Right lower quadrant abdominal pain. COMPARISON: CT abdomen and pelvis with IV contrast 08/22/2019. FINDINGS: Lung bases are clear. Diffuse fatty infiltration of the liver. Cholelithiasis. The pancreas, spleen, adrenals, kidneys, collecting systems, bladder and appendix are negative. No lymphadenopathy. No free intraperitoneal air or fluid. No evidence of bowel obstruction or inflammation. No acute osseous findings. IMPRESSION: 1. No acute CT findings in the abdomen or pelvis. 2. Mild cholelithiasis without secondary findings of cholecystitis. This could be better evaluated with dedicated ultrasound if clinically warranted 3. Hepatic steatosis. Dictated by: Dictated on workstation # [id number]
--- NOTE | 2021-02-24 06:49 | ED GI ---
General Chief Complaint: Abdominal/GI Problems Stated Complaint: NAUSEA Source of Information: Patient (LIMITED HISTORIAN) (LEYDA LEBLANC DO) History of Present Illness Date Seen by Provider: Feb 24, 2021 Time Seen by Provider: 04:12 Initial Comments PT ARRIVES VIA EMS FROM HOME C/O NAUSEA AND VOMITING/DRY HEAVES SINCE 1999 TONIGHT EMS GAVE ZOFRAN 4 MG WITHOUT RELIEF BLOOD GLUCOSE 308 BY EMS C/O LOWER ABDOMINAL PAIN NO DIARRHEA NO FEVER BUT IS PROFUSELY DIAPHORETIC ON ARRIVAL NO CHEST PAIN NO SHORTNESS OF BREATH PT STATES HE HAS NOT HAD ANY MEDICATION CHANGES OR MISSED ANY DOSES OF MEDICATIONS PT IS DIABETIC STATES BLOOD SUGARS HAVE BEEN AROUND 200 DENIES SICK CONTACTS OR SUSPICIOUS FOODS ON REVIEW OF OLD CHARTS, PT WAS JUST HERE ON 02/20/21 FOR OPOID WITHDRAW SYMPTOMS AFTER RUNNING OUT OF HIS SUBOXONE, WHICH HE OBTAINS "OFF THE STREET" PT NEGLECTED TO DISCUSS THIS WITH ME OR NURSING STAFF OR EMS. PT HAS HAD COVID-19 VACCINE X 3 PCP: [facility] (LEYDA LEBLANC DO) Allergies and Home Medications Allergies Coded Allergies: levofloxacin (Verified Adverse Reaction, Unknown, STOMACH CAMPS, 06/08/15) Patient Home Medication List Home Medication List Reviewed: Yes (DAVIDE ALANIS MD) Acetaminophen (Tylenol Extra Strength) 500 Mg Tablet, 1,000 MG PO Q8H PRN for PAIN-MILD (1-4), (Reported) Entered as Reported by: ACE MAE on 06/16/201458 Aripiprazole (Aripiprazole) 5 Mg Tablet, 5 MG PO HS, (Reported) Entered as Reported by: ACE MAE on 06/16/20 145 Cholestyramine (with Sugar) (Cholestyramine Packet) 4 Gm Powd.pack, 4 GM PO QID PRN for SCOPE PREPERATION, (Reported) Entered as Reported by: ACE MAE on 06/16/20 145 Diltiazem HCl (Diltiazem 24Hr ER) 240 Mg Cap.er.24h, 240 MG PO DAILY, (Reported) Entered as Reported by: ACE MAE on 06/16/20 145 Empagliflozin (Jardiance) 10 Mg Tablet, 10 MG PO DAILY, (Reported) Entered as Reported by: ACE MAE on 06/16/201458 Fenofibrate Nanocrystallized (Fenofibrate) 145 Mg Tablet, 145 MG PO HS, (Reported) Entered as Reported by: ACE MAE on 06/16/20 145 Hydrocodone/Acetaminophen (Hydrocodone-Acetamin 5-325 mg) 1 Each Tablet, 1 EA PO 1200 PRN for PAIN-MODERATE (5-7), (Reported) Entered as Reported by: ACE MAE on 06/16/20 145 Insulin Aspart (Novolog Flexpen) 300 Units/3 Ml Solution, UNIT SC AC, (Reported) Entered as Reported by: QUENTIN ANNE on 05/11/18 142 Insulin Glargine,Hum.rec.anlog (Basaglar Kwikpen U-100) 100 Unit/1 Ml Insuln.pen, 20 UNIT SC DAILY, (Reported) Entered as Reported by: QUENTIN ANNE on 05/11/18 142 Lactobacillus Acidophilus (Acidophilus) 1 Each Capsule, 1 EACH PO DAILY, (Reported) Entered as Reported by: ACE MAE on 06/16/201458 Levetiracetam (Levetiracetam) 500 Mg Tablet, 500 MG PO BID, (Reported) Entered as Reported by: ACE MAE on 06/16/20 145 Mirtazapine (Mirtazapine) 30 Mg Tablet, 30 MG PO HS, (Reported) Entered as Reported by: ACE MAE on 06/16/20 145 Omeprazole/Sodium Bicarbonate (Omeprazole-Bicarb 40-1,100 Cap) 1 Each Capsule, 1 EA PO BID, (Reported) Entered as Reported by: ACE MAE on 06/16/20 145 Ondansetron (Ondansetron Odt) 4 Mg Tab.rapdis, 4 MG SL Q4H PRN for NAUSEA/VOMITING Prescribed by: DAVIDE AGFFNEY on 02/24/21 1207 Sucralfate (Sucralfate) 1 Gm Tablet, 1 GM PO QID PRN for ULCER PAIN, (Reported) Entered as Reported by: ACE MAE on 06/16/20 145 Valsartan (Valsartan) 320 Mg Tablet, 320 MG PO HS, (Reported) Entered as Reported by: ACE MAE on 06/16/20 145 Venlafaxine HCl (Venlafaxine HCl ER) 150 Mg Cap.er.24h, 150 MG PO DAILY, (Reported) Entered as Reported by: ACE MAE on 06/16/20 145 Venlafaxine HCl (Venlafaxine HCl ER) 75 Mg Cap.er.24h, 75 MG PO DAILY, (Reported) Entered as Reported by: ACE MAE on 06/16/201458 Zolpidem Tartrate (Zolpidem Tartrate ER) 12.5 Mg Tab.mphase, 12.5 MG PO HS, (Reported) Entered as Reported by: ACE MAE on 06/16/201458 Review of Systems Review of Systems Constitutional: diaphoresis Respiratory: No Symptoms Reported Cardiovascular: No Symptoms Reported Gastrointestinal: See HPI, Abdominal Pain, Nausea, Vomiting Genitourinary: No Symptoms Reported Musculoskeletal: no symptoms reported Skin: no symptoms reported Psychiatric/Neurological: Anxiety (LEYDA LEBLANC DO) Past Vmybioc-Aipxgu-Ocjvnj Hx Patient Social History Tobacco Use?: Yes (1 PPD) Tobacco type used: Cigarettes Smoking Status: Current Everyday Smoker Substance use?: Yes Substance type: Opiates/Opioids, Misuse of prescript meds, Marijuana Alcohol Use?: Yes (LEYDA LEBLANC DO) Immunizations Up To Date Tetanus Booster (TDap): More than 5yrs PED Vaccines UTD: No First/Initial COVID19 Vaccinat: 2020 Second COVID19 Vaccination Johan: 2020 Third COVID19 Vaccination Date: 2020 (LEYDA LBELANC DO) Seasonal Allergies Seasonal Allergies: No (LEYDA LEBLANC DO) Past Medical History Surgeries: Yes ("CYST FROM LOWER BACK") Eye Surgery Respiratory: No Currently Using CPAP: No Currently Using BIPAP: No Cardiac: Yes High Cholesterol, Hypertension Neurological: Yes Seizure Disorder Reproductive Disorders: No Genitourinary: No Gastrointestinal: Yes (FATTY LIVER DISEASE) Gastroesophageal Reflux, Liver Disease/Jaundice, Pancreatitis Musculoskeletal: Yes (CHRONIC BACK PAIN WITH "CYST" ON LOWER BACK/"SPINE" ) Chronic Back Pain Endocrine: Yes Diabetes, Insulin dep HEENT: Yes Cataract Loss of Vision: Denies Hearing Impairment: Denies Cancer: No Psychosocial: Yes (OVERDOSED 08/2016) Anxiety, Suicide Attempts, Bipolar, Depression Integumentary: No Blood Disorders: No Adverse Reaction/Blood Tranf: Yes (LEYDA LEBLANC DO) Family Medical History Cancer 03 MOTHER Congestive heart failure 03 FATHER Family history: Hypertension 03 FATHER SOCIAL HISTORY: -ETOH--REGULAR/HEAVY USE -DRUGS--OPIATES, BENZODIAZEPINES, THC, SUBOXONE--GETS SUBOXONE "OFF THE STREET" -SMOKES 1 PPD (LEYDA LEBLANC DO) Physical Exam Vital Signs Vital Signs - First Documented 02/24/21 04:03 Temp 37.2 Pulse 118 Resp 24 B/P (MAP) 159/110 (126) Pulse Ox 98 O2 Delivery Room Air (DAVIDE ALANIS MD) Vital Signs Capillary Refill : (LEYDA LEBLANC DO) Height/Weight/BMI Height: 5'7.00" Weight: 204lbs. 3.0oz. 92.735702ux; 29.00 BMI Method:Stated General Appearance: other (EXTREMELY DRAMATIC, WITH VERY LOUD, VERY HARSH FORCED RETCHING--NO ACTUAL VOMITING. PT WITH CONSTANT MOVEMENTS OF ENTIRE BODY INCLUDING MOUTH. PROFUSELY DIAPHORETIC) HEENT: other (EDENTULOUS) Respiratory: normal breath sounds, no respiratory distress, no accessory muscle use Cardiovascular: normal peripheral pulses, no edema, no JVD, no murmur, tachycardia Gastrointestinal: soft, tenderness (DIFFUSE LOWER ABDOMINAL TENDERNESS) Extremities: normal inspection, normal capillary refill Back: no CVA tenderness Neurologic/Psychiatric: no motor/sensory deficits, alert, oriented x 3 Skin: normal color, diaphoresis, tattoos/piercings (EXTENSIVE TATTOOS) (LEYDA LEBLANC DO) Focused Exam Lactate Level 02/24/21 04:10: Lactic Acid Level 3.20*H 02/24/21 07:00: Lactic Acid Level 1.26 (DAVIDE ALANIS MD) Lactic Acid Level Laboratory Tests Test 02/24/21 04:10 02/24/21 07:00 Lactic Acid Level 3.20 MMOL/L (0.50-2.00) *H 1.26 MMOL/L (0.50-2.00) (DAVIDE ALANIS MD) Progress/Results/Core Measures Results/Orders Lab Results Laboratory Tests Test 02/24/21 04:09 02/24/21 04:10 02/24/21 04:12 02/24/21 05:03 Range/Units Glucometer 307 H 70-110 MG/DL White Blood Count 13.9 H 4.3-11.0 10^3/uL Red Blood Count 5.49 4.30-5.52 10^6/uL Hemoglobin 16.8 13.3-17.7 g/dL Hematocrit 46 40-54 % Mean Corpuscular Volume 84 80-99 fL Mean Corpuscular Hemoglobin 31 25-34 pg Mean Corpuscular Hemoglobin Concent 36 32-36 g/dL Red Cell Distribution Width 11.9 10.0-14.5 % Platelet Count 358 130-400 10^3/uL Mean Platelet Volume 9.3 9.0-12.2 fL Immature Granulocyte % (Auto) 1 % Neutrophils (%) (Auto) 82 H 42-75 % Lymphocytes (%) (Auto) 14 12-44 % Monocytes (%) (Auto) 3 0-12 % Eosinophils (%) (Auto) 0 0-10 % Basophils (%) (Auto) 0 0-10 % Neutrophils # (Auto) 11.4 H 1.8-7.8 10^3/uL Lymphocytes # (Auto) 2.0 1.0-4.0 10^3/uL Monocytes # (Auto) 0.4 0.0-1.0 10^3/uL Eosinophils # (Auto) 0.0 0.0-0.3 10^3/uL Basophils # (Auto) 0.1 0.0-0.1 10^3/uL Immature Granulocyte # (Auto) 0.1 0.0-0.1 10^3/uL Erythrocyte Sedimentation Rate 18 H 0-15 MM/HR Sodium Level 134 L 135-145 MMOL/L Potassium Level 3.7 3.6-5.0 MMOL/L Chloride Level 102 98-107 MMOL/L Carbon Dioxide Level 13 L 21-32 MMOL/L Anion Gap 19 H 5-14 MMOL/L Blood Urea Nitrogen 12 7-18 MG/DL Creatinine 0.89 0.60-1.30 MG/DL Estimat Glomerular Filtration Rate 106 BUN/Creatinine Ratio 13 Glucose Level 299 H 70-105 MG/DL Lactic Acid Level 3.20 *H 0.50-2.00 MMOL/L Calcium Level 9.6 8.5-10.1 MG/DL Corrected Calcium 9.4 8.5-10.1 MG/DL Magnesium Level 1.9 1.6-2.4 MG/DL Total Bilirubin 0.4 0.1-1.0 MG/DL Aspartate Amino Transf (AST/SGOT) 21 5-34 U/L Alanine Aminotransferase (ALT/SGPT) 31 0-55 U/L Alkaline Phosphatase 169 H 40-136 U/L Lactate Dehydrogenase 311 H 125-220 U/L Troponin I < 0.028 <0.028 NG/ML C-Reactive Protein High Sensitivity 0.26 0.00-0.50 MG/DL Total Protein 7.8 6.4-8.2 GM/DL Albumin 4.2 3.2-4.5 GM/DL Amylase Level 32 25-125 U/L Lipase 22 8-78 U/L Procalcitonin 0.03 <0.10 NG/ML Acetaminophen Level < 10 L 10-30 UG/ML Serum Alcohol < 10 <10 MG/DL Influenza Type A (RT-PCR) Not Detected Not Detecte Influenza Type B (RT-PCR) Not Detected Not Detecte SARS-CoV-2 RNA (RT-PCR) Not Detected Not Detecte Urine Color YELLOW Urine Clarity CLEAR Urine pH 7.0 5-9 Urine Specific [place] 1.010 L 1.016-1.022 Urine Protein NEGATIVE NEGATIVE Urine Glucose (UA) 3+ H NEGATIVE Urine Ketones 2+ H NEGATIVE Urine Nitrite NEGATIVE NEGATIVE Urine Bilirubin NEGATIVE NEGATIVE Urine Urobilinogen 0.2 < = 1.0 MG/DL Urine Leukocyte Esterase NEGATIVE NEGATIVE Urine RBC (Auto) NEGATIVE NEGATIVE Urine RBC RARE /HPF Urine WBC RARE /HPF Urine Crystals NONE /LPF Urine Bacteria NEGATIVE /HPF Urine Casts NONE /LPF Urine Mucus NEGATIVE /LPF Urine Culture Indicated NO Urine Opiates Screen NEGATIVE NEGATIVE Urine Oxycodone Screen NEGATIVE NEGATIVE Urine Methadone Screen NEGATIVE NEGATIVE Urine Propoxyphene Screen NEGATIVE NEGATIVE Urine Barbiturates Screen NEGATIVE NEGATIVE Ur Tricyclic Antidepressants Screen NEGATIVE NEGATIVE Urine Phencyclidine Screen NEGATIVE NEGATIVE Urine Amphetamines Screen NEGATIVE NEGATIVE Urine Methamphetamines Screen NEGATIVE NEGATIVE Urine Benzodiazepines Screen NEGATIVE NEGATIVE Urine Cocaine Screen NEGATIVE NEGATIVE Urine Cannabinoids Screen NEGATIVE NEGATIVE Test 02/24/21 05:11 02/24/21 07:00 Range/Units Beta-Hydroxybutyrate (Chem panel) 2.69 H 0.00-0.27 MMOL/L Lactic Acid Level 1.26 0.50-2.00 MMOL/L (DAVIDE ALANIS MD) My Orders Orders - DAVIDE ALANIS MD Gallbladder [id number] (02/24/21 09:59) (DAVIDE ALANIS MD) Medications Given in ED Current Medications Medications Dose Ordered Sig/Attila Route Start Time Stop Time Status Last Admin Dose Admin Droperidol 2.5 mg ONCE ONCE IV 02/24/21 04:15 02/24/21 04:16 DC 02/24/21 04:49 2.5 MG Iohexol 150 ml ONCE ONCE IV 02/24/21 06:30 02/24/21 06:31 DC 02/24/21 06:29 100 ML Sodium Chloride 10 ml NEEDED PRN IV 02/24/21 06:30 02/24/21 06:30 10 ML Sodium Chloride 100 ml ONCE ONCE IV 02/24/21 06:30 02/24/21 06:31 DC 02/24/21 06:29 80 ML (DAVIDE ALANIS MD) Vital Signs/I&O 02/24/21 04:03 Temp 37.2 Pulse 118 Resp 24 B/P (MAP) 159/110 (126) Pulse Ox 98 O2 Delivery Room Air (DAVIDE ALANIS MD) [facility] Bedside Testing Finger Stick Blood Glucose: 307 (LEYDA LEBLANC DO) Progress Progress Note : Progress Note GIVEN IV FLUIDS AND INAPSINE WITH COMPLETE RESOLUTION OF NAUSEA AND RETCHING. PT IS NO LONGER DIAPHORETIC 0600--CARE TURNED OVER TO DR. ALANIS, CT PENDING. (LEYDA LEBLANC DO) Progress Note : Time: 12:08 Progress Note Care of this patient was assumed from Dr. Leblanc at shift change. CT was reviewed. Cholelithiasis without cholecystitis was noted. Per radiologist recommendation, follow-up with ultrasound was obtained. Ultrasound showed the same findings. Patient was feeling much better and able to tolerate oral water. He was discharged in stable condition. See discharge instructions. (DAVIDE ALANIS MD) Initial ECG Impression Date: Feb 24, 2021 Initial ECG Impression Time: 05:03 Initial ECG Rate: 105 Initial ECG Rhythm: S.Tach (LEYDA LEBLANC DO) Diagnostic Imaging Diagonstic Imaging: CT Plain Films/CT/US/NM/MRI: abdomen, pelvis Comments NAME: LIONEL MIRANDA [facility] REC#: [id number] PT STATUS: REG ER : 1975 PHYSICIAN: LEYDA LEBLANC DO ADMIT DATE: 02/24/21/ER Signed Date of Exam:02/24/21 CT ABD/PELV W (APPENDICITIS) PROCEDURE: CT abdomen and pelvis with contrast, rule out appendicitis. TECHNIQUE: Multiple contiguous axial images were obtained through the abdomen and pelvis after the administration of intravenous contrast. All CT scans use one or more of the following dose optimizing techniques: automated exposure control, MA and/or KvP adjustment based on patient size and exam type or iterative reconstruction. INDICATION: Right lower quadrant abdominal pain. COMPARISON: CT abdomen and pelvis with IV contrast 08/22/2019. FINDINGS: Lung bases are clear. Diffuse fatty infiltration of the liver. Cholelithiasis. The pancreas, spleen, adrenals, kidneys, collecting systems, bladder and appendix are negative. No lymphadenopathy. No free intraperitoneal air or fluid. No evidence of bowel obstruction or inflammation. No acute osseous findings. IMPRESSION: 1. No acute CT findings in the abdomen or pelvis. 2. Mild cholelithiasis without secondary findings of cholecystitis. This could be better evaluated with dedicated ultrasound if clinically warranted 3. Hepatic steatosis. Dictated by: Dictated on workstation # [id number] Dict: 02/24/21 0632 Trans: 02/24/21 1032 [facility] [id number] Interpreted by: ESTER DUARTE MD Electronically signed by: ESTER DUARTE MD 02/24/21 1032 Diagonstic Imaging: Ultrasound Plain Films/CT/US/NM/MRI: abdomen Comments NAME: LIONEL MIRANDA [facility] REC#: [id number] PT STATUS: REG ER : 1975 PHYSICIAN: DAVIDE ALANIS MD ADMIT DATE: 02/24/21/ER Draft Date of Exam:02/24/21 US GALLBLADDER [id number] PROCEDURE: US Gallbladder. TECHNIQUE: Multiple real-time grayscale images were obtained over the right upper quadrant in various projections. INDICATION: Abdominal pain with nausea and vomiting. The liver is enlarged at 21 cm. Liver does show diffuse increased echogenicity consistent with hepatic steatosis. Portal vein is patent and shows normal direction of flow. The gallbladder does appear to contain small stones as well as a small amount of sludge. The gallbladder wall however is of normal thickness of 2 mm. No pericholecystic fluid or biliary ductal dilatation is seen. Pancreas and aorta were obscured by bowel gas. IVC is patent. Right kidney is without calculi or hydronephrosis. There is no ascites. IMPRESSION: 1. Hepatomegaly and hepatic steatosis. 2. Cholelithiasis without evidence of acute cholecystitis. Dictated on workstation # [id number] Dict: 02/24/21 1057 Trans: 02/24/21 1101 [facility] [id number] Interpreted by: WINIFRED RIGGINS MD (DAVIDE ALANIS MD) Departure Impression Primary Impression: Cholelithiasis Qualified Codes: K80.20 - Calculus of gallbladder without cholecystitis without obstruction Additional Impressions: Nausea & vomiting Qualified Codes: R11.2 - Nausea with vomiting, unspecified Lower abdominal pain Opioid withdrawal SUBSTANCE ABUSE Disposition: HOME, SELF-CARE Condition: Improved Departure-Patient Inst. Decision time for Depature: 12:05 (DAVIDE ALANIS MD) Referrals: YESSENIA KUNZ BRETT D DO ACE RODRIGUEZ DO (PCP/Family) Primary Care Physician MARY MIRZA MD Patient Instructions: Gallstones (DC) Add. Discharge Instructions: Drink plenty of clear liquids today. Adhere to a clear liquid diet until tomorrow morning. Then gradually advance your diet with small quantities of bland food as tolerated. Strictly avoid fatty foods, greasy foods, and oils as they are likely to aggravate your gallbladder. Please follow-up with your primary care provider and the surgeon of your choice. A list of local surgeons is provided below. You may eventually need your gallbladder removed to treat these gallstones. Return to the ER if you have worsening symptoms including escalating pain, worsening vomiting, fever, etc. Use Zofran (ondansetron) as prescribed for nausea and vomiting. Call with questions or concerns. All discharge instructions reviewed with patient and/or family. Voiced understanding. Scripts Ondansetron (Ondansetron Odt) 4 Mg Tab.rapdis 4 MG SL Q4H PRN for NAUSEA/VOMITING, #10 TAB Prov: DAVIDE ALANIS MD 02/24/21 Copy Copies To 1: ACE RODRIGUEZ LISA K DO Feb 24, 2021 06:49 DAVIDE ALANIS MD Feb 24, 2021 12:10
--- NOTE | 2021-02-24 11:02 | Diagnostic Imaging Report ---
PROCEDURE: US Gallbladder. TECHNIQUE: Multiple real-time grayscale images were obtained over the right upper quadrant in various projections. INDICATION: Abdominal pain with nausea and vomiting. The liver is enlarged at 21 cm. Liver does show diffuse increased echogenicity consistent with hepatic steatosis. Portal vein is patent and shows normal direction of flow. The gallbladder does appear to contain small stones as well as a small amount of sludge. The gallbladder wall however is of normal thickness of 2 mm. No pericholecystic fluid or biliary ductal dilatation is seen. Pancreas and aorta were obscured by bowel gas. IVC is patent. Right kidney is without calculi or hydronephrosis. There is no ascites. IMPRESSION: 1. Hepatomegaly and hepatic steatosis. 2. Cholelithiasis without evidence of acute cholecystitis. Dictated by: Dictated on workstation # [id number]
[2021-02-24] MEDS ORDERED: ONDA4TAB11 SL (12:07)
[2021-02-24 12:31] VITALS: BP 144/90
== END 2021-02-24 12:31 | disposition home or self-care (01) ==
LOC: EDUNIT# 03:58 → ER 03:59
DX: K80.20 Calculus of gallbladder without cholecystitis without obstruction (principal); F11.23 Opioid dependence with withdrawal; F19.10 Other psychoactive substance abuse, uncomplicated; I10 Essential (primary) hypertension; E78.00 Pure hypercholesterolemia, unspecified; G40.909 Epilepsy, unspecified, not intractable, without status epilepticus; K21.9 Gastro-esophageal reflux disease without esophagitis; F41.9 Anxiety disorder, unspecified; F31.9 Bipolar disorder, unspecified; E11.9 Type 2 diabetes mellitus without complications; G89.29 Other chronic pain; M54.9 Dorsalgia, unspecified; F17.210 Nicotine dependence, cigarettes, uncomplicated; Z20.822 Contact with and (suspected) exposure to COVID-19; Z79.899 Other long term (current) drug therapy; Z79.4 Long term (current) use of insulin
CPT/HCPCS: 71045; 74177; 76705; 80053; 80306; 81000; 82010; 82150; 82947; 83036; 83605; 83615; 83690; 83735; 84145; 84484; 85025; 85652; 86141; 87040; 87636; 93005; 93041; 99284; G0480 ×2; 36415; 80320; 80329

== ENCOUNTER 2021-03-16 07:07 | Outpatient (CLI) | payer MEDICARE ==
[~2021-03-16] VITALS: Ht 167.7 cm; Wt 85.6 kg
[~2021-03-16 07:07] MED LIST changes: +ONDA4TAB11 SL
[2021-03-23] MEDS ORDERED: DOCU-143 PO (10:18)
[2021-03-23] MEDS ORDERED: ACHD5005 PO (10:18)
== END 2021-03-22 10:17 | disposition home or self-care (01) ==
LOC: PREOP 07:07
PROVIDERS: ATTEND Surgery
DX: Z01.818 Encounter for other preprocedural examination (principal)

== ENCOUNTER 2021-03-23 06:59 | Day surgery (SDC) | payer MEDICARE ==
[2021-03-23] VITALS (12 sets, daily range): BP systolic 135–189; BP diastolic 69–109
[~2021-03-23] VITALS: Ht 167.7 cm; Wt 85.6 kg
[2021-03-23] MEDS ORDERED: ceFAZolin 2 GM IV Premixed 50 ML IV ONE (07:30)
[2021-03-23] MEDS ORDERED: LIDOCAINE/EPI 2% 1:100,00 (XYLOCAINE) 20 ML VIAL ONE (07:56)
--- NOTE | 2021-03-23 08:43 | Progress Note-Pre Operative ---
Pre-Operative Progress Note H&P Reviewed The H&P was reviewed, patient examined and no changes noted. Date Seen by Provider: Mar 23, 2021 Time Seen by Provider: 08:43 Date H&P Reviewed: Mar 23, 2021 Time H&P Reviewed: 08:43 Pre-Operative Diagnosis: cholelithiasis CHRIS NGUYEN DO Mar 23, 2021 08:43
[2021-03-23] MEDS ORDERED: fentaNYL INJ 100 MCG/2 ML AMP ONE (09:03)
[2021-03-23] MEDS ORDERED: SEVOFLURANE (ULTANE) 15 ML INHAL SOLN ONE ×2 (09:03→10:18)
[2021-03-23] MEDS ORDERED: ROCURONIUM 50 MG/5 ML (ZEMURON) VIAL IV ONE ×2 (09:03→10:09)
[2021-03-23] MEDS ORDERED: proPOfol 200 MG/20 ML (DIPRIVAN) VIAL IV ONE (09:03)
[2021-03-23] MEDS ORDERED: MIDAZOLAM 2 MG/2 ML (VERSED) VIAL ONE ×2 (09:03→09:04)
[2021-03-23] MEDS ORDERED: ONDANSETRON 4 MG/2 ML (SDV) Z0FRAN ONE (09:03)
[2021-03-23] MEDS: LACTATED RINGERS 1,000 ML IV PRN ×2 (09:09→10:45)
[2021-03-23] MEDS ORDERED: MIDAZOLAM 2 MG/2 ML (VERSED) VIAL IV ONE (09:15)
--- NOTE | 2021-03-23 10:16 | Progress Note-Post Operative ---
Post-Operative Progess Note Surgeon (s)/[employer] Freight (s) Surgeon CHRIS NGUYEN DO Conductor Freight: Dr. Zarate to assist in retraction dissection and closure. Pre-Operative Diagnosis cholelithiasis Post-Operative Diagnosis same Procedure & Operative Findings Date of Procedure 03/23/21 Procedure Performed/Findings PROCEDURE: Laparoscopic cholecystectomy with intraoperative cholangiogram. COMPLICATIONS: None. PROCEDURE: The patient was taken to the operating suite and was prepped and draped in sterile fashion. A surgical pause was performed. Just superior to the umbilicus, a 12 mm incision was made. Dissection was taken down to the fascia, which was then scored and grasped with a Lesa and the abdomen was then entered. A 0 Vicryl suture was placed in a [id number] fashion and a Up trocar was placed and secured. Pneumoperitoneum was achieved. A 5mm trochar place in the subxyphoid and 2 in the right upper quadrant. The gallbladder was then grasped and elevated. The cystic duct, and cystic artery were then dissected out. Clip was placed on the distal portion of the cystic duct which was then partially transected. An arrow catheter was inserted into the duct. The cholangiogram was then performed. No filing defects and contrast made its way into the duodenum. Catheter removed. Clips were placed on proximal portion of the cystic duct and then the duct was then transected. Clips were placed along the proximal and distal portion of the cystic artery which was then transected. Hook cautery was used to dissect the gallbladder from the gallbladder fossa achieving hemostasis. The gallbladder was placed in an Endobag and removed through the 12 mm trocar site. The abdomen was then reinspected. Copious amounts of irrigation were used to irrigate the abdomen and there were no signs of active bleeding. Hemostasis had been achieved. The 12 mm fascial defect was then closed with 0 Vicryl suture that had been placed in a [id number] fashion. The abdomen was then desufflated, the trocars were removed. The abdomen was then washed and dried. The skin was then closed using 4-0 Monocryl in a subcuticular fashion. The abdomen was washed and dried and Skin Affix was place over incisions. Patient tolerated the procedure well without any complications and was taken to the recovery room in stable condition. Anesthesia Type general Estimated Blood Loss Estimated blood loss (mL): minimal Specimens/Packing Specimens Removed gallbladder CHRIS NGUYEN DO Mar 23, 2021 10:16
[2021-03-23] MEDS ORDERED: ACHD5005 PO (10:18)
[2021-03-23] MEDS ORDERED: NEOSTIGMINE 3 MG/3 ML VIAL ONE (10:18)
[2021-03-23] MEDS ORDERED: GLYCOPYRROLATE 0.2 MG/ML (ROBINUL) 2 ML VIAL ONE (10:18)
[2021-03-23] MEDS ORDERED: DOCU-143 PO (10:18)
--- NOTE | 2021-03-23 10:20 | Discharge Inst-Simple/Standard ---
Discharge Inst-Standard Discharge Medications New, Converted or Re-Newed RX: Transmitted to Pharmacy Patient Instructions/Follow Up Plan of Care/Instructions/FU: 2 weeks [place] Activity as Tolerated: No Discharge Diet: Regular Diet Other Inst to Patient Follow up Appt: Make appointment for 2 weeks. Instructions: No lifting greater than 10 pounds. No strenuous activity. May shower in 24 hours, no tub bath or soaking. Use incentive spirometer at home as directed. No Smoking Skin/Wound Care: You have special glue over incision, it will fall off on it's own. Symptoms to Report: Appetite Changes, Extremity Discoloration, Numbness/Tingling, Swelling Increased, Bleeding Excessive, Eyesight Changes, Pain Increased, Urine Color Change, Constipation(Persistent), Fever over 101 degree F, Pain/Pressure in chest, Urinating Difficulty, Cough Up/Vomit Blood, Heart Beat Irreg/Pounding, Pain/Pressure in jaw, Vaginal Bleeding Increase, Cramps in feet or legs, Lightheadedness, Pain/Pressure in shoulder, Diarrhea(Persistent), Memory Changes Suddenly, Questions/Concerns, Weight gain consecutive days, Dizziness/Fainting, Nausea/Vomiting, Shortness of Breath, Weight gain over 2 pounds. If eyes or skin turn yellow notify physician. If questions or concerns contact your physician Or seek help at emergency department. CHRIS NGUYEN DO Mar 23, 2021 10:20
--- NOTE | 2021-03-23 10:29 | Anesthesia-General Post-Op ---
General Patient Condition Mental Status/LOC: Same as Preop Cardiovascular: Satisfactory Nausea/Vomiting: Absent Respiratory: Satisfactory Pain: Controlled Complications: Absent Post Op Complications Complications None Follow Up Care/Instructions Patient Instructions None needed. Anesthesia/Patient Condition Patient Condition Patient is doing well, no complaints, stable vital signs, no apparent adverse anesthesia problems. No complications reported per nursing. DINESH WEEMS CRNA Mar 23, 2021 10:29
[2021-03-23] MEDS ORDERED: fentaNYL INJ 100 MCG/2 ML AMP IVP ONE (10:30)
[2021-03-23] MEDS ORDERED: morphine INJ 10 MG/ML 1ML (SYR OR VIAL) IVP ONE (10:30)
[2021-03-23] MEDS ORDERED: PROMETHAZINE INJ 25 MG/ML (PHENERGAN) AMP IVP ONE (10:30)
[2021-03-23] MEDS ORDERED: HYDROmorphone 2 MG/ML VIAL (DILAUDID) IV ONE (10:30)
[2021-03-23] MEDS ORDERED: MEPERIDINE (DEMEROL) INJ 50 MG/ML IVP ONE (10:30)
[2021-03-23] MEDS: ONDANSETRON 4 MG/2 ML (SDV) Z0FRAN IVP PRN ×2 (10:44→10:53)
--- NOTE | 2021-03-23 10:48 | Diagnostic Imaging Report ---
Indication: Cholecystitis. Intraoperative cholangiogram. Cholecystectomy. Comparison: None Total fluoroscopy time: 11 seconds Total number fluoroscopic images saved: 64 Findings: Multiple digital subtraction and image intensifier views of the right upper abdominal quadrant were obtained during cholecystectomy and intraoperative cholangiogram. Images provided show contrast opacifying the intra and extra hepatic biliary ductal systems. There is no focal stricture or suspicious intraluminal filling defect. Contrast empties into the small bowel, as expected. Impression: 1. Fluoroscopic guidance provided during intraoperative cholangiogram as above. Dictated by: Dictated on workstation # [id number]
[2021-03-23] MEDS ORDERED: SCOPOLAMINE 1.5 MG (TRANSDERM-SCOP) PATCH TD ONE (12:00)
[2021-03-23] MEDS ORDERED: HYDROcodone/APAP 5 MG/325 MG (LORTAB) TAB ONE (12:11)
[2021-03-23] MEDS ORDERED: HYDROcodone/APAP 5 MG/325 MG (LORTAB) TAB PO ONE (12:15)
[2021-03-26] MEDS ORDERED: SCOPOLAMINE PATCH REMOVAL TP NR (12:00)
== END 2021-03-23 13:10 | disposition home or self-care (01) ==
LOC: SDC 06:59
PROVIDERS: ATTEND Surgery
DX: K80.10 Calculus of gallbladder with chronic cholecystitis without obstruction (principal); E11.9 Type 2 diabetes mellitus without complications; I10 Essential (primary) hypertension; G40.909 Epilepsy, unspecified, not intractable, without status epilepticus; E66.9 Obesity, unspecified; F17.210 Nicotine dependence, cigarettes, uncomplicated; Z68.30 Body mass index [BMI] 30.0-30.9, adult; Z79.4 Long term (current) use of insulin; Z79.84 Long term (current) use of oral hypoglycemic drugs; Z79.899 Other long term (current) drug therapy
CPT/HCPCS: 76000; 82947; 87081; 88304

== ENCOUNTER 2021-04-01 18:32 | Emergency (ER) | payer MEDICARE ==
[~2021-04-01] VITALS: Ht 167 cm; Wt 81.1 kg
[~2021-04-01 18:32] MED LIST changes: +DOCU-143 PO
[2021-04-01 18:45] VITALS: BP 127/81
[2021-04-01] MEDS ORDERED: DROPERIDOL 5 MG/2 ML (INAPSINE) ED ONLY! IV ONE (18:45)
[2021-04-01] MEDS ORDERED: NS IV 1000 ML 1,000 ML IV SCH ×2 (18:45→19:45)
--- NOTE | 2021-04-01 18:55 | ED General ---
General Chief Complaint: Detox Stated Complaint: SUBOXONE W/D Source of Information: Patient History of Present Illness Date Seen by Provider: Apr 01, 2021 Time Seen by Provider: 18:37 Initial Comments PT ARRIVES VIA POV FROM HOME WITH MOTHER STATES HE IS HAVING SUBOXONE WITHDRAWL SINCE Saturday03/27/21 STATES HE GETS SUBOXONE OFF THE STREET, AND HAS NEVER BEEN PRESCRIBED IT. 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) C/O NAUSEA/VOMITING/DIARRHEA ALSO HAVING SWEATS AND SHAKES STATES HE HAS VOMITED X 3 TODAY AND "TOO MANY TO COUNT" EPISODES OF DRY HEAVES STATES HE TOOK 1 ZOFRAN AROUND NOON TODAY, NO RELIEF--STATES "IT NEVER HELPS" HAS HAD DIARRHEA X 3 THIS AM--NO BLACK/BLOODY/TARRY STOOLS PT IS STILL URINATING A NORMAL AMOUNT, AND VOIDED JUST PRIOR TO ARRIVAL PT ATE BREAKFAST AND HAD A SALAD FOR LUNCH PT HAS BEEN DRINKING SPRITE ALL DAY, AND DRANK SOME ON THE WAY HERE, AND JUST BEFORE HE CAME INTO ER NO FEVER PT IS DIABETIC, TAKES INSULIN AND PILLS HAS NOT CHECKED HIS BLOOD SUGAR TODAY PT HAS TAKEN MORNING MEDICATIONS BUT NOT EVENING MEDICATIONS PT HAD CHOLECYSTECTOMY BY DR. NGUYEN ON 03/23/21 AND RECEIVED RX FOR #30 HYDROCODONE STATES HE RAN OUT OF THOSE 3-4 DAYS AGO. NO COMPLAINTS REGARDING SURGERY OR SURGICAL SITES, DENIES ABDOMINAL PAIN, OTHER THAN GENERALIZED SORENESS FROM DRY HEAVING HAS A FOLLOW UP APPOINTMENT THIS SATURDAY WITH DR. NGUYEN PT WAS HERE ON 02/20/21 AND 02/24/21 FOR THIS SAME COMPLAINT OF SUBOXONE WITHDRAWL PT HAS NOT ATTEMPTED TO SEEK CARE AT ANY TIME THIS WEEK FOR THIS PROBLEM SYMPTOMS NO DIFFERENT TONIGHT IN ANY WAY ( SATURDAY NIGHT) PT HAS NOT DISCUSSED THIS WITH HIS PCP AT ANY TIME PT HAS HAD COVID -19 VACCINE X 3 NO SICK CONTACTS PCP: NALLELY-JOMAR, HAILE RODRIGUEZ Allergies and Home Medications Allergies Coded Allergies: levofloxacin (Verified Adverse Reaction, Unknown, STOMACH CAMPS, 06/08/15) Patient Home Medication List Home Medication List Reviewed: Yes Acetaminophen (Tylenol Extra Strength) 500 Mg Tablet, 1,000 MG PO Q8H PRN for PAIN-MILD (1-4), (Reported) Entered as Reported by: ACE MAE on 06/16/20 7371 Diltiazem HCl (Diltiazem 24Hr ER) 240 Mg Cap.er.24h, 240 MG PO DAILY, (Reported) Entered as Reported by: ACE MAE on 06/16/20 145 Docusate Sodium (Colace) 100 Mg Capsule, 100 MG PO BID Prescribed by: CHRIS NGUYEN on 03/23/21 1018 Empagliflozin (Jardiance) 10 Mg Tablet, 10 MG PO DAILY, (Reported) Entered as Reported by: ACE MAE on 06/16/20 145 Fenofibrate Nanocrystallized (Fenofibrate) 145 Mg Tablet, 145 MG PO HS, (Reported) Entered as Reported by: ACE MAE on 06/16/20 145 Hydrocodone/Acetaminophen (Hydrocodone-Acetamin 5-325 mg) 1 Each Tablet, 1 EACH PO Q4H PRN for PAIN-MODERATE (5-7) Prescribed by: CHRIS NGUYEN on 03/23/21 1018 Insulin Aspart (Novolog Flexpen) 300 Units/3 Ml Solution, UNIT SC AC, (Reported) Entered as Reported by: QUENTIN ANNE on 05/11/18 1420 Insulin Glargine,Hum.rec.anlog (Basaglar Kwikpen U-100) 100 Unit/1 Ml I nsuln.pen, 20 UNIT SC DAILY, (Reported) Entered as Reported by: QUENTIN ANNE on 05/11/18 142 Levetiracetam (Levetiracetam) 500 Mg Tablet, 500 MG PO BID, (Reported) Entered as Reported by: ACE MAE on 06/16/20 145 Mirtazapine (Mirtazapine) 30 Mg Tablet, 30 MG PO HS, (Reported) Entered as Reported by: ACE MAE on 06/16/20 145 Omeprazole/Sodium Bicarbonate (Omeprazole-Bicarb 40-1,100 Cap) 1 Each Capsule, 1 EA PO BID, (Reported) Entered as Reported by: ACE MAE on 06/16/20 145 Ondansetron (Ondansetron Odt) 4 Mg Tab.rapdis, 4 MG SL Q4H PRN for NAUSEA/VOMITING Prescribed by: DAVIDE GAFFNEY on 02/24/21 1207 Ondansetron (Ondansetron Odt) 8 Mg Tab.rapdis, 8 MG PO Q6H Prescribed by: LEYDA DAMON on 04/01/211908 Promethazine HCl (Promethazine Suppository) 25 Mg Supp.rect, 25 MG RC Q6 Prescribed by: LEYDA DAMON on 04/01/211908 Valsartan (Valsartan) 320 Mg Tablet, 320 MG PO HS, (Reported) Entered as Reported by: ACE MAE on 06/16/20 145 Venlafaxine HCl (Venlafaxine HCl ER) 150 Mg Cap.er.24h, 150 MG PO DAILY, (Reported) Entered as Reported by: ACE MAE on 06/16/201458 Venlafaxine HCl (Venlafaxine HCl ER) 75 Mg Cap.er.24h, 75 MG PO DAILY, (Reported) Entered as Reported by: ACE MAE on 06/16/201458 Zolpidem Tartrate (Zolpidem Tartrate ER) 12.5 Mg Tab.mphase, 12.5 MG PO HS, (Reported) Entered as Reported by: ACE MAE on 06/16/201458 Review of Systems Review of Systems Constitutional: see HPI, diaphoresis EENTM: no symptoms reported Respiratory: no symptoms reported Cardiovascular: no symptoms reported Gastrointestinal: see HPI Genitourinary: no symptoms reported; No decreased output Musculoskeletal: no symptoms reported Skin: no symptoms reported Psychiatric/Neurological: See HPI, Anxiety Hematologic/Lymphatic: No Symptoms Reported Immunological/Allergic: no symptoms reported Past Xhwhapf-Ggpzsp-Bltdvc Hx Patient Social History Tobacco Use?: Yes Smoking Status: Current Everyday Smoker Substance use?: Yes Additional substance use comme: SUBOXONE Substance frequency: Daily Alcohol Use?: Yes Alcohol type: Hard Liquor Alcohol Frequency: Daily Immunizations Up To Date Tetanus Booster (TDap): More than 5yrs PED Vaccines UTD: No First/Initial COVID19 Vaccinat: 2020 Second COVID19 Vaccination Johan: 2020 Third COVID19 Vaccination Date: JAN 2021 Seasonal Allergies Seasonal Allergies: Yes Past Medical History Surgery/Hospitalization HX: HTN, DM2, DEPRESSION, ANXIETY Surgeries: Yes ("CYST FROM LOWER BACK";CHOLECYSTECTOMY 03/23/21) Eye Surgery, Gallbladder, Orthopedic Respiratory: No Currently Using CPAP: No Currently Using BIPAP: No Cardiac: Yes High Cholesterol, Hypertension Neurological: Yes Seizure Disorder Reproductive Disorders: No Genitourinary: No Gastrointestinal: Yes (FATTY LIVER DISEASE) Gastroesophageal Reflux, Liver Disease/Jaundice, Pancreatitis, Gall Bladder Disease Musculoskeletal: Yes (CHRONIC BACK PAIN WITH "CYST" ON LOWER BACK/"SPINE" ) Chronic Back Pain Endocrine: Yes Diabetes, Insulin dep HEENT: Yes (POOR DENTITION) Cataract Loss of Vision: Denies Hearing Impairment: Denies Cancer: No Psychosocial: Yes (Opioid/Suboxone dependency-ILLICIT USE-GETS "OFF THE STREET") Anxiety, Suicide Attempts, Bipolar, Depression Integumentary: No Blood Disorders: No Adverse Reaction/Blood Tranf: Yes Family Medical History Cancer 03 MOTHER Congestive heart failure 03 FATHER Family history: Hypertension 03 FATHER SOCIAL HISTORY: -ETOH--REGULAR/HEAVY USE -DRUGS--OPIATES, BENZODIAZEPINES, THC, SUBOXONE--GETS SUBOXONE "OFF THE STREET" -SMOKES 1 PPD PAST SURGICAL HISTORY: -EYE SURGERY / CATARACTS -LEFT UPPER ARM SURGERY -PILONIDAL CYST ? --"CYST FROM LOWER BACK REMOVED" -CHOLECYSTECTOMY 03/23/[address] NGUYEN Physical Exam Vital Signs Vital Signs - First Documented 04/01/21 18:45 Temp 36.5 Pulse 109 Resp 18 B/P (MAP) 127/81 (96) Pulse Ox 96 Capillary Refill : Height, Weight, BMI Height: 5'7.00" Weight: 204lbs. 3.0oz. 92.109990pk; 30.43 BMI Method:Stated General Appearance: No Apparent Distress, WD/WN, Other (DOES NOT APPEAR ILL OR TO BE IN ANY DISCOMFORT OR DISTRESS. SOMEWHAT ANXIOUS, WITH CONSTANT MOVEMENTS OF ENTIRE BODY, INCLUDING MOUTH. NO DRY HEAVING ) HEENT: PERRL/EOMI, Moist Mucous Membranes, Other (POOR DENTITION. ORAL MUCOSA MOIST) Neck: Normal Inspection Respiratory: Normal Breath Sounds, No Accessory Muscle Use, No Respiratory Distress Cardiovascular: Regular Rate, Rhythm (HR 100), No Edema, No JVD, No Murmur, Normal Peripheral Pulses Gastrointestinal: Normal Bowel Sounds, No Organomegaly, No Pulsatile Mass, So ft, Tenderness (MILD DIFFUSE TENDERNESS--PT STATES IT FEELS LIKE SORE MUSCLES FROM VOMITING/DRY HEAVING), Other (SURGICAL SITES ALL INTACT, WITHOUT SIGNS OF INFECTION. ) Back: No CVA Tenderness Extremity: Normal Capillary Refill, Normal Inspection Neurologic/Psychiatric: Alert, Oriented x3, No Motor/Sensory Deficits, technical specialist cytogenetics II- XII Norm as Tested Skin: Normal Color, Warm/Dry, Tattoos/Piercings (EXTENSIVE TATTOOS) Progress/Results/Core Measures Suspected Sepsis SIRS Temperature: Pulse: Respiratory Rate: Laboratory Tests 04/01/21 18:56: White Blood Count 12.0H Blood Pressure / Mean: Laboratory Tests 04/01/21 18:56: Creatinine 1.01, Platelet Count 244, Total Bilirubin 0.4 Results/Orders Lab Results Laboratory Tests Test 04/01/21 18:56 Range/Units White Blood Count 12.0 H 4.3-11.0 10^3/uL Red Blood Count 5.05 4.30-5.52 10^6/uL Hemoglobin 15.8 13.3-17.7 g/dL Hematocrit 44 40-54 % Mean Corpuscular Volume 87 80-99 fL Mean Corpuscular Hemoglobin 31 25-34 pg Mean Corpuscular Hemoglobin Concent 36 32-36 g/dL Red Cell Distribution Width 12.6 10.0-14.5 % Platelet Count 244 130-400 10^3/uL Mean Platelet Volume 9.1 9.0-12.2 fL Immature Granulocyte % (Auto) 1 % Neutrophils (%) (Auto) 69 42-75 % Lymphocytes (%) (Auto) 20 12-44 % Monocytes (%) (Auto) 10 0-12 % Eosinophils (%) (Auto) 1 0-10 % Basophils (%) (Auto) 0 0-10 % Neutrophils # (Auto) 8.3 H 1.8-7.8 10^3/uL Lymphocytes # (Auto) 2.4 1.0-4.0 10^3/uL Monocytes # (Auto) 1.2 H 0.0-1.0 10^3/uL Eosinophils # (Auto) 0.1 0.0-0.3 10^3/uL Basophils # (Auto) 0.0 0.0-0.1 10^3/uL Immature Granulocyte # (Auto) 0.1 0.0-0.1 10^3/uL Sodium Level 130 L 135-145 MMOL/L Potassium Level 3.3 L 3.6-5.0 MMOL/L Chloride Level 99 98-107 MMOL/L Carbon Dioxide Level 17 L 21-32 MMOL/L Anion Gap 14 5-14 MMOL/L Blood Urea Nitrogen 20 H 7-18 MG/DL Creatinine 1.01 0.60-1.30 MG/DL Estimat Glomerular Filtration Rate 92 BUN/Creatinine Ratio 20 Glucose Level 286 H 70-105 MG/DL Calcium Level 9.0 8.5-10.1 MG/DL Corrected Calcium 9.0 8.5-10.1 MG/DL Total Bilirubin 0.4 0.1-1.0 MG/DL Aspartate Amino Transf (AST/SGOT) 13 5-34 U/L Alanine Aminotransferase (ALT/SGPT) 19 0-55 U/L Alkaline Phosphatase 153 H 40-136 U/L Total Protein 7.2 6.4-8.2 GM/DL Albumin 4.0 3.2-4.5 GM/DL Serum Alcohol < 10 <10 MG/DL My Orders Orders - LEYDA DAMON DO Accucheck Stat ONCE (04/01/21 18:41) Ed Iv/Invasive Line Start (04/01/21 18:41) Monitor-Rhythm Ecg Trace Only (04/01/21 18:41) Alcohol (04/01/21 18:41) Cbc With Automated Diff (04/01/21 18:41) Comprehensive Metabolic Panel (04/01/21 18:41) Drug Screen Stat (Urine) (04/01/21 18:41) Ua Culture If Indicated (04/01/21 18:41) Ed Iv/Invasive Line Start (04/01/21 18:41) Ns Iv 1000 Ml (Sodium Chloride 0.9%) (04/01/21 18:45) Droperidol Inj (Ed Only) (Inapsine Inj ( (04/01/21 18:45) Ed Iv/Invasive Line Start (04/01/21 19:34) Ns Iv 1000 Ml (Sodium Chloride 0.9%) (04/01/21 19:45) Potassium Chloride (Tablet) (Klor Con Ta (04/01/21 19:45) Medications Given in ED Current Medications Medications Dose Ordered Sig/Attila Route Start Time Stop Time Status Last Admin Dose Admin Droperidol 2.5 mg ONCE ONCE IV 04/01/21 18:45 2 18:46 DC 04/01/21 18:59 2.5 MG Vital Signs/I&O 04/01/21 18:45 Temp 36.5 Pulse 109 Resp 18 B/P (MAP) 127/81 (96) Pulse Ox 96 Capillary Refill : Progress Note : Progress Note GIVEN IV FLUIDS AND INAPSINE NO VOMITING OR DIARRHEA AT ANY TIME DURING ER STAY DISCUSSED WITH PT AND MOM ABOUT DRUG TREATMENT PROGRAMS, INCLUDING [facility]. MOM STATES THEY WILL BE GOING THERE ON SATURDAY. ALSO WANTING ANXIETY MEDICATION--ADVISED THAT I WOULD NOT BE GIVING HIM ANY ANXIETY MEDICATIONS HERE IN ER, AND ADVISED TO FOLLOW UP WITH PCP FOR THIS SHORTLY AFTER THIS DISCUSSION, PT WAS SEEN STORMING OUT OF ER WITH HIS MOTHER--PT HAS RIPPED OUT HIS IV AND LEFT. DID NOT TALK WITH ANYONE BEFORE DOING THIS. Departure Impression Primary Impression: Left against medical advice Additional Impressions: Continuous illicit drug use Opiate abuse, continuous Opiate withdrawal IDDM (insulin dependent diabetes mellitus) Disposition: 07 AGAINST MEDICAL ADVICE Condition: Against Medical Advice Departure-Patient Inst. Referrals: ACE RODRIGUEZ DO (PCP/Family) Primary Care Physician Add. Discharge Instructions: All discharge instructions reviewed with patient and/or family. Voiced understanding. LEYDA DAMON DO Apr 01, 2021 18:55
[2021-04-01 19:02] LABS: BASOPHILS % (AUTO) 0 % (0-10); EOSINOPHILS # (AUTO) 0.1 10^3/uL (0.0-0.3); EOSINOPHILS % (AUTO) 1 % (0-10); HEMATOCRIT 44 % (40-54); HEMOGLOBIN 15.8 g/dL (13.3-17.7); LYMPHOCYTES # (AUTO) 2.4 10^3/uL (1.0-4.0); LYMPHOCYTES % (AUTO) 20 % (12-44); MEAN CORPUSCULAR HEMOGLOBIN 31 pg (25-34); MEAN CORPUSCULAR HGB CONC 36 g/dL (32-36); MEAN CORPUSCULAR VOLUME 87 fL (80-99); MEAN PLATELET VOLUME 9.1 fL (9.0-12.2); MONOCYTES # (AUTO) 1.2 10^3/uL (0.0-1.0); MONOCYTES % (AUTO) 10 % (0-12); NEUTROPHILS # (AUTO) 8.3 10^3/uL (1.8-7.8); NEUTROPHILS % (AUTO) 69 % (42-75); PLATELET COUNT 244 10^3/uL (130-400)
[2021-04-01] MEDS ORDERED: PROM25SU44 RC (19:09)
[2021-04-01] MEDS ORDERED: ONDA8TAB13 PO (19:09)
[2021-04-01 19:19] LABS: ALANINE AMINOTRANSFERASE 19 U/L (0-55); ALKALINE PHOSPHATASE 153 U/L (40-136); BILIRUBIN,TOTAL 0.4 MG/DL (0.1-1.0); BUN/CREATININE RATIO 20; CARBON DIOXIDE 17 MMOL/L (21-32); CHLORIDE 99 MMOL/L (98-107); CREATININE SERUM 1.01 MG/DL (0.60-1.30); GFR ESTIMATED 92; GLUCOSE 286 MG/DL (70-105); POTASSIUM 3.3 MMOL/L (3.6-5.0); SODIUM 130 MMOL/L (135-145); TOTAL PROTEIN 7.2 GM/DL (6.4-8.2)
[2021-04-01] MEDS ORDERED: KCL 10 MEQ TAB (MICRO K) PO ONE (19:45)
== END 2021-04-01 19:54 | disposition left against medical advice (07) ==
LOC: EDUNIT# 18:32 → ER 18:34
DX: F11.23 Opioid dependence with withdrawal (principal); I10 Essential (primary) hypertension; E11.9 Type 2 diabetes mellitus without complications; E78.00 Pure hypercholesterolemia, unspecified; F31.9 Bipolar disorder, unspecified; F41.9 Anxiety disorder, unspecified; G89.29 Other chronic pain; M54.50 Low back pain, unspecified; G40.909 Epilepsy, unspecified, not intractable, without status epilepticus; K21.9 Gastro-esophageal reflux disease without esophagitis; F17.210 Nicotine dependence, cigarettes, uncomplicated; Z91.51 Personal history of suicidal behavior; Z79.4 Long term (current) use of insulin; Z79.899 Other long term (current) drug therapy
CPT/HCPCS: 80053; 85025; 93041; 99284; G0480; 36415; 80320

== ENCOUNTER 2021-07-15 13:17 | Emergency (ER) | payer MEDICARE ==
[~2021-07-15] VITALS: Ht 167 cm; Wt 81.0 kg
[~2021-07-15 13:17] MED LIST changes: +CHOL4PAC14 PO; -CHOL4PAC2 PO; +PROM25SU44 RC
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
--- NOTE | 2021-07-15 17:17 | Diagnostic Imaging Report ---
INDICATION: Cyst on the spine years ago. Back pain. EXAMINATION: Lumbar spine MRI without contrast, 07/15/2021. COMPARISON: Correlation made to a CT lumbar spine from 07/15/2021. FINDINGS: There is an acute appearing compression fracture at L2 with approximately 40% loss of height along the superior endplate. There is retropulsion of the posterior superior endplate into the canal which causes secondary mild to moderate central stenosis. Mild edema extends into the left pedicle. There is a mild compression deformity involving the left lateral aspect of the T12 vertebral body as well with approximately 10-20% loss of height along the superior endplate, no retropulsion. There is edema about the right transverse processes at L3 and L4 consistent with the fracture seen on recent CT. Surrounding soft tissue edema is noted. Alignment is preserved. Tip of the conus unremarkable in appearance and location. L1-L2: There is minimal broad-based bulging disc material. Bilateral facet hypertrophy. There is mild narrowing of the left lateral recess. No significant central stenosis. The neural foramina appear patent. L2-L3: There is minimal broad-based bulging disc material with bilateral facet hypertrophy. There is no central stenosis. The neural foramina appear patent. L3-L4: There is a mild broad-based bulging disc with bilateral facet and omentum flavum hypertrophy. There is no central stenosis. The neural foramina patent. L4-L5: There is disc desiccation with a broad-based bulging disc containing an annular tear. There is bilateral facet and ligamentum flavum hypertrophy. There is secondary mild central narrowing with narrowing of the left lateral recess. There is moderate bilateral neural foraminal stenosis. L5-S1: There is disc desiccation with a right paracentral bulging disc with bilateral facet and ligamentum flavum hypertrophy. There is secondary narrowing of the left lateral recess with mild central stenosis. There is moderate bilateral neural foraminal narrowing. Posterior to the L5 vertebral body there is an oval appearing predominantly T2 hyperintense lesion with internal septations. This is slightly hyperintense to the CSF on T1-weighted imaging and is atypical for a Tarlov cyst given its location and appearance. This measures 2.4 cm in craniocaudal dimension and is nonspecific in nature. Given no prior imaging available for comparison, nonemergent post contrast imaging could further evaluate and exclude associated enhancement. The visualized intra-abdominal structures appear unremarkable. IMPRESSION: 1. Acute compression fractures at L2 and T12 with fractures of the right transverse processes at L3 and L4. 2. Multilevel degenerative disease, as described above. 3. Nonspecific cystic lesion posterior to the L5 vertebral body. Postcontrast imaging on a nonemergent basis could provide further characterization. Dictated by: Dictated on workstation # [id number]
[2021-07-15 17:40] VITALS: BP 160/100
== END 2021-07-15 17:40 | disposition short-term general hospital (02) ==
LOC: EDUNIT# 13:17 → ER 13:19
DX: S32.020A Wedge compression fracture of second lumbar vertebra, initial encounter for closed fracture (principal); S22.080A Wedge compression fracture of T11-T12 vertebra, initial encounter for closed fracture; S32.038A Other fracture of third lumbar vertebra, initial encounter for closed fracture; S32.048A Other fracture of fourth lumbar vertebra, initial encounter for closed fracture; E11.9 Type 2 diabetes mellitus without complications; F17.210 Nicotine dependence, cigarettes, uncomplicated; Z79.4 Long term (current) use of insulin; V47.5XXA Car driver injured in collision with fixed or stationary object in traffic accident, initial encounter
CPT/HCPCS: 72131; 72146; 72148

== ENCOUNTER 2021-11-27 13:17 | Emergency (ER) | payer MEDICARE ==
[~2021-11-27] VITALS: Ht 167 cm; Wt 81.0 kg
[~2021-11-27 13:17] MED LIST changes: -CHOL4PAC14 PO; +CHOL4POW4 PO
[2021-11-27] MEDS ORDERED: KETOROLAC 60 MG/2 ML VIAL IM STA (13:33)
--- NOTE | 2021-11-27 13:41 | ED Head Injury ---
General Chief Complaint: Head/Cervical Problems Stated Complaint: HEADACHE; HEAD INJ Source: patient History of Present Illness Date Seen by Provider: Nov 27, 2021 Time Seen by Provider: 13:18 Initial Comments 46-year-old male presenting with complaints of hitting his head on a cabinet when he stood up too fast on November 25. He reports having continued headache and pain since that event. He denies any loss of consciousness, vision change, nausea, vomiting, drainage from his ears, drainage from his nose. He had been taking ibuprofen for the pain and the last dose was around 8 AM. He has not tried to get in with his primary care provider. He has hypertension and multiple medicines that he takes for that. He denies missing any doses of medications. His blood pressure is elevated here in the ED on arrival. Occurred: other (November 25) Severity: moderate Location: other (Top of his head) Method of Injury: direct blow Loss of Consciousness: no loss of consciousness Associated Systoms: No Chest Pain, No Cough, No Diaphoresis, No Fever/Chills; Headaches; No Loss of Appetite, No Malaise, No Nausea/Vomiting, No Rash, No Seizure, No Shortness of Air, No Syncope, No Weakness Allergies and Home Medications Allergies Coded Allergies: levofloxacin (Verified Adverse Reaction, Unknown, STOMACH CAMPS, 06/08/15) Patient Home Medication List Home Medication List Reviewed: Yes Acetaminophen (Tylenol Extra Strength) 500 Mg Tablet, 1,000 MG PO Q8H PRN for PAIN-MILD (1-4), (Reported) Entered as Reported by: ACE MAE on 06/16/20 1459 Diltiazem HCl (Diltiazem 24Hr ER) 240 Mg Cap.er.24h, 240 MG PO DAILY, (Reported) Entered as Reported by: ACE MAE on 06/16/20 1459 Docusate Sodium (Colace) 100 Mg Capsule, 100 MG PO BID Prescribed by: CHRIS NGUYEN on 03/23/21 1018 Empagliflozin (Jardiance) 10 Mg Tablet, 10 MG PO DAILY, (Reported) Entered as Reported by: ACE MAE on 06/16/20 1459 Fenofibrate Nanocrystallized (Fenofibrate) 145 Mg Tablet, 145 MG PO HS, (Reported) Entered as Reported by: ACE MAE on 06/16/20 1459 Hydrocodone/Acetaminophen (Hydrocodone-Acetamin 5-325 mg) 1 Each Tablet, 1 EACH PO Q4H PRN for PAIN-MODERATE (5-7) Prescribed by: CHRIS NGUYEN on 03/23/21 1018 Insulin Aspart (Novolog Flexpen) 300 Units/3 Ml Solution, UNIT SC AC, (Reported) Entered as Reported by: QUENTIN ANNE on 05/11/18 1420 Insulin Glargine,Hum.rec.anlog (Basaglar Kwikpen U-100) 100 Unit/1 Ml Insuln.pen, 20 UNIT SC DAILY, (Reported) Entered as Reported by: QUENTIN ANNE on 05/11/18 1420 Levetiracetam (Levetiracetam) 500 Mg Tablet, 500 MG PO BID, (Reported) Entered as Reported by: ACE MAE on 06/16/20 145 Mirtazapine (Mirtazapine) 30 Mg Tablet, 30 MG PO HS, (Reported) Entered as Reported by: ACE MAE on 06/16/20 145 Omeprazole/Sodium Bicarbonate (Omeprazole-Bicarb 40-1,100 Cap) 1 Each Capsule, 1 EA PO BID, (Reported) Entered as Reported by: ACE MAE on 06/16/20 145 Ondansetron (Ondansetron Odt) 4 Mg Tab.rapdis, 4 MG SL Q4H PRN for NAUSEA/VOMITING Prescribed by: DAVIDE GAFFNEY on 02/24/21 1207 Valsartan (Valsartan) 320 Mg Tablet, 320 MG PO HS, (Reported) Entered as Reported by: ACE MAE on 06/16/20 145 Venlafaxine HCl (Venlafaxine HCl ER) 150 Mg Cap.er.24h, 150 MG PO DAILY, (Reported) Entered as Reported by: ACE MAE on 06/16/20 145 Venlafaxine HCl (Venlafaxine HCl ER) 75 Mg Cap.er.24h, 75 MG PO DAILY, (Reported) Entered as Reported by: ACE MAE on 06/16/20 145 Zolpidem Tartrate (Zolpidem Tartrate ER) 12.5 Mg Tab.mphase, 12.5 MG PO HS, (Reported) Entered as Reported by: ACE MAE on 06/16/20 7851 Review of Systems Review of Systems Constitutional: No chills, No dizziness, No fever Eyes: Denies Blindness, Denies Blurred Vision, Denies Drainage, Denies Pain, Denies Photophobia, Denies Vision Changes Ears, Nose, Mouth, Throat: denies ear pain, denies ear discharge, denies nose pain, denies nose discharge, denies epistaxis, denies mouth pain Respiratory: No cough, No hemoptysis Cardiovascular: No chest pain Gastrointestinal: no symptoms reported Genitourinary: no symptoms reported Musculoskeletal: see HPI Skin: No change in color Psychiatric/Neurological: Headache Past Lmbdugr-Paoksk-Dqipdg Hx Patient Social History Tobacco Use?: Yes Tobacco type used: Cigarettes Smoking Status: Current Everyday Smoker Use of E-Cig and/or Vaping dev: No Substance use?: No Alcohol Use?: No Pt feels they are or have been: No Immunizations Up To Date Tetanus Booster (TDap): More than 5yrs PED Vaccines UTD: No First/Initial COVID19 Vaccinat: 2020 Second COVID19 Vaccination Johan: 2020 Third COVID19 Vaccination Date: 2020 Seasonal Allergies Seasonal Allergies: Yes Past Medical History Surgery/Hospitalization HX: DIABETIC, L2 FX, DEPRESSION Surgeries: Yes ("CYST FROM LOWER BACK";CHOLECYSTECTOMY 03/23/21) Eye Surgery, Gallbladder, Orthopedic Respiratory: No Currently Using CPAP: No Currently Using BIPAP: No Cardiac: Yes High Cholesterol, Hypertension Neurological: Yes Seizure Disorder Reproductive Disorders: No Genitourinary: No Gastrointestinal: Yes (FATTY LIVER DISEASE) Gastroesophageal Reflux, Liver Disease/Jaundice, Pancreatitis, Gall Bladder Disease Musculoskeletal: Yes (CHRONIC BACK PAIN WITH "CYST" ON LOWER BACK/"SPINE" ) Chronic Back Pain Endocrine: Yes Diabetes, Insulin dep HEENT: Yes (POOR DENTITION) Cataract Loss of Vision: Denies Hearing Impairment: Denies Cancer: No Psychosocial: Yes (Opioid/Suboxone dependency-ILLICIT USE-GETS "OFF THE STREET") Anxiety, Suicide Attempts, Bipolar, Depression Integumentary: No Blood Disorders: No Adverse Reaction/Blood Tranf: Yes Family Medical History Cancer 03 MOTHER Congestive heart failure 03 FATHER Family history: Hypertension 03 FATHER SOCIAL HISTORY: -ETOH--REGULAR/HEAVY USE -DRUGS--OPIATES, BENZODIAZEPINES, THC, SUBOXONE--GETS SUBOXONE "OFF THE STREET" -SMOKES 1 PPD PAST SURGICAL HISTORY: -EYE SURGERY / CATARACTS -LEFT UPPER ARM SURGERY -PILONIDAL CYST ? --"CYST FROM LOWER BACK REMOVED" -CHOLECYSTECTOMY 03/23/[address] NGUYEN Physical Exam Vital Signs Vital Signs - First Documented 11/27/21 13:24 Temp 36.8 Pulse 119 Resp 16 B/P (MAP) 190/118 (142) Pulse Ox 97 Capillary Refill : Height, Weight, BMI Height: 5'7.00" Weight: 204lbs. 3.0oz. 92.105486ic; 29.00 BMI Method:Stated General Appearance: WD/WN, no apparent distress HEENT: PERRL/EOMI, normal ENT inspection, TMs normal, pharynx normal, other (Negative carter sign, negative raccoon sign, no CSF otorrhea, no CSF rhinorrhea, no crepitus or step-off on top of skull where he has tenderness) Neck: non-tender, full range of motion, supple, normal inspection Cardiovascular: normal peripheral pulses, regular rate, rhythm Respiratory: chest non-tender, lungs clear, normal breath sounds Gastrointestinal: normal bowel sounds, non tender, soft, no pulsatile mass Extremities: normal range of motion, non-tender, normal capillary refill Psychiatric: alert, oriented x 3 Crainal Nerves: PERRL Coordination/Gait: normal gait Motor/Sensory: no motor deficit, no sensory deficit Skin: normal color, warm/dry [place] Coma Score Best Eye Response: (4) Open Spontaneously Best Verbal Response: (5) Oriented Best Motor Response: (6) Obeys Commands [place] Total: 15 Images 1 - Complains of pain to the top of his head but has no color change, crepitus, step-off Progress/Results/Core Measures Results/Orders My Orders Orders - EMILIE SEPULVEDA MD Ketorolac Injection (Toradol Injection) (11/27/21 13:33) Ct Head Wo (11/27/21 13:33) Vital Signs/I&O 11/27/21 11/27/21 13:24 14:02 Temp 36.8 36.8 Pulse 119 119 Resp 16 16 B/P (MAP) 190/118 (142) 190/118 Pulse Ox 97 97 Progress Progress Note #1: Progress Note No indication of skull fracture or intracranial hemorrhage on physical exam. Will order a CT scan without contrast to look for acute injury or reason for his continued headache. Administer Toradol 60 mg IM for headache pain. Differential diagnosis includes skull fracture, intracranial hemorrhage, intracranial mass, hypertension Progress Note #2: Progress Note No acute findings on the CT scan of the head. Will reassure patient and encouraged him to continue alternating acetaminophen and ibuprofen. Continue with ice packs and push fluids and rest. Check back with his primary care provider for continued problems. Diagnostic Imaging Diagonstic Imaging: CT Plain Films/CT/US/NM/MRI: head Comments NAME: LIONEL MIRANDA [facility] REC#: [id number] PT STATUS: REG ER : 1975 PHYSICIAN: EMILIE SEPULVEDA MD ADMIT DATE: 11/27/21/ER FS Draft Date of Exam:11/27/21 CT HEAD WO INDICATION: Headache, injury to head two days prior. TECHNIQUE: Multiple contiguous axial images were obtained through the brain without the use of intravenous contrast. Auto Exposure Controls were utilized during the CT exam to meet ALARA standards for radiation dose reduction. Noncontrast head CT is performed and compared with 10/24/2016. FINDINGS: There are no extra-axial fluid collections. No intracranial hemorrhage. No intracranial mass or mass effect. No midline shift. The ventricles are normal in size and position. There were no focal parenchymal abnormalities in the brain. Calvarial windows show no fracture. There is moderate mucosal thickening in the left maxillary sinus. IMPRESSION: No acute intracranial hemorrhage or acute intracranial finding. No calvarial fracture seen. Some mucosal thickening in the left maxillary sinus is noted. Dictated on workstation # [id number] Dict: 11/27/21 1347 Trans: 11/27/21 1352 [id number] Interpreted by: PADMINI CRUZ MD Electronically signed by: Reviewed: Reviewed by Me Departure Impression Primary Impression: Closed head injury without loss of consciousness Qualified Codes: S09.90XA - Unspecified injury of head, initial encounter Additional Impressions: Headache Qualified Codes: R51.9 - Headache, unspecified Elevated blood pressure reading with diagnosis of hypertension Disposition: HOME, SELF-CARE Condition: Stable Departure-Patient Inst. Decision time for Depature: 14:00 Referrals: ACE RODRIGUEZ DO (PCP) Primary Care Physician Patient Instructions: Minor Head Injury, Adult ED, High Blood Pressure ED, Headache, Adult ED Add. Discharge Instructions: Stay well-hydrated and get plenty rest. You may alternate acetaminophen with ibuprofen to help with pain. Apply ice pack 15 to 20 minutes every few hours as needed for pain. Check back with your primary care provider for continued concerns All discharge instructions reviewed with patient and/or family. Voiced understanding. EMILIE SEPULVEDA MD Nov 27, 2021 13:41
--- NOTE | 2021-11-27 13:53 | Diagnostic Imaging Report ---
INDICATION: Headache, injury to head two days prior. TECHNIQUE: Multiple contiguous axial images were obtained through the brain without the use of intravenous contrast. Auto Exposure Controls were utilized during the CT exam to meet ALARA standards for radiation dose reduction. Noncontrast head CT is performed and compared with 10/24/2016. FINDINGS: There are no extra-axial fluid collections. No intracranial hemorrhage. No intracranial mass or mass effect. No midline shift. The ventricles are normal in size and position. There were no focal parenchymal abnormalities in the brain. Calvarial windows show no fracture. There is moderate mucosal thickening in the left maxillary sinus. IMPRESSION: No acute intracranial hemorrhage or acute intracranial finding. No calvarial fracture seen. Some mucosal thickening in the left maxillary sinus is noted. Dictated by: Dictated on workstation # [id number]
[2021-11-27 14:02] VITALS: BP 190/118
== END 2021-11-27 14:02 | disposition home or self-care (01) ==
LOC: EDUNIT# 13:17 → ER FS 13:18
DX: S09.90XA Unspecified injury of head, initial encounter (principal); I10 Essential (primary) hypertension; E11.9 Type 2 diabetes mellitus without complications; F17.210 Nicotine dependence, cigarettes, uncomplicated; Z79.4 Long term (current) use of insulin; W22.8XXA Striking against or struck by other objects, initial encounter
CPT/HCPCS: 70450

== ENCOUNTER 2022-01-09 13:55 | Emergency (ER) | payer MEDICARE ==
[~2022-01-09] VITALS: Ht 165 cm; Wt 81.6 kg
[2022-01-09] MEDS ORDERED: TETANUS,DIPTH,PERTUSS P/F (BOOSTRIX) 0.5 ML VIAL IM ONE (14:30)
--- NOTE | 2022-01-09 14:30 | ED Integumentary General ---
General Chief Complaint: Laceration Stated Complaint: LT THUMB LACERATION Nursing Triage Note: ARRIVED VIA AMB TO FAST TRACK ET STATES HE CUT HIS LEFT THUMB OPEN WITH A BLADE. Source: patient Exam Limitations: no limitations History of Present Illness Date Seen by Provider: Jan 09, 2022 Time Seen by Provider: 14:18 Initial Comments Patient is a 47yo male, DM, who presents to the ER with a complaint of left thumb laceration. He was using a blade to scrape off his car window in order to reattach his rearview mirror. He shoved the blade into the end of his left jaime mb. Immediate pain. Unknown last tetanus. No complaints of loss of function or sensation. he is right hand dominant. Timing/Duration: just prior to arrival Severity: moderate Location: hands (left thumb) Possible Cause: other (blade) Associated Symptoms: denies symptoms Allergies and Home Medications Allergies Coded Allergies: levofloxacin (Verified Adverse Reaction, Unknown, STOMACH CAMPS, 06/08/15) Patient Home Medication List Home Medication List Reviewed: Yes Acetaminophen (Tylenol Extra Strength) 500 Mg Tablet, 1,000 MG PO Q8H PRN for PA IN-MILD (1-4), (Reported) Entered as Reported by: ACE MAE on 06/16/20 1459 Diltiazem HCl (Diltiazem 24Hr ER) 240 Mg Cap.er.24h, 240 MG PO DAILY, (Reported) Entered as Reported by: ACE MAE on 06/16/20 1459 Docusate Sodium (Colace) 100 Mg Capsule, 100 MG PO BID Prescribed by: CHRIS NGUYEN on 03/23/21 1018 Empagliflozin (Jardiance) 10 Mg Tablet, 10 MG PO DAILY, (Reported) Entered as Reported by: ACE MAE on 06/16/20 1459 Fenofibrate Nanocrystallized (Fenofibrate) 145 Mg Tablet, 145 MG PO HS, (Reported) Entered as Reported by: ACE MAE on 06/16/20 1459 Hydrocodone/Acetaminophen (Hydrocodone-Acetamin 5-325 mg) 1 Each Tablet, 1 EACH PO Q4H PRN for PAIN-MODERATE (5-7) Prescribed by: CHRIS NGUYEN on 03/23/21 1018 Insulin Aspart (Novolog Flexpen) 300 Units/3 Ml Solution, UNIT SC AC, (Reported) Entered as Reported by: QUENTIN ANNE on 05/11/18 1420 Insulin Glargine,Hum.rec.anlog (Basaglar Kwikpen U-100) 100 Unit/1 Ml Insuln.pen, 20 UNIT SC DAILY, (Reported) Entered as Reported by: QUENTIN ANNE on 05/11/18 142 Levetiracetam (Levetiracetam) 500 Mg Tablet, 500 MG PO BID, (Reported) Entered as Reported by: ACE MAE on 06/16/20 145 Mirtazapine (Mirtazapine) 30 Mg Tablet, 30 MG PO HS, (Reported) Entered as Reported by: ACE MAE on 06/16/20 145 Omeprazole/Sodium Bicarbonate (Omeprazole-Bicarb 40-1,100 Cap) 1 Each Capsule, 1 EA PO BID, (Reported) Entered as Reported by: ACE MAE on 06/16/20 145 Ondansetron (Ondansetron Odt) 4 Mg Tab.rapdis, 4 MG SL Q4H PRN for NAUSEA/VOMITING Prescribed by: DAVIDE GAFFNEY on 02/24/21 1207 Valsartan (Valsartan) 320 Mg Tablet, 320 MG PO HS, (Reported) Entered as Reported by: ACE MAE on 06/16/20 145 Venlafaxine HCl (Venlafaxine HCl ER) 150 Mg Cap.er.24h, 150 MG PO DAILY, (Reported) Entered as Reported by: ACE MAE on 06/16/20 145 Venlafaxine HCl (Venlafaxine HCl ER) 75 Mg Cap.er.24h, 75 MG PO DAILY, (Reported) Entered as Reported by: ACE MAE on 06/16/20 145 Zolpidem Tartrate (Zolpidem Tartrate ER) 12.5 Mg Tab.mphase, 12.5 MG PO HS, (Re ported) Entered as Reported by: ACE MAE on 06/16/20 145 Review of Systems Review of Systems Constitutional: see HPI EENTM: no symptoms reported Respiratory: no symptoms reported Musculoskeletal: no symptoms reported Skin: other (laceration) Past Ybargds-Dmfmhb-Cjnmho Hx Patient Social History Tobacco Use?: Yes Smoking Status: Current Everyday Smoker Substance use?: No Alcohol Use?: No Immunizations Up To Date Tetanus Booster (TDap): More than 5yrs PED Vaccines UTD: No First/Initial COVID19 Vaccinat: 2020 Second COVID19 Vaccination Johan: 2020 Third COVID19 Vaccination Date: 2020 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: JESUS Seasonal Allergies Seasonal Allergies: Yes Past Medical History Surgery/Hospitalization HX: DIABETIC, L2 FX, DEPRESSION Surgeries: Yes ("CYST FROM LOWER BACK";CHOLECYSTECTOMY 03/23/21) Eye Surgery, Gallbladder, Orthopedic Respiratory: No Currently Using CPAP: No Currently Using BIPAP: No Cardiac: Yes High Cholesterol, Hypertension Neurological: Yes Seizure Disorder Reproductive Disorders: No Genitourinary: No Gastrointestinal: Yes (FATTY LIVER DISEASE) Gastroesophageal Reflux, Liver Disease/Jaundice, Pancreatitis, Gall Bladder Disease Musculoskeletal: Yes (CHRONIC BACK PAIN WITH "CYST" ON LOWER BACK/"SPINE" ) Chronic Back Pain Endocrine: Yes Diabetes, Insulin dep HEENT: Yes (POOR DENTITION) Cataract Loss of Vision: Denies Hearing Impairment: Denies Cancer: No Psychosocial: Yes (Opioid/Suboxone dependency-ILLICIT USE-GETS "OFF THE STREET") Anxiety, Suicide Attempts, Bipolar, Depression Integumentary: No Blood Disorders: No Adverse Reaction/Blood Tranf: Yes Family Medical History Cancer 03 MOTHER Congestive heart failure 03 FATHER Family history: Hypertension 03 FATHER SOCIAL HISTORY: -ETOH--REGULAR/HEAVY USE -DRUGS--OPIATES, BENZODIAZEPINES, THC, SUBOXONE--GETS SUBOXONE "OFF THE STREET" -SMOKES 1 PPD PAST SURGICAL HISTORY: -EYE SURGERY / CATARACTS -LEFT UPPER ARM SURGERY -PILONIDAL CYST ? --"CYST FROM LOWER BACK REMOVED" -CHOLECYSTECTOMY 03/23/[address] NGUYEN Physical Exam Vital Signs Vital Signs - First Documented 01/09/22 14:09 Temp 36.9 Pulse 105 Resp 16 B/P (MAP) 116/79 (91) Pulse Ox 96 O2 Delivery Room Air Capillary Refill : Less Than 3 Seconds General Appearance: WD/WN, no apparent distress Cardiovascular: regular rate, rhythm Respiratory: no respiratory distress, no accessory muscle use Extremities: normal range of motion, non-tender, normal inspection, normal ca pillary refill Neurologic/Psychiatric: alert, normal mood/affect, oriented x 3 Skin: normal color, warm/dry, other (laceration through the tip of the left thumb medial aspect across the top and down through the finger nail. no active bleeding. all wound margins approximated.2 cm) Procedures/Interventions Wound Location: Upper Extremities Other Wound Location left thumb Wound Length (cm): 2 Wound's Depth, Shape: superficial, linear, sub Q Wound Explored: clean Irrigated w/ Saline (ccs): 250 Betadine Prep?: No Anesthesia: 1% Lidocaine (digital block) Volume Anesthetic (ccs): 4 Suture: Prolene Suture Size: 4-0 Number of Sutures: 3 Layer Closure?: 1 Sterile Dressing Applied?: Yes Patient's fingernail was well approximated and would not separate. Lac curvilinear over the tip of the thumb on the medial aspect. 3 superficial interrupted sutures placed on the medial side. Progress/Results/Core Measures Results/Orders My Orders Orders - KELLI BECKHAM MD Finger(S) (01/09/22 14:16) Dipht,Pertuss(Acell),Tet Adult (Boostrix (01/09/22 14:30) Medications Given in ED Vital Signs/I&O 01/09/22 01/09/22 14:09 16:15 Temp 36.9 Pulse 105 95 Resp 16 16 B/P (MAP) 116/79 (91) 120/80 Pulse Ox 96 97 O2 Delivery Room Air Room Air Blood Pressure Mean: 91 Progress Progress Note : Time: 14:29 Progress Note digital block performed with 1% plain lidocaine - total of 4cc Diagnostic Imaging Diagonstic Imaging: Xray Comments left thumb xray - no obvious fracture to the distal phalanx (interpreted by me) Departure Impression Primary Impression: Laceration of thumb Qualified Codes: S61.112A - Laceration without foreign body of left thumb with damage to nail, initial encounter Disposition: 01 HOME, SELF-CARE Condition: Stable Departure-Patient Inst. Decision time for Depature: 16:07 Referrals: ACE RODRIGUEZ DO (PCP/Family) Primary Care Physician Patient Instructions: Laceration Repair With Stitches ED Add. Discharge Instructions: Keep the dressing on for 24 hours - do not take it off until tomorrow. Then gently wash the area with a mild soap and water. apply a little triple antibiotic ointment twice a day for 3 days. Watch the area closely for signs of infection (increased swelling, redness, pain, warmth, streaking up the hand. If any of these develop, come back to the Emergency Department for re-evaluation. You can take tylenol or ibuprofen for pain. The stitches need to come out in 10 days. Copy Copies To 1: ACE RODRIGUEZ KATHRYN M MD Jan 09, 2022 14:30
--- NOTE | 2022-01-09 14:49 | Diagnostic Imaging Report ---
FINGER(S) INDICATION: Injury of the left thumb. COMPARISON: None available. TECHNIQUE: Three views of the left thumb. FINDINGS: No acute fracture within the thumb. The alignment is normal. No radiopaque foreign body. Remainder of the visualized osseous structures are unremarkable. IMPRESSION: No fracture or malalignment of the thumb. Dictated by: Dictated on workstation # [id number]
[2022-01-09 16:15] VITALS: BP 120/80
== END 2022-01-09 16:15 | disposition home or self-care (01) ==
LOC: EDUNIT# 13:55 → ER 13:57
DX: S61.112A Laceration without foreign body of left thumb with damage to nail, initial encounter (principal); F17.200 Nicotine dependence, unspecified, uncomplicated; Z23 Encounter for immunization; W26.8XXA Contact with other sharp object(s), not elsewhere classified, initial encounter
CPT/HCPCS: 12001; 73140; 90715

== ENCOUNTER 2022-01-20 09:16 | Emergency (ER) | payer MEDICARE ==
[2022-01-20 09:20] VITALS: BP 135/89
== END 2022-01-20 09:25 | disposition home or self-care (01) ==
LOC: EDUNIT# 09:16 → ER 09:17
DX: Z48.02 Encounter for removal of sutures (principal)

== ENCOUNTER 2022-04-02 14:23 | Emergency (ER) | payer MEDICARE, MEDICAID ==
[~2022-04-02] VITALS: Ht 167.7 cm; Wt 84.3 kg
[2022-04-02] MEDS ORDERED: KETOROLAC 30 MG/ML VIAL IM STA (14:51)
--- NOTE | 2022-04-02 14:51 | ED Back Pain ---
General Chief Complaint: Back Problems Stated Complaint: LOWER BACK AND ABD PAIN Nursing Triage Note: PT AMB TO [facility] 7 WITH COMPLAINT OF LOW BACK PAIN. STATES STARTED ON SATURDAY. WENT TO [facility] TODAY AND WAS TOLD HE HAD BLOOD IN HIS URINE. SENT OUT HERE FOR FURTHER WORKUP History of Present Illness Date Seen by Provider: Apr 02, 2022 Time Seen by Provider: 14:40 Initial Comments 47-year-old male reports that 3 days ago he started having some left flank pain that radiated down to his groin. He went to urgent care where he had blood in his urine and was told there was concern for a kidney stone so he was sent here for CT and further evaluation. He denies any fevers chills. He is mildly nauseous but no vomiting. Patient reports that the pain radiates into his left abdomin/groin. Allergies and Home Medications Allergies Coded Allergies: levofloxacin (Verified Adverse Reaction, Unknown, STOMACH CAMPS, 06/08/15) Patient Home Medication List Home Medication List Reviewed: Yes Acetaminophen (Tylenol Extra Strength) 500 Mg Tablet, 1,000 MG PO Q8H PRN for PAIN-MILD (1-4), (Reported) Entered as Reported by: ACE MAE on 06/16/20 1459 Diltiazem HCl (Diltiazem 24Hr ER) 240 Mg Cap.er.24h, 240 MG PO DAILY, (Reported) Entered as Reported by: ACE MAE on 06/16/20 1459 Docusate Sodium (Colace) 100 Mg Capsule, 100 MG PO BID Prescribed by: CHRIS NGUYEN on 03/23/21 1018 Empagliflozin (Jardiance) 10 Mg Tablet, 10 MG PO DAILY, (Reported) Entered as Reported by: ACE MAE on 06/16/20 1459 Fenofibrate Nanocrystallized (Fenofibrate) 145 Mg Tablet, 145 MG PO HS, (Reported) Entered as Reported by: ACE MAE on 06/16/20 1459 Hydrocodone/Acetaminophen (Hydrocodone-Acetamin 5-325 mg) 1 Each Tablet, 1 EACH PO Q4H PRN for PAIN-MODERATE (5-7) Prescribed by: CHRIS NGUYEN on 03/23/21 1018 Insulin Aspart (Novolog Flexpen) 300 Units/3 Ml Solution, UNIT SC AC, (Reported) Entered as Reported by: QUENTIN ANNE on 05/11/18 142 Insulin Glargine,Hum.rec.anlog (Basaglar Kwikpen U-100) 100 Unit/1 Ml Insuln.pen, 20 UNIT SC DAILY, (Reported) Entered as Reported by: QUENTIN ANNE on 05/11/18 142 Levetiracetam (Levetiracetam) 500 Mg Tablet, 500 MG PO BID, (Reported) Entered as Reported by: ACE MAE on 06/16/20 145 Mirtazapine (Mirtazapine) 30 Mg Tablet, 30 MG PO HS, (Reported) Entered as Reported by: ACE MAE on 06/16/20 145 Omeprazole/Sodium Bicarbonate (Omeprazole-Bicarb 40-1,100 Cap) 1 Each Capsule, 1 EA PO BID, (Reported) Entered as Reported by: ACE MAE on 06/16/201458 Ondansetron (Ondansetron Odt) 4 Mg Tab.rapdis, 4 MG SL Q4H PRN for NAUSEA/VOMITING Prescribed by: DAVIDE GAFFNEY on 02/24/21 1207 Valsartan (Valsartan) 320 Mg Tablet, 320 MG PO HS, (Reported) Entered as Reported by: ACE MAE on 06/16/20 145 Venlafaxine HCl (Venlafaxine HCl ER) 150 Mg Cap.er.24h, 150 MG PO DAILY, (Reported) Entered as Reported by: ACE MAE on 06/16/20 145 Venlafaxine HCl (Venlafaxine HCl ER) 75 Mg Cap.er.24h, 75 MG PO DAILY, (Rep orted) Entered as Reported by: ACE MAE on 06/16/20 145 Zolpidem Tartrate (Zolpidem Tartrate ER) 12.5 Mg Tab.mphase, 12.5 MG PO HS, (Reported) Entered as Reported by: ACE MAE on 06/16/201458 Review of Systems Constitutional: No chills, No fever, No weakness Respiratory: no symptoms reported Cardiovascular: no symptoms reported Gastrointestinal: abdominal pain (LLQ), nausea Genitourinary: see HPI, hematuria Musculoskeletal: see HPI Skin: no symptoms reported Psychiatric/Neurological: No Symptoms Reported Past Yiqvmyy-Ofmenp-Pzsjem Hx Patient Social History Tobacco Use?: Yes Tobacco type used: Cigarettes Smoking Status: Current Everyday Smoker Use of E-Cig and/or Vaping dev: No Substance use?: Yes Substance type: Marijuana Alcohol Use?: No Pt feels they are or have been: No Immunizations Up To Date Tetanus Booster (TDap): More than 5yrs PED Vaccines UTD: No First/Initial COVID19 Vaccinat: UNKNOWN Second COVID19 Vaccination Johan: UNKNOWN Third COVID19 Vaccination Date: UNKNOWN Seasonal Allergies Seasonal Allergies: Yes Past Medical History Surgery/Hospitalization HX: DIABETIC, L2 FX, DEPRESSION Surgeries: Yes ("CYST FROM LOWER BACK";CHOLECYSTECTOMY 03/23/21) Eye Surgery, Gallbladder, Orthopedic Respiratory: No Currently Using CPAP: No Currently Using BIPAP: No Cardiac: Yes High Cholesterol, Hypertension Neurological: Yes Seizure Disorder Reproductive Disorders: No Genitourinary: No Gastrointestinal: Yes (FATTY LIVER DISEASE) Gastroesophageal Reflux, Liver Disease/Jaundice, Pancreatitis, Gall Bladder Disease Musculoskeletal: Yes (CHRONIC BACK PAIN WITH "CYST" ON LOWER BACK/"SPINE" ) Chronic Back Pain Endocrine: Yes Diabetes, Insulin dep HEENT: Yes (POOR DENTITION) Cataract Loss of Vision: Denies Hearing Impairment: Denies Cancer: No Psychosocial: Yes (Opioid/Suboxone dependency-ILLICIT USE-GETS "OFF THE STREET") Anxiety, Suicide Attempts, Bipolar, Depression Integumentary: No Blood Disorders: No Adverse Reaction/Blood Tranf: Yes Family Medical History Cancer 03 MOTHER Congestive heart failure 03 FATHER Family history: Hypertension 03 FATHER SOCIAL HISTORY: -ETOH--REGULAR/HEAVY USE -DRUGS--OPIATES, BENZODIAZEPINES, THC, SUBOXONE--GETS SUBOXONE "OFF THE STREET" -SMOKES 1 PPD PAST SURGICAL HISTORY: -EYE SURGERY / CATARACTS -LEFT UPPER ARM SURGERY -PILONIDAL CYST ? --"CYST FROM LOWER BACK REMOVED" -CHOLECYSTECTOMY 03/23/[address] NGUYEN Physical Exam Vital Signs Vital Signs - First Documented 04/02/22 14:31 Temp 36.6 Pulse 116 Resp 20 B/P (MAP) 126/87 (100) Pulse Ox 98 O2 Delivery Room Air Capillary Refill : Less Than 3 Seconds Height, Weight, BMI Height: 5'7.00" Weight: 204lbs. 3.0oz. [id number]; 29.00 BMI Method:Stated General Appearance: No Apparent Distress, WD/WN Respiratory: Lungs Clear, Normal Breath Sounds Gastrointestinal: Soft, Tenderness (mild llq) Back: CVA Tenderness (L) (mild ) Extremity: Normal Capillary Refill, Normal Inspection, Normal Range of Motion, Non Tender Neurologic/Psychiatric: Alert, Oriented x3, No Motor/Sensory Deficits, Normal Mood/Affect Skin: Normal Color, Warm/Dry Procedures/Interventions Suture Size: 4-0 Progress/Results/Core Measures Results/Orders My Orders Orders - NIKIA CLARK L DO Ct Abd/Pelvis Wo(Kidney Stone) (04/02/22 14:42) Ketorolac Injection (Toradol Injection) (04/02/22 14:51) Vital Signs/I&O 04/02/22 14:31 Temp 36.6 Pulse 116 Resp 20 B/P (MAP) 126/87 (100) Pulse Ox 98 O2 Delivery Room Air Blood Pressure Mean: 100 Diagnostic Imaging Diagonstic Imaging: CT Plain Films/CT/US/NM/MRI: abdomen Comments Date of Exam:04/02/22 CT ABD/PELVIS WO(KIDNEY STONE) EXAMINATION: CT ABD/PELVIS WO(KIDNEY STONE). TECHNIQUE: Unenhanced CT imaging of the abdomen and pelvis was performed. 2-D reformats are created and submitted for interpretation. Automatic exposure controls were utilized to optimize patient dose. INDICATION: Left lower quadrant pain and hematuria. COMPARISON: CT abdomen/pelvis of 02/24/2021. FINDINGS: Lower chest: The lung bases are clear. No pericardial or pleural effusion. Peritoneum: No free intraperitoneal air or fluid. Liver and biliary system: Diffuse hypoattenuation of the liver suggests mild steatosis. No focal hepatic lesion by noncontrast imaging. Cholecystectomy. No biliary duct dilatation. Spleen and Pancreas: Spleen is normal. Unenhanced pancreas is grossly normal. Adrenals: Normal. tract: No renal or ureteral calculi. No obstructive uropathy. Prostate is not enlarged GI tract: Stomach is partially filled with fluid. No bowel obstruction. No pericolonic inflammatory changes. Normal appendix. Vasculature and Lymph nodes: Normal caliber aorta. No abdominal or pelvic lymphadenopathy. Musculoskeletal: There is a chronic appearing superior endplate burst fracture of L2 which has approximately 50% height loss anteriorly and buckling of the posterior cortex. There is sclerosis associated with the fracture indicating this is not acute in nature. No high-grade spinal canal stenosis from the retropulsion. IMPRESSION: 1. No urinary tract calculi or obstructive uropathy. 2. Chronic two column burst fracture of L2 has mild retropulsion of the posterior wall into the spinal canal but causes no more than mild spinal stenosis. 3. Diffuse hepatic steatosis. Reviewed: Reviewed by Me, Reviewed/Discussed Departure Impression Primary Impression: Hematuria Qualified Codes: R31.9 - Hematuria, unspecified Additional Impression: Left flank pain Disposition: HOME, SELF-CARE Condition: Stable Departure-Patient Inst. Referrals: ACE RODRIGUEZ DO (PCP/Family) Primary Care Physician Patient Instructions: Blood in the Urine (Hematuria), Adult (DC), Flank Pain (DC) Add. Discharge Instructions: Please follow-up with your primary care provider to have your urine rechecked to ensure that the blood clears. Tylenol ibuprofen as needed for discomfort. 4% topical lidocaine with menthol as instructed on package as needed. Follow-up with your primary care provider if symptoms continue to worsen. All discharge instructions reviewed with patient and/or family. Voiced understanding. NIKIA CLARK DO Apr 02, 2022 14:51
--- NOTE | 2022-04-02 15:17 | Diagnostic Imaging Report ---
EXAMINATION: CT ABD/PELVIS WO(KIDNEY STONE). TECHNIQUE: Unenhanced CT imaging of the abdomen and pelvis was performed. 2-D reformats are created and submitted for interpretation. Automatic exposure controls were utilized to optimize patient dose. INDICATION: Left lower quadrant pain and hematuria. COMPARISON: CT abdomen/pelvis of 02/24/2021. FINDINGS: Lower chest: The lung bases are clear. No pericardial or pleural effusion. Peritoneum: No free intraperitoneal air or fluid. Liver and biliary system: Diffuse hypoattenuation of the liver suggests mild steatosis. No focal hepatic lesion by noncontrast imaging. Cholecystectomy. No biliary duct dilatation. Spleen and Pancreas: Spleen is normal. Unenhanced pancreas is grossly normal. Adrenals: Normal. tract: No renal or ureteral calculi. No obstructive uropathy. Prostate is not enlarged GI tract: Stomach is partially filled with fluid. No bowel obstruction. No pericolonic inflammatory changes. Normal appendix. Vasculature and Lymph nodes: Normal caliber aorta. No abdominal or pelvic lymphadenopathy. Musculoskeletal: There is a chronic appearing superior endplate burst fracture of L2 which has approximately 50% height loss anteriorly and buckling of the posterior cortex. There is sclerosis associated with the fracture indicating this is not acute in nature. No high-grade spinal canal stenosis from the retropulsion. IMPRESSION: 1. No urinary tract calculi or obstructive uropathy. 2. Chronic two column burst fracture of L2 has mild retropulsion of the posterior wall into the spinal canal but causes no more than mild spinal stenosis. 3. Diffuse hepatic steatosis. Dictated by: Dictated on workstation # [id number]
[2022-04-02 15:38] VITALS: BP 120/84
== END 2022-04-02 15:39 | disposition home or self-care (01) ==
LOC: EDUNIT# 14:23 → ER 14:26
DX: R31.9 Hematuria, unspecified (principal); R10.32 Left lower quadrant pain; F17.210 Nicotine dependence, cigarettes, uncomplicated; E11.9 Type 2 diabetes mellitus without complications; Z79.4 Long term (current) use of insulin; Z87.19 Personal history of other diseases of the digestive system; Z90.49 Acquired absence of other specified parts of digestive tract
CPT/HCPCS: 74176

== ENCOUNTER 2022-04-30 20:48 | Emergency (ER) | payer MEDICARE, MEDICAID ==
[~2022-04-30] VITALS: Ht 167.7 cm; Wt 81.6 kg
[2022-04-30 21:03] VITALS: BP 184/107
[2022-04-30 21:38] LABS: BILIRUBIN,URINE NEGATIVE (NEGATIVE); CLARITY,URINE SL CLOUDY; COLOR,URINE YELLOW; GLUCOSE, URINE (UA) 2+ (NEGATIVE); KETONES,URINE NEGATIVE (NEGATIVE); LEUKOCYTE ESTERASE ,URINE NEGATIVE (NEGATIVE); NITRITE,URINE NEGATIVE (NEGATIVE); PH,URINE 6.5 (5-9); PROTEIN,URINE TRACE (NEGATIVE)
[2022-04-30 21:51] LABS: BASOPHILS # (AUTO) 0.1 10^3/uL (0.0-0.1); BASOPHILS % (AUTO) 0 % (0-10); EOSINOPHILS # (AUTO) 0.2 10^3/uL (0.0-0.3); EOSINOPHILS % (AUTO) 2 % (0-10); HEMATOCRIT 43 % (40-54); HEMOGLOBIN 15.4 g/dL (13.3-17.7); LYMPHOCYTES # (AUTO) 2.4 10^3/uL (1.0-4.0); LYMPHOCYTES % (AUTO) 21 % (12-44); MEAN CORPUSCULAR HEMOGLOBIN 31 pg (25-34); MEAN CORPUSCULAR HGB CONC 36 g/dL (32-36); MEAN CORPUSCULAR VOLUME 88 fL (80-99); MEAN PLATELET VOLUME 9.3 fL (9.0-12.2); MONOCYTES % (AUTO) 9 % (0-12); NEUTROPHILS # (AUTO) 7.7 10^3/uL (1.8-7.8); NEUTROPHILS % (AUTO) 68 % (42-75); PLATELET COUNT 181 10^3/uL (130-400); WHITE BLOOD COUNT 11.4 10^3/uL (4.3-11.0)
[2022-04-30 21:55] LABS: WBC,URINE 0-2 /HPF
[2022-04-30 21:56] LABS: AMORPHOUS SEDIMENT,UR LARGE AMOR URATES /LPF; BACTERIA,URINE TRACE /HPF; HYALINE CASTS, URINE 0-2 /LPF
[2022-04-30] MEDS ORDERED: fentaNYL INJ 100 MCG/2 ML AMP IVP STA (22:01)
--- NOTE | 2022-04-30 22:06 | ED Abdominal Pain ---
General Chief Complaint: Abdominal/GI Problems Stated Complaint: ABDOMINAL PAIN, VOMITING Nursing Triage Note: Pt presents with c/o abdominal pain that started saturday. Pt has had nausea and voming and hasn't slept due to LLQ pain keeping him awake. Pt has been able to keep some water down. Denies fever. Reports normal bowel movements. Source of Information: Patient Exam Limitations: No Limitations (KATE KIM APRN) History of Present Illness Date Seen by Provider: Apr 30, 2022 Time Seen by Provider: 21:51 Initial Comments 47-year-old male presents to the ED with complaints of left lower abdominal pain starting last Saturday. Reports he has vomited approximately 10-12 times a day since Saturday. Reports he has been unable to eat. Denies fevers, chest pain, shortness of air, diarrhea. Last bowel movement was this morning and normal. Denies dysuria. States he had blood in his urine about 3 weeks ago, unsure if he currently does. (KATE KIM APRN) Allergies and Home Medications Allergies Coded Allergies: levofloxacin (Verified Adverse Reaction, Unknown, STOMACH CAMPS, 06/08/15) Patient Home Medication List Home Medication List Reviewed: Yes (KATE KIM APRN) Acetaminophen (Tylenol Extra Strength) 500 Mg Tablet, 1,000 MG PO Q8H PRN for PAIN-MILD (1-4), (Reported) Entered as Reported by: ACE MAE on 06/16/20 1459 Diltiazem HCl (Diltiazem 24Hr ER) 240 Mg Cap.er.24h, 240 MG PO DAILY, (Reported) Entered as Reported by: ACE MAE on 06/16/20 1459 Docusate Sodium (Colace) 100 Mg Capsule, 100 MG PO BID Prescribed by: CHRIS NGUYEN on 03/23/21 1018 Empagliflozin (Jardiance) 10 Mg Tablet, 10 MG PO DAILY, (Reported) Entered as Reported by: ACE MAE on 06/16/20 1459 Fenofibrate Nanocrystallized (Fenofibrate) 145 Mg Tablet, 145 MG PO HS, (Reported) Entered as Reported by: ACE MAE on 06/16/20 1459 Hydrocodone/Acetaminophen (Hydrocodone-Acetamin 5-325 mg) 1 Each Tablet, 1 EACH PO Q4H PRN for PAIN-MODERATE (5-7) Prescribed by: CHRIS NGUYEN on 03/23/21 1018 Insulin Aspart (Novolog Flexpen) 300 Units/3 Ml Solution, UNIT SC AC, (Reported) Entered as Reported by: QUENTIN ANNE on 05/11/18 1420 Insulin Glargine,Hum.rec.anlog (Basaglar Kwikpen U-100) 100 Unit/1 Ml Insuln.pen, 20 UNIT SC DAILY, (Reported) Entered as Reported by: QUENTIN ANNE on 05/11/18 142 Levetiracetam (Levetiracetam) 500 Mg Tablet, 500 MG PO BID, (Reported) Entered as Reported by: ACE MAE on 06/16/20 145 Mirtazapine (Mirtazapine) 30 Mg Tablet, 30 MG PO HS, (Reported) Entered as Reported by: ACE MAE on 06/16/20 145 Omeprazole/Sodium Bicarbonate (Omeprazole-Bicarb 40-1,100 Cap) 1 Each Capsule, 1 EA PO BID, (Reported) Entered as Reported by: ACE MAE on 06/16/20 145 Ondansetron (Ondansetron Odt) 4 Mg Tab.rapdis, 4 MG SL Q4H PRN for NAUSEA/VOMITING Prescribed by: DAVIDE GAFFNEY on 02/24/21 1207 Valsartan (Valsartan) 320 Mg Tablet, 320 MG PO HS, (Reported) Entered as Reported by: ACE MAE on 06/16/20 145 Venlafaxine HCl (Venlafaxine HCl ER) 150 Mg Cap.er.24h, 150 MG PO DAILY, (R eported) Entered as Reported by: ACE MAE on 06/16/20 145 Venlafaxine HCl (Venlafaxine HCl ER) 75 Mg Cap.er.24h, 75 MG PO DAILY, (Reported) Entered as Reported by: ACE MAE on 06/16/20 145 Zolpidem Tartrate (Zolpidem Tartrate ER) 12.5 Mg Tab.mphase, 12.5 MG PO HS, (Reported) Entered as Reported by: ACE MAE on 06/16/20 145 Review of Systems Review of Systems Constitutional: see HPI (KATE KIM APRN) Past Szjfucn-Nmxeew-Lrgxje Hx Patient Social History Tobacco Use?: Yes Tobacco type used: Cigarettes Smoking Status: Current Everyday Smoker Use of E-Cig and/or Vaping dev: No Substance use?: Yes Substance type: Marijuana Substance frequency: Once in a while Alcohol Use?: No Pt feels they are or have been: No (KATE KIM APRN) Immunizations Up To Date Tetanus Booster (TDap): More than 5yrs PED Vaccines UTD: No Influenza Vaccine Up-to-Date: Yes; Up-to-Date First/Initial COVID19 Vaccinat: UNKNOWN Second COVID19 Vaccination Johan: UNKNOWN Third COVID19 Vaccination Date: UNKNOWN (KATE KIM APRN) Seasonal Allergies Seasonal Allergies: Yes (KATE KIM APRN) Past Medical History Surgery/Hospitalization HX: DIABETIC, L2 FX, DEPRESSION Surgeries: Yes ("CYST FROM LOWER BACK";CHOLECYSTECTOMY 03/23/21) Eye Surgery, Gallbladder, Orthopedic Respiratory: No Currently Using CPAP: No Currently Using BIPAP: No Cardiac: Yes High Cholesterol, Hypertension Neurological: Yes Seizure Disorder Reproductive Disorders: No Genitourinary: No Gastrointestinal: Yes (FATTY LIVER DISEASE) Gastroesophageal Reflux, Liver Disease/Jaundice, Pancreatitis, Gall Bladder Disease Musculoskeletal: Yes (CHRONIC BACK PAIN WITH "CYST" ON LOWER BACK/"SPINE" ) Chronic Back Pain Endocrine: Yes Diabetes, Non-Insulin dep HEENT: Yes (POOR DENTITION) Cataract Loss of Vision: Denies Hearing Impairment: Denies Cancer: No Psychosocial: Yes (Opioid/Suboxone dependency-ILLICIT USE-GETS "OFF THE STREET") Anxiety, Suicide Attempts, Bipolar, Depression Integumentary: No Blood Disorders: No Adverse Reaction/Blood Tranf: Yes (KATE KIM APRN) Family Medical History Cancer 03 MOTHER Congestive heart failure 03 FATHER Family history: Hypertension 03 FATHER SOCIAL HISTORY: -ETOH--REGULAR/HEAVY USE -DRUGS--OPIATES, BENZODIAZEPINES, THC, SUBOXONE--GETS SUBOXONE "OFF THE STREET" -SMOKES 1 PPD PAST SURGICAL HISTORY: -EYE SURGERY / CATARACTS -LEFT UPPER ARM SURGERY -PILONIDAL CYST ? --"CYST FROM LOWER BACK REMOVED" -CHOLECYSTECTOMY 03/23/[address] NGUYEN (KATE KIM APRN) Physical Exam Vital Signs Vital Signs - First Documented 04/30/22 21:03 Temp 37.1 Pulse 118 Resp 16 B/P (MAP) 184/107 (132) (DAVIDE ALANIS MD) Vital Signs Capillary Refill : Less Than 3 Seconds (KATE KIM APRN) Height/Weight/BMI Height: 5'7.00" Weight: 204lbs. 3.0oz. 92.384234ud; 29.00 BMI Method:Stated General Appearance: WD/WN, no apparent distress Neck: supple, normal inspection Respiratory: lungs clear, normal breath sounds, no respiratory distress, no accessory muscle use Cardiovascular: regular rate, rhythm, no edema, no gallop, no JVD, no murmur Gastrointestinal: normal bowel sounds, soft, guarding, tenderness (Left lower quadrant); No hernia Extremities: normal range of motion, normal inspection Male: no hernia Neurologic/Psychiatric: alert, normal mood/affect Skin: normal color, warm/dry (KATE KIM APRN) Procedures/Interventions Suture Size: 4-0 (KATE KIM APRN) Progress/Results/Core Measures Results/Orders Lab Results Laboratory Tests Test 04/30/22 21:32 04/30/22 21:41 Range/Units Urine Color YELLOW Urine Clarity SL CLOUDY Urine pH 6.5 5-9 Urine Specific [place] 1.015 L 1.016-1.022 Urine Protein TRACE H NEGATIVE Urine Glucose (UA) 2+ H NEGATIVE Urine Ketones NEGATIVE NEGATIVE Urine Nitrite NEGATIVE NEGATIVE Urine Bilirubin NEGATIVE NEGATIVE Urine Urobilinogen 0.2 < = 1.0 MG/DL Urine Leukocyte Esterase NEGATIVE NEGATIVE Urine RBC (Auto) NEGATIVE NEGATIVE Urine RBC NONE /HPF Urine WBC 0-2 /HPF Urine Squamous Epithelial Cells 5-10 /HPF Urine Crystals PRESENT H /LPF Urine Amorphous Sediment LARGE DIYA URATES H /LPF Urine Bacteria TRACE /HPF Urine Casts PRESENT /LPF Urine Hyaline Casts 0-2 H /LPF Urine Mucus N /LPF Urine Culture Indicated NO White Blood Count 11.4 H 4.3-11.0 10^3/uL Red Blood Count 4.92 4.30-5.52 10^6/uL Hemoglobin 15.4 13.3-17.7 g/dL Hematocrit 43 40-54 % Mean Corpuscular Volume 88 80-99 fL Mean Corpuscular Hemoglobin 31 25-34 pg Mean Corpuscular Hemoglobin Concent 36 32-36 g/dL Red Cell Distribution Width 12.7 10.0-14.5 % Platelet Count 181 130-400 10^3/uL Mean Platelet Volume 9.3 9.0-12.2 fL Immature Granulocyte % (Auto) 1 % Neutrophils (%) (Auto) 68 42-75 % Lymphocytes (%) (Auto) 21 12-44 % Monocytes (%) (Auto) 9 0-12 % Eosinophils (%) (Auto) 2 0-10 % Basophils (%) (Auto) 0 0-10 % Neutrophils # (Auto) 7.7 1.8-7.8 10^3/uL Lymphocytes # (Auto) 2.4 1.0-4.0 10^3/uL Monocytes # (Auto) 1.0 0.0-1.0 10^3/uL Eosinophils # (Auto) 0.2 0.0-0.3 10^3/uL Basophils # (Auto) 0.1 0.0-0.1 10^3/uL Immature Granulocyte # (Auto) 0.1 0.0-0.1 10^3/uL Sodium Level 139 135-145 MMOL/L Potassium Level 3.7 3.6-5.0 MMOL/L Chloride Level 105 98-107 MMOL/L Carbon Dioxide Level 22 21-32 MMOL/L Anion Gap 12 5-14 MMOL/L Blood Urea Nitrogen 13 7-18 MG/DL Creatinine 0.97 0.60-1.30 MG/DL Estimat Glomerular Filtration Rate 96 BUN/Creatinine Ratio 13 Glucose Level 159 H 70-105 MG/DL Calcium Level 9.2 8.5-10.1 MG/DL Corrected Calcium 9.2 8.5-10.1 MG/DL Total Bilirubin 0.4 0.1-1.0 MG/DL Aspartate Amino Transf (AST/SGOT) 17 5-34 U/L Alanine Aminotransferase (ALT/SGPT) 28 0-55 U/L Alkaline Phosphatase 125 40-136 U/L C-Reactive Protein High Sensitivity 0.09 0.00-0.50 MG/DL Total Protein 6.6 6.4-8.2 GM/DL Albumin 4.0 3.2-4.5 GM/DL (DAVIDE ALANIS MD) My Orders Orders - DAVIDE ALANIS MD Cbc With Automated Diff (04/30/22 21:23) Comprehensive Metabolic Panel (04/30/22 21:23) Hs C Reactive Protein (04/30/22 21:23) Ua Culture If Indicated (04/30/22 21:23) Iohexol Injection (Omnipaque 350 Mg/Ml 1 (04/30/22 22:45) Received Contrast (Hold Metformin- Contr (04/30/22 22:45) Ns (Ivpb) (Sodium Chloride 0.9% Ivpb Bag (04/30/22 22:45) (DAVIDE ALANIS MD) Medications Given in ED Current Medications Medications Dose Ordered Sig/Attila Route Start Time Stop Time Status Last Admin Dose Admin Iohexol 100 ml ONCE ONCE IV 04/30/22 22:45 04/30/22 22:47 DC 04/30/22 22:42 80 ML Ondansetron HCl 4 mg ONCE ONCE IVP 04/30/22 22:15 04/30/22 22:16 DC 04/30/22 22:17 4 MG Sodium Chloride 100 ml ONCE ONCE IV 04/30/22 22:45 04/30/22 22:47 DC 04/30/22 22:42 80 ML (DAVIDE ALANIS MD) Vital Signs/I&O 04/30/22 21:03 Temp 37.1 Pulse 118 Resp 16 B/P (MAP) 184/107 (132) 05/01/22 00:00 Intake Total 1000 ml Balance 1000 ml (DAVIDE ALANIS MD) Blood Pressure Mean: 132 Progress Progress Note : Progress Note Patient seen and evaluated, resting in bed, no acute distress. Work-up in itiated including CBC, CMP, CRP, UA, CT abdomen pelvis. IV fluids and fentanyl ordered. 2328 Labs reviewed by me. CBC shows slightly elevated RBC 11.4. CMP shows normal sodium 139, normal potassium at 3.7, glucose elevated 159, creatinine normal 0.97. UA shows 2+ glucose. Negative for infection. Waiting for CT result. (KATE KIM APRN) Progress Note : Time: 00:17 Progress Note Care of this patient was assumed from Kate Kim at conclusion of her shift. Report was received. Labs have been reviewed and were relatively unremarkable. [facility] CT report revealed no acute abnormalities. Patient walked out of the emergency room prior to being discharged. He did not receive any further medications or discharge instructions. (DAVIDE ALANIS MD) Diagnostic Imaging Diagonstic Imaging: CT Plain Films/CT/US/NM/MRI: abdomen, pelvis Comments [facility], [place] NAME: LIONEL MIRANDA [facility] REC#: [id number] PT STATUS: DEP ER : 1975 PHYSICIAN: KATE KIM APRN ADMIT DATE: 04/30/22/ER Signed Date of Exam:04/30/22 CT ABDOMEN/PELVIS W PROCEDURE: CT abdomen and pelvis with contrast. TECHNIQUE: Multiple contiguous axial images were obtained through the abdomen and pelvis after administration of intravenous contrast. Auto Exposure Controls were utilized during the CT exam to meet ALARA standards for radiation dose reduction. All CT scans use one or more of the following dose optimizing techniques: automated exposure control, MA and/or KvP adjustment based on patient size and exam type or iterative reconstruction. INDICATION: Left lower quadrant abdominal pain COMPARISON: 04/02/2022 There is no focal hepatic, pancreatic, adrenal gland or splenic abnormality. Gallbladder surgically absent. Kidneys are unremarkable. There is no free fluid in the abdomen or pelvis. Small umbilical hernia containing fat is again noted. There is no bowel hernia or obstruction. Unopacified bladder is unremarkable in appearance. Non-acute compression fracture deformity at L2 has a stable overall appearance. IMPRESSION: No evidence of acute abnormality in the abdomen or pelvis. No adverse change is seen. Dictated by: Dictated on workstation # [id number] Dict: 05/01/22 0754 Trans: 05/01/22 1119 [facility] [id number] Interpreted by: GLORIA WITT MD Electronically signed by: GLORIA WITT MD 05/01/22 1119 (KATE KIM APRN) Departure Impression Primary Impression: Abdominal pain Additional Impression: Nausea and vomiting Disposition: AGAINST MEDICAL ADVICE Condition: Against Medical Advice Departure-Patient Inst. Referrals: ACE RODRIGUEZ DO (PCP/Family) Primary Care Physician ATTENDING PHYSICIAN NOTE: I was physically present as attending physician in the emergency department during the care of this patient. Care of the patient was checked out to me at the conclusion of Kate Kim shift. I reviewed results of the CT scan. I prepared to discharge the patient and found that he had walked out of the hospital AGAINST MEDICAL ADVICE. I did not personally examine or interview the patient. I was not otherwise directly involved in the decision making or delivery of care for this patient. (DAVIDE ALANIS MD) KATE KIM APRN Apr 30, 2022 22:06 DAVIDE ALANIS MD May 01, 2022 00:18
[2022-04-30 22:11] LABS: BILIRUBIN,TOTAL 0.4 MG/DL (0.1-1.0); CALCIUM 9.2 MG/DL (8.5-10.1); CREATININE SERUM 0.97 MG/DL (0.60-1.30); POTASSIUM 3.7 MMOL/L (3.6-5.0); TOTAL PROTEIN 6.6 GM/DL (6.4-8.2)
[2022-04-30] MEDS ORDERED: ONDANSETRON 4 MG/2 ML (SDV) Z0FRAN IVP ONE (22:15)
[2022-04-30] MEDS ORDERED: NS IV 1000 ML 1,000 ML IV SCH (22:15)
[2022-04-30] MEDS ORDERED: NS 100 ML (IVPB) BAG IV ONE (22:45)
[2022-04-30] MEDS ORDERED: HOLD METFORMIN - RECEIVED CONTRAST 20 ML VIAL IV SCH (22:45)
[2022-04-30] MEDS ORDERED: IOHEXOL 350 MG/ML 100 ML (OMNIPAQUE 350) VIAL IV ONE (22:45)
--- NOTE | 2022-05-01 08:04 | Diagnostic Imaging Report ---
PROCEDURE: CT abdomen and pelvis with contrast. TECHNIQUE: Multiple contiguous axial images were obtained through the abdomen and pelvis after administration of intravenous contrast. Auto Exposure Controls were utilized during the CT exam to meet ALARA standards for radiation dose reduction. All CT scans use one or more of the following dose optimizing techniques: automated exposure control, MA and/or KvP adjustment based on patient size and exam type or iterative reconstruction. INDICATION: Left lower quadrant abdominal pain COMPARISON: 04/02/2022 There is no focal hepatic, pancreatic, adrenal gland or splenic abnormality. Gallbladder surgically absent. Kidneys are unremarkable. There is no free fluid in the abdomen or pelvis. Small umbilical hernia containing fat is again noted. There is no bowel hernia or obstruction. Unopacified bladder is unremarkable in appearance. Non-acute compression fracture deformity at L2 has a stable overall appearance. IMPRESSION: No evidence of acute abnormality in the abdomen or pelvis. No adverse change is seen. Dictated by: Dictated on workstation # [id number]
== END 2022-05-01 00:13 | disposition left against medical advice (07) ==
LOC: EDUNIT# 20:48 → ER 20:49
DX: R10.32 Left lower quadrant pain (principal); R11.2 Nausea with vomiting, unspecified; R71.8 Other abnormality of red blood cells; F17.210 Nicotine dependence, cigarettes, uncomplicated; Z90.49 Acquired absence of other specified parts of digestive tract
CPT/HCPCS: 36415; 74177; 80053; 81000; 85025; 86141